=== PATIENT | female | born 1950 | race Caucasian/White ===

== ENCOUNTER 2022-08-29 14:38 | Emergency (ER) | payer MEDICARE, OTHER, SELFPAY | END 2022-08-29 15:36 | disposition left against medical advice (07) | PROVIDERS: PCP Family Medicine | DX: Z53.21 Procedure and treatment not carried out due to patient leaving prior to being seen by health care provider (principal) | CPT/HCPCS: 99281 ==

== ENCOUNTER 2022-12-19 07:58 | Inpatient (IN) | payer MEDICARE, OTHER, MEDICAID, SELFPAY ==
[2022-12-19] VITALS (49 sets, daily range): BP systolic 110–200; BP diastolic 61–105; PULSE 52–84; RESP 16–20; TEMP 36.6–37.3; O2SAT 90–95; BMI 24.7
--- NOTE | 2022-12-19 08:32 | ED.GENADULT ---
HPI - General Adult General Time Seen by Provider: 08:32 Date Seen: 12/19/22 Chief complaint: Dental/Oral/Mouth Injury/Pain Stated complaint: swollen right side of face Time Seen by Provider: 12/19/22 08:27 History of Present Illness HPI narrative: Dee Dee is a 72-year-old female past medical history includes smoking, hypertension, depression presents emergency department via private car with facial swelling patient states that on 12/03 she had teeth removed in anticipation of dentures being placed, she had the bottom once removed last September, a couple days later she sustain a fracture to the right cheek bone area after a fall, there was some swelling yesterday but progressively got worse today, she is scheduled to see her primary care provider at the [facility] today at 9:45 a.m.. Patient went to see ENT on 12/11, she was placed on antibiotics which is cefdinir with concerns with abscesses present, she was seen by Dr. Espinosa and yesterday and everything appeared to be well. She woke up this morning with significantly more pain and swelling to her right facial area, she has not any anticoagulation, she denies any fevers or chills, patient is able to open and close her mouth, area is tender, no erythema or warmth, denies any headache, neck pain, nausea vomiting. No other concerns at this time. Related Data Home Medications Medication Instructions Recorded Confirmed albuterol sulfate 90 mcg/actuation 2 puff inhalation Q4H PRN 08/30/22 12/19/22 aerosol inhaler atorvastatin 40 mg tablet 40 mg PO DAILY 08/30/22 12/19/22 diltiazem HCl 360 mg 360 mg PO DAILY 08/30/22 12/19/22 capsule,extended release 24 hr metoprolol succinate 50 mg 50 mg PO DAILY 08/30/22 12/19/22 tablet,extended release 24 hr nitroglycerin 0.4 mg sublingual 0.4 mg sublingual Q5M PRN 08/30/22 12/19/22 tablet sertraline 100 mg tablet 150 mg PO DAILY 08/30/22 12/19/22 tiotropium bromide 2.5 2 inh inhalation DAILY 08/30/22 12/19/22 mcg/actuation mist for inhalation (Spiriva Respimat) acetaminophen 325 mg tablet (Aphen) 650 mg PO QID PRN 12/19/22 12/19/22 cefdinir 300 mg capsule 300 mg PO BID 12/19/22 12/19/22 cholecalciferol (vitamin D3) 50 50 mcg PO DAILY 12/19/22 12/19/22 mcg (2,000 unit) capsule famotidine 20 mg tablet (Pepcid) 20 mg PO DAILY PRN 12/19/22 12/19/22 lisinopril 20 mg tablet 20 mg PO DAILY 12/19/22 12/19/22 Allergies Allergy/AdvReac Type Severity Reaction Status Date / Time codeine Allergy Mild Hives Verified 12/19/22 08:10 Iodinated Contrast Media Allergy Mild Fever Verified 12/19/22 10:25 Penicillins Allergy Mild Hives Verified 12/19/22 08:10 Review of Systems Status of ROS: Reports: 10 or more systems reviewed and unremarkable except as noted in History and below PFSH PFSH Medical History Adrenal adenoma Brain abscess Cholesteatoma COPD (chronic obstructive pulmonary disease) Depression Diverticulosis Gastroesophageal reflux History of paroxysmal supraventricular tachycardia Hyperlipidemia Hypertension Hypoxia Inguinal hernia Internal hemorrhoids Mastoiditis of right side Prolonged QT interval Smoking Surgical History (Updated 12/19/22 @ 15:54 by Sarabjit Macedo MD) History of appendectomy History of bilateral hip arthroplasty History of colonoscopy History of hysterectomy History of inguinal hernia repair History of right knee joint replacement History of right mastoidectomy History of tonsillectomy and adenoidectomy History of tubal ligation Status post craniotomy Family History (Updated 12/19/22 @ 15:55 by Sarabjit Macedo MD) Sister Breast cancer Pancreatic cancer Lung cancer Father Lung cancer Social History (Updated 12/19/22 @ 15:56 by Sarabjit Macedo MD) Narrative: She lives alone at the [facility]. Either her son Alvarez or daughter Cecily are healthcare power of safety and occupational health manager. Code status is full. She is a current smoker. She drinks alcohol 2 or 3 times per year. Smoking Status: Current every day smoker What tobacco products do you use: cigarettes Smoking packs per day: 0.5 Smoking cigarettes per day: 10.0 Do you use any of these nicotine containing products: None Second hand tobacco smoke exposure: Yes How often do you have a drink containing alcohol: never AUDIT-C Alcohol total score: 0 Non-prescribed substance use: denies use service: No Exam Narrative: Exam Narrative: General: No obvious distress sitting comfortably, nontoxic in appearance HEENT: Significant swelling, involving the lower inferior orbital area, and maxillary sinus area. tender to palpation, there is no induration but has fluctuance, no erythema or warmth. Patient can actively open and close her mouth. No trismus. No appreciable gum swelling. Neck: Supple full range of motion Heart: Normal sinus rhythm S1-S2 Abdomen: Soft nontender Neuro: Alert awake and oriented x3 Const: Vital Signs, click to edit/add: Vital Signs - 24 hr 12/19/22 11:09 12/19/22 11:09 12/19/22 11:11 Temperature 98.3 F Pulse Rate 55 L 57 L Pulse Rate [Pulse Oximeter] 55 L Pulse Rate [Right Radial] Respiratory Rate 18 Blood Pressure 143/74 H Blood Pressure [Ri ght Arm] Blood Pressure [Ri ght Upper Arm] 143/74 H Pulse Oximetry 93 93 94 Oxygen Delivery Me thod Room Air Oxygen Flow Rate 12/19/22 11:15 12/19/22 11:30 12/19/22 11:45 Temperature Pulse Rate 55 L 55 L 57 L Pulse Rate [Pulse Oximeter] Pulse Rate [Right Radial] Respiratory Rate Blood Pressure Blood Pressure [Ri ght Arm] Blood Pressure [Ri ght Upper Arm] Pulse Oximetry 92 94 92 Oxygen Delivery Me thod Oxygen Flow Rate 12/19/22 13:04 12/19/22 13:09 12/19/22 13:14 Temperature 99.2 F Pulse Rate 61 64 62 Pulse Rate [Pulse Oximeter] Pulse Rate [Right Radial] Respiratory Rate 16 16 16 Blood Pressure 198/104 H 200/105 H 179/88 H Blood Pressure [Ri ght Arm] Blood Pressure [Ri ght Upper Arm] Pulse Oximetry 91 93 93 Oxygen Delivery Me thod OxyMask Nasal Cannula Nasal Cannula Oxygen Flow Rate 10 4 4 12/19/22 13:19 12/19/22 13:24 12/19/22 13:29 Temperature Pulse Rate 60 62 63 Pulse Rate [Pulse Oximeter] Pulse Rate [Right Radial] Respiratory Rate 16 16 16 Blood Pressure 177/89 H 181/87 H 172/89 H Blood Pressure [Ri ght Arm] Blood Pressure [Ri ght Upper Arm] Pulse Oximetry 93 93 93 Oxygen Delivery Me thod Nasal Cannula Nasal Cannula Nasal Cannula Oxygen Flow Rate 4 4 4 12/19/22 13:45 12/19/22 13:50 12/19/22 13:35 Temperature Pulse Rate 62 62 63 Pulse Rate [Pulse Oximeter] Pulse Rate [Right Radial] Respiratory Rate 16 16 16 Blood Pressure 163/79 H 165/80 H 166/82 H Blood Pressure [Ri ght Arm] Blood Pressure [Ri ght Upper Arm] Pulse Oximetry 93 94 93 Oxygen Delivery Me thod Nasal Cannula Nasal Cannula Nasal Cannula Oxygen Flow Rate 2 2 4 12/19/22 13:40 12/19/22 13:55 12/19/22 14:00 Temperature Pulse Rate 61 60 60 Pulse Rate [Pulse Oximeter] Pulse Rate [Right Radial] Respiratory Rate 16 16 16 Blood Pressure 164/83 H 148/73 H 146/75 H Blood Pressure [Ri ght Arm] Blood Pressure [Ri ght Upper Arm] Pulse Oximetry 93 93 92 Oxygen Delivery Me thod Nasal Cannula Nasal Cannula Nasal Cannula Oxygen Flow Rate 4 2 2 12/19/22 14:05 12/19/22 14:10 12/19/22 14:15 Temperature Pulse Rate 60 61 62 Pulse Rate [Pulse Oximeter] Pulse Rate [Right Radial] Respiratory Rate 16 16 16 Blood Pressure 142/72 H 142/73 H 117/95 H Blood Pressure [Ri ght Arm] Blood Pressure [Ri ght Upper Arm] Pulse Oximetry 91 91 92 Oxygen Delivery Me thod Nasal Cannula Nasal Cannula Nasal Cannula Oxygen Flow Rate 2 2 2 12/19/22 14:28 12/19/22 14:45 12/19/22 15:00 Temperature Pulse Rate 65 Pulse Rate [Pulse Oximeter] Pulse Rate [Right Radial] 64 63 Respiratory Rate 20 20 18 Blood Pressure Blood Pressure [Ri ght Arm] 134/73 157/89 H 142/84 H Blood Pressure [Ri ght Upper Arm] Pulse Oximetry 90 91 Oxygen Delivery Me thod Nasal Cannula Nasal Cannula Nasal Cannula Oxygen Flow Rate 2 2 2 Course Course Hospital Course: 9:00 AM: AIDET peformed. Workup will include CBC, CRP, CMP, will obtain CT facial bones without contrast due to her allergies to contrast, patient does not want anything for pain at this time. Reevaluation(s) Reevaluation #1: Patient was updated on her CT facial bones without contrast results, extensive soft tissue swelling and inflammation involving the right cheek/pre maxillary/preseptal region. There associated suspected heterogeneous fluid, measuring 2.6 x 4.8 cm. Any this there is pre maxillary soft tissue thickening/fluid with dental periapical lucencies with suspected cortical disruption. Findings are concerning for right facial cellulitis with abscess and possible subperiosteal abscess which may be right maxillary odontogenic in origin. CBC shows mild leukocytosis with a left shift, CRP mildly elevated at 1.3, blood cultures were obtained, she will be given clindamycin 600 mg IV based on her penicillin allergy, did reach out to Dr. Marcelino ENT, he recommended to reach out to maxillofacial, currently at this time there are no beds at [facility], [facility], and [place]. Time: 10:59 Reevaluation #2: Spoke with Dr. Chari LANZA, his recommendation was to take patient to ambulatory surgery for incision and drainage, he will come to the emergency department to see the patient. Patient and family were updated. Time: 11:30 Reevaluation #3: Patient discharged to Ambulatory surgery, Dr. Macedo hospitalist on-call was updated on admission for observation, all questions answered. [facility] Vital Signs Vital signs: Initial Vital Signs Temperature 99.0 F 12/19/22 08:14 Temperature Source Temporal Artery Scan 12/19/22 08:14 Pulse Rate 58 L 12/19/22 08:14 Pulse Rhythm 12/19/22 08:14 Pulse Strength 3+ Normal 12/19/22 08:14 Respiratory Rate 16 12/19/22 08:14 Blood Pressure 143/84 H 12/19/22 08:14 Blood Pressure Mean 103 12/19/22 08:14 Blood Pressure Position Sitting 12/19/22 08:14 Pulse Oximetry 94 12/19/22 08:14 Oxygen Delivery Method 12/19/22 08:14 Vital Signs Temperature 99.0 F 12/19/22 08:14 Pulse Rate 58 L 12/19/22 08:14 Respiratory Rate 16 12/19/22 08:14 Blood Pressure 143/84 H 12/19/22 08:14 Pulse Oximetry 94 12/19/22 08:14 Oxygen Delivery Method 12/19/22 08:14 Temperature 97.8 F 12/20/22 09:00 Pulse Rate 74 12/20/22 09:00 Respiratory Rate 18 12/20/22 09:00 Blood Pressure 115/68 12/20/22 09:00 Pulse Oximetry 93 12/20/22 09:00 Oxygen Delivery Method 12/20/22 09:00 Oxygen Flow Rate 1 12/20/22 09:00 Medical Decision Making Lab Data Labs: Lab Results 12/19/22 12/19/22 12/19/22 Range/Units 09:20 09:20 11:40 WBC 11.39 H (4.50-11.00) K/uL RBC 5.07 (4.00-5.20) m/uL Hgb 14.6 (12.0-16.0) gm/dL Hct 44.1 (33.0-51.0) % MCV 87 (80-100) fL MCH 29 (26-34) pg MCHC 33 (32-36) gm/dL RDW Coeff of Luiz 14.0 (11.5-15.5) % Plt Count 304 (140-440) K/uL Neut % (Auto) 81.9 H (42.0-72.0) % Lymph % (Auto) 11.6 L (20-44) % [place] % (Auto) 5.1 (0.0-11.0) % Eos % (Auto) 0.5 (0.0-7.0) % Baso % (Auto) 0.4 (0.0-3.0) % Neut # (Auto) 9.30 H (1.7-7.0) K/uL Lymph # (Auto) 1.30 (0.90-2.90) K/uL [place] # (Auto) 0.60 (0.00-0.90) K/UL Eos # (Auto) 0.10 (0.00-0.50) K/uL Baso # (Auto) 0.00 (0.00-0.30) K/uL Sodium 136 (135-149) mmol/L Potassium 4.0 (3.6-5.1) mmol/L Chloride 105 (96-114) mmol/L Carbon Dioxide 27 (20-32) mmol/L BUN 13 (7-30) mg/dL Creatinine 0.6 (0.5-1.5) mg/dL Estimated Creat Clear 46.20 Estimated GFR 94 ml/min Glucose 97 (60-115) mg/dL Calcium 8.6 (8.4-10.6) mg/dL Total Bilirubin 0.6 (0.1-1.5) mg/dL AST 27 (12-35) U/L ALT 25 (4-35) U/L Alkaline Phosphatase 66 (40-150) U/L C-Reactive Protein 1.3 H (0.5-1.0) mg/dL Total Protein 6.4 (6.0-8.3) g/dL Albumin 3.8 (3.3-5.0) g/dL SARS-CoV-2 (PCR) Negative SARS-CoV-2 (Negative) Discharge Plan Discharge Clinical Impression: Cellulitis and abscess of face
--- NOTE | 2022-12-19 08:44 | CRLHL7_ITS ---
For Patients: As a result of the Century Cures Act, medical imaging exams and procedure reports are released immediately into your electronic medical record. You may view this report before your referring provider. If you have questions, please contact your health care provider. INDICATION: RIGHT FACIAL SWELLING, HX FRACTURE AND INFECTION, ABSCESS TECHNIQUE: CT maxillofacial without contrast. COMPARISON: None. FINDINGS: Soft tissues: Extensive soft tissue swelling and inflammation involving the right cheek/premaxillary/paraseptal region. There are associated suspected heterogenous fluid, measuring 2.6 x 4.8 cm. Beneath this there is pre maxillary soft tissue thickening/fluid with dental periapical lucencies with suspected cortical disruption on series 3, image 61). The patient appears edentulous with numerous periapical lucencies. Facial bones: There is no evidence of acute facial fracture. There is postoperative changes of the right temporal bone and mastoids. Soft tissue density extends into the residual mastoid cavity as well as the middle ear. The suboptimally characterized on the CT face. Orbits and globes: Unremarkable. Globes are intact. No sign of intraorbital hemorrhage or emphysema. Sinuses: No acute or significant findings. IMPRESSION: Extensive soft tissue swelling and inflammation involving the right cheek/premaxillary/preseptal region. There are associated suspected heterogenous fluid, measuring 2.6 x 4.8 cm. Beneath this there is pre maxillary soft tissue thickening/fluid with dental periapical lucencies with suspected cortical disruption on series 3, image 61). The patient appears edentulous with numerous periapical lucencies. Overall, findings are concerning for right facial cellulitis with abscess and possible subperiosteal abscess which may be right maxillary odontogenic in origin. However, this is incompletely suboptimally evaluated due to lack of IV contrast. Traumatic soft tissue contusion and hematoma could have a similar appearance although this is felt less likely. Recommend clinical correlation and consider repeat imaging with IV contrast if clinically indicated. Sequela of prior right temporal mastoid trauma and surgery is partially characterized. Please note that all CT scans at this facility use dose modulation, iterative reconstruction, and/or weight-based dosing when appropriate to reduce radiation dose to as low as reasonably achievable. Dictated by Russ Guallpa MD @ 12/19/2022 9:56:12 AM (Electronically Signed)
[2022-12-19 09:28] LABS: Basophils Percent Auto 0.4 % (0.0-3.0); Eosinophils Percent Auto 0.5 % (0.0-7.0); Hematocrit 44.1 % (33.0-51.0); Hemoglobin* 14.6 gm/dL (12.0-16.0); Immature Granulocytes Pct Auto 0.5 %; Lymphocytes Percent Auto 11.6 % (20-44); Mean Corpuscular HGB Conc 33 gm/dL (32-36); Mean Corpuscular Hemoglobin 29 pg (26-34); Mean Corpuscular Volume 87 fL (80-100); Monocytes Percent Auto 5.1 % (0.0-11.0); Neutrophils Percent Auto 81.9 % (42.0-72.0); Platelet Count* 304 K/uL (140-440); Red Blood Count 5.07 m/uL (4.00-5.20); White Blood Count* 11.39 K/uL (4.50-11.00)
[2022-12-19 09:40] LABS: Slide Review Reflex No
[2022-12-19 09:44] LABS: Chloride* 105 mmol/L (96-114)
[2022-12-19 09:45] LABS: Albumin* 3.8 g/dL (3.3-5.0); Sodium* 136 mmol/L (135-149)
[2022-12-19 09:47] LABS: Creatinine* 0.6 mg/dL (0.5-1.5); Estimated Glomerular Filt Rate 94 ml/min
[2022-12-19 09:48] LABS: Alanine Aminotransferase* 25 U/L (4-35); Alkaline Phosphatase* 66 U/L (40-150); Aspartate Amino Transferase* 27 U/L (12-35); Bilirubin Total* 0.6 mg/dL (0.1-1.5); Blood Urea Nitrogen* 13 mg/dL (7-30); Carbon Dioxide* 27 mmol/L (20-32); Glucose* 97 mg/dL (60-115); Total Protein* 6.4 g/dL (6.0-8.3)
[2022-12-19 09:49] LABS: Calcium* 8.6 mg/dL (8.4-10.6)
[2022-12-19 09:51] LABS: C Reactive Protein* 1.3 mg/dL (0.5-1.0)
[2022-12-19] MEDS: CLINDAMYCIN PHOSPHATE/D5W 600 MG/50 ML PIGGYBACK IVPB (11:01)
[2022-12-19] MEDS: fentaNYL 100 MCG/2 ML inj 12.5 MCG IVP (11:05)
[2022-12-19 12:23] LABS: SARS PCR* Negative SARS-CoV-2 (Negative)
--- NOTE | 2022-12-19 12:30 | ED.NURSE ---
Pt to OR.
[2022-12-19] MEDS: BUPIVACAINE 0.25 %/EPI 1:200K 30 ml INJECTION (12:55)
[2022-12-19] MEDS: fentaNYL 100 MCG/2 ML inj 50 MCG IVP ×2 (13:17→13:48)
--- NOTE | 2022-12-19 13:18 | W.ANESCHARGE ---
Anesthesia Charges Start Date/Time Anesthesia Start Date: 12/19/22 Anesthesia Start Time: 12:36 Stop Date/Time Anesthesia Stop Date: 12/19/22 Anesthesia Stop Time: 13:08 Summary Emergency: Yes Extremes of Age: Over 70-CPT 03544
--- NOTE | 2022-12-19 13:22 | W.ANESCHARGE ---
Anesthesia Charges Start Date/Time Anesthesia Start Date: 12/19/22 Anesthesia Start Time: 12:36 Stop Date/Time Anesthesia Stop Date: 12/19/22 Anesthesia Stop Time: 13:08 Summary Emergency: Yes Extremes of Age: Over 70-CPT 06340
[2022-12-19] MEDS: HYDROmorphone 0.5 mg/0.5 ml inj IVP (13:33)
--- NOTE | 2022-12-19 13:38 | W.PM.ENTCN ---
HPI- ENT Consult Date of Consult Date Seen: 11/21/22 Patient: Other Consult date: 12/19/22 Primary Care Provider: Gladis Espinosa MD Consult Narrative Reason for consult: Right buccal abscess following dental extraction Narrative: Nena Styles is a 72 year old female but dental extraction of several upper and 1 lower right teeth that were infected at the [facility] proximally 2 weeks ago. She was not treated with postoperative antibiotics. She has progressively developed right facial swelling and pain. CT scan was performed in the ED here the demonstrates a fluid collection in the right pre maxillary space and preseptal space with a 2.5 x 4.7 cm fluid collection. [facility] Social History Smoking Status: Current every day smoker What tobacco products do you use: cigarettes Smoking packs per day: 0.5 Smoking cigarettes per day: 10.0 Do you use any of these nicotine containing products: None Second hand tobacco smoke exposure: Yes How often do you have a drink containing alcohol: never AUDIT-C Alcohol total score: 0 Non-prescribed substance use: denies use service: No Meds Home Medications and Allergies Home Medications Medication Instructions Recorded Confirmed Type albuterol sulfate 90 mcg/actuation 1 puff inhalation 08/30/22 08/30/22 History aerosol inhaler atorvastatin 40 mg tablet 40 mg PO QDAY 08/30/22 12/19/22 History diltiazem HCl 360 mg 360 mg PO 08/30/22 08/30/22 History capsule,extended release 24 hr lisinopril 10 mg tablet 10 mg PO QDAY 08/30/22 12/19/22 History metoprolol succinate 50 mg 50 mg PO 08/30/22 08/30/22 History tablet,extended release 24 hr nitroglycerin 0.4 mg sublingual 0.4 mg sublingual Q5-15M 08/30/22 12/19/22 History tablet sertraline 100 mg tablet 100 mg PO QDAY 08/30/22 12/19/22 History tiotropium bromide 2.5 2 inh inhalation 08/30/22 08/30/22 History mcg/actuation mist for inhalation (Spiriva Respimat) cefdinir 300 mg capsule 300 mg PO Q12H 12/19/22 12/19/22 History Allergies Allergy/AdvReac Type Severity Reaction Status Date / Time codeine Allergy Mild Hives Verified 12/19/22 08:10 Iodinated Contrast Media Allergy Mild Fever Verified 12/19/22 10:25 Penicillins Allergy Mild Hives Verified 12/19/22 08:10 Exam Narrative: Exam Narrative: General skin neuro respiratory gait peripheral vascular vocal quality respiratory effort skin of head and neck negative ear external canal TM negative nose mucosa septum turbinates negative oral cavity oropharynx hypopharynx larynx neck parotid thyroid all negative with the exception of: Ears not examined, right facial swelling over the right cheek with hard induration and erythema. Facial nerve unable to ascertain mouth movement due to swelling. There is no apparent ocular involvement oral cavity oropharynx shows pus exuding from 1 of the upper extraction sites on the throat and hypopharynx and larynx all appear normal neck is normal Const: Vital Signs, click to edit/add: Vital Signs - 24 hr 12/19/22 08:14 12/19/22 09:21 12/19/22 11:09 Temperature 99.0 F 98.2 F 98.3 F Pulse Rate Pulse Rate [Pulse Oximeter] 58 L 55 L Respiratory Rate 16 18 18 Blood Pressure Blood Pressure [Ri ght Upper Arm] 143/84 H 146/77 H 143/74 H Pulse Oximetry 94 92 93 Oxygen Delivery Me thod Room Air Room Air Room Air Oxygen Flow Rate 12/19/22 08:19 12/19/22 08:21 12/19/22 08:30 Temperature Pulse Rate 84 58 L Pulse Rate [Pulse Oximeter] Respiratory Rate Blood Pressure 143/84 H Blood Pressure [Ri ght Upper Arm] Pulse Oximetry 92 95 Oxygen Delivery Me thod Oxygen Flow Rate 12/19/22 08:45 12/19/22 09:00 12/19/22 09:15 Temperature Pulse Rate 57 L 58 L 53 L Pulse Rate [Pulse Oximeter] Respiratory Rate Blood Pressure Blood Pressure [Ri ght Upper Arm] Pulse Oximetry 93 92 92 Oxygen Delivery Me thod Oxygen Flow Rate 12/19/22 09:23 12/19/22 11:09 12/19/22 11:11 Temperature Pulse Rate 54 L 55 L 57 L Pulse Rate [Pulse Oximeter] Respiratory Rate Blood Pressure 146/77 H 143/74 H Blood Pressure [Ri ght Upper Arm] Pulse Oximetry 92 93 94 Oxygen Delivery Me thod Oxygen Flow Rate 12/19/22 11:15 12/19/22 11:30 12/19/22 11:45 Temperature Pulse Rate 55 L 55 L 57 L Pulse Rate [Pulse Oximeter] Respiratory Rate Blood Pressure Blood Pressure [Ri t Upper Arm] Pulse Oximetry 92 94 92 Oxygen Delivery Me thod Oxygen Flow Rate 12/19/22 13:04 12/19/22 13:09 12/19/22 13:14 Temperature 99.2 F Pulse Rate 61 64 62 Pulse Rate [Pulse Oximeter] Respiratory Rate 16 16 16 Blood Pressure 198/104 H 200/105 H 179/88 H Blood Pressure [Ri ght Upper Arm] Pulse Oximetry 91 93 93 Oxygen Delivery Me thod OxyMask Nasal Cannula Nasal Cannula Oxygen Flow Rate 10 4 4 12/19/22 13:19 12/19/22 13:24 12/19/22 13:29 Temperature Pulse Rate 60 62 63 Pulse Rate [Pulse Oximeter] Respiratory Rate 16 16 16 Blood Pressure 177/89 H 181/87 H 172/89 H Blood Pressure [Ri ght Upper Arm] Pulse Oximetry 93 93 93 Oxygen Delivery Me thod Nasal Cannula Nasal Cannula Nasal Cannula Oxygen Flow Rate 4 4 4 12/19/22 13:35 12/19/22 13:37 Temperature Pulse Rate 63 Pulse Rate [Pulse Oximeter] Respiratory Rate 16 Blood Pressure 166/82 H Blood Pressure [Ri t Upper Arm] Pulse Oximetry 93 Oxygen Delivery Me thod Nasal Cannula Nasal Cannula Oxygen Flow Rate 4 4 ENT-CN: Result Labs Labs: Short CBC 12/19/22 Range/Units 09:20 WBC 11.39 H (4.50-11.00) K/uL Hgb 14.6 (12.0-16.0) gm/dL Hct 44.1 (33.0-51.0) % Plt Count 304 (140-440) K/uL BMP 12/19/22 09:20 Sodium 136 Potassium 4.0 Chloride 105 Carbon Dioxide 27 BUN 13 Creatinine 0.6 Glucose 97 Calcium 8.6 Liver Function 12/19/22 Range/Units 09:20 Total Bilirubin 0.6 (0.1-1.5) mg/dL AST 27 (12-35) U/L ALT 25 (4-35) U/L Alkaline Phosphatase 66 (40-150) U/L Albumin 3.8 (3.3-5.0) g/dL Assessment and Plan Assessment and plan (1) Cellulitis and abscess of face: Status: Acute Plan Right facial abscess following dental extraction Discussed options given the large fluid collection I would favor incision and drainage transoral. Risks including injury to a parotid duct facial nerve muscles etc. were all reviewed as well as failure to resolve abscess. Anesthesia risk was also reviewed. She understands and consents to procedure
[2022-12-19] MEDS: LACTATED RINGERS 1000 ML 1,000 ML 35 ML IV (13:40)
--- NOTE | 2022-12-19 13:41 | P.ENTPROC_ITS ---
Procedure Note Date of procedure: 12/19/22 Procedure: Preoperative diagnosis right buccal abscess postoperative diagnosis same Procedure is transoral incision and drainage right buccal abscess After informed consent was obtained and general endotracheal anesthesia induced the patient was prepped and draped in usual fashion. In area above the buccal gingival sulcus was identified and injected. The parotid duct orifice was identified and avoided. The injection was my usual solution. A needlepoint cautery is used to make a small incision in the buccal mucosa just above the gingival line. Dissection was then carried down to the bone and then more posteriorly. There are I encountered some serosanguineous fluid. More anteriorly in the buccal space there was a pus collection this was identified and drained. Blunt dissection was used to open the abscess cavity. The cavity was then cultured and irrigated. Two [place] drains were placed and sutured to the buccal mucosa. The patient tolerated procedure well was taken recovery in satisfactory condition blood loss during procedure less than 25 mL. End of dictation thank you Surgeon: Thanh Marcelino MD
--- NOTE | 2022-12-19 15:02 | PC.NURSE ---
End of Shift Note: Patient arrived to room 281 from PACU. Patient is alert and orientated. no complaints of pain. Did apply oxygen per nc as her O2 sats were 86% on room air. No complaint of nausea or vomiting noted. she does have a demetrius drain that was placed by Dr. Greene who would like it to stay in place. Dr. Macedo has also seen patient and states she can eat mechanical soft diet. Will be giving report to the next shift.
[2022-12-19] MEDS: cefTRIAXone 2 GM in 0.9 % SODIUM CHLORIDE Mini-bag 100 ML IVPB (15:36)
--- NOTE | 2022-12-19 15:44 | PM.IMHP1 ---
Hospitalist- H&P: HPI History of Present Illness Date Seen: 12/19/22 Chief complaint: swollen right side of face Narrative: Nena Styles is a 72 year old female admitted to the hospital with right facial abscess. Sixteen days ago patient underwent dental extraction at the [facility]. This is in anticipation of getting dentures. One of her teeth that was extracted was apparently infected at the time. Following those extractions she did well. She did not receive an antibiotic and she reported her face was painful but getting better day by day. She did have a fall a couple days after surgery and bumped her right cheek but that did not seem to make it any worse. She then saw an Ear Nose and Throat doctor, possibly about a week ago, who started her on cefdinir for an infection. She was doing fine for few days and then in the last day got acutely worse. She was seen at the dental clinic yesterday and at that time thought to be doing okay. Since then however the swelling and pain in her right cheek is gotten much worse. She is not aware of any fever. She has no trouble breathing. She has been eating a soft diet. She was taken to the operating room by Dr. Marcelino who drained what he believed was primarily oral/dental abscess through the mucosa of the mouth. She never had any lesions external to the mouth on her cheek. Review of Systems Narrative: She denies any other health concerns or medical problems in the last few weeks except as noted above. PFSH PFSH Medical History Adrenal adenoma Brain abscess Cholesteatoma COPD (chronic obstructive pulmonary disease) Depression Diverticulosis Gastroesophageal reflux History of paroxysmal supraventricular tachycardia Hyperlipidemia Hypertension Hypoxia Inguinal hernia Internal hemorrhoids Mastoiditis of right side Prolonged QT interval Smoking Surgical History (Updated 12/19/22 @ 15:54 by Sarabjit Macedo MD) History of appendectomy History of bilateral hip arthroplasty History of colonoscopy History of hysterectomy History of inguinal hernia repair History of right knee joint replacement History of right mastoidectomy History of tonsillectomy and adenoidectomy History of tubal ligation Status post craniotomy Family History (Updated 12/19/22 @ 15:55 by Sarabjit Macedo MD) Sister Breast cancer Pancreatic cancer Lung cancer Father Lung cancer Social History (Updated 12/19/22 @ 15:56 by Sarabjit Macedo MD) Narrative: She lives alone at the [facility]. Either her son Alvarez or daughter Cecily are healthcare power of transactional attorney. Code status is full. She is a current smoker. She drinks alcohol 2 or 3 times per year. Smoking Status: Current every day smoker What tobacco products do you use: cigarettes Smoking packs per day: 0.5 Smoking cigarettes per day: 10.0 Do you use any of these nicotine containing products: None Second hand tobacco smoke exposure: Yes How often do you have a drink containing alcohol: never AUDIT-C Alcohol total score: 0 Non-prescribed substance use: denies use service: No Meds Home Medications and Allergies Home Medications Medication Instructions Recorded Confirmed Type albuterol sulfate 90 mcg/actuation 2 puff inhalation Q4H PRN 08/30/22 12/19/22 History aerosol inhaler atorvastatin 40 mg tablet 40 mg PO DAILY 08/30/22 12/19/22 History diltiazem HCl 360 mg 360 mg PO DAILY 08/30/22 12/19/22 History capsule,extended release 24 hr metoprolol succinate 50 mg 50 mg PO DAILY 08/30/22 12/19/22 History tablet,extended release 24 hr nitroglycerin 0.4 mg sublingual 0.4 mg sublingual Q5M PRN 08/30/22 12/19/22 History tablet sertraline 100 mg tablet 150 mg PO DAILY 08/30/22 12/19/22 History tiotropium bromide 2.5 2 inh inhalation DAILY 08/30/22 12/19/22 History mcg/actuation mist for inhalation (Spiriva Respimat) acetaminophen 325 mg tablet (Aphen) 650 mg PO QID PRN 12/19/22 12/19/22 History cefdinir 300 mg capsule 300 mg PO BID 12/19/22 12/19/22 History cholecalciferol (vitamin D3) 50 50 mcg PO DAILY 12/19/22 12/19/22 History mcg (2,000 unit) capsule famotidine 20 mg tablet (Pepcid) 20 mg PO DAILY PRN 12/19/22 12/19/22 History lisinopril 20 mg tablet 20 mg PO DAILY 12/19/22 12/19/22 History Allergies Allergy/AdvReac Type Severity Reaction Status Date / Time codeine Allergy Mild Hives Verified 12/19/22 08:10 Iodinated Contrast Media Allergy Mild Fever Verified 12/19/22 10:25 Penicillins Allergy Mild Hives Verified 12/19/22 08:10 Exam Narrative: Exam Narrative: She is alert and appears in no distress. She gives her own history. Inspection of her head shows moderate swelling of the right cheek. This is relatively tense and also tender to palpation. There is no skin opening or lesion on the face. In the buccal mucosa between the mandibular teeth and the cheek is a drain coming out near the central incisors. Oropharynx is otherwise unremarkable. She does not have any trouble breathing or airway problems at this time. No stridor. Respirations are clear to auscultation. Cardiovascular: S1, S2, regular rate and rhythm. Abdomen: Bowel sounds active. Abdomen is soft without tenderness. Extremities without edema. Good peripheral pulses. She moves all 4 extremities well. No rash. Const: Vital Signs, click to edit/add: Vital Signs - 24 hr 12/19/22 08:14 12/19/22 09:21 12/19/22 11:09 Temperature 99.0 F 98.2 F 98.3 F Pulse Rate Pulse Rate [Pulse Oximeter] 58 L 55 L Pulse Rate [Right Radial] Respiratory Rate 16 18 18 Blood Pressure Blood Pressure [Ri ght Arm] Blood Pressure [Ri ght Upper Arm] 143/84 H 146/77 H 143/74 H Pulse Oximetry 94 92 93 Oxygen Delivery Me thod Room Air Room Air Room Air Oxygen Flow Rate 12/19/22 08:19 12/19/22 08:21 12/19/22 08:30 Temperature Pulse Rate 84 58 L Pulse Rate [Pulse Oximeter] Pulse Rate [Right Radial] Respiratory Rate Blood Pressure 143/84 H Blood Pressure [Ri ght Arm] Blood Pressure [Ri ght Upper Arm] Pulse Oximetry 92 95 Oxygen Delivery Me thod Oxygen Flow Rate 12/19/22 08:45 12/19/22 09:00 12/19/22 09:15 Temperature Pulse Rate 57 L 58 L 53 L Pulse Rate [Pulse Oximeter] Pulse Rate [Right Radial] Respiratory Rate Blood Pressure Blood Pressure [Ri ght Arm] Blood Pressure [Ri ght Upper Arm] Pulse Oximetry 93 92 92 Oxygen Delivery Me thod Oxygen Flow Rate 12/19/22 09:23 12/19/22 11:09 12/19/22 11:11 Temperature Pulse Rate 54 L 55 L 57 L Pulse Rate [Pulse Oximeter] Pulse Rate [Right Radial] Respiratory Rate Blood Pressure 146/77 H 143/74 H Blood Pressure [Ri ght Arm] Blood Pressure [Ri ght Upper Arm] Pulse Oximetry 92 93 94 Oxygen Delivery Me thod Oxygen Flow Rate 12/19/22 11:15 12/19/22 11:30 12/19/22 11:45 Temperature Pulse Rate 55 L 55 L 57 L Pulse Rate [Pulse Oximeter] Pulse Rate [Right Radial] Respiratory Rate Blood Pressure Blood Pressure [Ri ght Arm] Blood Pressure [Ri ght Upper Arm] Pulse Oximetry 92 94 92 Oxygen Delivery Me thod Oxygen Flow Rate 12/19/22 13:04 12/19/22 13:09 12/19/22 13:14 Temperature 99.2 F Pulse Rate 61 64 62 Pulse Rate [Pulse Oximeter] Pulse Rate [Right Radial] Respiratory Rate 16 16 16 Blood Pressure 198/104 H 200/105 H 179/88 H Blood Pressure [Ri ght Arm] Blood Pressure [Ri ght Upper Arm] Pulse Oximetry 91 93 93 Oxygen Delivery Me thod OxyMask Nasal Cannula Nasal Cannula Oxygen Flow Rate 10 4 4 12/19/22 13:19 12/19/22 13:24 12/19/22 13:29 Temperature Pulse Rate 60 62 63 Pulse Rate [Pulse Oximeter] Pulse Rate [Right Radial] Respiratory Rate 16 16 16 Blood Pressure 177/89 H 181/87 H 172/89 H Blood Pressure [Ri ght Arm] Blood Pressure [Ri ght Upper Arm] Pulse Oximetry 93 93 93 Oxygen Delivery Me thod Nasal Cannula Nasal Cannula Nasal Cannula Oxygen Flow Rate 4 4 4 12/19/22 13:45 12/19/22 13:50 12/19/22 13:35 Temperature Pulse Rate 62 62 63 Pulse Rate [Pulse Oximeter] Pulse Rate [Right Radial] Respiratory Rate 16 16 16 Blood Pressure 163/79 H 165/80 H 166/82 H Blood Pressure [Ri ght Arm] Blood Pressure [Ri ght Upper Arm] Pulse Oximetry 93 94 93 Oxygen Delivery Me thod Nasal Cannula Nasal Cannula Nasal Cannula Oxygen Flow Rate 2 2 4 12/19/22 13:40 12/19/22 13:55 12/19/22 14:00 Temperature Pulse Rate 61 60 60 Pulse Rate [Pulse Oximeter] Pulse Rate [Right Radial] Respiratory Rate 16 16 16 Blood Pressure 164/83 H 148/73 H 146/75 H Blood Pressure [Ri ght Arm] Blood Pressure [Ri ght Upper Arm] Pulse Oximetry 93 93 92 Oxygen Delivery Me thod Nasal Cannula Nasal Cannula Nasal Cannula Oxygen Flow Rate 4 2 2 12/19/22 14:05 12/19/22 14:10 12/19/22 14:15 Temperature Pulse Rate 60 61 62 Pulse Rate [Pulse Oximeter] Pulse Rate [Right Radial] Respiratory Rate 16 16 16 Blood Pressure 142/72 H 142/73 H 117/95 H Blood Pressure [Ri ght Arm] Blood Pressure [Ri ght Upper Arm] Pulse Oximetry 91 91 92 Oxygen Delivery Me thod Nasal Cannula Nasal Cannula Nasal Cannula Oxygen Flow Rate 2 2 2 12/19/22 14:28 12/19/22 14:45 Temperature Pulse Rate 65 Pulse Rate [Pulse Oximeter] Pulse Rate [Right Radial] 64 Respiratory Rate 20 20 Blood Pressure Blood Pressure [Ri ght Arm] 134/73 157/89 H Blood Pressure [Ri ght Upper Arm] Pulse Oximetry 90 Oxygen Delivery Me thod Nasal Cannula Nasal Cannula Oxygen Flow Rate 2 2 Documenting provider has reviewed patient's vital signs: yes Hospitalist - H&P: Result Labs Labs: Short CBC 12/19/22 Range/Units 09:20 WBC 11.39 H (4.50-11.00) K/uL Hgb 14.6 (12.0-16.0) gm/dL Hct 44.1 (33.0-51.0) % Plt Count 304 (140-440) K/uL BMP 12/19/22 09:20 Sodium 136 Potassium 4.0 Chloride 105 Carbon Dioxide 27 BUN 13 Creatinine 0.6 Glucose 97 Calcium 8.6 Liver Function 12/19/22 Range/Units 09:20 Total Bilirubin 0.6 (0.1-1.5) mg/dL AST 27 (12-35) U/L ALT 25 (4-35) U/L Alkaline Phosphatase 66 (40-150) U/L Albumin 3.8 (3.3-5.0) g/dL Imaging CT- Other: Radiologist's impression: Patient: Nena Styles MR#: [id number] : 1950 Acct:[id number] Loc: ED Service Date: 12/19/[address]: Ordering Physician: Hamzah Montano M.D. Date of Service: 12/19/22 Procedure(s): CT facial bones wo con Accession Number(s): [id number] cc: Hamzah Montano M.D.; Gladis Espinosa M.D.~ For Patients:? As a result of the Cures Act, medical imaging exams and procedure reports are released immediately into your electronic medical record.? You may view this report before your referring provider.? If you have questions, please contact your health care provider. INDICATION: RIGHT FACIAL SWELLING, HX FRACTURE AND INFECTION, ABSCESS TECHNIQUE: CT maxillofacial without contrast. COMPARISON: None. FINDINGS: Soft tissues: Extensive soft tissue swelling and inflammation involving the right cheek/premaxillary/paraseptal region. There are associated suspected heterogenous fluid, measuring 2.6 x 4.8 cm. Beneath this there is pre maxillary soft tissue thickening/fluid with dental periapical lucencies with suspected cortical disruption on series 3, image 61). The patient appears edentulous with numerous periapical lucencies. Facial bones: There is no evidence of acute facial fracture. There is postoperative changes of the right temporal bone and mastoids. Soft tissue density extends into the residual mastoid cavity as well as the middle ear. The suboptimally characterized on the CT face. Orbits and globes: Unremarkable. Globes are intact. No sign of intraorbital hemorrhage or emphysema. Sinuses: No acute or significant findings. IMPRESSION: Extensive soft tissue swelling and inflammation involving the right cheek/premaxillary/preseptal region. There are associated suspected heterogenous fluid, measuring 2.6 x 4.8 cm. Beneath this there is pre maxillary soft tissue thickening/fluid with dental periapical lucencies with suspected cortical disruption on series 3, image 61). The patient appears edentulous with numerous periapical lucencies. Overall, findings are concerning for right facial cellulitis with abscess and possible subperiosteal abscess which may be right maxillary odontogenic in origin. However, this is incompletely suboptimally evaluated due to lack of IV contrast. Traumatic soft tissue contusion and hematoma could have a similar appearance although this is felt less likely. Recommend clinical correlation and consider repeat imaging with IV contrast if clinically indicated. Sequela of prior right temporal mastoid trauma and surgery is partially characterized. Please note that all CT scans at this facility use dose modulation, iterative reconstruction, and/or weight-based dosing when appropriate to reduce radiation dose to as low as reasonably achievable. Dictated by Russ Guallpa MD @ 12/19/2022 9:56:12 AM (Electronically Signed) Assessment and Plan Assessment and plan (1) Cellulitis and abscess of face: Problem comment: Status post I&D. Drain in place. Due to penicillin allergy I will treat with ceftriaxone plus metronidazole Status: Acute (2) Smoking: Problem comment: Nicotine replacement Status: Acute (3) Hypoxia: Problem comment: Postoperative hypoxia. Needing oxygen to maintain O2 sat above 88%. Suspect due to sedation from surgery. Replace oxygen and monitor. Status: Acute Plan She is admitted the hospital. IV antibiotics as above. Ongoing coordination with ENT. Anticipate 2 or 3 days in a hospital with IV antibiotics and monitoring for need for repeat I&D Total time spent is 60 minutes, 40 minutes in coordination of care and discussing with patient and other providers management of facial abscess.
[2022-12-19] MEDS: metroNIDAZOLE 500 MG/100 ML PIGGYBACK IVPB ×2 (16:46→23:58)
[2022-12-19] MEDS: ACETAMINOPHEN 325 MG TABLET 650 MG PO (16:56)
--- NOTE | 2022-12-19 19:52 | PC.NURSE ---
demetrius drain in place. ice to right cheek. 2L nasal cannula for sat's in mid 90's. Pain 4/10, Tylenol with relief.
--- NOTE | 2022-12-19 19:52 | PC.NURSE ---
1/5 L nasal cannula entire day, sats hold 89-92%. Up with assist of 1, gait belt, and walker to BR. Saline locked. Ke[place] pulled. Continent of bowel and bladder. Able to feed self.
[2022-12-20] VITALS (10 sets, daily range): BP systolic 115–146; BP diastolic 66–79; PULSE 55–74; RESP 18; TEMP 36.4–37.2; O2SAT 89–93
--- NOTE | 2022-12-20 07:05 | PC.NURSE ---
23-07: pleasant and cooperative. Calls appropriately. Indep in room. No c/o pain. VSS. On 1 L O2 via NS, sats 90-92%. Encouraged deep breathing exercise.
[2022-12-20 08:03] LABS: Basophils Percent Auto 0.1 % (0.0-3.0); Eosinophils Percent Auto 0.2 % (0.0-7.0); Hematocrit 41.4 % (33.0-51.0); Hemoglobin* 13.8 gm/dL (12.0-16.0); Immature Granulocytes Pct Auto 0.5 %; Lymphocytes Percent Auto 6.2 % (20-44); Mean Corpuscular HGB Conc 33 gm/dL (32-36); Mean Corpuscular Hemoglobin 29 pg (26-34); Mean Corpuscular Volume 86 fL (80-100); Monocytes Percent Auto 4.2 % (0.0-11.0); Neutrophils Percent Auto 88.8 % (42.0-72.0); Platelet Count* 311 K/uL (140-440); RDW Coefficient of Variation % 14.1 % (11.5-15.5); White Blood Count* 12.92 K/uL (4.50-11.00)
[2022-12-20 08:05] LABS: Slide Review Reflex No
[2022-12-20 08:21] LABS: C Reactive Protein* 4.1 mg/dL (0.5-1.0)
[2022-12-20] MEDS: ATORVASTATIN CALCIUM 40 MG TABLET PO (08:55)
[2022-12-20] MEDS: SERTRALINE 100 MG TABLET 150 MG PO (08:55)
[2022-12-20] MEDS: lisinopriL 20 MG TABLET PO (08:56)
[2022-12-20] MEDS: dilTIAZem 180 MG CAP (CD) 360 MG PO (08:57)
[2022-12-20] MEDS: METOPROLOL SUCCINATE (XL) 50 MG TAB PO (08:57)
[2022-12-20] MEDS: metroNIDAZOLE 500 MG/100 ML PIGGYBACK IVPB ×2 (08:58→16:55)
[2022-12-20] MEDS: IPRATROPIUM 200 MCG/ML AMPUL.NEB 500 MCG NEB ×3 (08:58→19:42)
--- NOTE | 2022-12-20 14:26 | CRLHL7_ITS ---
For Patients: As a result of the Century Cures Act, medical imaging exams and procedure reports are released immediately into your electronic medical record. You may view this report before your referring provider. If you have questions, please contact your health care provider. INDICATION: Abscess follow-up TECHNIQUE: CT maxillofacial without contrast. COMPARISON: Maxillofacial CT 12/19/2022 FINDINGS: Soft tissues: There is prominent fat stranding in the pre maxillary and buccal region. Heterogeneous fluid is again demonstrated measuring 3.3 x 1.8 centimeters. There has been interval placement of a subcutaneous drain which is at the anterior aspect of this collection. Adjacent periapical abscesses are identified at the right maxilla. Facial bones: Bilateral temporomandibular joint osteoarthritis. Status post right mastoidectomy with right temporal craniotomy and mesh. Orbits and globes: Unremarkable. Globes are intact. No sign of intraorbital hemorrhage or emphysema. Sinuses: No acute or significant findings. IMPRESSION: Right facial cellulitis, presumed odontogenic, with pre maxillary abscess with interval placement of a subcutaneous drain at the anterior aspect of the abscess. Compared to the prior examination, size of the abscess and inflammation is mildly improved. Please note that all CT scans at this facility use dose modulation, iterative reconstruction, and/or weight-based dosing when appropriate to reduce radiation dose to as low as reasonably achievable. Dictated by Stephen Sow MD @ 12/20/2022 3:49:25 PM (Electronically Signed)
[2022-12-20] MEDS: LACTATED RINGERS 1000 ML 1,000 ML 35 ML IV (15:48)
[2022-12-20] MEDS: cefTRIAXone 2 GM in 0.9 % SODIUM CHLORIDE Mini-bag 100 ML IVPB (15:49)
[2022-12-20] MEDS: LACTATED RINGERS 1000 ML 1,000 ML 100 ML IV (16:30)
--- NOTE | 2022-12-20 18:32 | P.IMPN_ITS ---
Progress Note: A&P Assessment and plan (1) Cellulitis and abscess of face: Problem details: Status post I&D. Drain in place. Due to penicillin allergy I will treat with ceftriaxone plus metronidazole. Cultures pending. Patient is clearly not better. Repeat CT shows residual abscess with a drain anterior to it. Reviewed with Dr. Marcelino. He felt the patient will be best served by returning to her oral surgeon who provided the surgery in the 1st place. The surgeon at the [facility] is accepting the patient but the [facility] reports no beds available for transfer for at least a week. Dr. Marcelino plans to take her back to the OR to reposition the drain tomorrow. Continue other supportive cares. Status: Acute (2) Smoking: Problem details: Nicotine replacement Status: Acute (3) Hypoxia: Problem details: Postoperative hypoxia. Needing oxygen to maintain O2 sat above 88%. Suspect due to sedation from surgery. Replace oxygen and monitor. Status: Acute Plan Continue in hospital pending clinical improvement. Patient is in agreement with this plan Time Spent With Patient Total time spent: Total time spent today is 50 minutes, 35 minutes in coordination of care discussing with patient and other providers ongoing management of her abscess and coordinated possible transfer. Subjective Date Seen: 12/20/22 Interval history: 72-year-old female seen in followup of right face abscess and cellulitis. She is approximately 2 and half weeks status post dental extraction by oral surgery at the [facility]. One of the teeth was apparently infected at the time. She acutely got worse in the last day or 2 prior to hospital admission. She was taken to the OR by Dr. Marcelino yesterday for incision and drainage. She still has a drain in place but is not aware that is still draining purulent fluid. She is not aware of any fever. She reports the pain and swelling in her face seems about the same. Exam Narrative: Exam Narrative: She is alert and appears in no distress. Speech is normal. Is examined. The swelling is about the same as yesterday. The induration and fullness in that right cheek is about the same 2 I do not palpate fluctuance but more firm swelling. The tenderness is about the same. Minimal erythema is about the same. Neck is supple without mass or adenopathy. Oropharynx is without other abnormality. Drain is still in place. Respirations are clear to auscultation. Breathing is unlabored. Cardiovascular: S1, S2, relatively regular rhythm. Abdomen is soft without tenderness. Const: Vital Signs, click to edit/add: Vital Signs - 24 hr 12/19/22 19:51 12/19/22 23:00 12/19/22 23:00 Temperature Pulse Rate Pulse Rate [Pulse Oximeter] Pulse Rate [Right Radial] 60 55 L Respiratory Rate 18 18 18 Blood Pressure [Ri ght Arm] 110/61 Pulse Oximetry 93 90 Oxygen Delivery Me thod Nasal Cannula Room Air Oxygen Flow Rate 2 12/19/22 20:30 12/19/22 22:00 12/19/22 23:00 Temperature 98.9 F Pulse Rate 63 53 L Pulse Rate [Pulse Oximeter] Pulse Rate [Right Radial] 60 Respiratory Rate 18 Blood Pressure [Ri ght Arm] 115/64 Pulse Oximetry 93 Oxygen Delivery Me thod Room Air Oxygen Flow Rate 2 12/19/22 23:00 12/20/22 04:20 12/20/22 09:00 Temperature 97.8 F 97.5 F L Pulse Rate Pulse Rate [Pulse Oximeter] 60 Pulse Rate [Right Radial] 55 L Respiratory Rate 18 18 18 Blood Pressure [Ri ght Arm] 112/70 146/71 H Pulse Oximetry 90 93 93 Oxygen Delivery Me thod Nasal Cannula Room Air Room Air Oxygen Flow Rate 1 1 12/20/22 09:00 12/20/22 07:30 12/20/22 11:45 Temperature 97.8 F 98.1 F Pulse Rate 64 Pulse Rate [Pulse Oximeter] 74 67 Pulse Rate [Right Radial] Respiratory Rate 18 18 Blood Pressure [Ri ght Arm] 115/68 119/66 Pulse Oximetry 93 91 Oxygen Delivery Me thod Room Air Room Air Oxygen Flow Rate 1 12/20/22 15:11 12/20/22 15:40 Temperature 98.2 F Pulse Rate Pulse Rate [Pulse Oximeter] 60 Pulse Rate [Right Radial] Respiratory Rate 18 18 Blood Pressure [Ri ght Arm] 118/75 Pulse Oximetry 92 90 Oxygen Delivery Me thod Room Air Room Air Oxygen Flow Rate Documenting provider has reviewed patient's vital signs: yes Labs Labs: Laboratory Results - last 24 hr 12/20/22 12/20/22 07:54 07:54 WBC 12.92 H RBC 4.80 Hgb 13.8 Hct 41.4 MCV 86 MCH 29 MCHC 33 RDW Coeff of Luiz 14.1 Plt Count 311 Neut % (Auto) 88.8 H Lymph % (Auto) 6.2 L [place] % (Auto) 4.2 Eos % (Auto) 0.2 Baso % (Auto) 0.1 Neut # (Auto) 11.50 H Lymph # (Auto) 0.80 L [place] # (Auto) 0.50 Eos # (Auto) 0.00 Baso # (Auto) 0.00 C-Reactive Protein 4.1 H
--- NOTE | 2022-12-20 18:44 | PC.NURSE ---
Pt up independently. Denies pain, denies need for pain medication. Right cheek swollen, ice to cheek with relief. Pt will have oral surgery 0700 12/[address] Call, NPO @1422.
[2022-12-20] MEDS: ACETAMINOPHEN 325 MG TABLET 650 MG PO (19:42)
--- NOTE | 2022-12-20 22:48 | PC.NURSE ---
Status [id number] Alert and oriented. Pleasant and cooperative. PRN tylenol given for right cheek pain with relief noted. VSS on room air. Pt will be NPO overnight for surgery at 0700 on 12/21. LR at 100mL/hr. Up independently.
[2022-12-21] VITALS (32 sets, daily range): BP systolic 113–200; BP diastolic 67–153; PULSE 55–96; RESP 16–18; TEMP 35.5–37.1; O2SAT 88–95
[2022-12-21] MEDS: metroNIDAZOLE 500 MG/100 ML PIGGYBACK IVPB ×3 (00:47→20:07)
--- NOTE | 2022-12-21 06:41 | PC.NURSE ---
23-07: indep in room. Calls appropriately. No c/o of pain, ice to right cheek. VSS.
--- NOTE | 2022-12-21 07:52 | W.ANESCHARGE ---
Anesthesia Charges Start Date/Time Anesthesia Start Date: 12/21/22 Anesthesia Start Time: 07:18 Stop Date/Time Anesthesia Stop Date: 12/21/22 Anesthesia Stop Time: 07:51 Summary Emergency: Yes Extremes of Age: Over 68-CPT [id number]
--- NOTE | 2022-12-21 07:59 | W.PM.ENTPN ---
ENT-PN: Subj Subjective Date Seen: 12/21/22 Interval history: 72-year-old female seen in followup of right face abscess and cellulitis. She is approximately 2 and half weeks status post dental extraction by oral surgery at the [facility]. One of the teeth was apparently infected at the time. She acutely got worse in the last day or 2 prior to hospital admission. She was taken to the OR by Dr. Marcelino yesterday for incision and drainage. She still has a drain in place but is not aware that is still draining purulent fluid. She is not aware of any fever. She reports the pain and swelling in her face seems about the same. Progress Note: A&P Assessment and plan (1) Cellulitis and abscess of face: Problem details: Status post I&D. Drain in place. Due to penicillin allergy I will treat with ceftriaxone plus metronidazole. Cultures pending. Patient is clearly not better. Repeat CT shows residual abscess with a drain anterior to it. Reviewed with Dr. Marcelino. He felt the patient will be best served by returning to her oral surgeon who provided the surgery in the 1st place. The surgeon at the [facility] is accepting the patient but the [facility] reports no beds available for transfer for at least a week. Dr. Marcelino plans to take her back to the OR to reposition the drain tomorrow. Continue other supportive cares. Status: Acute Plan Drain is at anterior aspect of abscess. She is symptomatically improved with less swelling and Taylor and no erythema. However inflammatory markers were up yesterday. Discussed with her I would favor taken to the operating room and Re irrigating and packing the abscess cavity to ensure it does not reaccumulate as there was still evidence of abscess on CT. Risks were reviewed including anesthesia bleeding failure etc. I did discuss the case with her Oral surgery group the [facility]. They agreed to admit her but there are no hospital beds which is not helpful. Plan as above Time Spent With Patient Total time spent: 30 Exam Const: Vital Signs, click to edit/add: Vital Signs - 24 hr 12/20/22 09:00 12/20/22 09:00 12/20/22 11:45 Temperature 97.8 F 98.1 F Pulse Rate Pulse Rate [Pulse Oximeter] 74 67 Respiratory Rate 18 18 18 Blood Pressure Blood Pressure [Ri ght Arm] 115/68 119/66 Pulse Oximetry 93 93 91 Oxygen Delivery Me thod Room Air Room Air Room Air Oxygen Flow Rate 1 1 12/20/22 15:11 12/20/22 15:40 12/20/22 16:00 Temperature 98.2 F Pulse Rate 60 Pulse Rate [Pulse Oximeter] 60 Respiratory Rate 18 18 Blood Pressure Blood Pressure [Ri ght Arm] 118/75 Pulse Oximetry 92 90 Oxygen Delivery Me thod Room Air Room Air Oxygen Flow Rate 12/20/22 19:45 12/20/22 23:22 12/20/22 23:22 Temperature 98.3 F 98.9 F Pulse Rate Pulse Rate [Pulse Oximeter] 59 L 63 Respiratory Rate 18 18 18 Blood Pressure Blood Pressure [Ri ght Arm] 132/69 133/79 Pulse Oximetry 89 89 89 Oxygen Delivery Me thod Room Air Room Air Room Air Oxygen Flow Rate 12/20/22 23:00 12/20/22 23:00 12/21/22 03:00 Temperature 97.6 F Pulse Rate 55 L Pulse Rate [Pulse Oximeter] 63 57 L Respiratory Rate 18 18 Blood Pressure Blood Pressure [Ri ght Arm] 145/86 H Pulse Oximetry 89 Oxygen Delivery Me thod Room Air Oxygen Flow Rate 12/21/22 07:53 Temperature Pulse Rate 62 Pulse Rate [Pulse Oximeter] Respiratory Rate 16 Blood Pressure 117/95 H Blood Pressure [Ri ght Arm] Pulse Oximetry 92 Oxygen Delivery Me thod Oxygen Flow Rate ENT-PN: Obj Labs Labs: Laboratory Results - last 24 hr 12/20/22 12/20/22 07:54 07:54 WBC 12.92 H RBC 4.80 Hgb 13.8 Hct 41.4 MCV 86 MCH 29 MCHC 33 RDW Coeff of Luiz 14.1 Plt Count 311 Neut % (Auto) 88.8 H Lymph % (Auto) 6.2 L [place] % (Auto) 4.2 Eos % (Auto) 0.2 Baso % (Auto) 0.1 Neut # (Auto) 11.50 H Lymph # (Auto) 0.80 L [place] # (Auto) 0.50 Eos # (Auto) 0.00 Baso # (Auto) 0.00 C-Reactive Protein 4.1 H
--- NOTE | 2022-12-21 08:00 | W.PM.ENTPROC ---
Procedure Note Date of procedure: 12/21/22 Procedure: Right buccal abscess Postop diagnosis same Procedure read drainage of right buccal space abscess Under general trach anesthesia patient was prepped draped usual fashion. Utilizing CT scan for navigation I was able to re-enter the abscess cavity. There was no further purulence fluid just serosanguineous. This was aspirated and they have cavity was irrigated. 1 in iodoform gauze was then placed in the cavity and sutured to the buccal mucosa with a single 3-0 silk suture. Patient procedure well was taken to recovery in satisfactory condition blood loss less than 50 mL complications none Surgeon: Thanh Marcelino MD
[2022-12-21] MEDS: fentaNYL 100 MCG/2 ML inj 50 MCG IVP ×2 (08:09→08:20)
[2022-12-21] MEDS: LACTATED RINGERS 1000 ML 1,000 ML 100 ML IV (08:19)
[2022-12-21] MEDS: HYDROMORPHONE HCL 1 MG/ML CARTRIDGE IVP (08:44)
[2022-12-21] MEDS: lisinopriL 20 MG TABLET PO (12:03)
[2022-12-21] MEDS: ACETAMINOPHEN 325 MG TABLET 650 MG PO (12:03)
[2022-12-21] MEDS: dilTIAZem 180 MG CAP (CD) 360 MG PO (12:03)
[2022-12-21] MEDS: METOPROLOL SUCCINATE (XL) 50 MG TAB PO (12:04)
[2022-12-21] MEDS: OXYCODONE 5 MG TABLET PO (12:04)
[2022-12-21] MEDS: SERTRALINE 100 MG TABLET 150 MG PO (12:05)
[2022-12-21 12:07] LABS: Basophils Absolute Auto 0.01 K/uL (0.00-0.30); Basophils Percent Auto 0.1 % (0.0-3.0); Eosinophils Absolute Auto 0.01 K/uL (0.00-0.50); Eosinophils Percent Auto 0.1 % (0.0-7.0); Hematocrit 39.7 % (33.0-51.0); Immature Granulocytes Abs Auto 0.11 K/uL (0.00-0.30); Immature Granulocytes Pct Auto 1.1 %; Lymphocytes Percent Auto 5.9 % (20-44); Mean Corpuscular HGB Conc 33 gm/dL (32-36); Mean Corpuscular Hemoglobin 29 pg (26-34); Mean Corpuscular Volume 88 fL (80-100); Monocytes Percent Auto 1.8 % (0.0-11.0); Platelet Count* 272 K/uL (140-440); RDW Coefficient of Variation % 14.3 % (11.5-15.5); Red Blood Count 4.52 m/uL (4.00-5.20); White Blood Count* 10.37 K/uL (4.50-11.00)
[2022-12-21 12:12] LABS: Slide Review Reflex No
[2022-12-21] MEDS: IPRATROPIUM 200 MCG/ML AMPUL.NEB 500 MCG NEB ×3 (14:17→21:29)
--- NOTE | 2022-12-21 15:28 | PC.NURSE ---
End of shift. pt has been very pleasant. she went to surgery and came back. pain was 10/10. md was was called and 1 mg IV Dilaudid. VSS IV is patent. and later she was SL. po pain meds given. she is up ab debo. she is eating, drinking, and voiding. she has been on 1L nc.
[2022-12-21] MEDS: cefTRIAXone 2 GM in 0.9 % SODIUM CHLORIDE Mini-bag 100 ML IVPB (16:47)
--- NOTE | 2022-12-21 16:56 | P.IMPN_ITS ---
Progress Note: A&P Assessment and plan (1) Cellulitis and abscess of face: Problem details: Status post I&D. Drain in place. Due to penicillin allergy I will treat with ceftriaxone plus metronidazole. Cultures show oral vandana. MRSA screening is negative. Continue ceftriaxone and metronidazole. If clinically improved tomorrow possibly discharge for outpatient follow-up with oral surgery at the [place] on Saturday. Status: Acute Plan Continue another day of antibiotics, pain control. Possible discharge tomorrow if doing well. Time Spent With Patient Total time spent: Total time spent today is 40 minutes, 30 minutes in coordination of care and discussing with patient other providers ongoing evaluation management of facial abscess Subjective Date Seen: 12/21/22 Interval history: Patient seen in followup of right cheek facial abscess related to dental problems. She was taken back to the OR by Dr. Marcelino for a repeat attempt to wash out her abscess and pack her wound. He reported that this went well. She did have increased pain after the procedure. She has not had any fever. Postoperatively she has needle oxygen presumably due to pain medicine and sedation. Exam Narrative: Exam Narrative: She is alert and appears in no distress. Cheek appears about the same as yesterday. No marked erythema warmth or tenderness today. Amount of swelling is about the same. The wound is now packed but still feels relatively firm. Oropharynx is otherwise unremarkable other than the packing being present. Respirations are clear to auscultation. Cardiovascular: S1, S2, regular rate and rhythm. Const: Vital Signs, click to edit/add: Vital Signs - 24 hr 12/20/22 19:45 12/20/22 23:22 12/20/22 23:22 Temperature 98.3 F 98.9 F Pulse Rate Pulse Rate [Pulse Oximeter] 59 L 63 Pulse Rate [Right Radial] Respiratory Rate 18 18 18 Blood Pressure Blood Pressure [Ri ght Arm] 132/69 133/79 Pulse Oximetry 89 89 89 Oxygen Delivery Me thod Room Air Room Air Room Air Oxygen Flow Rate 12/20/22 23:00 12/20/22 23:00 12/21/22 03:00 Temperature 97.6 F Pulse Rate 55 L Pulse Rate [Pulse Oximeter] 63 57 L Pulse Rate [Right Radial] Respiratory Rate 18 18 Blood Pressure Blood Pressure [Ri ght Arm] 145/86 H Pulse Oximetry 89 Oxygen Delivery Me thod Room Air Oxygen Flow Rate 12/21/22 07:53 12/21/22 07:48 12/21/22 07:49 Temperature Pulse Rate 62 69 69 Pulse Rate [Pulse Oximeter] Pulse Rate [Right Radial] Respiratory Rate 16 Blood Pressure 117/95 H 198/107 H Blood Pressure [Ri ght Arm] Pulse Oximetry 92 92 94 Oxygen Delivery Me thod Oxygen Flow Rate 12/21/22 07:50 12/21/22 07:51 12/21/22 07:55 Temperature Pulse Rate 69 68 69 Pulse Rate [Pulse Oximeter] Pulse Rate [Right Radial] Respiratory Rate Blood Pressure 198/102 H Blood Pressure [Ri ght Arm] Pulse Oximetry 94 95 95 Oxygen Delivery Me thod Oxygen Flow Rate 12/21/22 07:56 12/21/22 07:57 12/21/22 08:00 Temperature Pulse Rate 68 71 70 Pulse Rate [Pulse Oximeter] Pulse Rate [Right Radial] Respiratory Rate Blood Pressure 180/153 H Blood Pressure [Ri ght Arm] Pulse Oximetry 94 94 93 Oxygen Delivery Me thod Oxygen Flow Rate 12/21/22 08:02 12/21/22 08:05 12/21/22 08:06 Temperature Pulse Rate 68 68 68 Pulse Rate [Pulse Oximeter] Pulse Rate [Right Radial] Respiratory Rate Blood Pressure 187/109 H 200/100 H Blood Pressure [Ri ght Arm] Pulse Oximetry 93 93 93 Oxygen Delivery Me thod Oxygen Flow Rate 12/21/22 08:10 12/21/22 08:12 12/21/22 08:15 Temperature Pulse Rate 65 66 64 Pulse Rate [Pulse Oximeter] Pulse Rate [Right Radial] Respiratory Rate Blood Pressure 194/98 H Blood Pressure [Ri ght Arm] Pulse Oximetry 93 93 90 Oxygen Delivery Me thod Oxygen Flow Rate 12/21/22 08:16 12/21/22 08:20 12/21/22 08:22 Temperature Pulse Rate 63 63 62 Pulse Rate [Pulse Oximeter] Pulse Rate [Right Radial] Respiratory Rate Blood Pressure 192/99 H 177/93 H Blood Pressure [Ri ght Arm] Pulse Oximetry 89 93 94 Oxygen Delivery Me thod Oxygen Flow Rate 12/21/22 08:30 12/21/22 08:30 12/21/22 09:04 Temperature 97.0 F L Pulse Rate Pulse Rate [Pulse Oximeter] Pulse Rate [Right Radial] 67 61 Respiratory Rate 16 16 16 Blood Pressure Blood Pressure [Ri ght Arm] 176/83 H 133/77 Pulse Oximetry 90 90 92 Oxygen Delivery Me thod Nasal Cannula Nasal Cannula Nasal Cannula Oxygen Flow Rate 4 4 4 12/21/22 08:30 12/21/22 08:50 12/21/22 08:50 Temperature 97.0 F L Pulse Rate 62 Pulse Rate [Pulse Oximeter] Pulse Rate [Right Radial] 63 63 Respiratory Rate 16 16 16 Blood Pressure Blood Pressure [Ri ght Arm] 176/83 H 138/75 Pulse Oximetry 91 Oxygen Delivery Me thod Nasal Cannula Nasal Cannula Oxygen Flow Rate 4 4 12/21/22 09:00 12/21/22 09:32 12/21/22 09:47 Temperature Pulse Rate Pulse Rate [Pulse Oximeter] Pulse Rate [Right Radial] 63 62 63 Respiratory Rate 16 16 16 Blood Pressure Blood Pressure [Ri ght Arm] 141/80 H 128/77 143/78 H Pulse Oximetry 89 88 90 Oxygen Delivery Me thod Nasal Cannula Nasal Cannula Nasal Cannula Oxygen Flow Rate 4 4 4 12/21/22 10:00 12/21/22 11:03 12/21/22 10:45 Temperature Pulse Rate Pulse Rate [Pulse Oximeter] Pulse Rate [Right Radial] 59 L 61 63 Respiratory Rate 16 16 16 Blood Pressure Blood Pressure [Ri ght Arm] 137/79 139/80 133/72 Pulse Oximetry 91 90 93 Oxygen Delivery Me thod Nasal Cannula Nasal Cannula Nasal Cannula Oxygen Flow Rate 4 2 4 12/21/22 12:07 Temperature Pulse Rate Pulse Rate [Pulse Oximeter] Pulse Rate [Right Radial] 60 Respiratory Rate 16 Blood Pressure Blood Pressure [Ri ght Arm] 144/95 H Pulse Oximetry 90 Oxygen Delivery Me thod Nasal Cannula Oxygen Flow Rate 2 Documenting provider has reviewed patient's vital signs: yes Labs Labs: Laboratory Results - last 24 hr 12/21/22 11:52 WBC 10.37 RBC 4.52 Hgb 13.0 Hct 39.7 MCV 88 MCH 29 MCHC 33 RDW Coeff of Luiz 14.3 Plt Count 272 Neut % (Auto) 91.0 H Lymph % (Auto) 5.9 L [place] % (Auto) 1.8 Eos % (Auto) 0.1 Baso % (Auto) 0.1 Neut # (Auto) 9.40 H Lymph # (Auto) 0.60 L [place] # (Auto) 0.20 Eos # (Auto) 0.01 Baso # (Auto) 0.01
--- NOTE | 2022-12-21 19:11 | PC.NURSE ---
Shift note: Pt continuous to difficulty chewing due to abscess in the mouth. Able to eat about 50% of dinner. Minimal pain of 3 was reported and was managed with icepack. Ambulated independently in the [address].
[2022-12-21] MEDS: SODIUM CHLORIDE 0.9 % (FLUSH) 10 ML SYRINGE 5 ML IVF (20:07)
[2022-12-22 03:00] VITALS: BP 137/77; PULSE 58; RESP 16; TEMP 35.9; O2SAT 91
[2022-12-22] MEDS: metroNIDAZOLE 500 MG/100 ML PIGGYBACK IVPB (03:45)
[2022-12-22] MEDS: SODIUM CHLORIDE 0.9 % (FLUSH) 10 ML SYRINGE IVF (03:45)
--- NOTE | 2022-12-22 06:24 | PC.NURSE ---
[id number] Pt slept well during night, swelling noted to R side of face/cheek area but pt denies pain and did not request any pain medications during night. independent in room, putting ice to R cheek. 1LPM O2 NC on during the night to maintain sats >88%. denies N/V, chest pain, sob or [place].
[2022-12-22 07:43] VITALS: BP 120/75; PULSE 52; RESP 18; TEMP 36.4; O2SAT 90
[2022-12-22 08:19] LABS: Basophils Percent Auto 0.3 % (0.0-3.0); Eosinophils Percent Auto 0.3 % (0.0-7.0); Hematocrit 39.6 % (33.0-51.0); Hemoglobin* 13.2 gm/dL (12.0-16.0); Immature Granulocytes Pct Auto 0.8 %; Lymphocytes Percent Auto 13.4 % (20-44); Mean Corpuscular HGB Conc 33 gm/dL (32-36); Mean Corpuscular Hemoglobin 28 pg (26-34); Mean Corpuscular Volume 85 fL (80-100); Monocytes Percent Auto 5.4 % (0.0-11.0); Neutrophils Percent Auto 79.8 % (42.0-72.0); Platelet Count* 285 K/uL (140-440); RDW Coefficient of Variation % 14.3 % (11.5-15.5); Red Blood Count 4.64 m/uL (4.00-5.20); White Blood Count* 11.18 K/uL (4.50-11.00)
[2022-12-22 08:28] LABS: Slide Review Reflex No
[2022-12-22] MEDS: IPRATROPIUM 200 MCG/ML AMPUL.NEB 500 MCG NEB (09:20)
[2022-12-22] MEDS: lisinopriL 20 MG TABLET PO (09:21)
[2022-12-22] MEDS: METOPROLOL SUCCINATE (XL) 50 MG TAB PO (09:21)
[2022-12-22] MEDS: SERTRALINE 100 MG TABLET 150 MG PO (09:21)
[2022-12-22] MEDS: ATORVASTATIN CALCIUM 40 MG TABLET PO (09:21)
--- NOTE | 2022-12-22 09:53 | PM.DS1 ---
DS: Providers Provider Date Seen: 12/22/22 Date of admission: 12/19/22 15:06 Primary care physician: Gladis Espinosa MD Admitting Clinician: Sarabjit Macedo MD Attending Physician on discharge: Thanh Marcelino MD Date of Discharge: 12/22/22 DS: Diagnosis Discharge Diagnosis (1) Cellulitis and abscess of face: Status: Acute Problem details: Abscess is adjacent to area of dental extraction from 2 and half weeks ago. Status post I&D x2 by Dr. Marcelino. Packing left in place. Due to penicillin allergy I will treat with clindamycin. Wound cultures show oral vandana. No MRSA. (2) Smoking: Status: Acute Problem details: Nicotine replacement (3) Hypoxia: Status: Acute Problem details: Postoperative hypoxia. Resolved now that she is off opioid pain medicines DS: Summary Hospital Course Hospital Course: 72-year-old female presented with swelling and pain in her right cheek. On December 03 she had dental extraction at the [facility] by oral surgery. A week prior to admission she was seen by ear nose and throat doctor to prescribe cefdinir. 1-2 days prior to admission she developed acute pain and swelling in her right cheek. The time of admission she was found to have an abscess in that area. She was taken to the operating room by Dr. Marcelino where she had I and D of the abscess and placement of a [place] drain. Over the next day and a half she did not have clinical improvement so she was taken back to the OR for repeat I&D and placement of packing in the abscess. Today she reports she is clinically much better and anxious to go home. She does have some postoperative hypoxia which was thought secondary to anesthesia and opioid pain medicines. That has resolved since she has been off opioid medicines for about a day. She is a smoker and was advised to quit. During her hospital stay she was treated with ceftriaxone and metronidazole. She has a penicillin allergy. On discharge she will be put on clindamycin 300 mg 3 times a day pending follow-up with oral surgery. She is cautioned about possible complications of diarrhea with clindamycin Status at Discharge Cognitive/behavioral status at discharge: At baseline Functional status at discharge: independent ambulation Overall status at discharge: patient is back to baseline Time Spent with Patient Time attestation: Total time spent providing and/or coordinating discharge services: Time spent: Greater than 30 minutes Exam Narrative: Exam Narrative: She is alert and appears in no distress. Swelling in her face persists but is improved and less tender. No redness. She is breathing comfortably on room air. Lungs are clear to auscultation with decreased breath sounds. Const: Vital Signs, click to edit/add: Vital Signs - 24 hr 12/21/22 10:00 12/21/22 11:03 12/21/22 10:45 Temperature Pulse Rate [Pulse Oximeter] Pulse Rate [Right Radial] 59 L 61 63 Respiratory Rate 16 16 16 Blood Pressure [Ri ght Arm] 137/79 139/80 133/72 Pulse Oximetry 91 90 93 Oxygen Delivery Me thod Nasal Cannula Nasal Cannula Nasal Cannula Oxygen Flow Rate 4 2 4 12/21/22 12:07 12/21/22 15:00 12/21/22 15:00 Temperature 96 F L Pulse Rate [Pulse Oximeter] 96 Pulse Rate [Right Radial] 60 60 Respiratory Rate 16 16 16 Blood Pressure [Ri ght Arm] 144/95 H 118/67 Pulse Oximetry 90 89 89 Oxygen Delivery Me thod Nasal Cannula Nasal Cannula Nasal Cannula Oxygen Flow Rate 2 2 2 12/21/22 20:11 12/21/22 23:00 12/21/22 23:00 Temperature 98.7 F 97.6 F Pulse Rate [Pulse Oximeter] 55 L 61 Pulse Rate [Right Radial] Respiratory Rate 18 18 18 Blood Pressure [Ri ght Arm] 113/84 128/78 Pulse Oximetry 90 92 92 Oxygen Delivery Me thod Nasal Cannula Nasal Cannula Nasal Cannula Oxygen Flow Rate 1 1 1 12/22/22 03:00 Temperature 96.7 F L Pulse Rate [Pulse Oximeter] 58 L Pulse Rate [Right Radial] Respiratory Rate 16 Blood Pressure [Ri ght Arm] 137/77 Pulse Oximetry 91 Oxygen Delivery Me thod Nasal Cannula Oxygen Flow Rate 2 Documenting provider has reviewed patient's vital signs: yes DS: Data Data Completed and Pending Labs on day of discharge: Labs from last 24 hours 12/22/22 12/22/22 12/21/22 08:11 07:22 11:52 WBC 11.18 H 10.37 RBC 4.64 4.52 Hgb 13.2 13.0 Hct 39.6 39.7 MCV 85 88 MCH 28 29 MCHC 33 33 RDW Coeff of Luiz 14.3 14.3 Plt Count 285 272 Neut % (Auto) 79.8 H 91.0 H Lymph % (Auto) 13.4 L 5.9 L [place] % (Auto) 5.4 1.8 Eos % (Auto) 0.3 0.1 Baso % (Auto) 0.3 0.1 Neut # (Auto) 8.90 H 9.40 H Lymph # (Auto) 1.50 0.60 L [place] # (Auto) 0.60 0.20 Eos # (Auto) 0.00 0.01 Baso # (Auto) 0.00 0.01 C-Reactive Protein 1.0 Preliminary micro results at discharge 12/19/22 10:50 Blood Culture - Preliminary Blood NO GROWTH AFTER 48 HOURS 12/19/22 10:30 Blood Culture - Preliminary Blood NO GROWTH AFTER 48 HOURS Discharge Plan Discharge Disposition: Home, Self-Care Date of Admission: 12/19/22 15:06 Attending Provider on Discharge: Sarabjit Macedo Primary Care Provider: Gladis Espinosa Condition: Improved Anticipated Discharge Date/Time: 12/22/22 11:00 Discharge Medications: New clindamycin HCl 300 mg capsule 300 mg PO Q8H Qty: 15 0RF Continued diltiazem HCl 360 mg capsule,extended release 24hr 360 mg PO DAILY metoprolol succinate 50 mg tablet extended release 24 hr 50 mg PO DAILY nitroglycerin 0.4 mg tablet, sublingual 0.4 mg sublingual Q5M PRN atorvastatin 40 mg tablet 40 mg PO DAILY Spiriva Respimat 2.5 mcg/actuation mist 2 inh inhalation DAILY sertraline 100 mg tablet 150 mg PO DAILY albuterol sulfate 90 mcg/actuation HFA aerosol inhaler 2 puff inhalation Q4H PRN lisinopril 20 mg tablet 20 mg PO DAILY acetaminophen [Aphen] 325 mg tablet 650 mg PO QID PRN cholecalciferol (vitamin D3) 50 mcg (2,000 unit) capsule 50 mcg PO DAILY famotidine [Pepcid] 20 mg tablet 20 mg PO DAILY PRN Discontinued cefdinir 300 mg capsule 300 mg PO BID Discharge Orders: Discharge Order (Routine); Ordered 12/22/22 Ordered By: Sarabjit Macedo Patient Education: Dental Abscess (GEN) Additional Instructions: See the oral surgeon at the [facility] in 2 or 3 days for removal of the packing in your wound. Antibiotics can cause diarrhea. If you get significant diarrhea see your doctor for further evaluation. Activity Level: No Restrictions Discharge Diet: Regular Follow Up Appointments: Gladis Espinosa MD [Primary Care Provider] - Forms: [employer] Info Instructions
[2022-12-22 10:05] VITALS: BP 177/93; PULSE 62; RESP 16; TEMP 35.9
[2022-12-22] MEDS: SODIUM CHLORIDE 0.9 % (FLUSH) 10 ML SYRINGE 5 ML IVF (10:29)
[2022-12-22] MEDS: cefTRIAXone 2 GM in 0.9 % SODIUM CHLORIDE Mini-bag 100 ML IVPB (10:30)
== END 2022-12-22 11:17 | disposition home or self-care (01) | DRG 137 ==
LOC: ED 12:19 → SS 12:26 → MEDSURG 13:16 → SS 15:59 → MEDSURG 15:59
PROVIDERS: Admitting Provider Family Medicine; Emergency Provider Student in an Organized Health Care Education/Training Program; PCP Family Medicine; Visit Provider Otolaryngology
PROC: 0C9PXZZ Drainage of Tonsils, External Approach (ICD-10-PCS; CPT 42700; principal; 2022-12-19 12:30)
DX: K12.2 Cellulitis and abscess of mouth (principal); L03.211 Cellulitis of face; T81.43XA Infection following a procedure, organ and space surgical site, initial encounter; R09.02 Hypoxemia; F17.210 Nicotine dependence, cigarettes, uncomplicated; J44.9 Chronic obstructive pulmonary disease, unspecified; I10 Essential (primary) hypertension; E78.5 Hyperlipidemia, unspecified; R94.31 Abnormal electrocardiogram [ECG] [EKG]; K21.9 Gastro-esophageal reflux disease without esophagitis; F32.A Depression, unspecified
CPT/HCPCS: 00170; 36415; 70486; 80053; 85025; 86140; 87040; 87070; 87075; 87081; 87205; 87635; 99100; 99140; 99283; A9270; J0330; J0696; J1100; J1170; J2250; J2405; J2704; J3010; J3490; J7120; J7644; S0030; S0077

== ENCOUNTER 2023-10-05 11:09 | Emergency (ER) | payer MEDICARE, OTHER, MEDICAID, SELFPAY ==
[2023-10-05 11:13] VITALS: BP 158/89; PULSE 73; RESP 18; TEMP 36.2; O2SAT 94; BMI 25.3
--- NOTE | 2023-10-05 11:26 | CRLHL7_ITS ---
For Patients: As a result of the Century Cures Act, medical imaging exams and procedure reports are released immediately into your electronic medical record. You may view this report before your referring provider. If you have questions, please contact your health care provider. INDICATION: Fall, blunt force trauma left side of the head. COMPARISON: 07/12/2020. TECHNIQUE: Noncontrast CT head. FINDINGS: Compared to the previous exam, interval postoperative changes of right pterional craniectomy and mesh cranioplasty. Right canal wall down mastoidectomy. The focal low attenuation change at the anterior inferior right temporal lobe likely secondary to postoperative changes. Moderate generalized volume loss. No acute intracranial hemorrhage, acute infarct, mass effect, or midline shift. No abnormal ventricular dilatation. No fractures of the calvarium. Visualized paranasal sinuses and left mastoid air cells are clear. Normal orbits bilaterally. IMPRESSION: 1. No acute intracranial abnormality 2. Interval postoperative changes of right pterional craniotomy and mesh cranioplasty. Right canal wall down mastoidectomy. Please note that all CT scans at this facility use dose modulation, iterative reconstruction, and/or weight-based dosing when appropriate to reduce radiation dose to as low as reasonably achievable. Dictated by Earl Espana MD @ 10/05/2023 12:00:35 PM (Electronically Signed)
--- NOTE | 2023-10-05 11:36 | ED_ITS ---
HPI - General Adult General Date Seen: 10/05/23 Chief complaint: Head Injury/Pain Stated complaint: Fall, hit head Time Seen by Provider: 10/05/23 11:25 History of Present Illness HPI narrative: This is a pleasant 73-year-old female with a past medical history notable for previous brain abscess with craniotomy last year, now recovered, also history of COPD, hypoxia, smoking. She is not anticoagulated. She presents to the ER this afternoon with her son. She was at a basketball game and [place] when she accidentally tripped on a curb and fell forward. She hit her left jainism against the ground. She broke the frame of her glasses and suffered a lacera tion to her skin of her left anterior jainism just lateral to the left eyebrow. There is roughly a 0.5 cm laceration there with dark red venous oozing. She also has a headache in that area. Normal vision. No diplopia. No exophthalmos or enophthalmos. No neck pain. No diffuse headache. She has a couple of scrapes on her fingers and her knees but is not concerned about those. She is unsure of her last tetanus shot. No diabetes or immunosuppression. Normal mental status. No nausea and vomiting. No numbness or tingling in her arms or legs. Related Data Home Medications Medication Instructions Recorded Confirmed albuterol sulfate 90 mcg/actuation 2 puff inhalation Q4H PRN 08/30/22 12/19/22 aerosol inhaler atorvastatin 40 mg tablet 40 mg PO DAILY 08/30/22 12/19/22 diltiazem HCl 360 mg 360 mg PO DAILY 08/30/22 12/19/22 capsule,extended release 24 hr metoprolol succinate 50 mg 50 mg PO DAILY 08/30/22 12/19/22 tablet,extended release 24 hr nitroglycerin 0.4 mg sublingual 0.4 mg sublingual Q5M PRN 08/30/22 12/19/22 tablet sertraline 100 mg tablet 150 mg PO DAILY 08/30/22 12/19/22 tiotropium bromide 2.5 2 inh inhalation DAILY 08/30/22 12/19/22 mcg/actuation mist for inhalation (Spiriva Respimat) acetaminophen 325 mg tablet (Aphen) 650 mg PO QID PRN 12/19/22 12/19/22 cholecalciferol (vitamin D3) 50 50 mcg PO DAILY 12/19/22 12/19/22 mcg (2,000 unit) capsule famotidine 20 mg tablet (Pepcid) 20 mg PO DAILY PRN 12/19/22 12/19/22 lisinopril 20 mg tablet 20 mg PO DAILY 12/19/22 12/19/22 Previous Rx's Medication Instructions Recorded clindamycin HCl 300 mg capsule 300 mg PO Q8H #15 caps 12/22/22 Allergies Allergy/AdvReac Type Severity Reaction Status Date / Time codeine Allergy Mild Hives Verified 12/19/22 08:10 Iodinated Contrast Media Allergy Mild Fever Verified 12/19/22 10:25 Penicillins Allergy Mild Hives Verified 12/19/22 08:10 [facility] Medical History (Updated 10/05/23 @ 12:39 by Hugo Rosa MD) Hypoxia ?R09.02 - Hypoxemia (ICD-10) Brain abscess ?G06.0 - Intracranial abscess and granuloma (ICD-10) Cholesteatoma ?H71.90 - Unspecified cholesteatoma, unspecified ear (ICD-10) Mastoiditis of right side ?H70.91 - Unspecified mastoiditis, right ear (ICD-10) Internal hemorrhoids ?K64.8 - Other hemorrhoids (ICD-10) Inguinal hernia ?K40.90 - Unilateral inguinal hernia, without obstruction or gangrene, not specified as recurrent (ICD-10) Adrenal adenoma ?D35.00 - Benign neoplasm of unspecified adrenal gland (ICD-10) Prolonged QT interval ?R94.31 - Abnormal electrocardiogram [ECG] [EKG] (ICD-10) Diverticulosis ?K57.90 - Diverticulosis of intestine, part unspecified, without perforation or abscess without bleeding (ICD-10) Smoking ?F17.200 - Nicotine dependence, unspecified, uncomplicated (ICD-10) COPD (chronic obstructive pulmonary disease) ?J44.9 - Chronic obstructive pulmonary disease, unspecified (ICD-10) History of paroxysmal supraventricular tachycardia ?Z86.79 - Personal history of other diseases of the circulatory system (ICD- 10) Gastroesophageal reflux ?K21.9 - Gastro-esophageal reflux disease without esophagitis (ICD-10) Depression ?F32.A - Depression, unspecified (ICD-10) Hypertension ?I10 - Essential (primary) hypertension (ICD-10) Hyperlipidemia ?E78.5 - Hyperlipidemia, unspecified (ICD-10) Surgical History (Updated 12/19/22 @ 15:54 by Sarabjit Macedo MD) History of inguinal hernia repair ?Z98.890 - Other specified postprocedural states (ICD-10) ?Z87.19 - Personal history of other diseases of the digestive system (ICD-10) History of tonsillectomy and adenoidectomy ?Z90.89 - Acquired absence of other organs (ICD-10) History of right knee joint replacement ?Z96.651 - Presence of right artificial knee joint (ICD-10) History of hysterectomy ?Z90.710 - Acquired absence of both cervix and uterus (ICD-10) History of colonoscopy ?Z98.890 - Other specified postprocedural states (ICD-10) History of bilateral hip arthroplasty ?Z96.643 - Presence of artificial hip joint, bilateral (ICD-10) History of right mastoidectomy ?Z90.89 - Acquired absence of other organs (ICD-10) History of appendectomy ?Z90.49 - Acquired absence of other specified parts of digestive tract (ICD- 10) History of tubal ligation ?Z98.51 - Tubal ligation status (ICD-10) Status post craniotomy ?Z98.890 - Other specified postprocedural states (ICD-10) Family History (Updated 12/19/22 @ 15:55 by Sarabjit Macedo MD) Sister Breast cancer Pancreatic cancer Lung cancer Father Lung cancer Social History (Updated 12/19/22 @ 15:56 by Sarabjit Macedo MD) Narrative: She lives alone at the [facility]. Either her son Alvarez or daughter Cecily are healthcare power of real estate attorney. Code status is full. She is a current smoker. She drinks alcohol 2 or 3 times per year. Smoking Status: Current every day smoker What tobacco products do you use: cigarettes Smoking packs per day: 0.5 Smoking cigarettes per day: 10.0 Do you use any of these nicotine containing products: None Second hand tobacco smoke exposure: Yes How often do you have a drink containing alcohol: never AUDIT-C Alcohol total score: 0 Non-prescribed substance use: denies use service: No Exam Narrative: Exam Narrative: Constitutional: Appears well-developed and well-nourished. Alert. Conversant. Non toxic. HENT: Head: There is a 5-6 mm laceration lateral to the left eyebrow, on the anterior left jainism. Slow dark red venous oozing. No pulsatile bleeding. No definite foreign body. No underlying skull fracture. No depressed skull fracture, Raccoon Eyes, Schaefer's sign, or hemotympanum. Face normal. Left TMs normal. Unable to see right TM. It looks like her ear canal on that side had been closed after her recent surgery. Nose: Nose normal. Mouth/Throat: Oral mucosa is clear and moist. no trismus. Pharynx normal. Tonsils symmetric. No tonsillar enlargement, erythema, or exudate. Eyes: Conjunctivae normal. EOM normal. Pupils equal, round, and reactive to light. No scleral icterus. Neck: Normal range of motion. Neck supple. No tracheal deviation present. Cardiovascular: Normal rate, regular rhythm. No gallop. No friction rub. No murmur heard. Symmetric radial artery pulses Pulmonary/Chest: Effort normal. No stridor. No respiratory distress. No wheezes. No rales. No rhonchi . No tenderness. Abdominal: Soft. Bowel sounds normal. No distension. No mass. No tenderness. No rebound. No guarding. Musculoskeletal: RUE: Normal range of motion. No tenderness. No deformity LUE: Normal range of motion. No tenderness. No deformity RLE: Normal range of motion. No edema. No tenderness. No deformity LLE: Normal range of motion. No edema. No tenderness. No deformity Lymph: No cervical adenopathy. Neurological: Alert and oriented to person, place, and time. Normal strength. CN II-VII intact. No sensory deficit. GCS eye subscore is 4. GCS verbal subscore is 5. GCS motor subscore is 6. Normal coordination Skin: Skin is warm and dry. No rash noted. No pallor. Normal capillary refill. Psychiatric: Normal mood. Normal affect. Const: Vital Signs, click to edit/add: Vital Signs - 24 hr 10/05/23 11:13 Temperature 97.2 F L Pulse Rate [Right Pulse Oximeter] 73 Respiratory Rate 18 Blood Pressure [Ri ght Upper Arm] 158/89 H Pulse Oximetry 94 Oxygen Delivery Me thod Room Air Course Vital Signs Vital signs: Initial Vital Signs Temperature 97.2 F L 10/05/23 11:13 Temperature Source Temporal Artery Scan 10/05/23 11:13 Pulse Rate 73 10/05/23 11:13 Respiratory Rate 18 10/05/23 11:13 Blood Pressure 158/89 H 10/05/23 11:13 Blood Pressure Mean 112 H 10/05/23 11:13 Blood Pressure Position Sitting 10/05/23 11:13 Pulse Oximetry 94 10/05/23 11:13 Oxygen Delivery Method Room Air 10/05/23 11:13 Vital Signs Temperature 97.2 F L 10/05/23 11:13 Pulse Rate 73 10/05/23 11:13 Respiratory Rate 18 10/05/23 11:13 Blood Pressure 158/89 H 10/05/23 11:13 Pulse Oximetry 94 10/05/23 11:13 Oxygen Delivery Method Room Air 10/05/23 11:13 Temperature 97.2 F L 10/05/23 11:13 Pulse Rate 73 10/05/23 11:13 Respiratory Rate 18 10/05/23 11:13 Blood Pressure 158/89 H 10/05/23 11:13 Pulse Oximetry 94 10/05/23 11:13 Oxygen Delivery Method Room Air 10/05/23 11:13 Medications Administered Medications: Discontinued Medications Generic Name Dose Route Start Last Admin Trade Name Freq PRN Reason Stop Dose Admin Diphtheria/Tetanus/Acell Pertussis 0.5 ml 10/05/23 11:38 10/05/23 12:00 Tetanus/Diphth/Pertussis 0.5 Ml Syringe IM 10/05/23 11:39 0.5 ml .ONCE ONE Administration Lidocaine/Epinephrine/Tetracaine 3 ml 10/05/23 11:36 10/05/23 11:45 Lidocaine/Epinep/Tetracaine 3 Ml Gel..Ml. TOPICAL 10/05/23 11:37 3 ml ONCE ONE Administration Medical Decision Making MDM Narrative Medical decision making narrative: This patient presents with blunt head trauma. Given history of previous brain surgery for brain abscess, age, location of the trauma, were concerned about intracranial injuries. Differential includes intracranial injuries (e.g. skull fracture, epidural hematoma, subdural hematoma, intracerebral hemorrhage, and traumatic subarachnoid hemorrhage), verses concussion or other traumatic brain injury. CT imaging was obtained and fortunately was normal. At this time it appears that the patient's symptoms are due to a concussion. She also has a left temporal laceration which was repaired as noted above. Overall the laceration is not super long, the Laceration does create a sq shaped defect that is somewhat stellate. Discussed options for wound repair including sutures would which give best cosmesis verses Dermabond which requires no needles and no follow-up visit for suture removal. Patient strongly prefers to go with Dermabond and Steri-Strips. She understands the implications for potential scar. There is no evidence at this time to suggest any associated f racture or foreign body. There is no evidence to suggest intracranial injury and patient is neurologically in tact. The patient is to follow up for suture removal as instructed in 5-7 days if they don't dissolve and fall out on their own. Indications to seek urgent reevaluation and signs of infection (including but not limited to increasing pain, redness, swelling, fevers, and drainage) were reviewed. Tetanus is updated today. This is a clean and noncontaminated wound in which prophylactic antibiotics are not indicated. An understanding of the discharge instructions and need for follow up were verbally confirmed. The patient/family understand that they must return if any red flags appear/develop in the coming hours/days, as this may represent an indication to perform a repeat CT scan or further evaluation. I have noted that red flags include: headaches that get worse, increased drowsiness, strange behavior, repetitive speech, seizures, repeated vomiting, growing confusion, increased irritability, slurred speech, weakness or numbness, and loss of responsiveness. This information will also be provided in writing at discharge. I have discussed the second impact syndrome, and the importance of not sustaining repeated concussion in the next 1-2 weeks. The patient's questions have been answered. They have a responsible adult to accompany them home. Imaging Data CT scan - head: Attestation: I have reviewed the pertinent imaging results. My impression: This patient presents with blunt head trauma. She has a left temporal/left lateral eyebrow laceration, likely caused by the frame of her eyeglasses. Based on the mechanism and location of her injury were concerned about intracranial injuries as well. Differential includes intracranial injuries (e.g. skull fracture, epidural hematoma, subdural hematoma, intracerebral hemorrhage, and traumatic subarachnoid hemorrhage), verses concussion or other traumatic brain injury. CT imaging was obtained and fortunately was normal. She has an uncomplicated laceration which was repaired as noted above. There is no evidence at this time to suggest any associated fracture or foreign body. There is no evidence to suggest intracranial injury on CT and patient is neurologically in tact. The patient is to follow up for suture removal as instructed in 5-7 days if they don't dissolve and fall out on their own. Indications to seek urgent reevaluation and signs of infection (including but not limited to increasing pain, redness, swelling, fevers, and drainage) were reviewed. Tetanus is up-to-date. This is a clean and noncontaminated wound in which prophylactic antibiotics are not indicated. An understanding of the discharge instructions and need for follow up were verbally confirmed. The patient/family understand that they must return if any red flags appear/develop in the coming hours/days, as this may represent an indication to perform a repeat CT scan or further evaluation. I have noted that red flags include: headaches that get worse, increased drowsiness, strange behavior, repetitive speech, seizures, repeated vomiting, growing confusion, increased irritability, slurred speech, weakness or numbness, and loss of responsiveness. This information will also be provided in writing at discharge. I have discussed the second impact syndrome, and the importance of not sustaining repeated concussion in the next 1-2 weeks. Post concussive syndrome is also discussed. The patient's questions have been answered. They have a responsible adult to accompany them home. Radiologist's impression: IMPRESSION: 1. No acute intracranial abnormality 2. Interval postoperative changes of right pterional craniotomy and mesh cranioplasty. Right canal wall down mastoidectomy. Discharge Plan Discharge Clinical Impression: Laceration of jainism, Head injury Patient Disposition: Home, Self-Care Condition: Stable Instructions: Laceration (DC), Head Injury (DC), Skin Adhesive Care (ED) Additional Instructions: Please return to the ER right away if you have any concerns especially redness, swelling, pus draining from the wound, worsening headache, confusion, blurry vision, repetitive vomiting, or if you are getting worse in any way. Prescriptions: No Action diltiazem HCl 360 mg capsule,extended release 24hr 360 mg PO DAILY metoprolol succinate 50 mg tablet extended release 24 hr 50 mg PO DAILY nitroglycerin 0.4 mg tablet, sublingual 0.4 mg sublingual Q5M PRN atorvastatin 40 mg tablet 40 mg PO DAILY Spiriva Respimat 2.5 mcg/actuation mist 2 inh inhalation DAILY sertraline 100 mg tablet 150 mg PO DAILY albuterol sulfate 90 mcg/actuation HFA aerosol inhaler 2 puff inhalation Q4H PRN lisinopril 20 mg tablet 20 mg PO DAILY acetaminophen [Aphen] 325 mg tablet 650 mg PO QID PRN cholecalciferol (vitamin D3) 50 mcg (2,000 unit) capsule 50 mcg PO DAILY famotidine [Pepcid] 20 mg tablet 20 mg PO DAILY PRN clindamycin HCl 300 mg capsule 300 mg PO Q8H Qty: 15 0RF Follow Up/Referrals: Gladis Espinosa MD [Primary Care Provider] - Stand Alone Forms: [facility] Info Instructions Procedures Laceration Left jainism/eyebrow: Pre procedure diagnosis: Left jainism laceration Verification/time out: correct patient and correct site Site: face (Left jainism) Side (If applicable): left Size (cm): 0.75 Description: stellate Depth: simple, single layer Local Anesthetic: other anesthetic (Topical, María T) Skin layer closed with: other (Dermabond and Steri-Strips)
[2023-10-05] MEDS: LIDOCAINE/EPINEP/TETRACAINE 3 ML GEL..ML. TOPICAL (11:45)
[2023-10-05] MEDS: TETANUS/DIPHTH/PERTUSSIS 0.5 ML SYRINGE IM (12:00)
== END 2023-10-05 12:47 | disposition home or self-care (01) ==
PROVIDERS: Emergency Provider Emergency Medicine; PCP Family Medicine
DX: S01.112A Laceration without foreign body of left eyelid and periocular area, initial encounter (principal); W01.10XA Fall on same level from slipping, tripping and stumbling with subsequent striking against unspecified object, initial encounter
CPT/HCPCS: 12011; 70450; 90471; 90715; 99283; 99284

== ENCOUNTER 2024-03-03 15:20 | Emergency (ER) | payer MEDICARE, SELFPAY ==
[2024-03-03 15:27] VITALS: BP 146/86; PULSE 71; RESP 18; TEMP 36.7; O2SAT 93; BMI 25.5
--- NOTE | 2024-03-03 16:37 | ED.GENADULT ---
HPI - General Adult General Date Seen: 03/03/24 Chief complaint: GI Bleed Stated complaint: Bleeding from rectum Time Seen by Provider: 03/03/24 16:16 Source: patient, RN notes reviewed and old records reviewed Mode of arrival: ambulatory Limitations: no limitations History of Present Illness HPI narrative: Patient is a 73-year-old woman, not anticoagulated, who notes bright red blood per rectum which he says has been going on ?for quite a while. It had been sporadic however and over the past few weeks she says it has been every day. She has bowel movements 2 or 3 times a day, she denies felicity diarrhea but stools are somewhat loose. She notes bright red blood when she wipes. She has not had melena, has not had significant blood mixed in with the stools. Has known external hemorrhoids. She denies rectal pain. Every once in a while she gets a little bit of left lower quadrant discomfort but does not have any right now. She has not had fevers, nausea or vomiting. She notes that she had a colonoscopy about a year ago which was normal. She has been feeling somewhat fatigued, she says that might just be because she is old. Related Data Home Medications Medication Instructions Recorded Confirmed albuterol sulfate 90 mcg/actuation 2 puff inhalation Q4H PRN 08/30/22 12/19/22 aerosol inhaler atorvastatin 40 mg tablet 40 mg PO DAILY 08/30/22 12/19/22 diltiazem HCl 360 mg 360 mg PO DAILY 08/30/22 12/19/22 capsule,extended release 24 hr metoprolol succinate 50 mg 50 mg PO DAILY 08/30/22 12/19/22 tablet,extended release 24 hr nitroglycerin 0.4 mg sublingual 0.4 mg sublingual Q5M PRN 08/30/22 12/19/22 tablet sertraline 100 mg tablet 150 mg PO DAILY 08/30/22 12/19/22 tiotropium bromide 2.5 2 inh inhalation DAILY 08/30/22 12/19/22 mcg/actuation mist for inhalation (Spiriva Respimat) acetaminophen 325 mg tablet (Aphen) 650 mg PO QID PRN 12/19/22 12/19/22 cholecalciferol (vitamin D3) 50 50 mcg PO DAILY 12/19/22 12/19/22 mcg (2,000 unit) capsule lisinopril 20 mg tablet 20 mg PO DAILY 12/19/22 12/19/22 Previous Rx's Medication Instructions Recorded clindamycin HCl 300 mg capsule 300 mg PO Q8H #15 caps 12/22/22 Allergies Allergy/AdvReac Type Severity Reaction Status Date / Time codeine Allergy Mild Hives Verified 12/19/22 08:10 Iodinated Contrast Media Allergy Mild Fever Verified 12/19/22 10:25 Penicillins Allergy Mild Hives Verified 12/19/22 08:10 Review of Systems Status of ROS: Reports: 10 or more systems reviewed and unremarkable except as noted in History and below [facility] Medical History Hypoxia ?R09.02 - Hypoxemia (ICD-10) Brain abscess ?G06.0 - Intracranial abscess and granuloma (ICD-10) Cholesteatoma ?H71.90 - Unspecified cholesteatoma, unspecified ear (ICD-10) Mastoiditis of right side ?H70.91 - Unspecified mastoiditis, right ear (ICD-10) Internal hemorrhoids ?K64.8 - Other hemorrhoids (ICD-10) Inguinal hernia ?K40.90 - Unilateral inguinal hernia, without obstruction or gangrene, not specified as recurrent (ICD-10) Adrenal adenoma ?D35.00 - Benign neoplasm of unspecified adrenal gland (ICD-10) Prolonged QT interval ?R94.31 - Abnormal electrocardiogram [ECG] [EKG] (ICD-10) Diverticulosis ?K57.90 - Diverticulosis of intestine, part unspecified, without perforation or abscess without bleeding (ICD-10) Smoking ?F17.200 - Nicotine dependence, unspecified, uncomplicated (ICD-10) COPD (chronic obstructive pulmonary disease) ?J44.9 - Chronic obstructive pulmonary disease, unspecified (ICD-10) History of paroxysmal supraventricular tachycardia ?Z86.79 - Personal history of other diseases of the circulatory system (ICD-10) Gastroesophageal reflux ?K21.9 - Gastro-esophageal reflux disease without esophagitis (ICD-10) Depression ?F32.A - Depression, unspecified (ICD-10) Hypertension ?I10 - Essential (primary) hypertension (ICD-10) Hyperlipidemia ?E78.5 - Hyperlipidemia, unspecified (ICD-10) Surgical History History of inguinal hernia repair ?Z98.890 - Other specified postprocedural states (ICD-10) ?Z87.19 - Personal history of other diseases of the digestive system (ICD-10) History of tonsillectomy and adenoidectomy ?Z90.89 - Acquired absence of other organs (ICD-10) History of right knee joint replacement ?Z96.651 - Presence of right artificial knee joint (ICD-10) History of hysterectomy ?Z90.710 - Acquired absence of both cervix and uterus (ICD-10) History of colonoscopy ?Z98.890 - Other specified postprocedural states (ICD-10) History of bilateral hip arthroplasty ?Z96.643 - Presence of artificial hip joint, bilateral (ICD-10) History of right mastoidectomy ?Z90.89 - Acquired absence of other organs (ICD-10) History of appendectomy ?Z90.49 - Acquired absence of other specified parts of digestive tract (ICD-10) History of tubal ligation ?Z98.51 - Tubal ligation status (ICD-10) Status post craniotomy ?Z98.890 - Other specified postprocedural states (ICD-10) Family History Sister Breast cancer Pancreatic cancer Lung cancer Father Lung cancer Social History Narrative: She lives alone at the [facility]. Either her son Alvarez or daughter Cecily are healthcare power of patent prosecution attorney. Code status is full. She is a current smoker. She drinks alcohol 2 or 3 times per year. Smoking Status: Current every day smoker What tobacco products do you use: cigarettes Smoking packs per day: 0.5 Smoking cigarettes per day: 10.0 Do you use any of these nicotine containing products: None Second hand tobacco smoke exposure: Yes How often do you have a drink containing alcohol: never AUDIT-C Alcohol total score: 0 Non-prescribed substance use: denies use service: No Exam Narrative: Exam Narrative: Vital signs as noted above. In general, an alert, well-appearing patient. Head: Normocephalic, atraumatic. Eyes: Pupils are equal reactive. Extraocular movements are full. Conjunctivae are normal. ENT: Mucous membranes are moist. Throat is normal. Neck: Supple without lymphadenopathy. Heart: Regular rate and rhythm. No murmur or rub. Lungs: Clear bilaterally. No increased work of breathing, crackles or wheezes. Abdomen: Soft and nontender. Specifically, no left lower quadrant tenderness at this time. Rectal: She has multiple external hemorrhoids and some prolapsed internal hemorrhoids with stigmata of recent bleeding. No active bleeding at this time. Stool is light brown. Extremities: Well perfused. No edema. No calf tenderness. Pulses intact. Neurologic: Patient is alert and oriented to person and place. Speech is fluent. Face is symmetric. Moves all extremities equally. Affect: Normal. Skin: Warm and dry. Well perfused. Const: Vital Signs, click to edit/add: Vital Signs - 24 hr 03/03/24 15:27 Temperature 98.0 F Pulse Rate [Right Pulse Oximeter] 71 Respiratory Rate 18 Blood Pressure [Ri ght Upper Arm] 146/86 H Pulse Oximetry 93 Oxygen Delivery Me thod Room Air Course Course ED Course: Patient reports bright red blood per rectum for a fairly lengthy period of time with worsening over the past few weeks. I do believe this is likely hemorrhoidal bleeding based on her history and exam. Will check blood counts, I do not think imaging is needed today if labs are reassuring. Abdominal exam is benign, and given duration of bleeding my suspicion for something like diverticular bleeding in lower. Labs are reassuring. Hemoglobin is 15, white blood cell count is 4.5. Metabolic panel is entirely normal, LFTs normal, CRP less than 0.5. Fecal occult blood is positive. Reviewed all this with her. I do think her bleeding is likely hemorrhoidal, she denies problems with constipation. Would like her to follow up with her primary doctor, if she has continued significant problems, referral to colorectal surgeon could be made. For significant increase in bleeding or abdominal pain, new symptoms such as fever vomiting etcetera, return to the ER at any time. Vital Signs Vital signs: Initial Vital Signs Temperature 98.0 F 03/03/24 15:27 Temperature Source Temporal Artery Scan 03/03/24 15:27 Pulse Rate 71 03/03/24 15:27 Pulse Rhythm Regular 03/03/24 15:27 Pulse Strength 3+ Normal 03/03/24 15:27 Respiratory Rate 18 03/03/24 15:27 Blood Pressure 146/86 H 03/03/24 15:27 Blood Pressure Mean 106 H 03/03/24 15:27 Blood Pressure Position Sitting 03/03/24 15:27 Pulse Oximetry 93 03/03/24 15:27 Oxygen Delivery Method Room Air 03/03/24 15:27 Vital Signs Temperature 98.0 F 03/03/24 15:27 Pulse Rate 71 03/03/24 15:27 Respiratory Rate 18 03/03/24 15:27 Blood Pressure 146/86 H 03/03/24 15:27 Pulse Oximetry 93 03/03/24 15:27 Oxygen Delivery Method Room Air 03/03/24 15:27 Temperature 98.0 F 03/03/24 15:27 Pulse Rate 71 03/03/24 15:27 Respiratory Rate 18 03/03/24 15:27 Blood Pressure 146/86 H 03/03/24 15:27 Pulse Oximetry 93 03/03/24 15:27 Oxygen Delivery Method Room Air 03/03/24 15:27 Medical Decision Making Lab Data Labs: Lab Results 03/03/24 03/03/24 03/03/24 Range/Units 16:05 16:05 16:05 WBC 5.45 (4.50-11.00) K/uL RBC 5.54 H (4.00-5.20) m/uL Hgb 15.4 (12.0-16.0) gm/dL Hct 47.1 (33.0-51.0) % MCV 85 (80-100) fL MCH 28 (26-34) pg MCHC 33 (32-36) gm/dL RDW Coeff of Luiz 13.9 (11.5-15.5) % Plt Count 211 (140-440) K/uL Neut % (Auto) 69.8 (42.0-72.0) % Lymph % (Auto) 22.4 (20-44) % Wilkin % (Auto) 4.8 (0.0-11.0) % Eos % (Auto) 2.2 (0.0-7.0) % Baso % (Auto) 0.6 (0.0-3.0) % Neut # (Auto) 3.81 (1.7-7.0) K/uL Lymph # (Auto) 1.22 (0.90-2.90) K/uL Wilkin # (Auto) 0.30 (0.00-0.90) K/UL Eos # (Auto) 0.12 (0.00-0.50) K/uL Baso # (Auto) 0.03 (0.00-0.30) K/uL Abs Immat Gran (auto) 0.01 (0.00-0.30) K/uL Imm/Tot Granulo (auto) 0.2 % Sodium 140 Cancelled (135-149) mmol/L Potassium 3.8 Cancelled (3.6-5.1) mmol/L Chloride 109 (96-114) mmol/L Carbon Dioxide (20-32) mmol/L Anion Gap (7-15) mEq/L BUN (7-30) mg/dL Creatinine (0.5-1.5) mg/dL Estimated Creat Clear Estimated GFR ml/min Glucose (60-115) mg/dL Calcium (8.4-10.6) mg/dL Total Bilirubin (0.1-1.5) mg/dL AST (12-35) U/L ALT (4-35) U/L Alkaline Phosphatase (40-150) U/L C-Reactive Protein (0.5-1.0) mg/dL Total Protein (6.0-8.3) g/dL Albumin (3.3-5.0) g/dL Stool Occult Blood (Negative) 03/03/24 03/03/24 03/03/24 Range/Units 16:05 16:05 16:05 WBC (4.50-11.00) K/uL RBC (4.00-5.20) m/uL Hgb (12.0-16.0) gm/dL Hct (33.0-51.0) % MCV (80-100) fL MCH (26-34) pg MCHC (32-36) gm/dL RDW Coeff of Luiz (11.5-15.5) % Plt Count (140-440) K/uL Neut % (Auto) (42.0-72.0) % Lymph % (Auto) (20-44) % Wilkin % (Auto) (0.0-11.0) % Eos % (Auto) (0.0-7.0) % Baso % (Auto) (0.0-3.0) % Neut # (Auto) (1.7-7.0) K/uL Lymph # (Auto) (0.90-2.90) K/uL Wilkin # (Auto) (0.00-0.90) K/UL Eos # (Auto) (0.00-0.50) K/uL Baso # (Auto) (0.00-0.30) K/uL Abs Immat Gran (auto) (0.00-0.30) K/uL Imm/Tot Granulo (auto) % Sodium (135-149) mmol/L Potassium (3.6-5.1) mmol/L Chloride Cancelled (96-114) mmol/L Carbon Dioxide 23 Cancelled (20-32) mmol/L Anion Gap 8 Cancelled (7-15) mEq/L BUN 11 (7-30) mg/dL Creatinine (0.5-1.5) mg/dL Estimated Creat Clear Estimated GFR ml/min Glucose (60-115) mg/dL Calcium (8.4-10.6) mg/dL Total Bilirubin (0.1-1.5) mg/dL AST (12-35) U/L ALT (4-35) U/L Alkaline Phosphatase (40-150) U/L C-Reactive Protein (0.5-1.0) mg/dL Total Protein (6.0-8.3) g/dL Albumin (3.3-5.0) g/dL Stool Occult Blood (Negative) 03/03/24 03/03/24 03/03/24 Range/Units 16:05 16:05 16:05 WBC (4.50-11.00) K/uL RBC (4.00-5.20) m/uL Hgb (12.0-16.0) gm/dL Hct (33.0-51.0) % MCV (80-100) fL MCH (26-34) pg MCHC (32-36) gm/dL RDW Coeff of Luiz (11.5-15.5) % Plt Count (140-440) K/uL Neut % (Auto) (42.0-72.0) % Lymph % (Auto) (20-44) % Wilkin % (Auto) (0.0-11.0) % Eos % (Auto) (0.0-7.0) % Baso % (Auto) (0.0-3.0) % Neut # (Auto) (1.7-7.0) K/uL Lymph # (Auto) (0.90-2.90) K/uL Wilkin # (Auto) (0.00-0.90) K/UL Eos # (Auto) (0.00-0.50) K/uL Baso # (Auto) (0.00-0.30) K/uL Abs Immat Gran (auto) (0.00-0.30) K/uL Imm/Tot Granulo (auto) % Sodium (135-149) mmol/L Potassium (3.6-5.1) mmol/L Chloride (96-114) mmol/L Carbon Dioxide (20-32) mmol/L Anion Gap (7-15) mEq/L BUN Cancelled (7-30) mg/dL Creatinine 0.7 Cancelled (0.5-1.5) mg/dL Estimated Creat Clear 45.50 Cancelled Estimated GFR 90 ml/min Glucose (60-115) mg/dL Calcium (8.4-10.6) mg/dL Total Bilirubin (0.1-1.5) mg/dL AST (12-35) U/L ALT (4-35) U/L Alkaline Phosphatase (40-150) U/L C-Reactive Protein (0.5-1.0) mg/dL Total Protein (6.0-8.3) g/dL Albumin (3.3-5.0) g/dL Stool Occult Blood (Negative) 03/03/24 03/03/24 03/03/24 Range/Units 16:05 16:05 16:05 WBC (4.50-11.00) K/uL RBC (4.00-5.20) m/uL Hgb (12.0-16.0) gm/dL Hct (33.0-51.0) % MCV (80-100) fL MCH (26-34) pg MCHC (32-36) gm/dL RDW Coeff of Luiz (11.5-15.5) % Plt Count (140-440) K/uL Neut % (Auto) (42.0-72.0) % Lymph % (Auto) (20-44) % Wilkin % (Auto) (0.0-11.0) % Eos % (Auto) (0.0-7.0) % Baso % (Auto) (0.0-3.0) % Neut # (Auto) (1.7-7.0) K/uL Lymph # (Auto) (0.90-2.90) K/uL Wilkin # (Auto) (0.00-0.90) K/UL Eos # (Auto) (0.00-0.50) K/uL Baso # (Auto) (0.00-0.30) K/uL Abs Immat Gran (auto) (0.00-0.30) K/uL Imm/Tot Granulo (auto) % Sodium (135-149) mmol/L Potassium (3.6-5.1) mmol/L Chloride (96-114) mmol/L Carbon Dioxide (20-32) mmol/L Anion Gap (7-15) mEq/L BUN (7-30) mg/dL Creatinine (0.5-1.5) mg/dL Estimated Creat Clear Estimated GFR Cancelled ml/min Glucose 91 Cancelled (60-115) mg/dL Calcium 9.2 Cancelled (8.4-10.6) mg/dL Total Bilirubin 0.4 (0.1-1.5) mg/dL AST 29 (12-35) U/L ALT 29 (4-35) U/L Alkaline Phosphatase 62 (40-150) U/L C-Reactive Protein < 0.5 L (0.5-1.0) mg/dL Total Protein 7.2 (6.0-8.3) g/dL Albumin 4.2 (3.3-5.0) g/dL Stool Occult Blood (Negative) 03/03/24 Range/Units 16:20 WBC (4.50-11.00) K/uL RBC (4.00-5.20) m/uL Hgb (12.0-16.0) gm/dL Hct (33.0-51.0) % MCV (80-100) fL MCH (26-34) pg MCHC (32-36) gm/dL RDW Coeff of Luiz (11.5-15.5) % Plt Count (140-440) K/uL Neut % (Auto) (42.0-72.0) % Lymph % (Auto) (20-44) % Wilkin % (Auto) (0.0-11.0) % Eos % (Auto) (0.0-7.0) % Baso % (Auto) (0.0-3.0) % Neut # (Auto) (1.7-7.0) K/uL Lymph # (Auto) (0.90-2.90) K/uL Wilkin # (Auto) (0.00-0.90) K/UL Eos # (Auto) (0.00-0.50) K/uL Baso # (Auto) (0.00-0.30) K/uL Abs Immat Gran (auto) (0.00-0.30) K/uL Imm/Tot Granulo (auto) % Sodium (135-149) mmol/L Potassium (3.6-5.1) mmol/L Chloride (96-114) mmol/L Carbon Dioxide (20-32) mmol/L Anion Gap (7-15) mEq/L BUN (7-30) mg/dL Creatinine (0.5-1.5) mg/dL Estimated Creat Clear Estimated GFR ml/min Glucose (60-115) mg/dL Calcium (8.4-10.6) mg/dL Total Bilirubin (0.1-1.5) mg/dL AST (12-35) U/L ALT (4-35) U/L Alkaline Phosphatase (40-150) U/L C-Reactive Protein (0.5-1.0) mg/dL Total Protein (6.0-8.3) g/dL Albumin (3.3-5.0) g/dL Stool Occult Blood Positive A (Negative) Discharge Plan Discharge Clinical Impression: Bright red blood per rectum, Hemorrhoids Patient Disposition: Home, Self-Care Condition: Stable Instructions: Rectal Bleeding (ED) Additional Instructions: Your hemoglobin today is 15, which is well within the normal range. I would recommend that you follow-up with primary care. I do suspect that the bleeding you are having is coming from your hemorrhoids, but if you have more significant bleeding, more significant abdominal pain, fevers, vomiting or other changes, return any time to the ER. Prescriptions: No Action diltiazem HCl 360 mg capsule,extended release 24hr 360 mg PO DAILY metoprolol succinate 50 mg tablet extended release 24 hr 50 mg PO DAILY nitroglycerin 0.4 mg tablet, sublingual 0.4 mg sublingual Q5M PRN atorvastatin 40 mg tablet 40 mg PO DAILY Spiriva Respimat 2.5 mcg/actuation mist 2 inh inhalation DAILY sertraline 100 mg tablet 150 mg PO DAILY albuterol sulfate 90 mcg/actuation HFA aerosol inhaler 2 puff inhalation Q4H PRN lisinopril 20 mg tablet 20 mg PO DAILY acetaminophen [Aphen] 325 mg tablet 650 mg PO QID PRN cholecalciferol (vitamin D3) 50 mcg (2,000 unit) capsule 50 mcg PO DAILY clindamycin HCl 300 mg capsule 300 mg PO Q8H Qty: 15 0RF Follow Up/Referrals: Gladis Espinosa MD [Primary Care Provider] - Stand Alone Forms: [facility] Info Instructions
[2024-03-03 16:39] LABS: Basophils Absolute Auto 0.03 K/uL (0.00-0.30); Basophils Percent Auto 0.6 % (0.0-3.0); Eosinophils Absolute Auto 0.12 K/uL (0.00-0.50); Eosinophils Percent Auto 2.2 % (0.0-7.0); Hematocrit 47.1 % (33.0-51.0); Hemoglobin* 15.4 gm/dL (12.0-16.0); Immature Granulocytes Abs Auto 0.01 K/uL (0.00-0.30); Immature Granulocytes Pct Auto 0.2 %; Lymphocytes Absolute Auto 1.22 K/uL (0.90-2.90); Lymphocytes Percent Auto 22.4 % (20-44); Mean Corpuscular HGB Conc 33 gm/dL (32-36); Mean Corpuscular Hemoglobin 28 pg (26-34); Mean Corpuscular Volume 85 fL (80-100); Monocytes Percent Auto 4.8 % (0.0-11.0); Neutrophils Absolute Auto 3.81 K/uL (1.7-7.0); Neutrophils Percent Auto 69.8 % (42.0-72.0); Platelet Count* 211 K/uL (140-440); RDW Coefficient of Variation % 13.9 % (11.5-15.5); Red Blood Count 5.54 m/uL (4.00-5.20); White Blood Count* 5.45 K/uL (4.50-11.00)
--- OUTSIDE RECORDS SUMMARY | 2024-03-03 16:43 | XMS_ITS | Referral Summary ---
Author Name Unknown Organization [place] Address [facility] [place] [address] Care Team Providers Care Open Shank Coverer Name Role Phone Jeffrey Lezama MD Unavailable Daisy Portillo Unavailable Liyah Judge MD Unavailable [facility] Unavailable Gladis Espinosa MD Primary Care Provider [phone] Allergies Active Allergy Reactions Criticality Noted Date Comments Codeine Other (See Comments) 12/13/2017 Chills Codeine Sulfate Other (See Comments) 08/20/2013 Body Tingling, cold sweats Contrast Dye Other (See Comments) 08/12/2014 Redness like sunburn on body, specific dye used was Isovue 370 Penicillins 08/20/2013 Cold sweats and bumps all over body Warfarin Rash Low 06/21/2014 Rash from [facility] - hosp 06/18/14 Medications Medication Sig Dispensed Refills Start Date End Date Status nitroglycerin (NITROSTAT) 0.[address] 0.4 mg under the tongue every 5 minutes as needed for chest pain 0 Active omeprazole (PRILOSEC) 40 MG capsuleIndications:GE RD (gastroesophageal reflux disease) TAKE 1 CAPSULE(40 MG) BY MOUTH DAILY 30 TO 60 MINUTES BEFORE A MEAL 90 capsule 2 09/25/2017 Active sertraline (ZOLOFT) 100 MG tabletIndications:Junior or depressive disorder, recurrent episode, moderate (H) TAKE 1 TABLET(100 MG) BY MOUTH DAILY 30 tablet 0 02/27/2018 Active flecainide (TAMBOCOR) 50 MG tabletIndications:Sup raventricular tachycardia (H24) Take 1 tablet (50 mg) by mouth every 12 hours 180 tablet 0 09/22/2018 Active atorvastatin (LIPITOR) 40 MG tablet Take 40 mg by mouth At Bedtime 0 Active tiotropium (SPIRIVA RESPIMAT) 2.5 MCG/ACT inhaler Inhale 2 puffs into the lungs daily 0 Active vitamin D3 (CHOLECALCIFEROL) 50 mcg (2000 units) tablet Take 1 tablet by mouth daily 0 Active Active Problems Problem Noted Date Diagnosed Date Anemia 02/18/2021 Ear drainage right 05/30/2017 Fatigue, unspecified type 05/30/2017 Supraventricular tachycardia (H24) 01/10/2017 Other infective acute otitis externa of left ear 01/03/2017 Dry mouth 01/03/2017 Essential hypertension with goal blood pressure less than 140/90 09/18/2016 Coronary artery disease, non-occlusive 6 Chest pain 06/19/2016 Need for hepatitis C screening test 04/12/2016 Major depressive disorder, recurrent episode, mo derate 04/12/2016 S/P total hip arthroplasty 03/14/2016 Internal hemorrhoid 01/03/2016 Overview: Noted colonoscopy 12/[address] 12/05/2015 Overview: Recommended follow up 05/2015 Diverticulosis of large intestine with hemorrhag e 11/01/2015 Diverticulitis of colon 11/01/2015 Coronary artery disease invo lving [place] coronary artery without angina pectoris 09/13/2015 Adrenal incidentaloma (H24) 08/29/2015 SVT (supraventricular tachycardia) (H24) 015 S/P prosthetic total arthroplasty of the hip 12/2014 Paroxysmal atrial fibrillation 07/26/2015 Thyroid nodule 07/15/2015 GERD (gastroesophageal reflux disease) 3 Hyperlipidemia LDL goal <100 08/20/2013 Resolved Problems Problem Noted Date Diagnosed Date Resolved Date HTN, goal below 140/90 01/10/201705/30 Essential hypertension with goal blood pressure less than 140/90 04/12/2016 04/12/2016 Hypertension goal BP (blood pressure) < 150/90 04/12/2016 12/06/2016 Advanced directives, counseling/discussion 11/30/2014 03/27/2021 Overview: Gave pt packet on 11/30/2014 Katelynn YVETTE Ochoa Rash 06/19/2014 04/12/2016 Atrial fibrillation 06/08/2014 07/07/20 15 Overview: Occurred during acute illness (CAP) approximately 05/2014 Elevated troponin 06/08/2014 07/07/2015 Overview: Without evidence of the acute coronary syndrome in 05/2014 Acute diastolic heart failure 06/08/2014 07/07/2015 Overview: Fluid resuscitated with over 10 liters during 05/2014 hospitalization, developed mild pulmonary edema requiring O2 oxymizer support; no previous history of heart failure. Echocardiogram with EF 60-65%. Syncope 06/06/2014 07/07/2015 Intermediate coronary syndrome 08/26/2013 06/08/2014 HTN, goal below 140/90 08/20/201304/12 Right leg pain 08/20/2013 06/08/2014 Sciatica neuralgia 08/20/2013 4 Immunizations Name Administration Dates Next Due Influenza (High Dose) 3 valent vaccine 5 Pneumo Conj 13-V (2010&after) 11/07/2015 Pneumococcal 23 valent 01/03/2017 TDAP Vaccine (Adacel) 11/17/2014 Social History Tobacco Use Types Packs/Day Years Used Date Smoking Tobacco: Former Cigarettes Q uit: 12/27/2016 Smokeless Tobacco: Former Tobacco Cessation:Counseling Given: No Alcohol Use Standard Drinks/Week Comments Yes 1 (1 standard drink = 0.6 oz pur e alcohol) 1 drink monthly if that PHQ-2 Answer Date Recorded PHQ-2 Score 0 12/03/2018 Adolescent Education Answer Date Record ed Getting School Help Needed Not on file 09/11 Sex and Gender Information Value Date Recorded Sex Assigned at Not on file Gender Identity Not on file Sexual Orientation Not on file Last Filed Vital Signs Vital Sign Reading Time Taken Comments Blood Pressure 122/74 02/22/2021 7:32 AM CDT Pulse 89 02/22/2021 7:47 AM CDT Temperature 36.7 ??C (98 ??F) 02/22/2021 7:32 AM CDT Respiratory Rate 20 02/22/2021 7:47 AM CDT Oxygen Saturation 96% 02/22/2021 7:47 AM CDT Inhaled Oxygen Concentration - - Weight 69.9 kg (154 lb) 02/18/2021 5:00 PM CDT Height 170.2 cm (5' 7) 02/18/2021 5:00 PM CDT Body Mass Index 24.12 02/18/2021 5:00 PM CDT Plan of Treatment Not on file Goals Goal Patient Goal Type Associated Problems Recent Progress Patient-Stated? Author Patient states that she would like to increase her physical activity to assist her with increasing her strength and healing. General Yes Nola Holland RN Note: As of today's date 09/07/2015 goal is met at 26 - 50%. Goal Status: Active Medical Devices Implanted Type Area Autocad Electrical Designer Device Identifier Shelf Expiration Date Model / Serial / Lot G7 Acetabular Shell, 3 Hole, Porous Plasma Cementless, 52mm, E Implanted:Qty: 1 on 07/27/2015 by Hamzah Woodall MD at [facility] Right: Hip BIOMET 05/24/2025 [id number] / / [id number] Acetabular Screw, 6.5mm, 25mm Implanted:Qty: 1 on 07/27/2015 by Hamzah Woodall MD at [facility] Right: Hip BIOMET 08/24/2024 [id number] / / [id number] Acetabular Screw, 6.5mm, 25mm Implanted:Qty: 1 on 07/27/2015 by Hamzah Woodall MD at [facility] Right: Hip BIOMET 01/22/2025 [id number] / / [id number] Acetabular Liner, Neutral, Arcomxl Highly Crosslinked Uhmwpe, 36mm, E Implanted:Qty: 1 on 07/27/2015 by Hamzah Woodall MD at [facility] Right: Hip 08/24/2019 [id number] / / [id number] Taperloc Complete Primary Femoral Porous Coated Stem Reduced Distal 11 X 142mm Standard Offset Type 1 Taper Implanted:Qty: 1 on 07/27/2015 by Hamzah Woodall MD at [facility] Right: Hip BIOMET 05/24/2025 [id number] / / [id number] Modular Head Component -3mm Neck Implanted:Qty: 1 on 07/27/2015 by Hamzah Woodall MD at [facility] Right: Hip BIOMET 06/10/2025 [id number] / / [id number] [id number] Acetabular Shell Implanted:Qty: 1 on 03/14/2016 by Hamzah Woodall MD at [facility] Left: Hip BIOMET [id number] / / [id number] Taperlock Complete Primary Femoral Porous Coated Stem Reduced Distal 11 X 142mm Standard Offset Ttype 1 Taper Ti-6ai-[id number] Implanted:Qty: 1 on 03/14/2016 by Hamzah Woodall MD at [facility] Left: Hip BIOMET 11/16/2025 [id number] / / [id number] Modular Head Component -3mm Neck Implanted:Qty: 1 on 03/14/2016 by Hamzah Woodall MD at [facility] Left: Hip BIOMET 01/04/2026 [id number] / / [id number] [id number] Acetabular Screw Implanted:Qty: 1 on 03/14/2016 by Hamzah Woodall MD at [facility] Left: Hip BIOMET 12/04/2025 [id number] / / [id number] [id number] Acetabular Screw Implanted:Qty: 1 on 03/14/2016 by Hamzah Woodall MD at [facility] Left: Hip BIOMET 05/14/2026 [id number] / / [id number] [id number] Acetabular Liner Neutral Arcomxl Highly Crosslinked Implanted:Qty: 1 on 03/14/2016 by Hamzah Woodall MD at [facility] Left: Hip BIOMET [id number] / / [id number] Advance Directives For more information, please contact: [phone] Documents on File Type Date Recorded Patient Complex Commercial Litigation Paralegal Expl anation Advance Directives and Living Will 03/27/2021 Health Care Directiv e 10/09/2019 Advance Directives and Living Will 03/27/2021 Validation of AD 10/09/2019 Latest Code Status on File Code Status Date Activated Date Inactivated Comments Full Code 02/18/2021 5:26 PM 02/22/2021 1:18 PM All b asic and advanced life-sustaining interventions are performed as appropriate Question Answer Comments Code status determined by: Discussion with patient/ legal decision maker Code Status History Code Status Date Activated Date Inactivated Comments Full Code 12/30/2016 9:07 AM 02/18/2021 4:51 PM Full Code 12/29/2016 6:48 PM 12/30/2016 9:07 AM Full Code 06/20/2016 8:44 AM 12/29/2016 6:48 PM Full Code 06/19/2016 3:07 PM 06/20/2016 8:44 AM Healthcare Agents on File Name Relationship Healthcare Agent [facility] p Communication Radha Pham Daughter Health Care Agent Logan Styles Son First Alternate Health Care Agent Care Teams Open Shank Coverer Relationship Specialty Start Date End Date Gladis Espinosa MD [facility] [address] [place] [address] PCP - General 02/22/21 Jeffrey Lezama MD [facility] [address] [place] [address] Otolaryngology 12/24/17 Daisy Portillo AuD [facility] [address] [place] [address] Maintenance Services Dispatcher Audiology 12/24/17 Liyah Judge MD [address] [place] [address] [address] [place] [address] Otolaryngology 12/24/17 [facility] [address] [place] [address] 02/21/21
--- OUTSIDE RECORDS SUMMARY | 2024-03-03 16:43 | XMS_ITS | Clinical Summary ---
Author Name Unknown Organization [place] Address [facility] [place] [address] Care Team Providers Care Casino Surveillance Officer Name Role Phone Jeffrey Lezama MD Unavailable Daisy Portillo Unavailable Liyah Judge MD Unavailable [phone] [facility] Unavailable [phone] Gladis Espinosa MD Primary Care Provider [phone] Allergies Active Allergy Reactions Criticality Noted Date [...] colon 11/01/2015 Coronary artery disease invo lving [place] coronary artery without angina pectoris 09/13/2015 Adrenal [...] 23 valent 01/03/2017 TDAP Vaccine (Adacel) 11/17/2014 Family History Medical History Relation Comments Alcohol/Drug Brother Alcohol/Drug Father alcoholism Depression Mother Hypertension Sister 1 Breast Cancer Sister 2 Depression Sister 3 Alcohol/Drug Son 1 Depression Son 2 Colon Cancer No family hx of Relation Status Comments Brother Father Mother Sister 1 Sister 2 Sister 3 Son 1 Son 2 Social History Tobacco Use Types Packs/Day Years [...] 02/18/2021 5:00 PM CDT Plan of Treatment Health Maintenance Due Date Last Done Comments ANNUAL REVIEW OF HM ORDERS 1948 CT COLONOGRAPHY 1948 DEXA 1950 FLEX SIG 1948 sDNA (Cologuard) 1948 ZOSTER IMMUNIZATION (1 of 2) 1998 RSV VACCINE ( & 60+) (1 - 1-dose 60+ series) 2008 LUNG CANCER SCREENING 06/06/2015 06/06/2014 MEDICARE ANNUAL WELLNESS VISIT 02/16/2016 02/15/2015, 05/17/2014 FIT 02/18/2016 02/17/2015 FALL RISK ASSESSMENT 11/02/2017 11/02/2016, 07/24/2016, 06/08/2016, Additional history exists CMP 05/30/2018 05/30/2017, 0 02/2017, 03/08/2016, Additional history exists LIPID 05/30/2018 05/30/2017, 03/25, 11/07/2015, Additional history exists MICROALBUMIN 05/30/2018 05/30/2017, 03/25, 02/15/2015, Additional history exists PHQ-9 08/23/2018 02/20/2018, 070 04/2017, 11/02/2016, Additional history exists COVID-19 Vaccine (2 - 2022- season) 2023 01/18/2021 INFLUENZA VACCINE (#1) 2023 8, 12/17/2017, 09/01/2015 GLUCOSE 02/22/2024 02/21/2021, 01/24, 02/19/2021, Additional history exists DTAP/TDAP/TD IMMUNIZATION (2 - Td or Tdap) 11/17/2024 11/17/2014 ADVANCE CARE PLANNING 03/27/2026 03/27/2021 , 03/27/2021, 11/30/2014 COLONOSCOPY 02/20/2031 02/20/2021, 01/24, 01/03/2016, Additional history exists COLORECTAL CANCER SCREENING 02/20/2031 HEPATITIS C SCREENING Completed 04/12/2016 MAMMO SCREENING Discontinued 06/08/2016 (Declined) Pneumococcal Vaccine: 65+ Years Completed 01/03/2017, 11/07/2015 DEPRESSION ACTION PLAN Completed 7, 05/30/2017, 05/03/2017, Additional history exists HPV IMMUNIZATION Aged Out No longer e ligible based on patient's age to complete this topic IPV IMMUNIZATION Aged Out No longer e ligible based on patient's age to complete this topic MENINGITIS IMMUNIZATION Aged Out No l onger eligible based on patient's age to complete this topic RSV MONOCLONAL ANTIBODY Aged Out No l onger eligible based on patient's age to complete this topic Goals Goal Patient Goal Type Associated Problems Recent Progress Patient-Stated? Author Patient states that she would like to increase her physical activity to assist her with increasing her strength and healing. General Yes Nola Holland, RN Note: As of today's date 09/07/2015 goal is met at 26 - 50%. Goal Status: Active Medical Devices Implanted Type Area Technical Sales Representative Device Identifier Shelf Expiration Date Model / Serial / Lot G7 Acetabular Shell, 3 Hole, Porous Plasma Cementless, 52mm, E Implanted:Qty: 1 on 07/27/2015 by Hamzah Woodall MD at [facility] Right: Hip BIOMET 05/24/2025 [id number] / / [id number] [id number] Acetabular Screw, 6.5mm, 25mm Implanted:Qty: 1 on 07/27/2015 by Hamzah Woodall MD at [facility] Right: Hip BIOMET 08/24/2024 [id number] / / [id number] G7 Acetabular Screw, 6.5mm, 25mm Implanted:Qty: 1 on 07/27/2015 by Hamzah Woodall MD at [facility] Right: Hip BIOMET 01/22/2025 [id number] / / [id number] [id number] Acetabular Liner, Neutral, Arcomxl Highly Crosslinked Uhmwpe, 36mm, E Implanted:Qty: 1 on 07/27/2015 by Hamzah Woodall MD at [facility] Right: Hip 08/24/2019 [id number] / / [id number] Taperloc Complete Primary Femoral Porous Coated Stem Reduced Distal 11 X 142mm Standard Offset Type 1 Taper Implanted:Qty: 1 on 07/27/2015 by Hamzah Woodall MD at [facility] Right: Hip BIOMET 05/24/2025 [id number] / / [id number] Modular Head Component -3mm Neck Implanted:Qty: 1 on 07/27/2015 by Hamzah Woodall MD at [facility] Right: Hip BIOMET 06/10/2025 [id number] / / [id number] Acetabular Shell Implanted:Qty: 1 on 03/14/2016 by Hamzah Woodall MD at [facility] Left: Hip BIOMET [id number] / / [id number] Taperlock Complete Primary Femoral Porous Coated Stem Reduced Distal 11 X 142mm Standard Offset Ttype 1 Taper Ti-6ai-[id number] Implanted:Qty: 1 on 03/14/2016 by Hamzah Woodall MD at [facility] Left: Hip BIOMET 11/16/2025 [id number] / / [id number] Modular Head Component -3mm Neck Implanted:Qty: 1 on 03/14/2016 by Hamzah Woodall MD at [facility] Left: Hip BIOMET 01/04/2026 [id number] / / [id number] [id number] Acetabular Screw Implanted:Qty: 1 on 03/14/2016 by Hamzah Woodall MD at [facility] Left: Hip BIOMET 12/04/2025 [id number] / / [id number] G7 Acetabular Screw Implanted:Qty: 1 on 03/14/2016 by Hamzah Woodall MD at [facility] Left: Hip BIOMET 05/14/2026 [id number] / / [id number] [id number] Acetabular Liner Neutral Arcomxl Highly Crosslinked Implanted:Qty: 1 on 03/14/2016 by Hamzah Woodall MD at [facility] Left: Hip BIOMET [id number] / / [id number] Advance Directives For more information, please contact: [phone] Documents on File Type Date Recorded Patient Transplant Surgeon Expl anation Advance Directives and Living Will [...] Agents on File Name Relationship Healthcare Agent Relationshi p Communication Radha Pham Daughter Health Care Agent Logan Styles Son First Alternate Health Care Agent Care Teams Casino Surveillance Officer Relationship Specialty Start Date End Date Gladis Espinosa MD [facility] [address] [place] [address] PCP - General 02/22/21 Jeffrey Lezama MD [facility] [address] [address] Otolaryngology 12/24/17 Daisy Portillo AuD [facility] [address] [facility] [address] [place] [address] Preschool Education Director Audiology 12/24/17 Liyah Judge MD [address] [place] [address] Otolaryngology 12/24/17 [facility] [address] [place] [address] 02/21/21
--- OUTSIDE RECORDS SUMMARY | 2024-03-03 16:43 | XMS_ITS | Encounter Summary ---
Author Name Unknown Organization [facility] Address [address] [place] [place] [address] [place] [address] Care Team Providers Care Equal Opportunity Representative Name Role Phone Unavailable Primary Care Provider Unavailabl e Reason for Visit * Reason Comments Office Visit: Converted Data Conversion Encounter Details Date Type Department Care Team (Late st Contact Info) Description 06/20/2021 Dental Interim Note [address] [id number] Default, [place] Social History Tobacco Use Types Packs/Day Years Used Date Smoking Tobacco: Never Assessed Sex and Gender Information Value Date Recorded Sex Assigned at Not on file Gender Identity Not on file Sexual Orientation Not on file documented as of this encounter Plan of Treatment Scheduled Orders Name Type Priority Associated Diagnoses Order Schedule 4 MOD RESIN-BASED COMPOSITE - 3 SURFACES, POSTERIOR Dental Procedures Routine 1 Occurren fransico starting 06/06/2021 18 DB RESIN-BASED COMPOSITE - 2 SURFACES, POSTERIOR Dental Procedures Routine 1 Occurren fransico starting 06/06/2021 20 MB RESIN-BASED COMPOSITE - 2 SURFACES, POSTERIOR Dental Procedures Routine 1 Occurren fransico starting 06/06/2021 24 MIDF RESIN-BASED COMPOSITE - 4 OR MORE SURFACES OR INVOLVING INCISAL ANGLE (ANTERIOR) Dental Procedures Routine 1 Occurrences starting 06/06/2021 28 B(V) RESIN-BASED COMPOSITE - 1 SURFACE, POSTERIOR Dental Procedures Routine 1 Occurrenc es starting 06/06/2021 documented as of this encounter Visit Diagnoses Not on filedocumented in this encounter
--- OUTSIDE RECORDS SUMMARY | 2024-03-03 16:43 | XMS_ITS | Clinical Summary ---
Author Name Unknown Organization [facility] Address [address] [place] [address] [place] [address] Care Team Providers Care Web Engineer Name Role Phone Unavailable Primary Care Provider Unavailabl e Source Comments PLEASE NOTE, if this patient is a minor, it may be UNLAWFUL to discuss sensitive information that is contained in these records (such as FAMILY PLANNING, MENTAL HEALTH or SUBSTANCE ABUSE) with the minor patient's parent or other person without the patient's specific authorization.[facility] Social History Tobacco Use Types Packs/Day Years Used Date Smoking Tobacco: Never Assessed Social Connections Answer Date Recorded Social Connections and Isolation 0 06/28/2021 Financial Resource Strain Answer Date R ecorded Financial Resource Strain 0 2020 Stress Answer Date Recorded Stress 0 06/28/2021 Physical Activity Answer Date Recorded Physical Activity 0 06/28/2021 Food Insecurity Answer Date Recorded Food 0 06/28/2021 Transportation Needs Answer Date Record ed Transportation 0 06/28/2021 Housing Stability Answer Date Recorded Housing 0 06/28/2021 Safety and Environment Answer Date Dieter rded Safety 0 06/28/2021 Utilities Answer Date Recorded Utilities 0 06/28/2021 Employment Answer Date Recorded Employment 0 06/28/2021 Sex and Gender Information Value Date Recorded Sex Assigned at Not on file Gender Identity Not on file Sexual Orientation Not on file Plan of Treatment Health Maintenance Due Date Last Done Comments Hepatitis C Screening 1950 Lipid Screening 1948 Tobacco Screening 1948 Hypertension Screening (#1) 1966 Imm-DTaP/Tdap/Td (1 - Tdap) 1967 CT Colonography 1993 Colonoscopy 1993 Colorectal Cancer Screening 1993 FIT/gFOBT 1993 Fecal DNA 1993 Flexible Sigmoidoscopy 1993 Imm-Zoster, Recombinant (1 of 2) 1998 Bone Density Screening 2013 Falls Prevention 2013 Imm-Pneumococcal 65+ (1 of 1 - PCV) 2013 Akd-[id number] (2022- season) 2023 Alcohol and Drug Screen 11/25/2023 Depression Annual Screen 11/25/2023 Imm-Influenza (Season Ended) 2024
--- OUTSIDE RECORDS SUMMARY | 2024-03-03 16:43 | XMS_ITS | Clinical Summary ---
Author Name Unknown Organization [employer] [facility] [employer] Address [place], [place] [address] Care Team Providers Care Pig Machine Supervisor Name Role Phone Gladis Espinosa MD Primary Care Provider Allergies Active Allergy Reactions Criticality Noted Date Comments Codeine Other - Describe In Comment Field 12/13/2017 Chills Diatrizoate Allergen Other - Describe In Comment Field 08/12/2014 Redness like sunburn on body, specific dye used was Isovue 370 Iodine And Iodide Containing Products Nausea Only Low 04/06/2019 Penicillins Hives 12/13/2017 Warfarin Rash 12/13/2017 Medications Medication Sig Dispensed Refills Start Date End Date Status cholecalciferol (VITAMIN D-3) 2,000 unit capsuleIndications :Vitamin D deficiency Take 1 capsule by mouth once daily. 90 capsule 3 8 Active nicotine (NICOTROL) 10 mg inhalerIndications :Encounter for smoking cessation counseling Inhale 10 mg by mouth every hour if needed for Nicotine Craving. 168 Each 2 0 Active acetaminophen (TYLENOL) 325 mg tabletIndications: Cholesteatoma of ear, right Take 1-2 tablets by mouth every 4 hours if needed (mild pain). Max acetaminophen dose: 4000mg in 24 hrs. 0 1 Active miscellaneous medical supply (Blood Pressure Cuff) miscIndications:HT N (hypertension) As directed. 1 Each 1 Active famotidine (PEPCID) 20 mg tablet Take 1 Tablet (20 mg) by mouth once daily if needed. 0 2 Active albuterol HFA (PRO-AIR; VENTOLIN; PROVENTIL) 90 mcg/actuation inhalerIndications :Pulmonary emphysema, unspecified emphysema type (HC) Inhale 2 Puffs by mouth every 4 hours if needed for Shortness Of Breath or Wheezing. 3 Each 3 3 Active lisinopriL (PRINIVIL; ZESTRIL) 30 mg tabletIndications: Hypertension Take 1 Tablet (30 mg) by mouth once daily. 90 Tablet 3 3 Active metoprolol succinate (Toprol XL) 25 mg Sustained-Release tabletIndications: SVT (supraventricular tachycardia) (HC) Take 1 Tablet (25 mg) by mouth once daily. May take additional tablet (25 mg) daily if needed for rapid heart rate. 180 Tablet 3 3 Active nitroglycerin (NITROSTAT) 0.4 mg sublingual tabletIndications: Hypertension, unspecified type Place 1 Tablet (0.4 mg) under the tongue every 5 minutes if needed for Chest Pain. Max of 3 doses. If chest pain persists, seek medical attention. 25 Tablet 1 3 Active nicotine (NICORETTE) 2 mg gumIndications:Enc ounter for smoking cessation counseling Chew 1 gum (2 mg) every hour while awake as needed for Nicotine Craving. 190 Each 8 4 Active atorvastatin (LIPITOR) 40 mg tabletIndications: Hyperlipidemia, unspecified hyperlipidemia type Take 1 Tablet (40 mg) by mouth once daily. 90 Tablet 3 4 Active sertraline (ZOLOFT) 100 mg tabletIndications: Major depression in remission (HC) Take 1.5 Tablets (150 mg) by mouth once daily. 135 Tablet 1 4 Active tiotropium-olodate roL (STIOLTO RESPIMAT) 2.5-2.5 mcg/actuation inhalerIndications :Pulmonary emphysema, unspecified emphysema type (HC) Inhale 2 Puffs by mouth once daily. 12 g 1 4 Active diltiazem CD (CARDIZEM CD) 360 mg extended release 24 hr capsuleIndications :Hypertension, unspecified type TAKE 1 CAPSULE(360 MG) BY MOUTH EVERY DAY 90 Capsule 2 4 Active diltiazem CD (CARDIZEM CD) 360 mg extended release 24 hr capsuleIndications :Hypertension, unspecified type Take 1 Capsule (360 mg) by mouth once daily. 90 Capsule 1 4 024 Discontinued Active Problems Patient Care Coordination No te Formatting of this note is d ifferent from the original. HF/Structural/Prevention Research Eligibility Review Date: 12/25/19 Upcoming Visit Location: [facility] Age: 69 y.o. Research Purpose Insurance Type: Private Medicare Equivalent Body mass index is 25.92 kg/m??. Social History Tobacco Use Smoking Status Current Every Day Smoker ? ? Packs/day: 0.50 ? ? Years: 54.00 ? ? Pack years: 27.00 ? ? Types: Cigarettes ? ? Start date: 11/25/1965 Smokeless Tobacco Never Used Tobacco Comment since age 14, patient has not smoked in 3 weeks (04/24/19) Social History Substance and Sexual Activity Alcohol Use Not Currently Comment: rare Comments: HF: DNQ Structural: DNQ Prevention: No DMII Vesalius: no inclusion 104 Problem Noted Date Diagnosed Date Trigger ring finger of left hand 11/29/2023 Atrial fibrillation, unspecified type 11/26/2023 Closed fracture of right side of maxilla, initia l encounter 11/26/2023 Prediabetes 04/23/2023 Pulmonary emphysema, unspecified emphysema type 03/29/2022 Major depressive disorder, recurrent episode, mo derate 03/29/2022 Dysthymia 09/21/2021 Adrenal incidentaloma 09/21/2021 Adrenal adenoma 01/27/2020 Inguinal hernia, left 01/27/2020 Internal hemorrhoid 01/27/2020 Diverticulosis 01/27/2020 Prolonged Q-T interval on ECG 04/01/2019 SVT (supraventricular tachycardia) 10/17/2018 Diverticulosis of large intestine without hemorr maverick 10/01/2018 Overview: Colonoscopy 09/2018 diverticulosis, repeat in 10 years Tobacco use disorder 12/17/2017 Hyperlipidemia HTN (hypertension) Depression Acid reflux S/P craniotomy Resolved Problems Problem Noted Date Diagnosed Date Resolved Date Cholesteatoma of ear, right 07/20/2020 06/26/2023 Mastoiditis of right side 07/13/2020 Brain abscess 07/13/2020 06/26/2023 Atrial fibrillation 10/17/20 18 E coli infection 06/26/2023 Encounters Date Type Department Care Team Description 03/03/2024 Nurse Triage [facility] [address] [place] [address] Gladis Espinosa MD Blood In Stool 02/26/2024 Refill [facility] [address] [place] [address] Gladis Espinosa MD Refill Request (Diltiazem Cd) 12/29/2023 Refill [facility] [address] [place] [address] Gladis Espinosa MD Refill Request (Sertraline) 12/04/2023 Refill [facility] [address] [place] [address] Gladis Espinosa MD Refill Request (Metoprolol Succinate, Lisinopril) from Last 3 Months Immunizations Name Administration Dates Next Due COVID-19 Vaccine Spikevax (M oderna 50mcg/0.5mL) 12YO+ 8728-2272 Formula PF 11/26/2023 COVID-19 vaccine (Moderna 10 0mcg/0.5mL) PF, MDV 02/15/2021,01/18/2021 COVID-19 vaccine (Pfizer-Bio NTech 30mcg/0.3mL) 12YO+ BIVALENT PF, MDV 09/03/2022 COVID-19 vaccine (Pfizer-Bio NTech 30mcg/0.3mL) 12YO+ SHANTI-SUCROSE PF, MDV 05/02/2022 Influenza, High-dose Inactivated 09/01/2015 Influenza, High-dose Quadriv alent Inactivated 09/17/2023,08/26/2022,09/18/2021 Influenza, IIV4 12/17/2017 Influenza, Inactivated AIIV4 (Age 65+ Years) Preserv Free 08/12/2020 Influenza, Inactivated IIV3 (Age 65+ Years) Preserv Free 08/29/2018 Pneumococcal Poly,23-Valent (Pneumovax) 01/03/20 17 Pneumococcal conj 13-Valent (Prevnar 13) 015,11/03/2015 Tdap 10/05/2023,11/17/2014,02/24/2010 Zoster (Shingrix-RZV, recombinant) 07/06/2023 Family History Medical History Relation Name Comments Lung cancer Father Genetic Other sister breast c ancer~sister htn~father lung ca~mother,2sisters hyst~son m.d Cancer-breast Sister Cancer-pancreatic Sister Lung cancer Sister Cancer-ovarian No Family History Relation Name Status Comments Father Other Sister Social History Tobacco Use Types Packs/Day Years Used Date Smoking Tobacco: Every Day Cigarettes 0.5 60.3 Started: 11/25/1963 Smokeless Tobacco: Never Tobacco Cessation:Ready to Q uit: No; Counseling Given: Yes Comments:since age 14 Alcohol Use Standard Drinks/Week Comments Yes 0 (1 standard drink = 0.6 oz pur e alcohol) rare PHQ-2 Answer Date Recorded PHQ-2 TOTAL SCORE 0 06/26/2023 Social Connections Answer Date Recorded Frequency of Communication with Friends and Fami ly 0 04/23/2023 Financial Resource Strain Answer Date R ecorded Difficulty of Paying Living Expenses 3 04/23/2023 Difficulty of Paying Living Expenses Not on file 04/23/2023 Food Insecurity Answer Date Recorded Worried About Running Out of Food in the Last Ye ar 1 04/23/2023 Transportation Needs Answer Date Record ed Lack of Transportation (Medical) 1 04/23/2023 Housing Stability Answer Date Recorded Unable to Pay for Housing in the Last Year 1 04/23/2023 Sex and Gender Information Value Date Recorded Sex Assigned at Female 03/23/2021 8:42 PM CDT Gender Identity Female 03/23/2021 8:41 PM CDT Sexual Orientation Not on file Obstetrics History Last Filed Vital Signs Vital Sign Reading Time Taken Comments Blood Pressure 136/82 11/26/2023 11:50 AM COMPOSITE BOND TECHNICIAN Pulse 65 11/26/2023 11:20 AM COMPOSITE BOND TECHNICIAN Temperature 36.6 ??C (97.8 ??F) 09/10/2023 3:24 PM CD T Respiratory Rate 18 04/13/2022 9:41 AM CDT Oxygen Saturation 93% 11/26/2023 11:20 AM COMPOSITE BOND TECHNICIAN Inhaled Oxygen Concentration - - Weight 72.1 kg (159 lb) 11/26/2023 11:20 AM COMPOSITE BOND TECHNICIAN Height 169.4 cm (5' 6.69) 06/26/2023 8:00 AM CD T Body Mass Index 25.13 06/26/2023 8:00 AM CDT Plan of Treatment Upcoming Encounters Date Type Department Care Team (Late st Contact Info) Description 03/18/2024 10:50 AM CDT Office Visit [facility] [address] [place] [address] Gladis Espinosa MD [address] [place] [address] Health Maintenance Due Date Last Done Comments Zoster (shingles) series for age 50+ (2 of 2) 08/31/2023 07/06/[address] (for lung CA) ag e 50-80 04/15/2024 04/15/2023, 04/13/2022, 12/14/2019 BMI (ht and wt on same day) for age 18+ 06/26/2024 06/26/2023, 12/11/2022, 05/02/2022, Additional history exists Depression screening for age 12+ 06/26/2024 06/26/2023, 04/24/2023, 04/23/2023, Additional history exists Medicare Wellness for age 65+ 06/26/2024, 05/02/2022, 03/21/2018 Influenza for age 65+ 07/26/2024 09/17/2023 , 08/26/2022, 09/18/2021, Additional history exists Lipids for age 45-75 07/16/2028 07/16/2023, 01/20/2021, 03/21/2018, Additional history exists Colonoscopy through age 75 02/20/203102/20, 10/01/2018, 10/01/2018, Additional history exists Tetanus booster 10/05/2033 10/05/2023, 10/26, 02/24/2010 Pneumococcal series for age 65+ Completed 01/03/2017, 11/07/2015, 11/03/2015 Hepatitis C screening for ag e 18-79 Completed 09/21/2021 DEXA/DXA scan for age 65+ Completed 04/24/2023 Tdap Completed 10/05/2023, 10/26, 02/24/2010 COVID-19 vaccine series Completed 11/26/19, 09/03/2022, 05/02/2022, Additional history exists Medical Devices Implanted Type Area Diesel Mechanic Helper Device Identifier Shelf Expiration Date Model / Serial / Lot Screw Neuro 4mm Matrixneuro Slf Drill Titnm - [id number] Implanted:Qty: 5 on 07/14/2020 by Nate Lozano MD at [facility] [employer] J [employer] J Dep[employer] CMF [id number] 4.01# / / Description:All screws remov ed Screw Neuro 4mm Matrixneuro Slf Drill Titnm - [id number] Implanted:Qty: 1 on 09/14/2020 by Nate Lozano MD at [facility] J And J Depuy CMF [id number] 4.01# / / Description:All screws remov ed [id number] 3mesh 3x7cm Alloderm Thick Human Implanted:Qty: 1 on 01/24/2021 by Nate Lozano MD at [facility] Explanted:at [facility] (Quantity not on file) Right: Cranium [employer] 09/24/2021 [id number] / [id number] / Dura Neuro 5ml Duraseal - [id number] Implanted:Qty: 1 on 01/24/2021 by Nate Lozano MD at [facility] Right: Cranium Xunlei Leti 01/22/2022 / / [id number] Description:See implant shee t Dura Neuro 2x2in Durepair Sut - [id number] Implanted:Qty: 1 on 01/24/2021 by Nate Lozano MD at [facility] Right: Cranium [employer] 05/24/2023 [id number] / / [id number] Screw Neuro 4mm Matrixneuro Slf Drill Titnm - [id number] Implanted:Qty: 8 on 01/24/2021 by Nate Lozano MD at [facility] [employer] J [employer] J [employer] CMF [id number] 4.01 / / Explanted Type Area Diesel Mechanic Helper Device Identifier Shelf Expiration Date Model / Serial / Lot Plate Neuro [id number] Geronimo López Titnm - [id number] Implanted:Qty: 1 on 07/14/2020 by Nate Lozano MD at [facility] Explanted:Qty: 1 on 01/24/2021 by Nate Lozano MD at [facility] [employer] CMF [id number] # / / Procedures Procedure Name Priority Date/Time Associated Diagnosis Comments LDL CHOLESTEROL,DIRECT Routine 07/16/2023 9:37 AM CDT Hyperlipidemia, unspecified hyperlipidemia type XR DXA BONE DENSITY 1 SITE AXIAL AND 1 SITE PERIPHERAL Routine 04/24/2023 10:[address] CHEST SCREENING LOW DOSE WO CONTRAST Routine 04/15/2023 9:05 AM CDT Encounter for screening for lung cancer Smoker Personal history of nicotine dependence ANTI HCV Routine 09/21/2021 1:18 PM CDT Need for hepatitis C screening test SCAN-COLONOSCOPY 02/20/2021 12:0 0 AM CDT from Last 3 Months or Most Recently Relevant to Health Maintenance Results * LDL CHOLESTEROL,DIRECT (07/16/2023 9:37 AM CDT) LDL CHOLESTEROL,DI RECT 88 mg/dL 07/16/2023 11:22 PM CDT [facility] PROVIDER ORDERED STATUS RANDOM 07/16/2023 11:22 PM CDT [facility] Blood BLOOD SPECIMEN / Unknown Venipuncture / Unknown 07/16/2023 9:37 AM CDT 07/16/2023 9:40 AM CDT Narrative [facility] - 07/16/2023 11:22 PM CDT Optimal ?<100 mg/dl Near Optimal ?100-129 mg/dl Borderline High ?? 130-159 mg/dl High ?160-189 mg/dl Very High ? >=190 mg/dl Gladis Espinosa MD CHEMISTRY [facility] [address] [place] [address], * (ABNORMAL) XR DXA BONE DENSITY 1 SITE AXIAL AND 1 SITE PERIPHERAL (04/24/2023 10:35 AM CDT) Anatomical Region Laterality Modality LUMBAR SPINE Other Impressions 04/26/2023 4:55 PM CDT Osteopenia. RECOMMENDATIONS: The National Osteoporosis Foundation recommends pharmacologic treatment for patients with T-scores of -2.5 or less, patients with prior history of fragility fractures, or patients with 10-year probability of greater than 3% at hips or greater than 20% of suffering major osteoporotic fractures. Recommend continued optimization of calcium and vitamin D intake through dietary means and/or supplementation and regular exercise. Repeat scan recommended in 3-5 years. Rosalina Sandhu PA-C [facility] 04/26/2023 Narrative 04/26/2023 4:55 PM CDT For Patients: Results are automatically released to your [facility] ([employer]) account once available, in compliance with federal regulations. This means that you may see your results before your provider has had a chance to review them. Please allow 2-3 business days for your provider to comment on the results. XR DXA Bone Mineral Density (BMD) EXAM LOCATION: [address] [address] PATIENT NAME: Nena Styles DATE OF : 1950 EXAM DATE: 04/24/2023 REQUESTING PROVIDER: Gladis Espinosa MD GENDER AT : female HEIGHT: 5' 7.91 (12/11/2022) WEIGHT: ??156 lb 12.8 oz (04/23/2023) MENOPAUSAL STATUS: Postmenopausal RACE/ETHNICITY: White RISK FACTORS: Alcohol > 3 drinks/day (prior), Smoking (current), Smoking (prior) and White Race CURRENT MEDICATION FOR BONE LOSS: NONE INDICATION: Menopause COMPARISON DATE(S): None DXA scans are compared to prior studies for a patient only when the two (or more) studies were performed on the same scanner. It is not possible to compare data generated on one scanner to data from another because there are not standards in DXA equipment. This applies even if the two scanners are made by the same shoe cleaner. PROCEDURE: Dual-energy x-ray absorptiometry performed with routine technique. Reporting is completed in the form of a T-score. The T-score represents the standard deviation from peak bone mass based on young healthy adult. A Z-score is used for diagnosis in premenopausal women, and for men under the age of 50. FINDINGS: RESULT LUMBAR SPINE L1 - L4 BMD: 1.367 g/cm2 T-Score: + 1.4 Z-Score: + 2.9 Change from prior: ??None RESULT FOREARM Left Forearm distal radius BMD: 0.752 g/cm2 T-Score: - 1.4 Z-Score: + 0.8 Change from prior: ??None WHO criteria: Normal: T-score at or above -1 SD Osteopenia: T-score between -1.1 and -2.4 SD Osteoporosis: T-score at or below -2.5 SD Gladis Espinosa MD DEXA * CT CHEST SCREENING LOW DOSE WO CONTRAST (04/15/2023 9:05 AM CDT) Anatomical Region Laterality Modality Computed Tomogra phy Impressions 04/15/2023 1:46 PM CDT 1. Severe pulmonary emphysema and chronic elevation left hemidiaphragm unchanged. No pulmonary nodules. 2. Hypodensities in the liver are unchanged. 3. Chronic atherosclerotic disease. Lung-RADS Category 1: Negative. No pulmonary nodules. Continue annual screening with LD CT in 12 months. Please note that all CT scans at this facility use dose modulation, iterative reconstruction and/or weight-based dosing when appropriate to reduce radiation dose to as low as reasonably achievable. ?? Dictated by: Gregor Vazquez MD @04/15/2023 9:36:35 AM / Priscila Narrative 04/15/2023 1:46 PM CDT For Patients: As a result of the Cures Act, medical imaging exams and procedure reports are released immediately into your electronic medical record. ??You may view this report before your referring provider. ?? If you have questions, please contact your health care provider. CT CHEST SCREENING LOW-DOSE WITHOUT CONTRAST, 04/15/2023 INDICATION: Lung cancer screening. TECHNIQUE: CT chest without contrast. COMPARISON: 04/13/2022. FINDINGS: Cardiovascular Structures: Heart size is normal. Thoracic aorta and main pulmonary artery are normal in caliber. Heavy atherosclerotic calcification of the thoracic aorta. Mediastinum and Terra: No sign of mass or adenopathy. Thyroid normal. Lungs: Severe emphysema. Elevation left hemidiaphragm with minimal compressive atelectasis. No pulmonary nodules, mass or consolidation. The airways are clear. Pleura and Pericardium: No effusions. Chest Wall and Axilla: No mass or adenopathy. Bones: Degenerative scoliosis. Upper Abdomen: Hypodensities in the liver are unchanged. Gladis Espinosa MD CT * ANTI HCV (09/21/2021 1:18 PM CDT) HEPATITIS C ANTIBODY Non-React juliet Non-React juliet 09/21/2021 6:13 PM CDT [facility] Comment:Antibodies to HCV no t detected; does not exclude the possibility of exposure to HCV. Blood BLOOD SPECIMEN / Unknown Venipuncture / Unknown 09/21/2021 1:18 PM CDT 09/21/2021 1:18 PM CDT Gladis Espinosa MD SEND OUTS [facility] [address] [place] [address], * SCAN-COLONOSCOPY (02/20/2021 12:00 AM CDT) Scanner OTHER from Last 3 Months or Most Recently Relevant to Health Maintenance Advance Directives Documents on File Type Date Recorded Patient Graphic Design Manager Expl anation Healthcare Directive 10/16/2019 12:00 AM 10/09/2019 * Full Code (Latest Code Status on File) Date Activated Date Inactivated Comments 01/24/2021 6:24 AM 01/29/2021 7:44 PM Question Answer Comments Code Status Discussion: Not Discussed * Full Code Date Activated Date Inactivated Comments 09/14/2020 12:13 PM 09/14/2020 5:58 PM Question Answer Comments Code Status Discussion: Not Discussed * Full Code Date Activated Date Inactivated Comments 07/12/2020 9:40 PM 07/16/2020 8:24 PM Question Answer Comments Code Status Discussion: Not Discussed Care Teams Pig Machine Supervisor Relationship Specialty Start Date End Date Gladis Espinosa MD [address] [place] [address] PCP - General Family Practice 08/27/18
--- OUTSIDE RECORDS SUMMARY | 2024-03-03 16:43 | XMS_ITS | Encounter Summary ---
Author Name Unknown Organization [place] Address [address] [place] [address] Care Team Providers Care Dumper Name Role Phone Jeffrey Lezama MD Unavailable Daisy Portillo Unavailable [phone] Liyah Judge MD Unavailable Jeanette Esparza MD Unavailable [phone] Jeanette Esparza MD Unavailable No Ref-Primary, Physician Primary Care Provider [facility] [place] Unavailable Gladis Espinosa MD Primary Care Provider [phone] Encounter Details Date Type Department Care Team (Late st Contact Info) Description 06/24/2018 MyC Medical Advice [facility] Th[facility] [address] [facility] [address] [place] [address] Liyah Judge MD [address] [facility] [address] [place] [address] Social History Tobacco Use Types Packs/Day Years Used Date Smoking Tobacco: Former Cigarettes Q uit: 12/27/2016 Smokeless Tobacco: Former Alcohol Use Standard Drinks/Week Comments Yes 1 (1 standard drink = 0.6 oz pur e alcohol) 1 drink monthly if that Sex and Gender Information Value Date Recorded Sex Assigned at Not on file Gender Identity Not on file Sexual Orientation Not on file documented as of this encounter Plan of Treatment Not on file documented as of this encounter Goals Goal Patient Goal Type Associated Problems Recent Progress Patient-Stated? Author Patient states that she would like to increase her physical activity to assist her with increasing her strength and healing. General Yes Nola Holland RN Note: As of today's date 09/07/2015 goal is met at 26 - 50%. Goal Status: Active documented as of this encounter Visit Diagnoses Not on filedocumented in this encounter Additional Health Concerns Assessment Noted Time PHQ-9 Depression Total Score: 3 02/29/20 18 7:39 AM CDT documented as of this encounter Care Teams Dumper Relationship Specialty Start Date End Date Jeanette Esparza MD [address] [facility] [address] [place] [address] PCP - Assigned PCP 11/06/15 01/27/19 No Ref-Primary, Physician PCP - General 02/18/21 02/21/21 Gladis Espinosa MD [address] [address] PCP - General 02/22/21 Jeffrey Lezama MD [facility] [address] [facility] [address] [place] [address] Otolaryngology 12/24/17 Daisy Portillo AuD [facility] [address] [facility] [address] [place] [address] Hand Violin Maker Audiology 12/24/17 Liyah Judge MD [address] [facility] [address] [place] [address] Otolaryngology 12/24/17 Jeanette Esparza MD [address] [address] Assigned PCP 11/06/15 06/04/20 Jerri Davison [address] [place] [address] 02/21/21 documented as of this encounter
--- OUTSIDE RECORDS SUMMARY | 2024-03-03 16:43 | XMS_ITS | Encounter Summary ---
Author Name Unknown Organization [place] Address [address] [place] [address] Care Team Providers Care System Architect Name Role Phone Jeffrey Lezama MD Unavailable Daisy Portillo Unavailable [phone] Liyah Judge MD Unavailable [phone] Jeanette Esparza MD Unavailable Jeanette Esparza MD Unavailable No Ref-Primary, Physician Primary Care Provider [facility] Unavailable Gladis Espinosa MD Primary Care Provider Encounter Details Date Type Department Care Team (Late st Contact Info) Description 07/15/[address] [facility] Ear Nose and Throat [address] [facility] [address] [place] [address] Liyah Judge MD [address] [facility] [address] [place] [address] Social History Tobacco Use Types [...] documented as of this encounter Care Teams System Architect Relationship Specialty Start Date End Date Jeanette Esparza MD [address] [facility] 200 [place] [address] PCP - Assigned PCP 11/06/15 01/27/19 No Ref-Primary, Physician PCP - General 02/18/21 02/21/21 Gladis Espinosa MD [address] [address] PCP - General 02/22/21 Jeffrey Lezama MD [facility] [address] [facility] [address] [place] [address] Otolaryngology 12/24/17 Daisy Portillo AuD [facility] [address] [facility] [address] [place] [address] Groundman Audiology 12/24/17 Liyah Judge MD [address] [facility] [address] [place] [address] Otolaryngology 12/24/17 Jeanette Esparza MD [address] [address] Assigned PCP 11/06/15 06/04/20 Jerri Davison [address] [place] [address] 02/21/21 documented as of this encounter
--- OUTSIDE RECORDS SUMMARY | 2024-03-03 16:44 | XMS_ITS | Encounter Summary ---
Author Name Unknown Organization [place] Address [facility] [place] [address] Care Team Providers Care Peer Specialist Name Role Phone Jeanette Esparza MD Primary Care Provider Nola Holland RN Unavailable Unavailable Jeffrey Lezama MD Unavailable Daisy Portillo Unavailable Marcy Judge RN Unavailable Unavailable Liyah Judge MD Unavailable [phone] System, Provider Not In Primary Care Provider Un available Jeanette Esparza MD Unavailable Jeanette Esparza MD Unavailable No Ref-Primary, Physician Primary Care Provider [facility] Unavailable Gladis Espinosa MD Primary Care Provider [phone] Encounter Details Date Type Department Care Team (Late st Contact Info) Description 02/23/2016 Orders Only [facility] Laboratory [address] [place] [address] Hamzah Woodall MD [facility] [address] [place] [address] Pre-operative laboratory examination (Primary Dx) Social History Tobacco Use Types Packs/Day Years Used Date Smoking Tobacco: Former Cigarettes Q uit: 02/22/2015 Smokeless Tobacco: Former Alcohol Use Standard Drinks/Week Comments Yes 1 (1 standard drink = 0.6 oz pur e alcohol) 1 drink monthly Sex and Gender Information Value Date Recorded [...] Status: Active documented as of this encounter Results * Methicillin Resistant Staph Aureus PCR (03/01/2016 12:10 PM CDT) Specimen Description [facility] Methicillin Resist/Sens S. aureus PCR Negative MRSA Negative: SA Negative ??MRSA and Staphylococcus aureus target DNA not detected, presumed negative for MRSA and SA colonization or the number of bacteria present may be below the limit of detection for the assay. FDA approved assay performed using [employer] GeneXpert(R) real-time PCR. NEG [facility] 03/01/2016 12:1 0 PM CDT 03/01/2016 2:02 PM CDT Hamzah Woodall MD LAB - MICRO G ENERAL ORDERABLES [facility] [address] [place] [address], [facility] [address] [place] [address], [facility] [phone] documented in this encounter Visit Diagnoses Diagnosis Pre-operative laboratory examination- Primary Pre-procedural laboratory examination documented in this encounter Care Teams Peer Specialist Relationship Specialty Start Date End Date Jeanette Esparza MD PCP - General Family Practice 08/20/13 06/04/18 System, Provider Not In PCP - General Clinic 06/05/18 06/05/18 Jeanette Esparza MD [address] [address] PCP - Assigned PCP 11/06/15 01/27/19 No Ref-Primary, Physician PCP - General 02/18/21 02/21/21 Gladis Espinosa MD [address] [address] PCP - General 02/22/21 Nola Holland RN Clinic Braker Passenger Train Nurse 09/07/1506/20 Jeffrey Lezama MD [facility] [address] [facility] [address] [place] [address] Otolaryngology 12/24/17 Daisy Portillo AuD [facility] 7300 [facility] [address] [place] [address] Disaster Recovery Analyst Audiology 12/24/17 Marcy Judge, RN Tech 12/24/17 12/24/17 Liyah Judge MD [address] [place] [address] 396 [place], [place] [address] Otolaryngology 12/24/17 Jeanette Esparza MD [address] [address] Assigned PCP 11/06/15 06/04/20 Clinic, Jerri Cardoza [address] [place] [address] 02/21/21 documented as of this encounter
--- OUTSIDE RECORDS SUMMARY | 2024-03-03 16:44 | XMS_ITS | Encounter Summary ---
Author Name Unknown Organization [place] Address [facility] [place] [address] Care Team Providers Care Quality Project Manager Name Role Phone Jeanette Esparza MD Primary Care Provider Nola Holland RN Unavailable Unavailable Jeffrey Lezama MD Unavailable Daisy Portillo Unavailable [phone] Marcy Judge RN Unavailable Unavailable Liyah Judge MD Unavailable [phone] System, Provider Not In Primary Care Provider Un available Jeanette Esparza MD Unavailable Jeanette Esparza MD Unavailable [phone] No Ref-Primary, Physician Primary Care Provider [facility] Unavailable Gladis Espinosa MD Primary Care Provider [phone] Encounter Details Date Type Department Care Team (Late st Contact Info) Description 07/06/2015 Orders Only [facility] [address] [place] [address] Hamzah Woodall MD [facility] [address] [place] [address] Preoperative examination, unspecified (Primary Dx) Social History Tobacco Use Types Packs/Day Years Used Date Smoking Tobacco: Former Cigarettes Smokeless Tobacco: Former Comments:e-cigarette Alcohol Use Standard Drinks/Week Comments Yes 0.8 (1 standard drink = 0.6 oz p ure alcohol) occ Sex and Gender Information Value Date Recorded Sex Assigned at Not on file Gender Identity Not on file Sexual Orientation Not on file documented as of this encounter Plan of Treatment Not on file documented as of this encounter Results * Methicillin Resistant Staph Aureus PCR (07/07/2015 12:01 PM CDT) Specimen Description [facility] Methicillin Resist/Sens S. aureus PCR Negative MRSA Negative: SA Positive MRSA target DNA not detected, presumed negative for MRSA colonization or the number of bacteria present may be below the limit of detection. Staphylococcus aureus target DNA detected, presumed positive for SA colonization. A positive test does not necessarily indicate the presence of viable organisms. It is, however, presumptive for the presence of SA. ??This result does not preclude MRSA nasal colonization. FDA approved assay performed using [employer] GeneXpert(R) real-time PCR. NEG [facility] 07/07/2015 12:0 1 PM CDT 07/07/2015 1:27 PM CDT Hamzah Woodall MD LAB - MICRO G ENERAL ORDERABLES [facility] 500 [place] [address], [facility] [address] [phone] documented in this encounter Visit Diagnoses Diagnosis Preoperative examination, unspecified- Primary documented in this encounter Care Teams Quality Project Manager Relationship Specialty Start Date End Date Jeanette Esparza MD PCP - General Family Practice 08/20/13 06/04/18 System, Provider Not In PCP - General Clinic 06/05/18 06/05/18 Jeanette Esparza MD [address] [address] PCP - Assigned PCP 11/06/15 01/27/19 No Ref-Primary, Physician PCP - General 02/18/21 02/21/21 Gladis Espinosa MD [facility] 1400 [place] [address] PCP - General 02/22/21 Nola Holland, RN Clinic Activity Aid Nurse 09/07/1506/20 Jeffrey Leazma MD [facility] 7[address] [facility] 410 [place] [address] Otolaryngology 12/24/17 Daisy Portillo AuD [facility] [address] [facility] [address] [place] [address] Web Page Designer Audiology 12/24/17 Marcy Judge, RN Tech 12/24/17 12/24/17 Liyah Judge MD [address] [place] [address] [address] [place] [address] Otolaryngology 12/24/17 Jeanette Esparza MD [address] [address] Assigned PCP 11/06/15 06/04/20 [facility] 1400 [place] [address] 02/21/21 documented as of this encounter
--- OUTSIDE RECORDS SUMMARY | 2024-03-03 16:44 | XMS_ITS | Encounter Summary ---
Author Name Unknown Organization [place] Address [address] [place] [address] Care Team Providers Care Acoustical Logging Engineer Name Role Phone Jeffrey Lezama MD Unavailable Daisy Portillo Unavailable [phone] Liyah Judge MD Unavailable Jeanette Esparza MD Unavailable Jeanette Esparza MD Unavailable No Ref-Primary, Physician Primary Care Provider [facility] [place] Unavailable Gladis Espinosa MD Primary Care Provider Encounter Details Date Type Department Care Team (Late st Contact Info) Description 06/18/2018 MyC Medical Advice [facility] Ear Nose and Throat [address] [facility] [address] 4th [place] [address] Liyah Judge MD [address] [facility] 396 [place] [address] Social History Tobacco Use Types [...] documented as of this encounter Care Teams Acoustical Logging Engineer Relationship Specialty Start Date End Date Jeanette Esparza MD 2270 [facility] 200 [place] [address] PCP - Assigned PCP 11/06/15 01/27/19 No Ref-Primary, Physician PCP - General 02/18/21 02/21/21 Gladis Espinosa MD [address] [address] PCP - General 02/22/21 Jeffrey Lezama MD [facility] 7[address] [facility] 410 [place] [address] Otolaryngology 12/24/17 Daisy Portillo AuD [facility] 7300 [facility] 410 [place] [address] Corporate Strategy Analyst Audiology 12/24/17 Liyah Judge MD 420 [facility] 396 [place] [address] Otolaryngology 12/24/17 Jeanette Esparza MD [address] [address] Assigned PCP 11/06/15 06/04/20 Jerri Davison [address] [place] [address] 02/21/21 documented as of this encounter
--- OUTSIDE RECORDS SUMMARY | 2024-03-03 16:44 | XMS_ITS | Encounter Summary ---
Author Name Unknown Organization [place] Address [facility] [place] [address] Care Team Providers Care Seasonal Sales Associate Name Role Phone Jeanette Esparza MD Primary Care Provider Nola Holland RN Unavailable Unavailable Jeffrey Lezama MD Unavailable Daisy Portillo Unavailable [phone] Marcy Judge RN Unavailable Unavailable Liyah Judge MD Unavailable [phone] System, Provider Not In Primary Care Provider Un available Jeanette Esparza MD Unavailable [phone] Jeanette Esparza MD Unavailable No Ref-Primary, Physician Primary Care Provider [facility] Unavailable Gladis Espinosa MD Primary Care Provider [phone] Encounter Details Date Type Department Care Team (Late st Contact Info) Description 11/29/2015 MyC Medical Advice [address] [address] Jeanette Esparza MD [address] [address] Social History Tobacco Use Types Packs/Day Years Used Date Smoking Tobacco: Former Cigarettes Smokeless Tobacco: Former Comments:e-cigarette Alcohol Use Standard Drinks/Week Comments Yes 1 (1 standard drink = 0.6 oz pur e alcohol) occ Sex and Gender Information Value [...] Diagnoses Not on filedocumented in this encounter Care Teams Seasonal Sales Associate Relationship Specialty Start Date End Date Jeanette Esparza MD PCP - General Family Practice 08/20/13 06/04/18 System, Provider Not In PCP - General Clinic 06/05/18 06/05/18 Jeanette Esparza MD 2270 [facility] 200 [place] [address] PCP - Assigned PCP 11/06/15 01/27/19 No Ref-Primary, Physician PCP - General 02/18/21 02/21/21 Gladis Espinosa MD [facility] 1400 [place] [address] PCP - General 02/22/21 Nola Holland, RN Clinic Sparker And Patcher Nurse 09/07/1506/20 Jeffrey Lezama MD [facility] 7300 [facility] 410 [place] [address] Otolaryngology 12/24/17 Daisy Portillo AuD [facility] 7300 [facility] 410 [place] [address] Button Cutter Audiology 12/24/17 Marcy Judge RN Tech 12/24/17 12/24/17 Liyah Judge MD [address] [place] [address] 396 [place] [address] Otolaryngology 12/24/17 Jeanette Esparza MD 2270 [facility] 200 [place], [place] [address] Assigned PCP 11/06/15 06/04/20 [facility] [address] 02/21/21 documented as of this encounter
--- OUTSIDE RECORDS SUMMARY | 2024-03-03 16:44 | XMS_ITS | Encounter Summary ---
Author Name Unknown Organization [place] Address [facility] [place] [address] Care Team Providers Care Lumber Handler Name Role Phone Jeanette Esparza MD Primary Care Provider Nola Holland RN Unavailable Unavailable Jeffrey Lezama MD Unavailable [phone] Daisy Portillo Unavailable [phone] Marcy Judge RN Unavailable Unavailable Liyah Judge MD Unavailable [phone] System, Provider Not In Primary Care Provider Un available Jeanette Esparza MD Unavailable [phone] Jeanette Esparza MD Unavailable [phone] No Ref-Primary, Physician Primary Care Provider [facility] Unavailable [phone] Gladis Espinosa MD Primary Care Provider [phone] Reason for Visit * Reason Onset Date Comments Refill Request 10/25/2014 isosorbide,lisin opril Encounter Details Date Type Department Care Team (Late st Contact Info) Description 10/25/2014 Refill [facility] [address] [place] [address] Jeanette Esparza MD [address] [address] Refill Request (isosorbide,lisinopril) Social History Tobacco Use Types Packs/Day Years Used Date Smoking Tobacco: Former Cigarettes Smokeless Tobacco: Former Alcohol Use Standard Drinks/Week Comments Yes 0.8 (1 standard drink = 0.6 oz p ure alcohol) occ Sex and Gender Information Value Date Recorded Sex Assigned at Not on file Gender Identity Not on file Sexual Orientation Not on file documented as of this encounter Miscellaneous Notes * Telephone Encounter - Sera Cuevas - 10/26/2014 12:57 PM CST --I am unable to authorize a refill on isosorbide (not ordered by /PA in over one year.) --I am not able to find a HTN plan in office visit notes during the last year, so I am unable to refill lisinopril. Last office visit : 10/04/14 [place]. Potassium Date Value Range Status 10/04/2014 3.9 3.4 - 5.3 mmol/L Final ] Creatinine Date Value Range Status 10/04/2014 0.92 0.52 - 1.04 mg/dL Final ] BP Readings from Last 3 Encounters: 10/04/14 120/70 08/17/14 146/80 08/14/14 108/70 ER RESOURCE SPECIALIST documented in this encounter Plan of Treatment Not on file documented as of this encounter Visit Diagnoses Diagnosis Anginal pain (H24) Other and unspecified angina pectoris HTN, goal below 140/90 Unspecified essential hypertension documented in this encounter Care Teams Lumber Handler Relationship Specialty Start Date End Date Jeanette Esparza MD PCP - General Family Practice 08/20/13 06/04/18 System, Provider Not In PCP - General Clinic 06/05/18 06/05/18 Jeanette Esparza MD 2[address] [facility] [address] [place] [address] PCP - Assigned PCP 11/06/15 01/27/19 No Ref-Primary, Physician PCP - General 02/18/21 02/21/21 Gladis Espinosa MD [address] [address] PCP - General 02/22/21 Nola Holland, RN Clinic Co Founder And Chairman Nurse 09/07/1506/20 Jeffrey Lezama MD [facility] 7300 [facility] 410 [place], [place] [address] Otolaryngology 12/24/17 Daisy Portillo AuD [facility] 7300 [facility] 410 [place] [address] Private Detective Audiology 12/24/17 Marcy Judge, RN Tech 12/24/17 12/24/17 Liyah Judge MD 420 [facility] 396 [place] [address] Otolaryngology 12/24/17 Jeanette Esparza MD 2270 [facility] 200 [place] [address] Assigned PCP 11/06/15 06/04/20 [facility] 1400 [place] [address] 02/21/21 documented as of this encounter
--- OUTSIDE RECORDS SUMMARY | 2024-03-03 16:44 | XMS_ITS | Encounter Summary ---
Author Name Unknown Organization [place] Address [facility] [place] [address] Care Team Providers Care Power Tool Repairer Name Role Phone Jeanette Esparza MD Primary Care Provider Nola Holland RN Unavailable Unavailable Jeffrey Lezama MD Unavailable [phone] Daisy Portillo Unavailable [phone] Marcy Judge RN Unavailable Unavailable Liyah Judge MD Unavailable [phone] System, Provider Not In Primary Care Provider Un available Jeanette Esparza MD Unavailable [phone] Jeanette Esparza MD Unavailable [phone] No Ref-Primary, Physician Primary Care Provider [facility] Unavailable [phone] Gladis Espinosa MD Primary Care Provider Reason for Visit * Reason Onset Date Comments Health Maintenance 11/30/2015 colonoscopy s cheduled ([facility] outreach) Encounter Details Date Type Department Care Team (Late st Contact Info) Description 11/30/2015 Telephone [place] [id number] [place] [phone] Jeanette Esparza MD [address] [address] Health Maintenance (colonoscopy scheduled ([facility] outreach)) Social History Tobacco Use Types Packs/Day Years [...] encounter Miscellaneous Notes * Telephone Encounter - Dianne Stanton - 11/30/2015 8:29 AM CST Patient is scheduled for a colonoscopy on 12/14/14 at 9:30am, arriving at 9:00am - with Dr. Ayers Pharmacy Name: [facility] Location: [place] Please contact patient to discuss prep and additional instructions. Best phone number to use: [phone] Best time to contact the patient: anytime Thank you. ITY BILL COLLECTOR documented in this encounter Plan of Treatment [...] on filedocumented in this encounter Care Teams Power Tool Repairer Relationship Specialty Start Date End Date Jeanette Esparza MD PCP - General Family Practice 08/20/13 06/04/18 System, Provider Not In PCP - General Clinic 06/05/18 06/05/18 Jeanette Esparza MD [address] [facility] 200 [place] [address] PCP - Assigned PCP 11/06/15 01/27/19 No Ref-Primary, Physician PCP - General 02/18/21 02/21/21 Gladis Espinosa MD [facility] 1400 [place] [address] PCP - General 02/22/21 Nola Holland, RN Clinic Solar Sales Advisor Nurse 09/07/1506/20 Jeffrey Lezama MD [facility] 7300 [facility] 410 [place], [place] [address] Otolaryngology 12/24/17 Daisy Portillo AuD [facility] 7300 [facility] 410 [place] [address] Emergency Specialist Audiology 12/24/17 Marcy Judge, RN Tech 12/24/17 12/24/17 Liyah Judge MD [address] [place] [address] 396 [place] [address] Otolaryngology 12/24/17 Jeanette Esparza MD [address] [facility] 200 [place] [address] Assigned PCP 11/06/15 06/04/20 [facility] 1400 [place] [address] 02/21/21 documented as of this encounter
--- OUTSIDE RECORDS SUMMARY | 2024-03-03 16:44 | XMS_ITS | Encounter Summary ---
Author Name Unknown Organization [place] Address [facility] [place] [address] Care Team Providers Care Film Cleaner Name Role Phone Jeanette Esparza MD Primary Care Provider Nola Holland RN Unavailable Unavailable Jeffrey Lezama MD Unavailable [phone] Daisy Portillo Unavailable [phone] Marcy Judge RN Unavailable Unavailable Liyah Judge MD Unavailable [phone] System, Provider Not In Primary Care Provider Un available Jeanette Esparza MD Unavailable [phone] Jeanette Esparza MD Unavailable [phone] No Ref-Primary, Physician Primary Care Provider [facility] Unavailable [phone] Gladis Espinosa MD Primary Care Provider [phone] Reason for Visit * Reason Onset Date Comments Abdominal Pain 01/09/2016 cramping and sta bbing pain after colonoscopy Encounter Details Date Type Department Care Team (Late st Contact Info) Description 01/09/2016 MyC Medical Advice [address] [address] Jeanette Esparza MD [address] [address] Abdominal Pain (cramping and stabbing pain... Social History Tobacco Use Types Packs/Day Years [...] encounter Miscellaneous Notes * Telephone Encounter - Alex Chang MD - 01/09/2016 12:32 PM CONDITIONER TENDER Could be cramping still from colonoscopy or early diverticulitis or gas. If no fevers, blood, not severe (doesn't sound like it) I agree with clinic or UC visit if needed. I would think that using miralax twice a day to help move gas through, re-set would be reasonable as well. Alex Chang MD ITIONER TENDER * Telephone Encounter - Hanna Ascencio RN - 01/09/2016 12:27 PM CST Patient is wondering if it might be diverticulitis. Would you recommend patient be seen in clinic for re-evaluation? UC this evening? Hanna Ascencio RN ITIONER TENDER * Telephone Encounter - Hanna Ascencio RN - 01/09/2016 11:55 AM CST I responded to patient as below. Hanna Ascencio RN ITIONER TENDER documented in this encounter Plan of Treatment [...] on filedocumented in this encounter Care Teams Film Cleaner Relationship Specialty Start Date End Date Jeanette Esparza MD PCP - General Family Practice 08/20/13 06/04/18 System, Provider Not In PCP - General Clinic 06/05/18 06/05/18 Jeanette Esparza MD 2270 [facility] 200 [place], [place] [address] PCP - Assigned PCP 11/06/15 01/27/19 No Ref-Primary, Physician PCP - General 02/18/21 02/21/21 Gladis Espinosa MD [address] [address] PCP - General 02/22/21 Nola Holland RN Clinic Director Of Employer Services Nurse 09/07/1506/20 Jeffrey Lezama MD [facility] [address] [place], [place] [address] Otolaryngology 12/24/17 Daisy Portillo AuD [facility] [address] [place], [place] [address] Wort Extractor Audiology 12/24/17 Marcy Judge RN Tech 12/24/17 12/24/17 Liyah Judge MD [address] [place] [address] 396 [place] [address] Otolaryngology 12/24/17 Jeanette Esparza MD [address] [address] Assigned PCP 11/06/15 06/04/[address] [facility] [address] [address] 02/21/21 documented as of this encounter
--- OUTSIDE RECORDS SUMMARY | 2024-03-03 16:44 | XMS_ITS | Encounter Summary ---
Author Name Unknown Organization [place] Address [address] [place] [address] Care Team Providers Care Educational Director Name Role Phone Jeanette Esparza MD Primary Care Provider Jeffrey Lezama MD Unavailable [phone] Daisy Portillo Unavailable [phone] Liyah Judge MD Unavailable [phone] System, Provider Not In Primary Care Provider Un available Jeanette Esparza MD Unavailable [phone] Jeanette Esparza MD Unavailable [phone] No Ref-Primary, Physician Primary Care Provider [facility] [place] Unavailable [phone] Gladis Espinosa MD Primary Care Provider [phone] Encounter Details Date Type Department Care Team (Late st Contact Info) Description 01/20/2018 [facility] [address] [address] Bryan Martinez Social History Tobacco Use Types Packs/Day Years [...] Noted Time PHQ-9 Depression Total Score: 3 05/31/20 17 7:30 AM CDT documented as of this encounter Care Teams Educational Director Relationship Specialty Start Date End Date Jeanette Esparza MD PCP - General Family Practice 08/20/13 06/04/18 System, Provider Not In PCP - General Clinic 06/05/18 06/05/18 Jeanette Esparza MD 2270 [facility] 200 [place] [address] PCP - Assigned PCP 11/06/15 01/27/19 No Ref-Primary, Physician PCP - General 02/18/21 02/21/21 Gladis Espinosa MD [facility] 1400 [place] [address] PCP - General 02/22/21 Jeffrey Lezama MD [facility] 7300 [facility] 410 [place] [address] Otolaryngology 12/24/17 Daisy Portillo, Amairani [facility] [address] [facility] 410 [place] [address] Technologist Infectious Disease Audiology 12/24/17 Liyah Judge MD 420 [facility] 396 [place] [address] Otolaryngology 12/24/17 Jeanette Esparza MD 2270 [facility] 200 [place], [place] [address] Assigned PCP 11/06/15 06/04/20 Jerri Davison [address] [place] [address] 02/21/21 documented as of this encounter
--- OUTSIDE RECORDS SUMMARY | 2024-03-03 16:44 | XMS_ITS | Encounter Summary ---
Author Name Unknown Organization [place] Address [facility] [place] [address] Care Team Providers Care Die Tester Name Role Phone Jeanette Esparza MD Primary Care Provider Jeffrey Lezama MD Unavailable Daisy Portillo Unavailable [phone] Marcy Judge RN Unavailable Unavailable Liyah Judge MD Unavailable System, Provider Not In Primary Care Provider Un available Jeanette Esparza MD Unavailable [phone] Jeanette Esparza MD Unavailable No Ref-Primary, Physician Primary Care Provider [facility] Unavailable [phone] Gladis Espinosa MD Primary Care Provider [phone] Reason for Visit * Reason Onset Date Comments Appointment 07/02/2016 Encounter Details Date Type Department Care Team (Late st Contact Info) Description 07/02/2016 MyC Medical Advice [facility] [address] [place] [phone] Jeanette Esparza MD [address] [address] Appointment Social History Tobacco Use Types Packs/Day Years [...] encounter Miscellaneous Notes * Telephone Encounter - Gabby Singh, RN - 07/02/2016 2:05 PM CDT Exerciser responded as per below. SHAWN Villarreal, RN documented in this encounter Plan of Treatment [...] Noted Time PHQ-9 Depression Total Score: 3 06/09/20 16 7:14 AM CDT documented as of this encounter Care Teams Die Tester Relationship Specialty Start Date End Date Jeanette Esparza MD PCP - General Family Practice 08/20/13 06/04/18 System, Provider Not In PCP - General Clinic 06/05/18 06/05/18 Jeanette Esparza MD [address] [address] PCP - Assigned PCP 11/06/15 01/27/19 No Ref-Primary, Physician PCP - General 02/18/21 02/21/21 Gladis Espinosa MD [address] [address] PCP - General 02/22/21 Jeffrey Lezama MD [facility] [address] [facility] [address] [place] [address] MD Otolaryngology 12/24/17 Daisy Portillo, Amairani [facility] [address] [place] [address] Pickers Material Handlers Audiology 12/24/17 Marcy Judge, RN Tech 12/24/17 12/24/17 Liyah Judge MD [address] [place] [address] [address] [place] [address] Otolaryngology 12/24/17 Jeanette Esparza MD 2270 [facility] 200 [place] [address] Assigned PCP 11/06/15 06/04/[address] [address] 02/21/21 documented as of this encounter
--- OUTSIDE RECORDS SUMMARY | 2024-03-03 16:44 | XMS_ITS | Encounter Summary ---
Author Name Unknown Organization [place] Address [facility] [place] [address] Care Team Providers Care Road Tester Name Role Phone Jeanette Esparza MD Primary Care Provider Nola Holland RN Unavailable Unavailable Jeffrey Lezama MD Unavailable [phone] Daisy Portillo Unavailable [phone] Marcy Judge RN Unavailable Unavailable Liyah Judge MD Unavailable [phone] System, Provider Not In Primary Care Provider Un available Jeanette Esparza MD Unavailable [phone] Jeanette Esparza MD Unavailable [phone] No Ref-Primary, Physician Primary Care Provider [facility] Unavailable [phone] Gladis Espinosa MD Primary Care Provider [phone] Reason for Visit * Reason Onset Date Comments Refill Request 08/04/2014 *Brianaiazem Encounter Details Date Type Department Care Team (Late st Contact Info) Description 08/04/2014 Refill [facility] [address] [place] [phone] Jeanette sEparza MD [address] [address] Refill Request (*Ditliazem) Social History Tobacco Use Types Packs/Day Years Used Date Smoking Tobacco: Former Cigarettes Smokeless Tobacco: Never Alcohol Use Standard Drinks/Week Comments Yes 0.8 (1 standard drink = 0.6 oz p ure alcohol) occ Sex and Gender Information Value Date Recorded Sex Assigned at Not on file Gender Identity Not on file Sexual Orientation Not on file documented as of this encounter Miscellaneous Notes * Telephone Encounter - Sera Cuevas - 08/04/2014 2:06 PM CDT I left a detailed message for Nena that this refill was already sent 07/20/14. * Telephone Encounter - Timi Romo - 08/04/2014 9:59 AM CDT Main reason for the call: Refill request on Ditliazem. (If Osheet) brief description and duration of symptoms na Have you offered an Evisit or Virtual visit if appropriate? na Ok for the call to wait for PCP? NO (be aware that if the patients PCP is out of clinic to be sure you are letting the patient know when they will be back in. Look not only at regularly scheduled dayoff but if they are on vacation or not.) May leave detailed message?: YES Consent on file to speak with caller? YES. If not, please obtain verbal consent from patient prior to sending the message. A RX may be necessary please provide name and location of the patients Preferred pharmacy: [facility] documented in this encounter Plan of Treatment Not on file documented as of this encounter Visit Diagnoses Diagnosis Anginal pain (H24) Other and unspecified angina pectoris documented in this encounter Care Teams Road Tester Relationship Specialty Start Date End Date Jeanette Esparza MD PCP - General Family Practice 08/20/13 06/04/18 System, Provider Not In PCP - General Clinic 06/05/18 06/05/18 Jeanette Esparza MD [address] [address] PCP - Assigned PCP 11/06/15 01/27/19 No Ref-Primary, Physician PCP - General 02/18/21 02/21/21 Gladis Espinosa MD [address] [address] PCP - General 02/22/21 Nola Holland, JERMAIN Clinic Requisition Approver Nurse 09/07/1506/20 Jeffrey Lezama MD [facility] 7300 [facility] S [facility] 410 [place], [place] [address] Otolaryngology 12/24/17 Daisy Portillo AuD [facility] [address] [facility] [address] [place] [address] Pharmacy Operations Manager Audiology 12/24/17 Marcy Judge, RN Tech 12/24/17 12/24/17 Liyah Judge MD [address] [place] [id number] Otolaryngology 12/24/17 Jeanette Esparza MD [address] [address] Assigned PCP 11/06/15 06/04/20 [facility] 1400 [place] [address] 02/21/21 documented as of this encounter
--- OUTSIDE RECORDS SUMMARY | 2024-03-03 16:44 | XMS_ITS | Encounter Summary ---
Author Name Unknown Organization [place] Address [address] [place] [address] Care Team Providers Care Aircraft Seat Upholsterer Name Role Phone Jeanette Esparza MD Primary Care Provider Jeffrey Lezama MD Unavailable [phone] Daisy Portillo Unavailable [phone] Liyah Judge MD Unavailable [phone] System, Provider Not In Primary Care Provider Un available Jeanette Esparza MD Unavailable [phone] Jeanette Esparza MD Unavailable [phone] No Ref-Primary, Physician Primary Care Provider Jerri Davisonfield Unavailable [phone] Gladis Espinosa MD Primary Care Provider [phone] Encounter Details Date Type Department Care Team (Late st Contact Info) Description 05/31/2018 MyC Medical Advice [place] Centralized Scheduling [address] [place] [address] Davida Amin Social History Tobacco Use Types Packs/Day Years [...] documented as of this encounter Care Teams Aircraft Seat Upholsterer Relationship Specialty Start Date End Date Jeanette Esparza MD PCP - General Family Practice 08/20/13 06/04/18 System, Provider Not In PCP - General Clinic 06/05/18 06/05/18 Jeanette Esparza MD 2270 [facility] 200 [place] [address] PCP - Assigned PCP 11/06/15 01/27/19 No Ref-Primary, Physician PCP - General 02/18/21 02/21/21 Gladis Espinosa MD [address] [address] PCP - General 02/22/21 Jeffrey Lezama MD [facility] 7300 [facility] 410 [place] [address] Otolaryngology 12/24/17 Daisy Portillo, Amairani [facility] [address] [facility] 410 [place] [address] Dance Hall Host/Hostess Audiology 12/24/17 Liyah Judge MD 420 [facility] 396 [place] [address] Otolaryngology 12/24/17 Jeanette Esparza MD 2270 [facility] 200 [place], [place] [address] Assigned PCP 11/06/15 06/04/20 Jerri Davison [address] [place] [address] 02/21/21 documented as of this encounter
--- OUTSIDE RECORDS SUMMARY | 2024-03-03 16:44 | XMS_ITS | Encounter Summary ---
Author Name Unknown Organization [place] Address [address] [place] [address] Care Team Providers Care Paper Stacker Name Role Phone Jeanette Esparza MD Primary Care Provider Jeffrey Lezama MD Unavailable [phone] Daisy Portillo Unavailable [phone] Liyah Judge MD Unavailable [phone] System, Provider Not In Primary Care Provider Un available Jeanette Esparza MD Unavailable [phone] Jeanette Esparza MD Unavailable [phone] No Ref-Primary, Physician Primary Care Provider [facility] Unavailable [phone] Gladis Espinosa MD Primary Care Provider [phone] Encounter Details Date Type Department Care Team (Late st Contact Info) Description 02/05/2018 MyC Medical Advice [facility] [address] [facility] [address] 4th [place] [address] Liyah Judge MD [address] [place] [address] 396 [place] [address] Social History Tobacco Use Types [...] documented as of this encounter Care Teams Paper Stacker Relationship Specialty Start Date End Date Jeanette Esparza MD PCP - General Family Practice 08/20/13 06/04/18 System, Provider Not In PCP - General Clinic 06/05/18 06/05/18 Jeanette Esparza MD 2270 [facility] 200 [place] [address] PCP - Assigned PCP 11/06/15 01/27/19 No Ref-Primary, Physician PCP - General 02/18/21 02/21/21 Gladis Espinosa MD [facility] 1400 [place] [address] PCP - General 02/22/21 Jeffrey Lezama MD [facility] 7300 [facility] 410 [place] [address] Otolaryngology 12/24/17 Daisy Portillo AuD [facility] 7300 [facility] 410 [place] [address] Store Team Member Audiology 12/24/17 Liyah Judge MD 420 [facility] 396 [place] [address] Otolaryngology 12/24/17 Jeanette Esparza MD 2270 [facility] 200 [place], [place] [address] Assigned PCP 11/06/15 06/04/[address] [address] 02/21/21 documented as of this encounter
--- OUTSIDE RECORDS SUMMARY | 2024-03-03 16:44 | XMS_ITS | Encounter Summary ---
Author Name Unknown Organization [place] Address [facility] [place] [address] Care Team Providers Care Tractor Trailer Driver Name Role Phone Jeanette Esparza MD Primary Care Provider Nola Holland RN Unavailable Unavailable Jeffrey Lezama MD Unavailable Daisy Portillo Unavailable [phone] Marcy Judge RN Unavailable Unavailable Liyah Judge MD Unavailable [phone] System, Provider Not In Primary Care Provider Un available Jeanette Esparza MD Unavailable Jeanette Esparza MD Unavailable No Ref-Primary, Physician Primary Care Provider [facility] Unavailable Gladis Espinosa MD Primary Care Provider Reason for Visit * Reason Onset Date Comments Outreach 06/07/2015 [facility] att 1 Encounter Details Date Type Department Care Team (Late st Contact Info) Description 06/07/2015 Telephone [facility] - CARE MANAGEMENT DEPT [address] [place] [address] Jeanette Esparza MD 2270 [facility] 200 [place] [address] Outreach ([facility] att 1) Social History Tobacco Use Types Packs/Day Years [...] encounter Miscellaneous Notes * Telephone Encounter - Dawn Oliva - 06/07/2015 12:08 PM CDT 06/07/15 Call Regarding Preventive Health Screening Mammogram Attempt 1 Message Comments: patient have hip surgery schedule in Jul, will call back to schedule mammo Outreach Cnc Grinder cnt documented in this encounter Plan of Treatment Not on file documented as of this encounter Visit Diagnoses Not on filedocumented in this encounter Care Teams Tractor Trailer Driver Relationship Specialty Start Date End Date Jeanette Esparza MD PCP - General Family Practice 08/20/13 06/04/18 System, Provider Not In PCP - General Clinic 06/05/18 06/05/18 Jeanette Esparza MD [address] [address] PCP - Assigned PCP 11/06/15 01/27/19 No Ref-Primary, Physician PCP - General 02/18/21 02/21/21 Gladis Espinosa MD [address] [address] PCP - General 02/22/21 Nola Holland, JERMAIN Clinic Track Dresser Nurse 09/07/1506/20 Jeffrey Lezama MD [facility] [address] [facility] [address] [place] [address] Otolaryngology 12/24/17 Daisy Portillo AuD [facility] [address] [facility] [address] [place] [address] Director Medicare Sales Audiology 12/24/17 Marcy Judge, RN Tech 12/24/17 12/24/17 Liyah Judge MD 420 [facility] 396 [place], [place] [address] Otolaryngology 12/24/17 Jeanette Esparza MD 2270 [facility] 200 [place], [place] [address] Assigned PCP 11/06/15 06/04/20 [facility] [address] [address] 02/21/21 documented as of this encounter
--- OUTSIDE RECORDS SUMMARY | 2024-03-03 16:44 | XMS_ITS | Encounter Summary ---
Author Name Unknown Organization [place] Address [facility] [place] [address] Care Team Providers Care Fourdrinier Operator Name Role Phone Jeanette Esparza MD Primary Care Provider Jeffrey Lezama MD Unavailable [phone] Daisy Portillo Unavailable [phone] Marcy Judge RN Unavailable Unavailable Liyah Judge MD Unavailable [phone] System, Provider Not In Primary Care Provider Un available Jeanette Esparza MD Unavailable [phone] Jeanette Esparza MD Unavailable [phone] No Ref-Primary, Physician Primary Care Provider [facility] Unavailable [phone] Gladis Espinosa MD Primary Care Provider Reason for Visit * Reason Onset Date Comments Refill Request 12/25/2016 sertraline (ZOLO FT) 100 MG tablet Encounter Details Date Type Department Care Team (Late st Contact Info) Description 12/25/2016 MyC Medical Advice [place] [id number] [place] [phone] Jeanette Esparza MD [address] [address] Refill Request (sertraline (ZOLOFT) 100 MG... Social History Tobacco Use Types Packs/Day Years [...] Miscellaneous Notes * Telephone Encounter - Gabby Singh RN - 12/26/2016 9:55 AM CST Routing refill request to provider for review/approval because: -PHQ-9 > [address] Esparza-Please sign if agree. Thank you! SHAWN Villarreal, RN sertraline (ZOLOFT) 100 MG tablet Last Written Prescription Date: 06/08/16 Last Fill Quantity: 90, # refills: 1 Last Office Visit with [facility] primary care provider: 11/09/[address] Esparza Last PHQ-9 score on record= PHQ-9 SCORE 11/08/2016 Total Score 8 ON GINNER HELPER documented in this encounter Plan of Treatment [...] as of this encounter Visit Diagnoses Diagnosis Major depressive disorder, recurrent episode, moderate (H)- Primary Major depressive disorder, recurrent episode, moderate documented in this encounter Additional Health Concerns Assessment Noted Time PHQ-9 Depression Total Score: 8 11/09/20 16 7:20 AM COTTON GINNER HELPER documented as of this encounter Care Teams Fourdrinier Operator Relationship Specialty Start Date End Date Jeanette Esparza MD PCP - General Family Practice 08/20/13 06/04/18 System, Provider Not In PCP - General Clinic 06/05/18 06/05/18 Jeanette Esparza MD [address] [address] PCP - Assigned PCP 11/06/15 01/27/19 No Ref-Primary, Physician PCP - General 02/18/21 02/21/21 Gladis Espinosa MD [address] [id number] PCP - General 02/22/21 Jeffrey Lezama MD [facility] [address] [facility] S [facility] 410 [place] [address] Otolaryngology 12/24/17 Daisy Portillo AuD [facility] [address] [facility] [address] [place] [address] Shrimp Boat Captain Audiology 12/24/17 Marcy Judge, RN Tech 12/24/17 12/24/17 Liyah Judge MD [address] [place] [address] 396 [place], [place] [address] Otolaryngology 12/24/17 Jeanette Esparza MD [address] [address] Assigned PCP 11/06/15 06/04/[address] [address] 02/21/21 documented as of this encounter
[2024-03-03 16:47] LABS: Slide Review Reflex No
[2024-03-03 16:53] LABS: Albumin* 4.2 g/dL (3.3-5.0)
[2024-03-03 16:53] LABS: Fecal Occult Blood* Positive (Negative)
[2024-03-03 16:54] LABS: Chloride* 109 mmol/L (96-114); Potassium* 3.8 mmol/L (3.6-5.1); Sodium* 140 mmol/L (135-149)
[2024-03-03 16:56] LABS: Anion Gap 8 mEq/L (7-15); Aspartate Amino Transferase* 29 U/L (12-35); Bilirubin Total* 0.4 mg/dL (0.1-1.5); Carbon Dioxide* 23 mmol/L (20-32); Creatinine* 0.7 mg/dL (0.5-1.5); Estimated Glomerular Filt Rate 90 ml/min; Total Protein* 7.2 g/dL (6.0-8.3)
[2024-03-03 16:57] LABS: Alanine Aminotransferase* 29 U/L (4-35); Alkaline Phosphatase* 62 U/L (40-150); Blood Urea Nitrogen* 11 mg/dL (7-30); Calcium* 9.2 mg/dL (8.4-10.6); Glucose* 91 mg/dL (60-115)
[2024-03-03 17:41] LABS: C Reactive Protein* < 0.5 mg/dL (0.5-1.0)
== END 2024-03-03 18:21 | disposition home or self-care (01) ==
PROVIDERS: Emergency Provider Emergency Medicine; PCP Family Medicine
DX: K62.5 Hemorrhage of anus and rectum (principal); K64.8 Other hemorrhoids
CPT/HCPCS: 36415; 80048; 80053; 82270; 85025; 86140; 99283; 99284

== ENCOUNTER 2024-07-14 16:00 | Emergency (ER) | payer MEDICARE, SELFPAY ==
[2024-07-14 16:09] VITALS: BP 160/94; PULSE 63; RESP 18; TEMP 36.6; O2SAT 93; BMI 25.8
--- NOTE | 2024-07-14 16:29 | ED_ITS ---
HPI - General Adult General Date Seen: 07/14/24 Chief complaint: Skin/Abscess/Foreign Body Stated complaint: insect bite Time Seen by Provider: 07/14/24 16:14 Source: patient, family, RN notes reviewed and old records reviewed Mode of arrival: ambulatory Limitations: no limitations History of Present Illness HPI narrative: Patient is a 74-year-old woman here with her son. She was at urgent care earlier today to have a bug bite evaluated. She says that she was bitten by something, she was not sure if it was a mosquito or a spider what it was but was bitten by something on her left calf a couple of months ago. She said it was red for a while and then it developed a little pustule and she squeezed a little pus out. It has been getting better since then although there is still a little reddish brown bump in the area. In the past couple of days she has noted a couple of small red splotches next to it. She went to urgent care and they told her it could be Lyme disease, she says they tried to draw blood to test her but they were unable to get blood, and then she was in a panic that it might be Lyme disease so she came to the ER. She does not have any other symptoms, she has not had any fevers, other rashes, joint aches, headaches, and does not believe this was a tick bite. Related Data Home Medications ?Medication ?Instructions ?Recorded ?Confirmed albuterol sulfate 90 mcg/actuation 2 puff inhalation Q4H PRN 08/30/22 07/14/24 aerosol inhaler atorvastatin 40 mg tablet 40 mg PO DAILY 08/30/22 07/14/24 diltiazem HCl 360 mg 360 mg PO DAILY 08/30/22 07/14/24 capsule,extended release 24 hr nitroglycerin 0.4 mg sublingual 0.4 mg sublingual Q5M PRN 08/30/22 07/14/24 tablet sertraline 100 mg tablet 150 mg PO DAILY 08/30/22 07/14/24 tiotropium bromide 2.5 2 inh inhalation DAILY 08/30/22 07/14/24 mcg/actuation mist for inhalation (Spiriva Respimat) acetaminophen 325 mg tablet (Aphen) 650 mg PO QID PRN 12/19/22 07/14/24 cholecalciferol (vitamin D3) 50 50 mcg PO DAILY 12/19/22 07/14/24 mcg (2,000 unit) capsule lisinopril 30 mg tablet 30 mg PO DAILY 07/14/24 07/14/24 metoprolol succinate 25 mg 25 mg PO BID 07/14/24 07/14/24 tablet,extended release 24 hr tiotropium 2.5 mcg-olodaterol 2.5 2 puff inhalation DAILY 07/14/24 07/14/24 mcg/actuation mist for inhalation (Stiolto Respimat) Previous Rx's ?Medication ?Instructions ?Recorded clindamycin HCl 300 mg capsule 300 mg PO Q8H #15 caps 12/22/22 Allergies Allergy/AdvReac Type Severity Reaction Status Date / Time codeine Allergy Mild Hives Verified 07/14/24 14:03 Iodinated Contrast Media Allergy Mild Fever Verified 07/14/24 14:03 Penicillins Allergy Mild Hives Verified 07/14/24 14:03 [facility] Medical History Hypoxia ?R09.02 - Hypoxemia (ICD-10) Brain abscess ?G06.0 - Intracranial abscess and granuloma (ICD-10) Cholesteatoma ?H71.90 - Unspecified cholesteatoma, unspecified ear (ICD-10) Mastoiditis of right side ?H70.91 - Unspecified mastoiditis, right ear (ICD-10) Internal hemorrhoids ?K64.8 - Other hemorrhoids (ICD-10) Inguinal hernia ?K40.90 - Unilateral inguinal hernia, without obstruction or gangrene, not specified as recurrent (ICD-10) Adrenal adenoma ?D35.00 - Benign neoplasm of unspecified adrenal gland (ICD-10) Prolonged QT interval ?R94.31 - Abnormal electrocardiogram [ECG] [EKG] (ICD-10) Diverticulosis ?K57.90 - Diverticulosis of intestine, part unspecified, without perforation or abscess without bleeding (ICD-10) Smoking ?F17.200 - Nicotine dependence, unspecified, uncomplicated (ICD-10) COPD (chronic obstructive pulmonary disease) ?J44.9 - Chronic obstructive pulmonary disease, unspecified (ICD-10) History of paroxysmal supraventricular tachycardia ?Z86.79 - Personal history of other diseases of the circulatory system (ICD- 10) Gastroesophageal reflux ?K21.9 - Gastro-esophageal reflux disease without esophagitis (ICD-10) Depression ?F32.A - Depression, unspecified (ICD-10) Hypertension ?I10 - Essential (primary) hypertension (ICD-10) Hyperlipidemia ?E78.5 - Hyperlipidemia, unspecified (ICD-10) Surgical History History of inguinal hernia repair ?Z98.890 - Other specified postprocedural states (ICD-10) ?Z87.19 - Personal history of other diseases of the digestive system (ICD-10) History of tonsillectomy and adenoidectomy ?Z90.89 - Acquired absence of other organs (ICD-10) History of right knee joint replacement ?Z96.651 - Presence of right artificial knee joint (ICD-10) History of hysterectomy ?Z90.710 - Acquired absence of both cervix and uterus (ICD-10) History of colonoscopy ?Z98.890 - Other specified postprocedural states (ICD-10) History of bilateral hip arthroplasty ?Z96.643 - Presence of artificial hip joint, bilateral (ICD-10) History of right mastoidectomy ?Z90.89 - Acquired absence of other organs (ICD-10) History of appendectomy ?Z90.49 - Acquired absence of other specified parts of digestive tract (ICD- 10) History of tubal ligation ?Z98.51 - Tubal ligation status (ICD-10) Status post craniotomy ?Z98.890 - Other specified postprocedural states (ICD-10) Family History Sister Breast cancer Pancreatic cancer Lung cancer Father Lung cancer Social History Narrative: She lives alone at the [facility]. Either her son Alvarez or daughter Cecily are healthcare power of craft center director. Code status is full. She is a current smoker. She drinks alcohol 2 or 3 times per year. Smoking Status: Current every day smoker What tobacco products do you use: cigarettes Smoking packs per day: 0.5 Smoking cigarettes per day: 10.0 Do you use any of these nicotine containing products: None Second hand tobacco smoke exposure: Yes How often do you have a drink containing alcohol: never AUDIT-C Alcohol total score: 0 Non-prescribed substance use: denies use service: No Exam Narrative: Exam Narrative: Vital signs reviewed In general, alert, well-appearing woman. Extremities: On her calf there is a small approximately 0.5 cm lesion which is reddish brown and slightly raised and firm, consistent with prior pustule and residual inflammation/scar. Adjacent to this are 2 0.5 cm areas of slight redness and scaliness to the skin of indeterminate etiology. There is no rash consistent with erythema migrans and no other acute rash. She has a couple of other hyperpigmented areas which she says were bug bites that have resolved more quickly than the bite of interest, but left behind residual pigmentation. Const: Vital Signs, click to edit/add: Vital Signs - 24 hr 07/14/24 16:09 Temperature 97.9 F Pulse Rate [Right Pulse Oximeter] 63 Respiratory Rate 18 Blood Pressure [Ri ght Upper Arm] 160/94 H Pulse Oximetry 93 Oxygen Delivery Me thod Room Air Documenting provider has reviewed patient's vital signs: yes Course Course ED Course: Based on her presentation I do not have any concerns about Lyme disease, cellulitis, dermatitis or other acute skin condition, and she feels certain that this is related to a bug bite versus a more chronic conditions such as a skin cancer. Advised that this should continue to improve albeit possibly slowly, and there may be residual hyperpigmentation or scarring there. Discussed with her she is noting significant changes to this area, reviewed the appearance of erythema migrans for example, that she should be seen again. She does have an appointment with her doctor on August 05, so this can be rechecked at that time. Vital Signs Vital signs: Initial Vital Signs Temperature 97.9 F 07/14/24 16:09 Temperature Source Temporal Artery Scan 07/14/24 16:09 Pulse Rate 63 07/14/24 16:09 Respiratory Rate 18 07/14/24 16:09 Blood Pressure 160/94 H 07/14/24 16:09 Blood Pressure Mean 116 H 07/14/24 16:09 Blood Pressure Position Sitting 07/14/24 16:09 Pulse Oximetry 93 07/14/24 16:09 Oxygen Delivery Method Room Air 07/14/24 16:09 Vital Signs Temperature 97.9 F 07/14/24 16:09 Pulse Rate 63 07/14/24 16:09 Respiratory Rate 18 07/14/24 16:09 Blood Pressure 160/94 H 07/14/24 16:09 Pulse Oximetry 93 07/14/24 16:09 Oxygen Delivery Method Room Air 07/14/24 16:09 Temperature 97.9 F 07/14/24 16:09 Pulse Rate 63 07/14/24 16:09 Respiratory Rate 18 07/14/24 16:09 Blood Pressure 160/94 H 07/14/24 16:09 Pulse Oximetry 93 07/14/24 16:09 Oxygen Delivery Method Room Air 07/14/24 16:09 Discharge Plan Discharge Clinical Impression: Insect bite Patient Disposition: Home, Self-Care Condition: Stable Instructions: Insect Bite or Sting (ED) Additional Instructions: For significant changes in the appearance of this area, surrounding redness, new symptoms such as fevers, significant pain, drainage or other rashes, return at any time. Otherwise, follow up with primary care as planned in July. Recheck at that time. Prescriptions: No Action diltiazem HCl 360 mg capsule,extended release 24hr 360 mg PO DAILY nitroglycerin 0.4 mg tablet, sublingual 0.4 mg sublingual Q5M PRN atorvastatin 40 mg tablet 40 mg PO DAILY Spiriva Respimat 2.5 mcg/actuation mist 2 inh inhalation DAILY sertraline 100 mg tablet 150 mg PO DAILY albuterol sulfate 90 mcg/actuation HFA aerosol inhaler 2 puff inhalation Q4H PRN Stiolto Respimat 2.5-2.5 mcg/actuation mist 2 puff inhalation DAILY metoprolol succinate 25 mg tablet extended release 24 hr 25 mg PO BID lisinopril 30 mg tablet 30 mg PO DAILY acetaminophen [Aphen] 325 mg tablet 650 mg PO QID PRN cholecalciferol (vitamin D3) 50 mcg (2,000 unit) capsule 50 mcg PO DAILY clindamycin HCl 300 mg capsule 300 mg PO Q8H Qty: 15 0RF Follow Up/Referrals: Gladis Espinosa MD [Primary Care Provider] - Stand Alone Forms: MyHealth Info Instructions
--- OUTSIDE RECORDS SUMMARY | 2024-07-14 16:35 | XMS_ITS | Referral Summary ---
Author Organization [facility] Address [address] [place] [address] Care Team Providers Care Lining Feller Name Role Phone Jeffrey Lezama MD Unavailable Daisy Portillo Unavailable [phone] Liyah Judge MD Unavailable [phone] [facility] Unavailable Gladis Espinosa MD Primary Care Provider [phone] Allergies Active Allergy Reactions Criticality Noted Date [...] 5 minutes as needed for chest pain Active omeprazole (PRILOSEC) 40 MG capsuleIndications:GE RD (gastroesophageal reflux disease) TAKE 1 CAPSULE(40 MG) BY MOUTH DAILY 30 TO 60 MINUTES BEFORE A MEAL 90 capsule 2 09/25/2017 Active sertraline (ZOLOFT) 100 MG tabletIndications:Junior or depressive disorder, recurrent episode, moderate (H) TAKE 1 TABLET(100 MG) BY MOUTH DAILY 30 tablet you 02/27/2018 Active flecainide (TAMBOCOR) 50 MG tabletIndications:Sup raventricular tachycardia (H24) Take 1 tablet (50 mg) by mouth every 12 hours 180 tablet 09/22/2018 Active atorvastatin (LIPITOR) 40 MG tablet Take 40 mg by mouth At Bedtime Active tiotropium (SPIRIVA RESPIMAT) 2.5 MCG/ACT inhaler Inhale 2 puffs into the lungs daily Active vitamin D3 (CHOLECALCIFEROL) 50 mcg (2000 units) tablet Take 1 tablet by mouth daily Active Active Problems Problem Noted Date Diagnosed [...] colon 11/01/2015 Coronary artery disease invo lving [place] coronary artery without angina pectoris 09/13/2015 Adrenal [...] Overview: Gave pt packet on 11/30/2014 Katelynn Ochoa, SLACKLINE OPERATOR Rash 06/19/2014 04/12/2016 Atrial fibrillation 06/08/2014 07/07/20 [...] Status: Active Medical Devices Implanted Type Area Home Care Nurse Device Identifier Shelf Expiration Date Model / Serial / Lot G7 Acetabular Shell, 3 Hole, Porous Plasma Cementless, 52mm, E Implanted:Qty: 1 on 07/27/2015 by Hamzah Woodall MD at [facility] Right: Hip BIOMET 05/24/2025 [id number] / / [id number] [id number] Acetabular Screw, 6.5mm, 25mm Implanted:Qty: 1 on 07/27/2015 by Hamzah Woodall MD at [facility] Right: Hip BIOMET 08/24/2024 [id number] / / [id number] [id number] Acetabular Screw, 6.5mm, 25mm Implanted:Qty: 1 on 07/27/2015 by Hamzah Woodall MD at [facility] Right: Hip BIOMET 01/22/2025 [id number] / / [id number] [id number] Acetabular Liner, Neutral, Arcomxl Highly Crosslinked Uhmwpe, 36mm, E Implanted:Qty: 1 on 07/27/2015 by Hamzah Woodall MD at [facility] Right: Hip 08/24/2019 [id number] / / [id number] Taperloc Complete Primary Femoral Porous Coated Stem Reduced Distal 11 X 142mm Standard Offset Type 1 Taper Implanted:Qty: 1 on 07/27/2015 by Hamzah Woodall MD at [facility] Right: Hip BIOMET 05/24/2025 [id number] / / [id number] Modular Head Component -3mm Neck Implanted:Qty: 1 on 07/27/2015 by Hamzah Woodall MD at [facility] Right: Hip BIOMET 06/10/2025 [id number] / / [id number] [id number] Acetabular Shell Implanted:Qty: 1 on 03/14/2016 by Hamzah Woodall MD at [facility] Left: Hip BIOMET [id number] / / [id number] [place] Complete Primary Femoral Porous Coated Stem Reduced Distal 11 X 142mm Standard Offset Ttype 1 Taper [id number] Implanted:Qty: 1 on 03/14/2016 by Hamzah Woodall MD at [facility] Left: Hip BIOMET 11/16/2025 [id number] / / [id number] Modular Head Component -3mm Neck Implanted:Qty: 1 on 03/14/2016 by Hamzah Woodall MD at [facility] Left: Hip BIOMET 01/04/[id number] / / [id number] G7 Acetabular Screw Implanted:Qty: 1 on 03/14/2016 by Hamzah Woodall MD at [facility] Left: Hip BIOMET 12/04/2025 [id number] / / [id number] G7 Acetabular Screw Implanted:Qty: 1 on 03/14/2016 by Hamzah Woodall MD at [facility] Left: Hip BIOMET 05/14/2026 [id number] / / [id number] [id number] Acetabular Liner Neutral Arcomxl Highly Crosslinked Implanted:Qty: 1 on 03/14/2016 by Hamzah Woodall MD at [facility] Left: Hip BIOMET [id number] / / [id number] Advance Directives For more information, please contact: [phone] Documents on File Type Date Recorded 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 Advance Directives and Living Will 03/27/2021 Health Care Directiv e 10/09/2019 Advance Directives and Living Will 03/27/2021 Validation of AD 10/09/2019 * Full Code (Latest Code Status on File) Date Activated Date Inactivated Comments 02/18/2021 5:26 PM 02/22/2021 1:18 PM All basic an d advanced life-sustaining interventions are performed as appropriate Question Answer Comments Code status determined by: Discussion with patie nt/ legal decision maker * Full Code Date Activated Date Inactivated Comments 12/30/2016 9:07 AM 02/18/2021 4:51 PM * Full Code Date Activated Date Inactivated Comments 12/29/2016 6:48 PM 12/30/2016 9:07 AM * Full Code Date Activated Date Inactivated Comments 06/20/2016 8:44 AM 12/29/2016 6:48 PM * Full Code Date Activated Date Inactivated Comments 06/19/2016 3:07 PM 06/20/2016 8:44 AM Healthcare Agents on File Name Relationship Healthcare Agent [facility] Communication Radha Pham Daughter Health Care Agent Logan Styles Son First Alternate Health Care Agent Care Teams Lining Feller Relationship Specialty Start Date End Date Gladis Espinosa MD [facility] [address] [place] [address] PCP - General 02/22/21 Jeffrey Lezama MD [facility] [address] [place], [place] [address] Otolaryngology 12/24/17 Daisy Portillo AuD [facility] [address] [place] [address] Formula Mixer Audiology 12/24/17 Liyah Judge MD [address] [facility] [address] [place], [place] [id number] Otolaryngology 12/24/17 [facility] [address] [place] [address] 02/21/21
--- OUTSIDE RECORDS SUMMARY | 2024-07-14 16:35 | XMS_ITS | Clinical Summary ---
Author Organization [facility] Address [place], [place] [address] Care Team Providers Care Asphalt Distributor Tender Name Role Phone Gladis Espinosa MD Primary [...] by mouth once daily. 90 capsule 3 08/29/20 18 Active nicotine (NICOTROL) 10 mg inhalerIndications :Encounter for smoking cessation counseling Inhale 10 mg by mouth every hour if needed for Nicotine Craving. 168 Each 2 08/12/20 20 Active acetaminophen (TYLENOL) 325 mg tabletIndications: Cholesteatoma of ear, right Take 1-2 tablets by mouth every 4 hours if needed (mild pain). Max acetaminophen dose: 4000mg in 24 hrs. 0 01/27/20 21 Active miscellaneous medical supply (Blood Pressure Cuff) miscIndications:HT N (hypertension) As directed. 1 Each 02/29/20 21 Active famotidine (PEPCID) 20 mg tablet Take 1 Tablet (20 mg) by mouth once daily if needed. 0 03/29/20 22 Active lisinopriL (PRINIVIL; ZESTRIL) 30 mg tabletIndications: Hypertension Take 1 Tablet (30 mg) by mouth once daily. 90 Tablet 3 07/16/20 23 Active nitroglycerin (NITROSTAT) 0.4 mg sublingual tabletIndications: Hypertension, unspecified type Place 1 Tablet (0.4 mg) under the tongue every 5 minutes if needed for Chest Pain. Max of 3 doses. If chest pain persists, seek medical attention. 25 Tablet 1 07/16/20 23 Active nicotine (NICORETTE) 2 mg gumIndications:Enc ounter for smoking cessation counseling Chew 1 gum (2 mg) every hour while awake as needed for Nicotine Craving. 190 Each 8 11/26/19 24 Active atorvastatin (LIPITOR) 40 mg tabletIndications: Hyperlipidemia, unspecified hyperlipidemia type Take 1 Tablet (40 mg) by mouth once daily. 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 135 Tablet 1 11/26/19 24 Active Lidocaine-Hydrocor tisone Sravan 3-0.5 % creaIndications:He morrhoids, external Apply externally to hemorrhoids twice daily as needed for itching/pain 21 g 03/18/20 24 Active albuterol HFA (PRO-AIR; VENTOLIN; PROVENTIL) 90 mcg/actuation inhalerIndications :Pulmonary emphysema, unspecified emphysema type (HC) Inhale 2 Puffs by mouth every 4 hours if needed for Shortness Of Breath or Wheezing. 3 Each 3 03/18/20 24 Active polyethylene glycoL (MIRALAX) 17 gram/scoop powderIndications: Hemorrhoids, external Mix 1 scoop (17 g) in liquid then take by mouth once daily. 510 g 3 03/18/20 24 Active metoprolol succinate (Toprol XL) 25 mg Sustained-Release tabletIndications: SVT (supraventricular tachycardia) (HC) Take 1 Tablet (25 mg) by mouth once daily. May take additional tablet (25 mg) daily if needed for rapid heart rate. 180 Tablet 3 03/27/20 24 Active tiotropium-olodate roL (Stiolto Respimat) 2.5-2.5 mcg/actuation inhalerIndications :Pulmonary emphysema, unspecified emphysema type (HC) INHALE 2 PUFFS BY MOUTH EVERY DAY 12 g 06/24/20 24 Active diltiazem CD (CARDIZEM CD) 360 mg extended release 24 hr capsuleIndications :Hypertension, unspecified type Take 1 Capsule (360 mg) by mouth once daily. 90 Capsule 1 07/09/20 24 Active tiotropium-olodate roL (STIOLTO RESPIMAT) 2.5-2.5 mcg/actuation inhalerIndications :Pulmonary emphysema, unspecified emphysema type (HC) Inhale 2 Puffs by mouth once daily. 12 g 1 11/26/19 24 024 Discontinued diltiazem CD (CARDIZEM CD) 360 mg extended release 24 hr capsuleIndications :Hypertension, unspecified type TAKE 1 CAPSULE(360 MG) BY MOUTH EVERY DAY 90 Capsule 2 02/27/20 24 024 Discontinued(*A vailability/For mulary change/Cost of medication) Active Problems Patient Care Coordination No te [...] hand 11/29/2023 Atrial fibrillation, unspecified type 11/26/2023 Prediabetes 04/23/2023 Pulmonary emphysema, unspecified emphysema [...] Problem Noted Date Diagnosed Date Resolved Date Closed fracture of right rahul e of maxilla, initial encounter 11/26/2023 03/18/2024 Cholesteatoma of ear, right 07/20/2020 06/26/2023 Mastoiditis of right side 07/13/2020 Brain abscess 07/13/2020 06/26/2023 Atrial fibrillation 10/17/20 18 E coli infection 06/26/2023 Encounters Date Type Department Care Team Description 07/14/2024 Nurse Triage [address] [address] Gladis Espinosa MD Derm Problem 07/06/[address] [address] Gladis Espinosa MD Refill Request (Diltiazem ER 360 mg) 07/02/[address] [address] Gladis Espinosa MD Refill Request (Stiolto Respimat) 06/29/[address] [address] Gladis Espinosa MD Refill Request (Stiolto Respimat) 06/22/[address] [address] Gladis Espinosa MD Refill Request (Stiolto Respimat) 06/17/2024 11:20 AM CDT Ancillary Procedure [address] [address] 06/16/2024 1:00 PM CDT Nurse/Clinic Staff Only [facility] [address] [place] [address] Blood Pressure (123/67) 06/16/2024 Travel 04/16/2024 10:30 AM CDT Ancillary Procedure [facility] [address] [place] [address] [address] 04/16/2024 Travel from Last 3 Months Immunizations Name Administration Dates Next Due COVID-19 Vaccine Spikevax (M oderna 50mcg/0.5mL) 12YO+ [id number] Formula PF 11/26/2023 COVID-19 vaccine (Moderna 10 0mcg/0.5mL) PF, MDV 02/15/2021,01/18/2021 COVID-19 vaccine (WeTag-Bio NTech 30mcg/0.3mL) 12YO+ BIVALENT PF, MDV 09/03/2022 COVID-19 vaccine (WeTag-Bio NTech 30mcg/0.3mL) 12YO+ SHANTI-SUCROSE PF, MDV 05/02/2022 [...] Date Smoking Tobacco: Every Day Cigarettes 0.5 60.6 Started: 11/25/1965 Smokeless Tobacco: Never Tobacco Cessation:Ready to Q uit: Not Asked; Counseling Given: Yes Comments:since age 14 Alcohol Use Standard Drinks/Week Comments Yes 0 (1 standard drink = 0.6 oz pur e alcohol) rare PHQ-2 Answer Date Recorded PHQ-2 TOTAL SCORE 0 06/26/2023 Social Connections Answer Date Recorded Frequency of Communication with Friends and Fami ly Not on file 04/25/2024 Financial Resource Strain Answer Date R ecorded [...] Sign Reading Time Taken Comments Blood Pressure 123/67 06/16/2024 1:08 PM CDT Pulse 66 06/16/2024 1:08 PM CDT Temperature 36.6 ??C (97.8 ??F) 09/10/2023 3:24 PM CD T Respiratory Rate 18 04/13/2022 9:41 AM CDT Oxygen Saturation 96% 04/02/2024 10:58 AM CDT Inhaled Oxygen Concentration - - Weight 72.3 kg (159 lb 6.4 oz) 04/02/2024 10:58 AM CDT Height 169.4 cm (5' 6.69) 06/26/2023 8:00 AM CD T Body Mass Index 25.2 06/26/2023 8:00 AM CDT Plan of Treatment Upcoming Encounters Date Type Department Care Team (Late st Contact Info) Description 07/23/2024 10:00 AM CDT Office Visit [facility] [address] [place] [address] VotelNate MD [address] [place] [address] 08/04/2024 2:30 PM CDT Office Visit [facility] [address] [place] [address] Sarabjit Lancaster MD [address] [place] [phone] 08/07/2024 7:55 AM CDT Office Visit [facility] [address] [place] [address] Gladis Espinosa MD [address] [place] [address] Health Maintenance Due Date Last Done Comments Zoster (shingles) series for age 50+ (2 of 2) 08/31/2023 07/06/2023 COVID-19 vaccine series (2022- season) 2024 11/26/2023, 09/03/2022, 05/02/2022, Additional history exists BMI (ht and wt on same day) for age 18+ 06/26/2024 06/26/2023, 12/11/2022, 05/02/2022, Additional history exists Depression screening for age 12+ 06/26/2024 06/26/2023, 04/24/2023, 04/23/2023, Additional history exists Medicare Wellness for age 65+ 06/26/2024, 05/02/2022, 03/21/2018 Influenza for age 65+ 07/26/2024 09/17/2023 , 08/26/2022, 09/18/2021, Additional history exists Low Dose CT (for lung CA) ag e 50-80 04/16/2025 04/16/2024, 04/15/2023, 04/13/2022, Additional history exists Tetanus booster 10/05/2033 10/05/2023, 10/26, 02/24/2010 Pneumococcal series for age 65+ Completed 01/03/2017, 11/07/2015, 11/03/2015 Hepatitis C screening for ag e 18-79 Completed 09/21/2021 DEXA/DXA scan for age 65+ Completed 04/24/2023 Tdap Completed 10/05/2023, 10/26, 02/24/2010 Medical Devices Implanted Type Area Tar Pot Man Device Identifier Shelf Expiration Date Model / Serial / Lot Screw Neuro 4mm Matrixneuro Slf Drill Titnm - [id number] Implanted:Qty: 5 on 07/14/2020 by Nate Lozano MD at [facility] Cranium J And J Depuy CMF [id number] 4.01# / / Description:All screws remov ed Screw Neuro 4mm Matrixneuro Slf Drill Titnm - [id number] Implanted:Qty: 1 on 09/14/2020 by Nate Lozano MD at [facility] J And J Depuy CMF [id number] 4.01# / / Description:All screws remov ed [id number] 3mesh 3x7cm Alloderm Thick Human Implanted:Qty: 1 on 01/24/2021 by Nate Lozano MD at [facility] Explanted:at [facility] (Quantity not on file) Right: Cranium [employer] Inc 09/24/2021 [id number] / [id number] / Dura Neuro 5ml Duraseal - [id number] Implanted:Qty: 1 on 01/24/2021 by Nate Lozano MD at [facility] Right: Cranium motionBEAT inc Leti 01/22/2022 / / [id number] Description:See implant shee t Dura Neuro 2x2in Durepair Sut - [id number] Implanted:Qty: 1 on 01/24/2021 by Nate Lozano MD at [facility] Right: Cranium [employer] 05/24/2023 [id number] / / [id number] Screw Neuro 4mm Matrixneuro Slf Drill Titnm - [id number] Implanted:Qty: 8 on 01/24/2021 by Nate Lozano MD at [facility] Cranium J And J Depuy CMF [id number] 4.01 / / Explanted Type Area Tar Pot Man Device Identifier Shelf Expiration Date Model / Serial / Lot Plate Neuro [id number] Geronimo López Titnm - [id number] Implanted:Qty: 1 on 07/14/2020 by Nate Lozano MD at [facility] Explanted:Qty: 1 on 01/24/2021 by Nate Lozano MD at [facility] Cranium Gregor Velasquez J Sebas CMF [id number] # / / Procedures Procedure Name Priority Date/Time Associated Diagnosis Comments XR MAMMO HEIDI BILAT SCREEN Routine 06/17/2024 11:36 AM CDT Visit for screening mammogram CT CHEST SCREENING LOW DOSE WO CONTRAST Routine 04/16/2024 10:31 AM CDT Encounter for screening for lung cancer Smoker XR DXA BONE DENSITY 1 SITE AXIAL AND 1 SITE PERIPHERAL Routine 04/24/2023 10:35 AM CDT Menopause ANTI HCV Routine 09/21/2021 1:18 PM CDT Need for hepatitis C screening test from Last 3 Months or Most Recently Relevant to Health Maintenance Results * XR MAMMO HEIDI BILAT SCREEN (06/17/2024 11:36 AM CDT) Anatomical Region Laterality Modality BREASTS, Breast Left, Breast Right Bilateral Mammography Impressions 06/17/2024 4:28 PM CDT ??There is no radiographic evidence for malignancy. ??Recommend annual mammograms. MAMMOGRAM ASSESSMENT: ??ACR 1 Negative PATIENTS: You will also receive a letter with your examination results in an easy to read format. ??If you have questions about your results, please contact your referring provider. Narrative 06/17/2024 4:28 PM CDT For Patients: As a result of the 21st Century Cures Act, medical imaging exams and procedure reports are released immediately into your electronic medical record. You may view this report before your referring provider. If you have questions, please contact your health care provider. XR MAMMO HEIDI BILAT SCREEN [[id number]] CLINICAL HISTORY: ??This is an asymptomatic 74 y.o. patient. INDICATION FOR EXAM: Mammogram Screening. TECHNIQUE: CC & MLO views were obtained. ??This study was evaluated with the assistance of Computer-Aided Detection. Breast Tomosynthesis was used in interpretation. COMPARISON FILM: Yes 05/30/22 [facility] 12/14/19 [facility] FINDINGS: ??There are scattered areas of fibroglandular density. There are no dominant masses, suspicious micro calcifications or areas of architectural distortion. Gladis Espinosa MD MAMMO * CT CHEST SCREENING LOW DOSE WO CONTRAST (04/16/2024 10:31 AM CDT) Anatomical Region Laterality Modality Computed Tomogra phy Impressions 04/17/2024 3:51 PM CDT Negative for lung cancer screening purposes. LUNG-RADS CATEGORY 1: Negative. RADIOLOGIST RECOMMENDATION: Continue annual screening with low-dose CT chest in 12 months. Please note that all CT scans at this facility use dose modulation, iterative reconstruction and/or weight-based dosing when appropriate to reduce radiation dose to as low as reasonably achievable. ?? Dictated by: Jose Luis Santos MD @04/16/2024 3:59:16 PM / MARCE:gregorj PATIENTS: You will also receive a letter with your examination results in an easy to read format. ??If you have questions about your results, please contact your referring provider. Narrative 04/17/2024 3:51 PM CDT For Patients: As a result of the Century Cures Act, medical imaging exams and procedure reports are released immediately into your electronic medical record. ??You may view this report before your referring provider. ?? If you have questions, please contact your health care provider. CT CHEST SCREENING LOW-DOSE WITHOUT CONTRAST, 04/16/2024 INDICATION: Lung cancer screening. History of smoking. TECHNIQUE: Low-dose lung cancer screening non-contrast CT chest. Dose reduction techniques were used. COMPARISON: 04/15/2023. FINDINGS: NODULES: None. LUNGS AND PLEURA: Emphysema. Mild bibasilar atelectasis. No pleural effusion. MEDIASTINUM: Atherosclerotic changes. No adenopathy. Elevation left hemidiaphragm unchanged. CORONARY ARTERY CALCIFICATION: Present. LIMITED UPPER ABDOMEN: Stable intrahepatic cysts. No adrenal nodule. Atherosclerotic changes. MUSCULOSKELETAL: Degenerative changes. No fracture. Gladis Espinosa MD CT * (ABNORMAL) XR DXA BONE DENSITY 1 [...] recommended in 3-5 years. Rosalina Sandhu PA-C [facility] 04/26/2023 Narrative 04/26/2023 4:55 PM CDT For Patients: Results are automatically released to your [facility] ([facility]) account once available, in compliance with federal regulations. This means that you may see your results before your provider has had a chance to review them. Please allow 2-3 business days for your provider to comment on the results. XR DXA Bone Mineral Density (BMD) EXAM LOCATION: [address] [address] PATIENT NAME: Nena Styles DATE OF : [...] two scanners are made by the same playground equipment erector. PROCEDURE: Dual-energy x-ray absorptiometry performed with routine [...] -2.5 SD Gladis Espinosa MD DEXA * ANTI HCV (09/21/2021 1:18 PM CDT) HEPATITIS C ANTIBODY Non-React juliet Non-React juliet 09/21/2021 6:13 PM CDT [facility] Comment:Antibodies to HCV no t detected; does not exclude the possibility of exposure to HCV. Blood BLOOD SPECIMEN / Unknown Venipuncture / Unknown 09/21/2021 1:18 PM CDT 09/21/2021 1:18 PM CDT Gladis Espinosa MD SEND OUTS [facility] 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
--- OUTSIDE RECORDS SUMMARY | 2024-07-14 16:35 | XMS_ITS | Encounter Summary ---
Author Organization [facility] Address [address] [place] [address]. [place] [address] Care Team Providers Care Sumac Tanner Name Role Phone Jeffrey Lezama MD Unavailable [phone] Daisy Portillo Unavailable [phone] Liyah Judge MD Unavailable Jeanette Esparza MD Unavailable [phone] Jeanette Esparza MD Unavailable No Ref-Primary, Physician Primary Care Provider Jerri Davisonfield Unavailable Gladis Espinosa MD Primary Care Provider [phone] Encounter Details Date Type Department Care Team (Late st Contact Info) Description 06/18/2018 MyC Medical Advice [facility] Ear Nose and Throat [address] [facility] [address] 4th [place] [address] Liyah Judge MD [address] [facility] [address] [place] [address] Social History Tobacco Use Types [...] documented as of this encounter Care Teams Sumac Tanner Relationship Specialty Start Date End Date Jeanette Esparza MD [address] [facility] [address] [place] [address] PCP - Assigned PCP 11/06/15 01/27/19 No Ref-Primary, Physician PCP - General 02/18/21 02/21/21 Gladis Espinosa MD [address] [address] PCP - General 02/22/21 Jeffrey Lezama MD [facility] [address] [facility] [address] [place] [address] Otolaryngology 12/24/17 Daisy Portillo AuD [facility] [address] [facility] [address] [place] [address] [facility] 12/24/17 Liyah Judge MD [address] [place] [address] [facility] [address] [place] [address] Otolaryngology 12/24/17 Jeanette Esparza MD [address] [address] Assigned PCP 11/06/15 06/04/20 Jerri Davison [address] [place] [address] 02/21/21 documented as of this encounter
--- OUTSIDE RECORDS SUMMARY | 2024-07-14 16:35 | XMS_ITS | Clinical Summary ---
Author Organization [facility] Address [address] [place] [address] Care Team Providers Care Civil Engineering Technician Name Role Phone Unavailable Primary Care Provider [...] Orientation Not on file Plan of Treatment Not on file
--- OUTSIDE RECORDS SUMMARY | 2024-07-14 16:35 | XMS_ITS | Encounter Summary ---
Author Organization [facility] Address [address] [place] [address] Care Team Providers Care Mangle Tender Cloth Name Role Phone Unavailable Primary Care Provider Unavailabl e Reason for Visit * Reason Comments Office Visit: Converted Data Conversion Encounter Details Date Type Department Care Team (Late st Contact Info) Description 06/20/2021 Dental Interim Note [address] [address] Default, [place] Social History Tobacco Use Types Packs/Day Years [...]
--- OUTSIDE RECORDS SUMMARY | 2024-07-14 16:35 | XMS_ITS | Clinical Summary ---
Author Organization [facility] Address [address] [place] [address] Care Team Providers Care Women'S Studies Professor Name Role Phone Jeffrey Lezama MD Unavailable Daisy Portillo Unavailable [phone] Liyah Judge MD Unavailable [phone] [facility] Unavailable Gladis Espinosa MD Primary Care Provider Allergies [...] colon 11/01/2015 Coronary artery disease invo lving eek coronary artery without angina pectoris 09/13/2015 Adrenal [...] Gave pt packet on 11/30/2014 Katelynn Ochoa, HAND TAPPER Rash 06/19/2014 04/12/2016 Atrial fibrillation 06/08/2014 07/07/20 [...] Status: Active Medical Devices Implanted Type Area Assistant Program Manager Device Identifier Shelf Expiration Date Model / Serial / Lot G7 Acetabular Shell, 3 Hole, Porous Plasma Cementless, 52mm, E Implanted:Qty: 1 on 07/27/2015 by Hamzah Woodall MD at [facility] Right: Hip BIOMET 05/24/2025 [id number] / / [id number] Acetabular Screw, 6.5mm, 25mm Implanted:Qty: 1 on 07/27/2015 by Hamzah Woodall MD at [facility] Right: Hip BIOMET 08/24/2024 [id number] / / [id number] G7 Acetabular Screw, 6.5mm, 25mm Implanted:Qty: 1 on 07/27/2015 by Hamzah Woodall MD at [facility] Right: Hip BIOMET 01/22/2025 [id number] / / [id number] G7 Acetabular Liner, Neutral, Arcomxl Highly Crosslinked Uhmwpe, 36mm, E Implanted:Qty: 1 on 07/27/2015 by Hamzah Woodall MD at [facility] Right: Hip 08/24/2019 [id number] / / [id number] Taperloc Complete Primary Femoral Porous Coated Stem Reduced Distal 11 X 142mm Standard Offset Type 1 Taper Implanted:Qty: 1 on 07/27/2015 by Hamzah Woodall MD at [facility] Right: Hip BIOMET 05/24/2025 [id number] / / [id number] Modular Head Component -3mm Neck Implanted:Qty: 1 on 07/27/2015 by Hamzah Woodall MD at [facility] Right: Hip BIOMET 06/10/2025 [id number] / / [id number] G7 Acetabular Shell Implanted:Qty: 1 on 03/14/2016 by Hamzah Woodall MD at [facility] Left: Hip BIOMET [id number] / / [id number] Taperlock Complete Primary Femoral Porous Coated Stem Reduced Distal 11 X 142mm Standard Offset Ttype 1 Taper [id number] Implanted:Qty: 1 on 03/14/2016 by Hamzah Woodall MD at [facility] Left: Hip BIOMET 11/16/2025 [id number] / / [id number] Modular Head Component -3mm Neck Implanted:Qty: 1 on 03/14/2016 by Hamzah Woodall MD at [facility] Left: Hip BIOMET 01/04/[id number] / / [id number] G7 Acetabular Screw Implanted:Qty: 1 on 03/14/2016 by Hamzah Woodall MD at [facility] Left: Hip BIOMET 12/04/2025 [id number] / / [id number] G7 Acetabular Screw Implanted:Qty: 1 on 03/14/2016 by Hamzah Woodall MD at [facility] Left: Hip BIOMET 05/14/2026 [id number] / / [id number] G7 Acetabular Liner Neutral Arcomxl Highly Crosslinked Implanted:Qty: 1 on 03/14/2016 by Hamzah Woodall MD at [facility] Left: Hip BIOMET [id number] / / [id number] Advance Directives For more information, please contact: [phone] Documents on File Type Date Recorded Patient Needle Loom Weaver Expl anation Advance Directives and Living Will 03/27/2021 Health Care Directiv e 10/09/2019 Advance Directives and Living Will 03/27/2021 Validation of AD 10/09/2019 * Full Code (Latest Code Status on File) Date Activated Date Inactivated Comments 02/18/2021 5:26 PM 02/22/2021 1:18 PM All basic an d advanced life-sustaining interventions are performed as appropriate Question Answer Comments Code status determined by: Discussion with tsering medeiros/ legal decision maker * Full Code Date [...] First Alternate Health Care Agent Care Teams Women'S Studies Professor Relationship Specialty Start Date End Date Gladis Espinosa MD [facility] [address] [place] [address] PCP - General 02/22/21 Jeffrey Lezama MD [facility] [address] [place], [place] [address] Otolaryngology 12/24/17 Daisy Portillo AuD [facility] [address] [place], [place] [address] Quality Assurance Manager Audiology 12/24/17 Liyah Judge MD [address] [place] [address] [address] [place], [place] [id number] Otolaryngology 12/24/17 [facility] [address] [place] [address] 02/21/21
--- OUTSIDE RECORDS SUMMARY | 2024-07-14 16:35 | XMS_ITS | Encounter Summary ---
Author Organization [place] Address [address] [place] [address]. [place] [address] Care Team Providers Care Ostomy Nurse Name Role Phone Jeffrey Lezama MD Unavailable [phone] Daisy Portillo Unavailable [phone] Liyah Judge MD Unavailable [phone] Jeanette Esparza MD Unavailable Jeanette Esparza MD Unavailable [phone] No Ref-Primary, Physician Primary Care Provider Jerri Davisonfield Unavailable Gladis Espinosa MD Primary Care Provider [phone] Encounter Details Date Type Department Care Team (Late st Contact Info) Description 06/24/2018 MyC Medical Advice [facility] Ear Nose and Throat [address] [facility] [address] 4th [place] [address] Liyah Judge MD [address] [facility] [address] [place] [address] Social History Tobacco Use Types [...] documented as of this encounter Care Teams Ostomy Nurse Relationship Specialty Start Date End Date Jeanette Esparza MD [address] [facility] [address] [place] [address] PCP - Assigned PCP 11/06/15 01/27/19 No Ref-Primary, Physician PCP - General 02/18/21 02/21/21 Gladis Espinosa MD [address] [address] PCP - General 02/22/21 Jeffrey Lezama MD [facility] [address] [facility] [address] [place] [address] Otolaryngology 12/24/17 Daisy Portillo AuD [facility] [address] [facility] [address] [place] [address] Meat Products Demonstrator Audiology 12/24/17 Liyah Judge MD [address] [place] [address] [facility] [address] [place] [address] Otolaryngology 12/24/17 Jeanette Esparza MD [address] [address] Assigned PCP 11/06/15 06/04/20 Jerri Davison [address] [place] [address] 02/21/21 documented as of this encounter
--- OUTSIDE RECORDS SUMMARY | 2024-07-14 16:35 | XMS_ITS | Encounter Summary ---
Author Organization [facility] Address [address] [place] [address] Care Team Providers Care Supervisor Heading Name Role Phone Jeanette Esparza MD Primary Care Provider Jeffrey Lezama MD Unavailable [phone] Daisy Portillo Unavailable [phone] Liyah Judge MD Unavailable [phone] System, Provider Not In Primary Care Provider Un available Jeanette Esparza MD Unavailable [phone] Jeanette Esparza MD Unavailable [phone] No Ref-Primary, Physician Primary Care Provider Jerri Davisonfield Unavailable [phone] Gladis Espinosa MD Primary Care Provider [phone] Encounter Details Date Type Department Care Team (Late st Contact Info) Description 05/31/2018 My[facility] Medical Advice [facility] Scheduling [address] [place] [address] Davida Amin Social History Tobacco [...] documented as of this encounter Care Teams Supervisor Heading Relationship Specialty Start Date End Date Jeanette Esparza MD PCP - General Family Practice 08/20/13 06/04/18 System, Provider Not In PCP - General Clinic 06/05/18 06/05/18 Jeanette Esparza MD 2270 [facility] 200 [place] [address] PCP - Assigned PCP 11/06/15 01/27/19 No Ref-Primary, Physician PCP - General 02/18/21 02/21/21 Gladis Espinosa MD [address] [address] PCP - General 02/22/21 Jeffrey Lezama MD [facility] [address] [facility] 410 [place] [address] Otolaryngology 12/24/17 Daisy Portillo AuD [facility] [address] [facility] [place] [address] Industrial Relations Director Audiology 12/24/17 Liyah Judge MD 420 [facility] 396 [place] [address] Otolaryngology 12/24/17 Jeanette Esparza MD 2270 [facility] 200 [place] [address] Assigned PCP 11/06/15 06/04/20 Jerri Davison [address] [place] [address] 02/21/21 documented as of this encounter
--- OUTSIDE RECORDS SUMMARY | 2024-07-14 16:35 | XMS_ITS | Encounter Summary ---
Author Organization [facility] Address [address] [place] [address]. [place] [address] Care Team Providers Care Sales Assistant Entertainment And Media Name Role Phone Jeffrey Lezama MD Unavailable Daisy Portillo Unavailable [phone] Liyah Judge MD Unavailable Jeanette Esparza MD Unavailable Jeanette Esparza MD Unavailable [phone] No Ref-Primary, Physician Primary Care Provider Jerri Davisonfield Unavailable [phone] Gladis Espinosa MD Primary Care Provider [phone] Encounter Details Date Type Department Care Team (Late st Contact Info) Description 07/15/2018 MyC Medical Advice [facility] Ear Nose and Throat 909 [facility] [address] 4th [place] [address] Liyah Judge MD [address] [place] [address] [facility] 396 [place] [address] Social History Tobacco Use Types [...] documented as of this encounter Care Teams Sales Assistant Entertainment And Media Relationship Specialty Start Date End Date Jeanette Esparza MD 2270 [facility] 200 [place] [address] PCP - Assigned PCP 11/06/15 01/27/19 No Ref-Primary, Physician PCP - General 02/18/21 02/21/21 Gladis Espinosa MD [address] [address] PCP - General 02/22/21 Jeffrey Lezama MD [facility] 7300 [facility] 410 [place] [address] Otolaryngology 12/24/17 Daisy Portillo AuD [facility] 7300 [facility] 410 [place] [address] Secretarial Stenographer Audiology 12/24/17 Liyah Judge MD [address] [place] [address] [facility] [address] [place] [address] Otolaryngology 12/24/17 Jeanette Esparza MD [address] [address] Assigned PCP 11/06/15 06/04/20 Jerri Davison [address] [place] [address] 02/21/21 documented as of this encounter
--- OUTSIDE RECORDS SUMMARY | 2024-07-14 16:36 | XMS_ITS | Encounter Summary ---
Author Organization [facility] Address [address] [place] [address] Care Team Providers Care Television Technician Name Role Phone Jeanette Esparza MD Primary Care Provider Nola Holland RN Unavailable Unavailable Jeffrey Lezama MD Unavailable [phone] Daisy Portillo Unavailable [phone] Marcy Judge RN Unavailable Unavailable Liyah Judge MD Unavailable [phone] System, Provider Not In Primary Care Provider Un available Jeanette Esparza MD Unavailable Jeanette Esparza MD Unavailable No Ref-Primary, Physician Primary Care Provider [facility] Unavailable [phone] Gladis Espinosa MD Primary Care Provider [phone] Reason for Visit * Reason Onset Date Comments Refill Request 10/25/2014 isosorbide,lisin opril Encounter Details Date Type Department Care Team (Late st Contact Info) Description 10/25/[address] [address] Jeanette Esparza MD [address] [address] Refill Request (isosorbide,lisinopril) Social History Tobacco Use [...] encounter Miscellaneous Notes * Telephone Encounter - Faith Sera - 10/26/2014 12:57 PM CST --I am [...] Encounters: 10/04/14 120/70 08/17/14 146/80 08/14/14 108/70 AINER FINISHER documented in this encounter Plan of Treatment Not on file documented as of this encounter Visit Diagnoses Diagnosis Anginal pain (H24) Other and unspecified angina pectoris HTN, goal below 140/90 Unspecified essential hypertension documented in this encounter Care Teams Television Technician Relationship Specialty Start Date End Date Jeanette Esparza MD PCP - General Family Practice 08/20/13 06/04/18 System, Provider Not In PCP - General Clinic 06/05/18 06/05/18 Jeanette Esparza MD [address] [facility] 200 [place] [address] PCP - Assigned PCP 11/06/15 01/27/19 No Ref-Primary, Physician PCP - General 02/18/21 02/21/21 Gladis Espinosa MD [address] [address] PCP - General 02/22/21 Nola Holland, RN Clinic Bed Machine Operator Nurse 09/07/1506/20 Jeffrey Lezama MD [facility] 7300 [facility] 410 [place] [address] Otolaryngology 12/24/17 Daisy Portillo AuD [facility] 7300 [facility] 410 [place] [address] Visualizer Audiology 12/24/17 Marcy Judge, RN Tech 12/24/17 12/24/17 Liyah Judge MD [address] [place] [address] 396 [place] [address] Otolaryngology 12/24/17 Jeanette Esparza MD [address] [address] Assigned PCP 11/06/15 06/04/20 [facility] 1400 [place] [address] 02/21/21 documented as of this encounter
--- OUTSIDE RECORDS SUMMARY | 2024-07-14 16:36 | XMS_ITS | Encounter Summary ---
Author Organization [facility] Address [address] [place] [address] Care Team Providers Care Scaffold Builder Name Role Phone Jeanette Esparza MD Primary Care Provider Nola Holland RN Unavailable Unavailable Jeffrey Lezama MD Unavailable Daisy Portillo Unavailable Marcy Judge RN Unavailable Unavailable Liyah Judge MD Unavailable System, Provider Not In Primary Care Provider Un available Jenaette Esparza MD Unavailable Jeanette Esparza MD Unavailable No Ref-Primary, Physician Primary Care Provider [facility] Unavailable [phone] Gladis Espinosa MD Primary Care Provider Encounter Details Date Type Department Care Team (Late st Contact Info) Description 11/29/2015 MyC Medical Advice [address] [address] Jeanette Esparza MD [address] [address] Social History Tobacco Use Types [...] her strength and healing. General Yes Nola oHlland, RN Note: As of today's date 09/07/2015 goal is met at 26 - 50%. Goal Status: Active documented as of this encounter Visit Diagnoses Not on filedocumented in this encounter Care Teams Scaffold Builder Relationship Specialty Start Date End Date Jeanette Esparza MD PCP - General Family Practice 08/20/13 06/04/18 System, Provider Not In PCP - General Clinic 06/05/18 06/05/18 Jeanette Esparza MD 2270 [facility] 200 [place] [address] PCP - Assigned PCP 11/06/15 01/27/19 No Ref-Primary, Physician PCP - General 02/18/21 02/21/21 Gladis Espinosa MD [facility] 1400 [place] [address] PCP - General 02/22/21 Nola Holland, RN Clinic Laborer Car Barn Nurse 09/07/1506/20 Jeffrey Lezama MD [facility] 7300 [facility] 410 [place] [address] Otolaryngology 12/24/17 Daisy Portillo AuD [facility] 7300 [facility] 410 [place] [address] Pre Wave Assembler Audiology 12/24/17 Marcy Judge RN Tech 12/24/17 12/24/17 Liyah Judge MD [address] [place] [address] 396 [place] [address] Otolaryngology 12/24/17 Jeanette Esparza MD 2270 [facility] 200 [place], [place] [address] Assigned PCP 11/06/15 06/04/20 Jerri Davison [address] [place] [address] 02/21/21 documented as of this encounter
--- OUTSIDE RECORDS SUMMARY | 2024-07-14 16:36 | XMS_ITS | Encounter Summary ---
Author Organization [facility] Address [address] [place] [address]. [place] [address] Care Team Providers Care Wire Stretcher Name Role Phone Jeanette Esparza MD Primary Care Provider Jeffrey Lezama MD Unavailable [phone] Daisy Portillo Unavailable [phone] Liyah Judge MD Unavailable [phone] System, Provider Not In Primary Care Provider Un available Jeanette Esparza MD Unavailable [phone] Jeanette Esparza MD Unavailable [phone] No Ref-Primary, Physician Primary Care Provider Jerri Davisonfield Unavailable [phone] Gladis Espinosa MD Primary Care Provider [phone] Encounter Details Date Type Department Care Team (Late st Contact Info) Description 01/20/2018 [facility] [address] [address] Bryan Martinez Social History Tobacco [...] documented as of this encounter Care Teams Wire Stretcher Relationship Specialty Start Date End Date Jeanette Esparza MD PCP - General Family Practice 08/20/13 06/04/18 System, Provider Not In PCP - General Clinic 06/05/18 06/05/18 Jeanette Esparza MD 2270 [facility] 200 [place] [address] PCP - Assigned PCP 11/06/15 01/27/19 No Ref-Primary, Physician PCP - General 02/18/21 02/21/21 Gladis Espinosa MD [address] [address] PCP - General 02/22/21 Jeffrey Lezama MD [facility] 7300 [facility] 410 [place] [address] Otolaryngology 12/24/17 Daisy Portillo, Amairani [facility] [address] [facility] 410 [place] [address] Employee Communications Intern Audiology 12/24/17 Liyah Judge MD 420 [facility] 396 [place] [address] Otolaryngology 12/24/17 Jeanette Esparza MD 2270 [facility] 200 [place], [place] [address] Assigned PCP 11/06/15 06/04/20 Jerri Davison [address] [place] [address] 02/21/21 documented as of this encounter
--- OUTSIDE RECORDS SUMMARY | 2024-07-14 16:36 | XMS_ITS | Encounter Summary ---
Author Organization [facility] Address [address] [place] [address] Care Team Providers Care Tea Blender Name Role Phone Jeanette Esparza MD Primary Care Provider Nola Holland RN Unavailable Unavailable Jeffrey Lezama MD Unavailable [phone] Daisy Portillo Unavailable [phone] Marcy Judge RN Unavailable Unavailable Liyah Judge MD Unavailable [phone] System, Provider Not In Primary Care Provider Un available Jeanette Esparza MD Unavailable Jeanette Esparza MD Unavailable No Ref-Primary, Physician Primary Care Provider [facility] Unavailable Gladis Espinosa MD Primary Care Provider [phone] Reason for Visit * Reason Onset Date Comments Outreach 06/07/2015 [facility] att 1 Encounter Details Date Type Department Care Team (Late st Contact Info) Description 06/07/2015 Telephone [facility] - CARE MANAGEMENT DEPT [address] [place] [address] Jeanette Esparza MD 2270 [facility] 200 [place] [address] Outreach ([facility] att 1) Social [...] will call back to schedule mammo Outreach Stock Worker And Deliverer cnt documented in this encounter Plan of Treatment Not on file documented as of this encounter Visit Diagnoses Not on filedocumented in this encounter Care Teams Tea Blender Relationship Specialty Start Date End Date Jeanette Esparza MD PCP - General Family Practice 08/20/13 06/04/18 System, Provider Not In PCP - General Clinic 06/05/18 06/05/18 Jeantete Esparza MD [address] [address] PCP - Assigned PCP 11/06/15 01/27/19 No Ref-Primary, Physician PCP - General 02/18/21 02/21/21 Gladis Espinosa MD [address] [address] PCP - General 02/22/21 Nola Holland RN Clinic Laundry Worker Nurse 09/07/1506/20 Jeffrey Lezama MD [facility] [address] [facility] 410 [place] [address] Otolaryngology 12/24/17 Daisy Portillo AuD [facility] [address] [facility] 410 [place] [address] Steelscope Operator Audiology 12/24/17 Marcy Judge, RN Tech 12/24/17 12/24/17 Liyah Judge MD 420 [facility] 396 [place], [place] [address] Otolaryngology 12/24/17 Jeanette Esparza MD 2270 [facility] 200 [place], [place] [address] Assigned PCP 11/06/15 06/04/20 [facility] 1400 [place] [address] 02/21/21 documented as of this encounter
--- OUTSIDE RECORDS SUMMARY | 2024-07-14 16:36 | XMS_ITS | Encounter Summary ---
Author Organization [facility] Address [address] [place] [address] Care Team Providers Care Frame Opener Name Role Phone Jeanette Esparza MD Primary Care Provider Nola Holland RN Unavailable Unavailable Jeffrey Lezama MD Unavailable Daisy Portillo Unavailable Marcy Judge RN Unavailable Unavailable Liyah Judge MD Unavailable [phone] System, Provider Not In Primary Care Provider Un available Jeanette Esparza MD Unavailable [phone] Jeanette Esparza MD Unavailable [phone] No Ref-Primary, Physician Primary Care Provider [facility] Unavailable Gladis Espinosa MD Primary Care Provider [phone] Encounter Details Date Type Department Care Team (Late st Contact Info) Description 02/23/2016 Orders Only [facility] [address] [place] [address] Hamzah Woodall MD [facility] [address] [place] [address] Pre-operative laboratory examination (Primary Dx) Social History [...] PCR (03/01/2016 12:10 PM CDT) Specimen Description [facility] Methicillin Resist/Sens S. aureus PCR Negative MRSA Negative: SA Negative ??MRSA and Staphylococcus aureus target DNA not detected, presumed negative for MRSA and SA colonization or the number of bacteria present may be below the limit of detection for the assay. FDA approved assay performed using [employer] GeneXpert(R) real-time PCR. NEG [facility] 03/01/2016 12:1 0 PM CDT 03/01/2016 2:02 PM CDT Hamzah Woodall MD LAB - MICRO G ENERAL ORDERABLES [facility] 500 [place] [address], [facility] [address] [phone] documented in this encounter Visit Diagnoses Diagnosis Pre-operative laboratory examination- Primary Pre-procedural laboratory examination documented in this encounter Care Teams Frame Opener Relationship Specialty Start Date End Date Jeanette Esparza MD PCP - General Family Practice 08/20/13 06/04/18 System, Provider Not In PCP - General Clinic 06/05/18 06/05/18 Jeanette Esparza MD [address] [address] PCP - Assigned PCP 11/06/15 01/27/19 No Ref-Primary, Physician PCP - General 02/18/21 02/21/21 Gladis Espinosa MD [address] [address] PCP - General 02/22/21 Nola Holland RN Clinic Sharepoint Consultant Nurse 09/07/1506/20 Jeffrey Lezama MD [facility] 7300 [facility] 410 [place] [address] Otolaryngology 12/24/17 Daisy Portillo AuD [facility] 7300 [facility] 410 [place] [address] Insecticide Mixer Audiology 12/24/17 Marcy Judge, RN Tech 12/24/17 12/24/17 Liyah Judge MD [address] [place] [address] 396 [place], [place] [address] Otolaryngology 12/24/17 Jeanette Esparza MD [address] [address] Assigned PCP 11/06/15 06/04/20 [facility], Jerri Cardoza [address] [place] [address] 02/21/21 documented as of this encounter
--- OUTSIDE RECORDS SUMMARY | 2024-07-14 16:36 | XMS_ITS | Encounter Summary ---
Author Organization [facility] Address [address] [place] [address]. [place] [address] Care Team Providers Care Drum Cleaner Name Role Phone Jeanette Esparza MD Primary Care Provider Jeffrey Lezama MD Unavailable [phone] Daisy Portillo Unavailable [phone] Liyah Judge MD Unavailable [phone] System, Provider Not In Primary Care Provider Un available Jeanette Esparza MD Unavailable [phone] Jeanette Esparza MD Unavailable No Ref-Primary, Physician Primary Care Provider [facility] [place] Unavailable [phone] Gladis Espinosa MD Primary Care Provider [phone] Encounter Details Date Type Department Care Team (Late st Contact Info) Description 02/05/2018 MyC Medical Advice [facility] Ear Nose and Throat 909 [facility] SE 4th [place] [address] Liyah Judge MD [address] [place] [address] 396 [place] [address] Social History Tobacco Use Types [...] documented as of this encounter Care Teams Drum Cleaner Relationship Specialty Start Date End Date Jeanette Esparza MD PCP - General Family Practice 08/20/13 06/04/18 System, Provider Not In PCP - General Clinic 06/05/18 06/05/18 Jeanette Esparza MD 2270 [facility] 200 [place] [address] PCP - Assigned PCP 11/06/15 01/27/19 No Ref-Primary, Physician PCP - General 02/18/21 02/21/21 Gladis Espinosa MD [facility] 1400 [place] [address] PCP - General 02/22/21 Jeffrey Lezama MD [facility] [address] [facility] 410 [place] [address] Otolaryngology 12/24/17 Daisy Portillo AuD [facility] [address] [facility] 410 [place] [address] Broker Audiology 12/24/17 Liyah Judge MD 420 [facility] 396 [place] [address] Otolaryngology 12/24/17 Jeanette Esparza MD 2270 [facility] 200 [place], [place] [address] Assigned PCP 11/06/15 06/04/20 [facility] [place] [address] 02/21/21 documented as of this encounter
--- OUTSIDE RECORDS SUMMARY | 2024-07-14 16:36 | XMS_ITS | Encounter Summary ---
Author Organization [facility] Address [address] [place] [address] Care Team Providers Care Dinkey Skinner Name Role Phone Jeanette Esparza MD Primary Care Provider Nola Holland RN Unavailable Unavailable Jeffrey Lezama MD Unavailable Daisy Portillo Unavailable Marcy Judge RN Unavailable Unavailable Liyah Judge MD Unavailable [phone] System, Provider Not In Primary Care Provider Un available Jeanette Esparza MD Unavailable Jeanette Esparza MD Unavailable No Ref-Primary, Physician Primary Care Provider [facility] Unavailable Gladis Espinosa MD Primary Care Provider [phone] Encounter Details Date Type Department Care Team (Late st Contact Info) Description 07/06/2015 Orders Only [facility] [address] [place] [address] Hamzah Woodall MD [facility] [address] [place] [address] Preoperative examination, unspecified (Primary Dx) Social History [...] (07/07/2015 12:01 PM CDT) Specimen Description [facility] Methicillin Resist/Sens S. aureus PCR Negative [...] nasal colonization. FDA approved assay performed using [employer] GeneXpert(R) real-time PCR. [facility] 07/07/2015 12:0 1 PM CDT 07/07/2015 1:27 PM CDT Hamzah Woodall MD LAB - MICRO G ENERAL ORDERABLES [facility] 500 [place] [address], [facility] [address] [phone] documented in this encounter Visit Diagnoses Diagnosis Preoperative examination, unspecified- Primary documented in this encounter Care Teams Dinkey Skinner Relationship Specialty Start Date End Date Jeanette Esparza MD PCP - General Family Practice 08/20/13 06/04/18 System, Provider Not In PCP - General Clinic 06/05/18 06/05/18 Jeanette Esparza MD [address] [address] PCP - Assigned PCP 11/06/15 01/27/19 No Ref-Primary, Physician PCP - General 02/18/21 02/21/21 Gladis Espinosa MD [facility] 1400 [place] [address] PCP - General 02/22/21 Nola Holland, RN Clinic Guard Captain Nurse 09/07/1506/20 Jeffrey Lezama MD [facility] 7300 [facility] 410 [place] [address] Otolaryngology 12/24/17 Daisy Portillo AuD [facility] 7[address] [facility] [address] 410 [place] [address] Real Estate Agent Audiology 12/24/17 Marcy Judge, RN Tech 12/24/17 12/24/17 Liyah Judge MD 420 [facility] 396 [place], [place] [address] Otolaryngology 12/24/17 Jeanette Esparza MD [address] [address] Assigned PCP 11/06/15 06/04/20 [facility] 1400 [place] [address] 02/21/21 documented as of this encounter
--- OUTSIDE RECORDS SUMMARY | 2024-07-14 16:36 | XMS_ITS | Encounter Summary ---
Author Organization [facility] Address [address] [place] [address] Care Team Providers Care Air Carrier Maintenance Inspector Name Role Phone Jeanette Esparza MD Primary Care Provider Nola Holland RN Unavailable Unavailable Jeffrey Lezama MD Unavailable [phone] Daisy Portillo Unavailable [phone] Marcy Judge RN Unavailable Unavailable Liyah Judge MD Unavailable [phone] System, Provider Not In Primary Care Provider Un available Jeanette Esparza MD Unavailable [phone] Jeanette Esparza MD Unavailable [phone] No Ref-Primary, Physician Primary Care Provider [facility] Unavailable [phone] Gladis Espinosa MD Primary Care Provider [phone] Reason for Visit * Reason Onset Date Comments Abdominal Pain 01/09/2016 cramping and sta bbing pain after colonoscopy Encounter Details Date Type Department Care Team (Late st Contact Info) Description 01/09/2016 MyC Medical Advice [address] [address] Jeanette Esparza MD [address] [address] Abdominal Pain (cramping and stabbing pain... Social [...] Alex Chang MD - 01/09/2016 12:32 PM TEACHER Could be cramping still from colonoscopy or early diverticulitis or gas. If no fevers, blood, not severe (doesn't sound like it) I agree with clinic or UC visit if needed. I would think that using miralax twice a day to help move gas through, re-set would be reasonable as well. Alex Chang MD HER * Telephone Encounter - Hanna Ascencio RN - 01/09/2016 12:27 PM CST Patient is wondering if it might be diverticulitis. Would you recommend patient be seen in clinic for re-evaluation? UC this evening? Hanna Ascencio RN HER * Telephone Encounter - Hanna Ascencio RN - 01/09/2016 11:55 AM CST I responded to patient as below. Hanna Ascencio RN HER documented in this encounter Plan of Treatment [...] on filedocumented in this encounter Care Teams Air Carrier Maintenance Inspector Relationship Specialty Start Date End Date Jeanette Esparza MD PCP - General Family Practice 08/20/13 06/04/18 System, Provider Not In PCP - General Clinic 06/05/18 06/05/18 Jeanette Esparza MD [address]270 [facility] 200 [place], [place] [id number] PCP - Assigned PCP 11/06/15 01/27/19 No Ref-Primary, Physician PCP - General 02/18/21 02/21/21 Gladis Espinosa MD [address] [address] PCP - General 02/22/21 Nola Holland RN Clinic Paste Up Artist Nurse 09/07/1506/20 Jeffrey Lezama MD [facility] [address] [facility] [address] [place], [place] [address] Otolaryngology 12/24/17 Daisy Portillo AuD [facility] [address] [place], [place] [address] Seo Strategist Audiology 12/24/17 Marcy Judge RN Tech 12/24/17 12/24/17 Liyah Judge MD [address] [place] [address] 396 [place], [place] [address] Otolaryngology 12/24/17 Jeanette Esparza MD [address] [address] Assigned PCP 11/06/15 06/04/20 [facility] [address] [address] 02/21/21 documented as of this encounter
--- OUTSIDE RECORDS SUMMARY | 2024-07-14 16:36 | XMS_ITS | Encounter Summary ---
Author Organization [place] Address [address] [place] [address] Care Team Providers Care Destination Specialist Name Role Phone Jeanette Esparza MD Primary Care Provider Jeffrey Lezama MD Unavailable [phone] Daisy Portillo Unavailable [phone] Marcy Judge RN Unavailable Unavailable Liyah Judge MD Unavailable System, Provider Not In Primary Care Provider Un available Jeanette Esparza MD Unavailable [phone] Jeanette Esparza MD Unavailable [phone] No Ref-Primary, Physician Primary Care Provider [facility] Unavailable [phone] Gladis Espinosa MD Primary Care Provider Reason for Visit * Reason Onset Date Comments Appointment 07/02/2016 Encounter Details Date Type Department Care Team (Late st Contact Info) Description 07/02/2016 MyC Medical Advice [place] [id number] [address] [place] [address] Jeanette Esparza MD [address] [address] Appointment Social History Tobacco Use [...] Telephone Encounter - Gabby Singh RN - 07/02/2016 2:05 PM CDT Statement Clerk responded as per below. SHAWN Villarreal, RN [...] documented as of this encounter Care Teams Destination Specialist Relationship Specialty Start Date End Date Jeanette Esparza MD PCP - General Family Practice 08/20/13 06/04/18 System, Provider Not In PCP - General Clinic 06/05/18 06/05/18 Jeanette Esparza MD [address] [address] PCP - Assigned PCP 11/06/15 01/27/19 No Ref-Primary, Physician PCP - General 02/18/21 02/21/21 Gladis Espinosa MD [facility] [address] [place] [address] PCP - General 02/22/21 Jeffrey Lezama MD [facility] [address] [facility] [address] [place], [place] [address] MD Otolaryngology 12/24/17 Daisy Portillo AuD [facility] [address] [place] [address] Oil Rig Driller Audiology 12/24/17 Marcy Judge, RN Tech 12/24/17 12/24/17 Liyah Judge MD [address] [facility] 396 [place] [address] Otolaryngology 12/24/17 Jeanette Esparza MD [address] [facility] 200 [place] [address] Assigned PCP 11/06/15 06/04/[address] [address] 02/21/21 documented as of this encounter
--- OUTSIDE RECORDS SUMMARY | 2024-07-14 16:36 | XMS_ITS | Encounter Summary ---
Author Organization [facility] Address [address] [place] [address] Care Team Providers Care Airdrop Systems Technician Name Role Phone Jeanette Esparza MD Primary Care Provider Jeffery Lezama MD Unavailable [phone] Daisy Portillo Unavailable [phone] Marcy Judge RN Unavailable Unavailable Liyah Judge MD Unavailable System, Provider Not In Primary Care Provider Un available Jeanette Esparza MD Unavailable [phone] Jeanette Esparza MD Unavailable [phone] No Ref-Primary, Physician Primary Care Provider [facility] Unavailable [phone] Gladis Espinosa MD Primary Care Provider Reason for Visit * Reason Onset Date Comments Refill Request 12/25/2016 sertraline (ZOLO FT) 100 MG tablet Encounter Details Date Type Department Care Team (Late st Contact Info) Description 12/25/2016 MyC Medical Advice [address] [address] Jeanette Esparza MD [address] [address] Refill Request (sertraline (ZOLOFT) 100 [...] # refills: 1 [place] [facility] [place]: 11/09/[address] Esparza Last PHQ-9 score on record= PHQ-9 SCORE 11/08/2016 Total Score 8 MAIL TECHNICIAN documented in this encounter Plan of Treatment [...] Total Score: 8 11/09/20 16 7:20 AM BULK MAIL TECHNICIAN documented as of this encounter Care Teams Airdrop Systems Technician Relationship Specialty Start Date End Date Jeanette Esparza MD PCP - General Family Practice 08/20/13 06/04/18 System, Provider Not In PCP - General Clinic 06/05/18 06/05/18 Jeanette Esparza MD [address] [address] PCP - Assigned PCP 11/06/15 01/27/19 No Ref-Primary, Physician PCP - General 02/18/21 02/21/21 Gladis Espinosa MD [address] [address] PCP - General 02/22/21 Jeffrey Lezama MD [facility] [address] [facility] 410 [place], [place] [address] Otolaryngology 12/24/17 Daisy Portillo AuD [facility] [address] [facility] 410 [place] [address] Rigger Helper Audiology 12/24/17 Marcy Judge, RN Tech 12/24/17 12/24/17 Liyah Judge MD [address] [place] [address] Otolaryngology 12/24/17 Jeanette Esparza MD [address] [address] Assigned PCP 11/06/15 06/04/20 [facility] 1400 [place] [address] 02/21/21 documented as of this encounter
--- OUTSIDE RECORDS SUMMARY | 2024-07-14 16:36 | XMS_ITS | Encounter Summary ---
Author Organization [facility] Address [address] [place] [address] Care Team Providers Care Career Guidance Technician Name Role Phone Jeanette Esparza MD Primary Care Provider Nola Holland RN Unavailable Unavailable Jeffrey Lezama MD Unavailable Daisy Portillo Unavailable [phone] Marcy Judge RN Unavailable Unavailable Liyah Judge MD Unavailable [phone] System, Provider Not In Primary Care Provider Un available Jeanette Esparza MD Unavailable Jeanette Esparza MD Unavailable [phone] No Ref-Primary, Physician Primary Care Provider [facility] Unavailable Gladis Espinosa MD Primary Care Provider [phone] Reason for Visit * Reason Onset Date Comments Health Maintenance 11/30/2015 colonoscopy s cheduled ([facility] outreach) Encounter Details Date Type Department Care Team (Late st Contact Info) Description 11/30/2015 Telephone [place] [id number] [place] [phone] Jeanette Esparza MD [address] [address] Health Maintenance (colonoscopy scheduled ([facility] outreach)) Social [...] 9:00am - with Dr. Ayers Pharmacy Name: [facility] Location: [place] Please contact patient to discuss prep and additional instructions. Best phone number to use: [phone] Best time to contact the patient: anytime Thank you. IFIED HYPERBARIC TECHNOLOGIST documented in this encounter Plan of Treatment [...] on filedocumented in this encounter Care Teams Career Guidance Technician Relationship Specialty Start Date End Date Jeanette Esparza MD PCP - General Family Practice 08/20/13 06/04/18 System, Provider Not In PCP - General Clinic 06/05/18 06/05/18 Jeanette Esparza MD [address] [address] PCP - Assigned PCP 11/06/15 01/27/19 No Ref-Primary, Physician PCP - General 02/18/21 02/21/21 Gladis Espinosa MD [facility] 1400 [place] [address] PCP - General 02/22/21 Nola Holland, RN Clinic Residential Program Coordinator Nurse 09/07/1506/20 Jeffrey Lezama MD [facility] [address] [facility] 410 [place] [address] Otolaryngology 12/24/17 Daisy Portillo AuD [facility] [address] [facility] 410 [place] [address] Position Classifier Audiology 12/24/17 Marcy Judge, RN Tech 12/24/17 12/24/17 Liyah Judge MD [address] [place] [address] 396 [place] [address] Otolaryngology 12/24/17 Jeanette Esparza MD [address] [facility] 200 [place] [address] Assigned PCP 11/06/15 06/04/20 [facility] 1400 [place] [address] 02/21/21 documented as of this encounter
--- OUTSIDE RECORDS SUMMARY | 2024-07-14 16:36 | XMS_ITS | Encounter Summary ---
Author Organization [place] Address [address] [place] [address] Care Team Providers Care Court Orderly Name Role Phone Jeanette Esparza MD Primary Care Provider Nola Holland RN Unavailable Unavailable Jeffrey Lezama MD Unavailable Daisy Portillo Unavailable [phone] Marcy Judge RN Unavailable Unavailable Liyah Judge MD Unavailable [phone] System, Provider Not In Primary Care Provider Un available Jeanette Esparza MD Unavailable [phone] Jeanette Esparza MD Unavailable [phone] No Ref-Primary, Physician Primary Care Provider [facility] Unavailable [phone] Gladis Espinosa MD Primary Care Provider [phone] Reason for Visit * Reason Onset Date Comments Refill Request 08/04/2014 *Thien Encounter Details Date Type Department Care Team (Late st Contact Info) Description 08/04/2014 Refill [facility] [address] [place] [phone] Jeanette Esparza MD [address] [address] Refill Request (*Ditliazem) Social History [...] location of the patients Preferred pharmacy: [facility] documented in this encounter Plan of Treatment Not on file documented as of this encounter Visit Diagnoses Diagnosis Anginal pain (H24) Other and unspecified angina pectoris documented in this encounter Care Teams Court Orderly Relationship Specialty Start Date End Date Jeanette Esparza MD PCP - General Family Practice 08/20/13 06/04/18 System, Provider Not In PCP - General Clinic 06/05/18 06/05/18 Jeanette Esparza MD [address] [address] PCP - Assigned PCP 11/06/15 01/27/19 No Ref-Primary, Physician PCP - General 02/18/21 02/21/21 Gladis Espinosa MD [address] [address] PCP - General 02/22/21 Nola Holland RN Clinic Sewer Pipe Layer Nurse 09/07/1506/20 Jeffrey Lezama MD [facility] [address] [address] Otolaryngology 12/24/17 Daisy Portillo AuD [facility] 7[address] [facility] 410 [place] [address] Go Cart Mechanic Audiology 12/24/17 Marcy Judge RN Tech 12/24/17 12/24/17 Liyah Judge MD [address] [place] [address] Otolaryngology 12/24/17 Jeanette Esparza MD [address] [address] Assigned PCP 11/06/15 06/04/20 [facility] 1400 [place] [address] 02/21/21 documented as of this encounter
== END 2024-07-14 16:40 | disposition home or self-care (01) ==
PROVIDERS: Emergency Provider Emergency Medicine; PCP Family Medicine
DX: S80.862A Insect bite (nonvenomous), left lower leg, initial encounter (principal)
CPT/HCPCS: 99282; 99283

== ENCOUNTER 2024-10-06 10:17 | Observation (INO) | payer MEDICARE, OTHER, SELFPAY ==
[2024-10-06] VITALS (50 sets, daily range): BP systolic 63–154; BP diastolic 49–89; PULSE 54–86; RESP 16–18; TEMP 35.9–36.9; O2SAT 90–96; BMI 25.8; BMI 24.1
--- NOTE | 2024-10-06 11:30 | ED.GENADULT ---
HPI - General Adult General Date Seen: 10/06/24 Chief complaint: GI Bleed Stated complaint: bleeding from rectum Time Seen by Provider: 10/06/24 11:29 History of Present Illness HPI narrative: 74 year old female presenting to the ER today for rectal bleeding. She has a past medical history of diverticulosis, mastoiditis, brain abscess, adrenal adenoma per, prolonged QT interval, tobacco use, COPD, PSVT, GERD, hypertension, hyperlipidemia. Previous abdominal surgeries include tubal ligation, inguinal hernia repair, appendectomy She has a history of apparently a serious GI bleed requiring transfusion of 7 units of packed red cells. She has a note from her doctor indicating that her hospitalization was in 2020. At that time her bleeding was suspected to be from diverticular cause. She did not have any intervention. The note from a doctor indicates that if she has recurrent GI bleedings, she should be transferred to a facility like [facility] that has colorectal surgery and IR so that we have options for potential embolization and/or colectomy if she has recurrent heavy bleeding.. Most recent ER visit here in [place] for rectal bleeding was in February 2024. At that visit she was hemodynamically stable. Hemoglobin was 15. Internal hernia was suspected and patient was recommended for outpatient follow-up. She does not recall the last time she had any bloody stool per rectum. She has been feeling normal lately. Maybe some lower abdominal cramps for the past week or 2 but nothing very severe nothing that would make her come to the doctor. Bowel movements have been normal. She passed a small brown stool this morning. Shortly after that she began to feel significant urgency to defecate and had run to the toilet. She passed dark red liquid he blood into the toilet bowl. She does not know how much blood for sure, but thinks it was a fair amount. More than a few tsp. she felt better after that. No dizziness or lightheadedness. No abdominal pain. She went to her daughter's house and then she had another episode where she had significant cramping and urgency to defecate. She ran to the toilet and was nearly incontinent because the urge. She passed a fairly large amount of dark red blood mixed with clots. Again she does not know how much but a fair amount, similar to when she was hospitalized 3 years ago. She is not anticoagulated. No history of liver disease or coagulopathy. She is not having any lightheadedness. No dizziness. No chest pain. No abdominal pain. No fever. No other unusual bruising or bleeding. Related Data Home Medications ?Medication ?Instructions ?Recorded ?Confirmed albuterol sulfate 90 mcg/actuation 2 puff inhalation Q4H PRN 08/30/22 10/06/24 aerosol inhaler diltiazem HCl 360 mg 360 mg PO DAILY 08/30/22 10/06/24 capsule,extended release 24 hr nitroglycerin 0.4 mg sublingual 0.4 mg sublingual Q5M PRN 08/30/22 10/06/24 tablet sertraline 100 mg tablet 150 mg PO DAILY 08/30/22 10/06/24 cholecalciferol (vitamin D3) 50 50 mcg PO DAILY 12/19/22 10/06/24 mcg (2,000 unit) capsule lisinopril 30 mg tablet 30 mg PO DAILY 07/14/24 10/06/24 metoprolol succinate 25 mg 25 mg PO DAILY 07/14/24 10/06/24 tablet,extended release 24 hr tiotropium 2.5 mcg-olodaterol 2.5 2 puff inhalation DAILY 07/14/24 10/06/24 mcg/actuation mist for inhalation (Stiolto Respimat) atorvastatin 80 mg tablet 80 mg PO HS 10/06/24 10/06/24 Allergies Allergy/AdvReac Type Severity Reaction Status Date / Time codeine Allergy Mild Hives Verified 10/06/24 10:31 Iodinated Contrast Media Allergy Mild Fever Verified 10/06/24 10:31 Penicillins Allergy Mild Hives Verified 10/06/24 10:31 [facility] Medical History (Updated 10/06/24 @ 20:46 by Sarabjit Macedo MD) Diverticular hemorrhage ?K57.31 - Diverticulosis of large intestine without perforation or abscess with bleeding (ICD-10) Hypoxia ?R09.02 - Hypoxemia (ICD-10) Brain abscess ?G06.0 - Intracranial abscess and granuloma (ICD-10) Cholesteatoma ?H71.90 - Unspecified cholesteatoma, unspecified ear (ICD-10) Mastoiditis of right side ?H70.91 - Unspecified mastoiditis, right ear (ICD-10) Internal hemorrhoids ?K64.8 - Other hemorrhoids (ICD-10) Inguinal hernia ?K40.90 - Unilateral inguinal hernia, without obstruction or gangrene, not specified as recurrent (ICD-10) Adrenal adenoma ?D35.00 - Benign neoplasm of unspecified adrenal gland (ICD-10) Prolonged QT interval ?R94.31 - Abnormal electrocardiogram [ECG] [EKG] (ICD-10) Diverticulosis ?K57.90 - Diverticulosis of intestine, part unspecified, without perforation or abscess without bleeding (ICD-10) Smoking ?F17.200 - Nicotine dependence, unspecified, uncomplicated (ICD-10) COPD (chronic obstructive pulmonary disease) ?J44.9 - Chronic obstructive pulmonary disease, unspecified (ICD-10) History of paroxysmal supraventricular tachycardia ?Z86.79 - Personal history of other diseases of the circulatory system (ICD-10) Gastroesophageal reflux ?K21.9 - Gastro-esophageal reflux disease without esophagitis (ICD-10) Depression ?F32.A - Depression, unspecified (ICD-10) Hypertension ?I10 - Essential (primary) hypertension (ICD-10) Hyperlipidemia ?E78.5 - Hyperlipidemia, unspecified (ICD-10) Surgical History History of inguinal hernia repair ?Z98.890 - Other specified postprocedural states (ICD-10) ?Z87.19 - Personal history of other diseases of the digestive system (ICD-10) History of tonsillectomy and adenoidectomy ?Z90.89 - Acquired absence of other organs (ICD-10) History of right knee joint replacement ?Z96.651 - Presence of right artificial knee joint (ICD-10) History of hysterectomy ?Z90.710 - Acquired absence of both cervix and uterus (ICD-10) History of colonoscopy ?Z98.890 - Other specified postprocedural states (ICD-10) History of bilateral hip arthroplasty ?Z96.643 - Presence of artificial hip joint, bilateral (ICD-10) History of right mastoidectomy ?Z90.89 - Acquired absence of other organs (ICD-10) History of appendectomy ?Z90.49 - Acquired absence of other specified parts of digestive tract (ICD-10) History of tubal ligation ?Z98.51 - Tubal ligation status (ICD-10) Status post craniotomy ?Z98.890 - Other specified postprocedural states (ICD-10) Family History Sister Breast cancer Pancreatic cancer Lung cancer Father Lung cancer Social History (Updated 10/06/24 @ 20:42 by Sarabjit Macedo MD) Narrative: She lives alone at the [facility]. She does egg needs her daughter Radha healthcare power of corporate associate attorney. Code status is full for witnessed arrest. She is a current smoker. She drinks alcohol 2 or 3 times per year. What is your current living situation?: I presently have a place to live Problems where you live: no known problems Problems where you live details: NONE In the past 12 months, utilities in danger of being shut off: no In the past 12 mos, have been you worried that your food would run out before you had money to buy more?: never true In the past 12 mos, the food you bought just didn't last and you didn't have money to buy more?: never true Highest level of school completed/degree received: Bachelor's degree Smoking Status: Current every day smoker What tobacco products do you use: cigarettes Smoking packs per day: 0.5 Smoking cigarettes per day: 10.0 Years smoked: 60 Smoking pack-years: 30.00 Do you use any of these nicotine containing products: None Second hand tobacco smoke exposure: Yes How often do you have a drink containing alcohol: monthly or less Alcohol type: wine How many standard drinks containing alcohol do you have on a typical day: 1 or 2 How often do you have six or more drinks on one occasion: Never AUDIT-C Alcohol total score: 1 Non-prescribed substance use: denies use Caffeine: Yes How often does anyone, including family, friends and others, physically hurt you: never How often does anyone, including family, friends and others, insult or talk down to you: never How often does anyone, including family, friends and others, threaten you with harm: never How often does anyone, including family, friends and others, scream or curse at you: never service: No Exam Narrative: Exam Narrative: Constitutional: Appears well-developed and well-nourished. Alert. Conversant. Non toxic. HENT: Head: Atraumatic. Nose: Nose normal. Mouth/Throat: Oral mucosa is clear and moist. no trismus. Pharynx normal. Eyes: Conjunctivae normal. EOM normal. Pupils equal, round, and reactive to light. No scleral icterus. Neck: Normal range of motion. Neck supple. No tracheal deviation present. Cardiovascular: Normal rate, regular rhythm. No gallop. No friction rub. No murmur heard. Symmetric radial artery pulses Pulmonary/Chest: Effort normal. No stridor. No respiratory distress. No wheezes. No rales. No rhonchi . No tenderness. Abdominal: Soft. Bowel sounds very active. No distension. No mass. No tenderness. No rebound. No guarding. Rectal: Performed with female oil extractor. Normal gluteal cleft. Small amount of red blood around the rectal opening but no active bleeding. She does have several external hemorrhoids but none of them look thrombosed, and there is no signs of any active bleeding or clots on the hemorrhoids to indicate that they are the source. No fissures. Internal rectal exam not performed. Musculoskeletal: RUE: Normal range of motion. No tenderness. No deformity LUE: Normal range of motion. No tenderness. No deformity RLE: Normal range of motion. No edema. No tenderness. No deformity LLE: Normal range of motion. No edema. No tenderness. No deformity Neurological: Alert and oriented to person, place, and time. Normal strength. CN II-VII intact. No sensory deficit. GCS eye subscore is 4. GCS verbal subscore is 5. GCS motor subscore is 6. Normal coordination Skin: Skin is warm and dry. No rash noted. No pallor. Normal capillary refill. Psychiatric: Normal mood. Normal affect. Const: Vital Signs, click to edit/add: Vital Signs - 24 hr 10/06/24 10:29 10/06/24 10:30 10/06/24 10:32 Temperature 98.4 F Pulse Rate 86 78 Pulse Rate [Pulse Oximeter] 75 Respiratory Rate 16 Blood Pressure 154/87 H Blood Pressure [Ri ght Upper Arm] 154/87 H Pulse Oximetry 95 94 94 Oxygen Delivery Me thod Room Air 10/06/24 10:32 10/06/24 10:33 10/06/24 10:45 Temperature Pulse Rate 78 76 78 Pulse Rate [Pulse Oximeter] Respiratory Rate Blood Pressure 121/85 Blood Pressure [Ri ght Upper Arm] Pulse Oximetry 95 96 93 Oxygen Delivery Me thod 10/06/24 10:46 10/06/24 11:00 10/06/24 11:01 Temperature Pulse Rate 76 71 73 Pulse Rate [Pulse Oximeter] Respiratory Rate Blood Pressure 125/82 109/75 Blood Pressure [Ri ght Upper Arm] Pulse Oximetry 94 92 90 Oxygen Delivery Me thod 10/06/24 11:02 10/06/24 11:15 10/06/24 11:17 Temperature Pulse Rate 71 65 67 Pulse Rate [Pulse Oximeter] Respiratory Rate 17 Blood Pressure 108/76 Blood Pressure [Ri ght Upper Arm] Pulse Oximetry 91 90 Oxygen Delivery Me thod Room Air 10/06/24 11:30 10/06/24 11:32 10/06/24 11:45 Temperature Pulse Rate 64 64 65 Pulse Rate [Pulse Oximeter] Respiratory Rate Blood Pressure 91/66 Blood Pressure [Ri ght Upper Arm] Pulse Oximetry 91 91 91 Oxygen Delivery Me thod 10/06/24 11:47 10/06/24 11:47 10/06/24 12:00 Temperature Pulse Rate 68 68 63 Pulse Rate [Pulse Oximeter] Respiratory Rate Blood Pressure 126/69 126/69 Blood Pressure [Ri ght Upper Arm] Pulse Oximetry 92 92 92 Oxygen Delivery Me thod 10/06/24 12:02 10/06/24 12:15 10/06/24 12:17 Temperature Pulse Rate 65 61 61 Pulse Rate [Pulse Oximeter] Respiratory Rate Blood Pressure 101/89 116/70 Blood Pressure [Ri ght Upper Arm] Pulse Oximetry 92 91 92 Oxygen Delivery Me thod 10/06/24 12:30 10/06/24 12:45 10/06/24 12:47 Temperature Pulse Rate 68 59 L 61 Pulse Rate [Pulse Oximeter] Respiratory Rate Blood Pressure 121/84 Blood Pressure [Ri ght Upper Arm] Pulse Oximetry 93 92 93 Oxygen Delivery Me thod 10/06/24 13:00 10/06/24 13:01 10/06/24 13:01 Temperature Pulse Rate 64 63 63 Pulse Rate [Pulse Oximeter] Respiratory Rate Blood Pressure 133/77 133/77 Blood Pressure [Ri ght Upper Arm] Pulse Oximetry 92 92 92 Oxygen Delivery Me thod 10/06/24 13:21 10/06/24 13:30 10/06/24 13:32 Temperature Pulse Rate 63 59 L 59 L Pulse Rate [Pulse Oximeter] Respiratory Rate Blood Pressure 115/66 Blood Pressure [Ri ght Upper Arm] Pulse Oximetry 91 93 93 Oxygen Delivery Me thod 10/06/24 13:33 10/06/24 13:45 10/06/24 13:46 Temperature Pulse Rate 60 56 L 56 L Pulse Rate [Pulse Oximeter] Respiratory Rate Blood Pressure 113/69 Blood Pressure [Ri ght Upper Arm] Pulse Oximetry 93 92 91 Oxygen Delivery Me thod 10/06/24 14:00 10/06/24 14:01 10/06/24 14:15 Temperature Pulse Rate 58 L 57 L 54 L Pulse Rate [Pulse Oximeter] Respiratory Rate Blood Pressure 119/72 Blood Pressure [Ri ght Upper Arm] Pulse Oximetry 91 92 92 Oxygen Delivery Me thod 10/06/24 14:17 10/06/24 14:32 10/06/24 14:32 Temperature Pulse Rate 56 L Pulse Rate [Pulse Oximeter] Respiratory Rate Blood Pressure 126/76 115/80 115/80 Blood Pressure [Ri ght Upper Arm] Pulse Oximetry 93 Oxygen Delivery Me thod 10/06/24 14:38 10/06/24 14:45 10/06/24 14:47 Temperature Pulse Rate 65 58 L 60 Pulse Rate [Pulse Oximeter] Respiratory Rate Blood Pressure 90/75 Blood Pressure [Ri ght Upper Arm] Pulse Oximetry 93 93 92 Oxygen Delivery Me thod 10/06/24 15:00 10/06/24 15:01 10/06/24 15:15 Temperature Pulse Rate 59 L 59 L 63 Pulse Rate [Pulse Oximeter] Respiratory Rate 16 Blood Pressure 107/79 Blood Pressure [Ri ght Upper Arm] Pulse Oximetry 93 93 93 Oxygen Delivery Me thod 10/06/24 15:17 10/06/24 15:30 10/06/24 15:31 Temperature Pulse Rate 63 63 64 Pulse Rate [Pulse Oximeter] Respiratory Rate Blood Pressure 103/76 95/73 Blood Pressure [Ri ght Upper Arm] Pulse Oximetry 93 93 93 Oxygen Delivery Me thod 10/06/24 15:45 10/06/24 15:46 Temperature Pulse Rate 61 61 Pulse Rate [Pulse Oximeter] Respiratory Rate Blood Pressure 100/69 Blood Pressure [Ri ght Upper Arm] Pulse Oximetry 92 93 Oxygen Delivery Me thod Course Course ED Course: Recheck-had another small volume dark red liquid he bloody stool. Reevaluation(s) Reevaluation #1: Recheck-had another bloody stool. There is also urine in her commode so difficult to gauge volume. Remains hemodynamically stable. Vital Signs Vital signs: Initial Vital Signs Pulse Rate 86 10/06/24 10:29 Pulse Oximetry 95 10/06/24 10:29 Vital Signs Pulse Rate 86 10/06/24 10:29 Pulse Oximetry 95 10/06/24 10:29 Temperature 96.7 F L 10/06/24 19:35 Pulse Rate 64 10/06/24 19:35 Respiratory Rate 18 10/06/24 19:35 Blood Pressure 96/54 L 10/06/24 19:35 Pulse Oximetry 93 10/06/24 19:35 Oxygen Delivery Method Room Air 10/06/24 19:35 Medications Administered Medications: Generic Name Dose Route Start Last Admin Trade Name Freq PRN Reason Stop Dose Admin Atorvastatin Calcium 80 mg 10/06/24 21:00 10/06/24 21:01 Atorvastatin Calcium 40 Mg Tablet PO 80 mg HS MALLY Administration Sodium Chloride 1,000 mls @ 75 mls/hr 10/06/24 20:06 10/06/24 21:03 0.9 % Sodium Chloride 1000 Ml IV 75 mls/hr .[id number] MALLY Administration Sodium Chloride 5 ml 10/06/24 21:00 10/06/24 21:03 Sodium Chloride 0.9 % (Flush) 10 Ml Syringe IVF 5 ml BID MALLY Administration Discontinued Medications Generic Name Dose Route Start Last Admin Trade Name Freq PRN Reason Stop Dose Admin Diphenhydramine HCl 50 mg 10/06/24 12:10 10/06/24 12:16 Diphenhydramine 50 Mg/Ml Inj IVP 10/06/24 12:11 50 mg ONCE ONE Administration Hydrocortisone Sodium Succinate 100 mg 10/06/24 12:10 10/06/24 12:17 Hydrocortisone Sod Succinate 50 Mg/Ml Inj IVP 10/06/24 12:11 100 mg ONCE ONE Administration Medical Decision Making MDM Narrative Medical decision making narrative: Pleasant 74-year-old female with a history of significant lower GI bleeding 3 years ago (thought to be diverticular in origin) that required transfusion of 7 units packed red cells but did not require any operative intervention or IR intervention. She is not anticoagulated. She presents to the ER today with 2 episodes of dark red blood per rectum. The 2nd episode also included some mixed in clots. I do not see an external source for bleeding on my exam such as a bleeding hemorrhoid or fissure. Concern here is for recurrent lower GI bleeding. Presumably, likely diverticular again. She is not having any abdominal pain or recent melena to suggest an upper GI bleed. She is not anticoagulated She is hemodynamically stable. While in the ER she did develop some abdominal cramping. Repeat CBC after 4 hours of observation did drop from 14.5 down to 13, still normal but down by 1 g. She remains hemodynamically Laboratory workup and GI bleeds protocol CT are obtained, showing no acute active bleeding and no definitive cause for the bleeding. Discussed with surgery, Dr. Reyes. We discussed the this point she has a lower GI bleed and has a history of presumed diverticular bleeding. Although she stable with normal hemoglobin I do think with 4 episodes of bloody stool she requires hospitalization for observation and hemoglobin monitoring. At this point it is reasonable to admit her here at [place] rather than transfer to [place] since there is no clear sign that she is going to require IR or other intervention. Discussed with the patient. She is agreeable to be admitted but does not want transfer to [place]. Discussed with hospitalist, Dr. Macedo. He agrees to accept for admission stable. Lab Data Labs: Lab Results 10/06/24 10/06/24 10/06/24 Range/Units 10:40 12:23 14:52 WBC 7.15 8.31 (4.50-11.00) K/uL RBC 5.14 4.63 (4.00-5.20) m/uL Hgb 14.5 13.0 (12.0-16.0) gm/dL Hct 44.6 40.2 (33.0-51.0) % MCV 87 87 (80-100) fL MCH 28 28 (26-34) pg MCHC 33 32 (32-36) gm/dL RDW Coeff of Luiz 14.1 13.9 (11.5-15.5) % Plt Count 242 230 (140-440) K/uL Neut % (Auto) 75.1 H 88.8 H (42.0-72.0) % Lymph % (Auto) 19.2 L 8.4 L (20-44) % [place] % (Auto) 2.9 1.7 (0.0-11.0) % Eos % (Auto) 1.7 0.4 (0.0-7.0) % Baso % (Auto) 1.0 0.7 (0.0-3.0) % Neut # (Auto) 5.40 7.40 H (1.7-7.0) K/uL Lymph # (Auto) 1.40 0.70 L (0.90-2.90) K/uL [place] # (Auto) 0.20 0.10 (0.00-0.90) K/UL Eos # (Auto) 0.12 0.03 (0.00-0.50) K/uL Baso # (Auto) 0.07 0.06 (0.00-0.30) K/uL Abs Immat Gran (auto) 0.01 0.00 (0.00-0.30) K/uL Imm/Tot Granulo (auto) 0.1 0.0 % INR 1.01 (0.91-1.10) Sodium 131 L (135-149) mmol/L Potassium 3.7 (3.6-5.1) mmol/L Chloride 105 (96-114) mmol/L Carbon Dioxide 20 (20-32) mmol/L Anion Gap 6 L (7-15) mEq/L BUN 9 (7-30) mg/dL Creatinine 0.7 (0.5-1.5) mg/dL Estimated Creat Clear 44.80 Estimated GFR 90 ml/min Glucose 134 H (60-115) mg/dL Lactate 0.9 (0.5-1.9) mmol/L Calcium 8.9 (8.4-10.6) mg/dL Blood Type A Positive Antibody Screen NEGATIVE Imaging Data CT scan - abdomen: Attestation: I have reviewed the pertinent imaging results. Radiologist's impression: IMPRESSION: 1. Colonic diverticulosis without evidence of acute diverticulitis. 2. No abnormality to suggest site of active gastrointestinal bleeding. ECG Data Attestation: I personally reviewed and interpreted this ECG as follows: Interpretation: Normal sinus rhythm Rate: 67 MO: 158 QRS axis: Normal axis ST segment/T wave: No pathologic ST segment elevation or depression. Nonspecific T-wave flattening throughout QTc: 475 Discharge Plan Discharge Patient Disposition: Admitted As Observation
--- NOTE | 2024-10-06 11:51 | CRLHL7_ITS ---
For Patients: As a result of the Century Cures Act, medical imaging exams and procedure reports are released immediately into your electronic medical record. You may view this report before your referring provider. If you have questions, please contact your health care provider. INDICATION: Rectal bleeding. TECHNIQUE: CT abdomen and pelvis acquired without and with 95 cc of Isovue 370 IV contrast per GI bleed protocol, to include arterial and venous phase imaging. Sagittal, coronal and maximum intensity projection reformatted images submitted for review. COMPARISON: CT abdomen and pelvis 02/16/2021. FINDINGS: Lower chest: Emphysema at the visualized lung bases. No pleural or pericardial effusions. Coronary artery calcifications. Liver: Stable cysts. Spleen: Unremarkable. Pancreas: Unremarkable. Gallbladder and bile ducts: No calcified stones or biliary ductal dilatation. Kidneys: Unremarkable. Adrenal glands: Unremarkable. GI tract: Streak artifact from indwelling bilateral hip arthroplasties degrades evaluation of GI tract in the pelvis. Extensive distal colonic diverticulosis without evidence of acute diverticulitis. No bowel obstruction. Normal appendix. No focal inflammatory change elsewhere in the GI tract. No focal abnormality in the GI tract to suggest site of active GI bleeding. No free air or free fluid. Lymph nodes: No pathologic lymphadenopathy. Vascular structures: Atherosclerotic disease. Ectasia of the infrarenal abdominal aorta measures 2.8 cm. The celiac, superior mesenteric and inferior mesenteric arteries as imaged are patent. Pelvic Organs: Unremarkable as imaged but degraded by streak artifact from indwelling hip arthroplasties. Bones: No acute or suspicious osseous abnormality. Degenerative changes of the spine. IMPRESSION: 1. Colonic diverticulosis without evidence of acute diverticulitis. 2. No abnormality to suggest site of active gastrointestinal bleeding. Dictated by Cecilio Arce MD @ 10/06/2024 1:57:14 PM Please note that all CT scans at this facility use dose modulation, iterative reconstruction, and/or weight-based dosing when appropriate to reduce radiation dose to as low as reasonably achievable. Dictated by: Cecilio Arce MD @ 10/06/2024 13:57:37 (Electronically Signed)
--- OUTSIDE RECORDS SUMMARY | 2024-10-06 12:04 | XMS_ITS | Clinical Summary ---
Author Organization [employer] [facility] Address [place], [place] [address] Care Team Providers Care Physical Damage Appraiser Name Role Phone Gladis Espinosa MD Primary [...] Date Status cholecalciferol (VITAMIN D-3) 2,000 unit capsuleIndications:V itamin D deficiency Take 1 capsule by mouth once daily. 90 capsule 3 08/29/2018 Active nicotine (NICOTROL) 10 mg inhalerIndications:E ncounter for smoking cessation counseling Inhale 10 mg by mouth every hour if needed for Nicotine Craving. 168 Each 2 08/12/2020 Active acetaminophen (TYLENOL) 325 mg tabletIndications:Ch olesteatoma of ear, right Take 1-2 tablets by mouth every 4 hours if needed (mild pain). Max acetaminophen dose: 4000mg in 24 hrs. 0 01/26/2021 Active miscellaneous medical supply (Blood Pressure Cuff) miscIndications:HTN (hypertension) As directed. 1 Each 02/28/2021 Active famotidine (PEPCID) 20 mg tablet Take 1 Tablet (20 mg) by mouth once daily if needed. 0 03/29/2022 Active Lidocaine-Hydrocorti sone Sravan 3-0.5 % creaIndications:Hemo rrhoids, external Apply externally to hemorrhoids twice daily as needed for itching/pain 21 g 03/18/2024 Active polyethylene glycoL (MIRALAX) 17 gram/scoop powderIndications:He morrhoids, external Mix 1 scoop (17 g) in liquid then take by mouth once daily. 510 g 3 03/18/2024 Active diltiazem CD (CARDIZEM CD) 360 mg extended release 24 hr capsuleIndications:H ypertension, unspecified type Take 1 Capsule (360 mg) by mouth once daily. 90 Capsule 3 08/07/2024 Active lisinopriL (PRINIVIL; ZESTRIL) 30 mg tabletIndications:Hy pertension Take 1 Tablet (30 mg) by mouth once daily. 90 Tablet 3 08/07/2024 Active metoprolol succinate (Toprol XL) 25 mg Sustained-Release tabletIndications:SV T (supraventricular tachycardia) (HC) Take 1 Tablet (25 mg) by mouth once daily. May take additional tablet (25 mg) daily if needed for rapid heart rate. 180 Tablet 3 08/07/2024 Active sertraline (ZOLOFT) 100 mg tabletIndications:Yolanda castano depression in remission (HC) Take 1.5 Tablets (150 mg) by mouth once daily. 135 Tablet 1 08/07/2024 Active tiotropium-olodatero L (Stiolto Respimat) 2.5-2.5 mcg/actuation inhalerIndications:P ulmonary emphysema, unspecified emphysema type (HC) Inhale 2 Puffs by mouth once daily. 12 g 3 08/07/2024 Active albuterol HFA (PRO-AIR; VENTOLIN; PROVENTIL) 90 mcg/actuation inhalerIndications:P ulmonary emphysema, unspecified emphysema type (HC) Inhale 2 Puffs by mouth every 4 hours if needed for Shortness Of Breath or Wheezing. 3 Each 3 08/07/2024 Active nitroglycerin (NITROSTAT) 0.4 mg sublingual tabletIndications:Hy pertension, unspecified type Place 1 Tablet (0.4 mg) under the tongue every 5 minutes if needed for Chest Pain. Max of 3 doses. If chest pain persists, seek medical attention. 25 Tablet 1 08/07/2024 Active atorvastatin (LIPITOR) 80 mg tabletIndications:Hy perlipidemia, unspecified hyperlipidemia type Take 1 Tablet (80 mg) by mouth once daily. 90 Tablet 1 08/10/2024 Active Active Problems Patient Care Coordination No te [...] inclusion 104 Problem Noted Date Diagnosed Date Major depression in remission 08/07/2024 Trigger ring finger of left hand 11/29/2023 Prediabetes 04/23/2023 Pulmonary emphysema, unspecified emphysema type 03/29/2022 Dysthymia 09/21/2021 Adrenal incidentaloma 09/21/2021 Overview (08/07/2024): Stable from [id number], presumed benign Adrenal adenoma 01/27/2020 Inguinal hernia, left 01/27/2020 Internal hemorrhoid 01/27/2020 Diverticulosis 01/27/2020 Prolonged Q-T interval on ECG 04/01/2019 SVT (supraventricular tachycardia) 10/17/2018 Diverticulosis of large intestine without hemorr maverick 10/01/2018 Overview (10/01/2018): Colonoscopy 09/2018 diverticulosis, repeat in 10 years Tobacco use disorder 12/17/2017 Hyperlipidemia HTN (hypertension) Acid reflux S/P craniotomy Resolved Problems Problem Noted Date Diagnosed Date Resolved Date Closed fracture of right rahul e of maxilla, initial encounter 11/26/2023 03/18/2024 Major depressive disorder, r ecurrent episode, moderate 03/29/2022 08/07/2024 Cholesteatoma of ear, right 07/20/2020 06/26/2023 Mastoiditis of right side 07/13/2020 Brain abscess 07/13/2020 06/26/2023 Atrial fibrillation 10/17/20 E coli infection 06/26/2023 Encounters Date Type Department Care Team Description 10/06/2024 Refill [facility] [address] [place] [address] Gladis Espinosa MD Refill Request (Nitroglycerin 0.4mg sub tab 25s) 08/10/[address] [address] Gladis Espinosa MD Results 08/07/2024 7:55 AM CDT Office Visit [facility] [address] [place] [address] Gladis Espinosa MD Medicare ANNUAL (subsequent) Visit (74 year old) 08/07/2024 Travel 08/04/2024 2:30 PM CDT Office Visit [facility] [address] [place] [address] Sarabjit Lancaster MD Follow Up (Tachycardia ) 08/04/2024 Travel 07/28/[address] [facility] [place] [address] [facility] [address] [place] [address] Sarabjit Lancaster MD Refill Request (lisinopril) 07/25/2024 Refill [facility] [address] [place] [address] Gladis Espinosa MD Refill Request (Atorvastatin, Sertraline) 07/14/2024 Nurse Triage [facility] [address] [place] [address] Gladis Espinosa MD Derm Problem 07/06/2024 Refill [facility] [address] [place] [address] Gladis Espinosa MD Refill Request (Diltiazem ER 360 mg) from Last 3 Months Immunizations Name Administration Dates Next Due COVID-19 VACCINE SPIKEVAX (M ODERNA 50MCG/0.5ML) 12YO+ PFS 11/26/2023 COVID-19 vaccine (Moderna 10 0mcg/0.5mL) PF, [...] Date Smoking Tobacco: Every Day Cigarettes 0.5 60.9 Started: 11/25/1965 Smokeless Tobacco: Never Tobacco Cessation:Ready to Q uit: Not Asked; Counseling Given: Yes Comments:since age 14 Alcohol Use Standard Drinks/Week Comments Yes 0 (1 standard drink = 0.6 oz pur e alcohol) rare PHQ-2 Answer Date Recorded PHQ-2 TOTAL SCORE 0 08/07/2024 Social Connections Answer Date Recorded Do you often feel lonely or isolated from those around you? 0 08/07/2024 Financial Resource Strain Answer Date R ecorded Difficulty of Paying Living Expenses 3 08/07/2024 Difficulty of Paying Living Expenses Not on file 08/07/2024 Food Insecurity Answer Date Recorded Do you worry your food will run out before you are able to buy more? 1 08/07/2024 Transportation Needs Answer Date Record ed Does lack of transportation keep you from medica l appointments? 1 08/07/2024 Does lack of transportation keep you from work, meetings or getting things that you need? 1 08/07/2024 Housing Stability Answer Date Recorded What is your housing situation today? 1 08/07/2024 Sex and Gender Information Value Date Recorded Sex Assigned at Female 03/23/2021 8:42 PM CDT Gender Identity Female 03/23/2021 8:41 PM CDT Sexual Orientation Not on file Obstetrics History Last Filed Vital Signs Vital Sign Reading Time Taken Comments Blood Pressure 130/84 08/07/2024 8:10 AM CDT Pulse 68 08/07/2024 8:10 AM CDT Temperature 36.6 ??C (97.8 ??F) 09/10/2023 3:24 PM CD T Respiratory Rate 18 04/13/2022 9:41 AM CDT Oxygen Saturation 96% 08/07/2024 8:10 AM CDT Inhaled Oxygen Concentration - - Weight 71.8 kg (158 lb 3.2 oz) 08/07/2024 8:10 A M CDT Height 167.6 cm (5' 6) 08/07/2024 8:10 AM CDT Body Mass Index 25.53 08/07/2024 8:10 AM CDT Plan of Treatment Health Maintenance Due Date Last Done Comments RSV vaccine for adults or (1 - 1-dose 75+ series) 2023 Zoster (shingles) series for age 50+ (2 of 2) 08/31/2023 07/06/2023 COVID-19 vaccine series ( season) 2024 11/26/2023, 09/03/2022, 05/02/2022, Additional history exists Influenza for age 65+ 07/26/2024 09/17/2023 , 08/26/2022, 09/18/2021, Additional history exists Low Dose CT (for lung CA) ag e 50-80 04/16/2025 04/16/2024, 04/15/2023, 04/13/2022, Additional history exists BMI (ht and wt on same day) for age 18+ 08/07/2025 08/07/2024, 06/26/2023, 12/11/2022, Additional history exists Medicare Wellness for age 65+ 08/08/2025, 06/26/2023, 05/02/2022, Additional history exists Depression screening for age 12+ 08/10/2025 08/10/2024, 08/07/2024, 06/26/2023, Additional history exists Tetanus booster 10/05/2033 10/05/2023, 10/26, 02/24/2010 Pneumococcal series for age 65+ Completed 01/03/2017, 11/07/2015, 11/03/2015 Hepatitis C screening for ag e 18-79 Completed 09/21/2021 DEXA/DXA scan for age 65+ Completed 04/24/2023 Tdap Completed 10/05/2023, 10/26, 02/24/2010 Medical Devices Implanted Type Area Rubber Cutting Machine Tender Device Identifier Shelf Expiration Date Model / Serial / Lot Screw Neuro 4mm Matrixneuro Slf Drill Titme - [id number] Implanted:Qty: 5 on 07/14/2020 by Nate Lozano MD at [facility] [employer]ium J And J Depuy CMF [id number] 4.01# / / Description:All screws remov ed Screw Neuro 4mm Matrixneuro Slf Drill Titnm - [id number] Implanted:Qty: 1 on 09/14/2020 by Nate Lozano MD at [facility] J And J Depuy CMF [id number] 4.01# / / Description:All screws remov ed [id number] 3mesh 3x7cm Alloderm Thick Human Implanted:Qty: 1 on 01/24/2021 by Nate Lozano MD at [facility] Explanted:at [facility] (Quantity not on file) Right: Cranium [employer] 09/24/2021 [id number] / [id number] / Dura Neuro 5ml Duraseal - [id number] Implanted:Qty: 1 on 01/24/2021 by Nate Lozano MD at [facility] Right: Cranium [employer] 01/22/2022-2049 / / [id number] Description:See implant angeline marshall Dura Neuro 2x2in Durepair Sut - [id number] Implanted:Qty: 1 on 01/24/2021 by Nate Lozano MD at [facility] Right: Cranium [employer] 05/24/2023 [id number] / / [id number] Screw Neuro 4mm Matrixneuro Slf Drill Titnm - [id number] Implanted:Qty: 8 on 01/24/2021 by Nate Loznao MD at [facility] Cranium J And Gregor Rolonuy CMF [id number] 4.01 / / Explanted Type Area Rubber Cutting Machine Tender Device Identifier Shelf Expiration Date Model / Serial / Lot Plate Neuro [id number] Synthes Malleable Titnm - [id number] Implanted:Qty: 1 on 07/14/2020 by Nate Lozano MD at [facility] Explanted:Qty: 1 on 01/24/2021 by Nate Lozano MD at [facility] [employer] J [employer] J Depuy CMF [id number] # / / Procedures Procedure Name Priority Date/Time Associated Diagnosis Comments HEMOGLOBIN A1C Routine 08/07/2024 8:57 AM CDT Prediabetes BASIC METABOLIC PANEL Routine 08/07/2024 8:57 AM CDT Hypertension LIPID PANEL W REFLEX MEASURED LDL Routine 08/07/2024 8:57 AM CDT Hyperlipidemia, unspecified hyperlipidemia type CT CHEST SCREENING LOW DOSE WO CONTRAST Routine 04/16/2024 10:31 AM CDT Encounter for screening for lung cancer Smoker XR DXA BONE DENSITY 1 SITE AXIAL AND 1 SITE PERIPHERAL Routine 04/24/2023 10:35 AM CDT Menopause ANTI HCV Routine 09/21/2021 1:18 PM CDT Need for hepatitis C screening test from Last 3 Months or Most Recently Relevant to Health Maintenance Results * HEMOGLOBIN A1C SCREENING (08/07/2024 8:57 AM CDT) Pathologist [facility] HEMOGLOBIN A1C SCREENING 5.6 <=6.4 % 08/07/2024 5:10 PM CDT [facility] Blood BLOOD SPECIMEN / Unknown Venipuncture / Unknown 08/07/2024 8:57 AM CDT 08/07/2024 8:57 AM CDT Narrative [facility] - 08/07/2024 5:10 PM CDT ? (<5.7%) ?Normal ? (5.7% to 6.4%) ? Indicates prediabetes ? (>=6.5%) ? Confirms diabetes Falsely low levels may be seen with: Recent Transfusion, Recent Significant Blood Loss, Hemolytic Diseases, or Falsely elevated levels may be seen with: Untreated Anemias, Splenectomy Gladis Espinosa MD CHEMISTRY [facility] [address] [place] [address], * (ABNORMAL) LIPID PANEL W REFLEX MEASURED LDL (08/07/2024 8:57 AM CDT) [facility] CHOLESTEROL,TOTAL 217(H) 100 - 199 mg/dL 08/07/2024 6:39 PM CDT [facility] Comment: Cholesterol, Total Reference Ranges Desirable <200 mg/dL Borderline 200-239 mg/dL High >=240 mg/dL TRIGLYCERIDES 138 <150 mg/dL 08/07/2024 6:39 PM CDT [facility] HDL CHOLESTEROL 57 >40 mg/dL 6:39 PM CDT [facility] NON-HDL CHOLESTEROL 160(H) <145 mg/dl 08/07/2024 6:39 PM CDT [facility] CHOL/HDL RATIO 3.81 <4.50 08/07/2024 6:39 PM CDT [facility] LDL CHOLESTEROL 132(H) <=130 mg/dL 08/07/2024 6:39 PM CDT [facility] VLDL CHOLESTEROL 28 <=30 mg/dL 08/07/2024 6:39 PM CDT [facility] PROVIDER ORDERED STATUS RANDOM 08/07/2024 6:39 PM T [facility] Blood BLOOD SPECIMEN / Unknown Venipuncture / Unknown 08/07/2024 8:57 AM CDT 08/07/2024 8:57 AM CDT Gladis Espinosa MD CHEMISTRY [facility] [address] [place] [address], * (ABNORMAL) BASIC METABOLIC PANEL (08/07/2024 8:57 AM CDT) SODIUM 140 136 - 145 mmol/L 08/07/2024 6:39 PM CDT [facility] POTASSIUM 4.6 3.5 - 5.1 mmol/L 08/07/2024 6:39 PM CDT [facility] CHLORIDE 106 98 - 107 mmol/L 08/07/2024 6:39 PM CDT [facility] CO2,TOTAL 25 22 - 29 mmol/L 08/07/2024 6:39 PM T [facility] ANION GAP 9 5 - 18 08/07/2024 6:39 PM CDT [facility] GLUCOSE 89 70 - 99 mg/dL 08/07/2024 6:39 PM CDT [facility] CALCIUM 9.2 8.8 - 10.2 mg/dL 08/07/2024 6:39 PM CDT [facility] BUN 9 8 - 23 mg/dL 08/07/2024 6:39 PM T [facility] CREATININE 0.85 0.50 - 0.90 mg/dL 08/07/2024 6:39 PM CDT [facility] BUN/CREAT RATIO 11 10 - 20 4 6:39 PM CDT [facility] eGFR 71(L) >90 mL/min/1.7 3m2 08/07/2024 6:39 PM CDT [facility] Comment:As of 2022, eG FR is calculated by the CKD-EPI creatinine equation without race adjustment. ??eGFR can be influenced by muscle mass, exercise, and diet. ??The reported eGFR is an estimation only and is only applicable if the renal function is stable. Blood BLOOD SPECIMEN / Unknown Venipuncture / Unknown 08/07/2024 8:57 AM CDT 08/07/2024 8:57 AM CDT Gladis Espinosa MD CHEMISTRY [facility] [address] [place] [address], * CT CHEST SCREENING LOW DOSE WO [...] Luis Santos MD @04/16/2024 3:59:16 PM / CRL:jj PATIENTS: You will also receive a letter [...] recommended in 3-5 years. Rosalina Sandhu PA-C [facility] 04/26/2023 Narrative 04/26/2023 4:55 PM CDT For Patients: Results are automatically released to your [facility] ([facility]) account once available, in compliance with federal regulations. This means that you may see your results before your provider has had a chance to review them. Please allow 2-3 business days for your provider to comment on the results. XR DXA Bone Mineral Density (BMD) EXAM LOCATION: [address] [address] PATIENT NAME: Nena Styles DATE OF : [...] two scanners are made by the same lifts and cranes inspector. PROCEDURE: Dual-energy x-ray absorptiometry performed with routine [...] juliet Non-React juliet 09/21/2021 6:13 PM CDT [facility] Comment:Antibodies to HCV no t detected; does not exclude the possibility of exposure to HCV. Blood BLOOD SPECIMEN / Unknown Venipuncture / Unknown 09/21/2021 1:18 PM CDT 09/21/2021 1:18 PM CDT Gladis Espinosa MD [facility] [address] [place] [address], from Last 3 Months or Most Recently Relevant to Health Maintenance Advance Directives Documents on File Type Date Recorded Patient Camera Person Expl anation Healthcare Directive 10/16/2019 12:00 AM [...] Code Status Discussion: Not Discussed Care Teams Physical Damage Appraiser Relationship Specialty Start Date End Date Gladis Espinosa MD [address] [place] [address] PCP - General Family Practice 08/27/18
--- OUTSIDE RECORDS SUMMARY | 2024-10-06 12:04 | XMS_ITS | Clinical Summary ---
Author Organization [facility] Address [address] [place] [address] Care Team Providers Care Basketballs And Footballs Reverser Name Role Phone Unavailable Primary Care Provider [...]
--- OUTSIDE RECORDS SUMMARY | 2024-10-06 12:04 | XMS_ITS | Referral Summary ---
Author Organization [facility] Address [address] [place] [address] Care Team Providers Care Oceanographer Geological Name Role Phone Jeffrey Lezama MD Unavailable Daisy Portillo Unavailable [phone] Liyah Judge MD Unavailable [phone] [facility] Unavailable Gladis Espinosa MD Primary Care [...] from [facility] hosp 06/18/14 Medications nitroglycerin (NITROSTAT) 0.[address] 0.4 mg under the tongue every 5 minutes as needed for chest pain Active omeprazole (PRILOSEC) 40 MG capsuleIndicatio ns:GERD (gastroesophagea l reflux disease) TAKE 1 CAPSULE(40 MG) BY MOUTH DAILY 30 TO 60 MINUTES BEFORE A MEAL 90 capsule 2 09/25/2017 Active sertraline (ZOLOFT) 100 MG tabletIndication s:Major depressive disorder, recurrent episode, moderate (H) TAKE 1 TABLET(100 MG) BY MOUTH DAILY 30 tablet you 02/27/2018 Active flecainide (TAMBOCOR) 50 MG tabletIndication s:Supraventricul ar tachycardia (H) Take 1 tablet (50 mg) by mouth every 12 hours 180 tablet 09/22/2018 Active atorvastatin (LIPITOR) 40 MG tablet Take 40 mg by mouth At Bedtime Active tiotropium (SPIRIVA RESPIMAT) 2.5 MCG/ACT inhaler Inhale 2 puffs into the lungs daily Active vitamin D3 (CHOLECALCIFEROL ) 50 mcg (2000 units) tablet Take 1 tablet by mouth daily Active Active Problems Problem Noted Date Diagnosed Date Anemia 02/18/2021 Ear drainage right 05/30/2017 Fatigue, unspecified type 05/30/2017 Supraventricular tachycardia 01/10/2017 Other infective acute otitis externa of left ear 01/03/2017 Dry mouth 01/03/2017 Essential hypertension with goal blood pressure less than 140/90 09/18/2016 Coronary artery disease, non-occlusive 6 Chest pain 06/19/2016 Need for hepatitis C screening test 04/12/2016 Major depressive disorder, recurrent episode, mo derate 04/12/2016 S/P total hip arthroplasty 03/14/2016 Internal hemorrhoid 01/03/2016 Overview (01/03/2016): Noted colonoscopy 12/[address] 12/05/2015 Overview (12/05/2015): Recommended follow up 05/2015 Diverticulosis of large intestine with hemorrhag e 11/01/2015 Diverticulitis of colon 11/01/2015 Coronary artery disease invo lving modoc coronary artery without angina pectoris 09/13/2015 Adrenal incidentaloma 08/29/2015 SVT (supraventricular tachycardia) 08/22/2015 S/P prosthetic total arthroplasty of the hip [...] 04/12/2016 12/06/2016 Advanced directives, counseling/discussion 11/30/2014 03/27/2021 Overview (11/30/2014): Gave pt packet on 11/30/2014 Katelynn Ochoa CMA Rash 06/19/2014 04/12/2016 Atrial fibrillation 06/08/2014 07/07/20 Overview (06/08/2014): Occurred during acute illness (CAP) approximately 05/2014 Elevated troponin 06/08/2014 07/07/2015 Overview (06/08/2014): Without evidence of the acute coronary syndrome in 05/2014 Acute diastolic heart failure 06/08/2014 07/07/2015 Overview (06/08/2014): Fluid resuscitated with over 10 liters during 05/2014 hospitalization, developed mild pulmonary edema requiring O2 oxymizer support; no previous history of heart failure. Echocardiogram with EF 60-65%. Syncope 06/06/2014 07/07/2015 Intermediate coronary syndrome 08/26/2013 06/08/2014 HTN, goal below 140/90 08/20/201304/12 Right leg pain 08/20/2013 06/08/2014 Sciatica neuralgia 08/20/2013 4 Immunizations Name Administration Dates Next Due Influenza (High Dose) Trivalent,PF (Fluzone) 06/2015 Pneumo Conj 13-V (2010&after) 11/07/2015 Pneumococcal 23 [...] School Help Needed Not on file 09/11 Comments No Sex and Gender Information Value Date Recorded Sex Assigned at Not on file Legal Sex Female 4:57 AM CENTER REP Gender Identity Not on file Sexual Orientation [...] Status: Active Medical Devices Implanted Type Area Scrapper Device Identifier Shelf Expiration Date Model / Serial / Lot G7 Acetabular Shell, 3 Hole, Porous Plasma Cementless, 52mm, E Implanted:Qty: 1 on 07/27/2015 by Hamzah Woodall MD at [facility] Right: Hip BIOMET 05/24/2025 [id number] / / [id number] [id number] Acetabular Screw, 6.5mm, 25mm Implanted:Qty: 1 on 07/27/2015 by Hamzah Woodall MD at [facility] Right: Hip BIOMET 08/24/2024 [id number] / / [id number] G7 Acetabular Screw, 6.5mm, 25mm Implanted:Qty: 1 on 07/27/2015 by Hamzah Woodall MD at [facility] Right: Hip BIOMET 01/22/2025 [id number] / / [id number] G7 Acetabular Liner, Neutral, Arcomxl Highly Crosslinked Uhmwpe, 36mm, E Implanted:Qty: 1 on 07/27/2015 by Hamzah Woodall MD at [facility] Right: Hip 08/24/2019 [id number] / / [id number] Taperloc Complete Primary Femoral Porous Coated Stem Reduced Distal 11 X 142mm Standard Offset Type 1 Taper Implanted:Qty: 1 on 07/27/2015 by Hamzah Woodall MD at [facility] Right: Hip BIOMET 05/24/2025 [id number] / / [id number] Modular Head Component -3mm Neck Implanted:Qty: 1 on 07/27/2015 by Hamzah Woodall MD at [facility] Right: Hip BIOMET 06/10/2025 [id number] / / [id number] G7 Acetabular Shell Implanted:Qty: 1 on 03/14/2016 by Hamzah Woodall MD at [facility] Left: Hip BIOMET [id number] / / [id number] Taperlock Complete Primary Femoral Porous Coated Stem Reduced Distal 11 X 142mm Standard Offset Ttype 1 Taper [id number] Implanted:Qty: 1 on 03/14/2016 by Hamzah Woodall MD at [facility] Left: Hip BIOMET 11/16/2025 [id number] / / [id number] Modular Head Component -3mm Neck Implanted:Qty: 1 on 03/14/2016 by Hamzah Woodall MD at [facility] Left: Hip BIOMET 01/04/[id number] / / [id number] G7 Acetabular Screw Implanted:Qty: 1 on 03/14/2016 by Hamzah Woodall MD at [facility] Left: Hip BIOMET 12/04/2025 [id number] / / [id number] G7 Acetabular Screw Implanted:Qty: 1 on 03/14/2016 by Hamzah Woodall MD at [facility] Left: Hip BIOMET 05/14/2026 [id number] / / [id number] G7 Acetabular Liner Neutral Arcomxl Highly Crosslinked Implanted:Qty: 1 on 03/14/2016 by Hamzah Woodall MD at [facility] Left: Hip BIOMET [id number] / / [id number] Insurance MEDICARE [employer] MEDICARE [employer] Advance Directives For more information, please contact: [phone] Documents on File Type Date Recorded Patient Switchboard Operator Helper Expl anation Advance Directives and Living Will 03/27/2021 Health Care Directiv e 10/09/2019 Advance Directives and Living Will 03/27/2021 Validation of AD 10/09/2019 * Full Code (Latest Code Status on File) Date Activated Date Inactivated Comments 02/18/2021 5:26 PM 02/22/2021 1:18 PM All basic an d advanced life-sustaining interventions are performed as appropriate Question Answer Comments Code status determined by: Discussion with tsering nt/ legal decision maker * Full Code [...] First Alternate Health Care Agent Care Teams Oceanographer Geological Relationship Specialty Start Date End Date Gladis Espinosa MD [facility] [address] [place], [place] [id number] PCP - General 02/22/21 Jeffrey Lezama MD [facility] [address] [address] Otolaryngology 12/24/17 Daisy Portillo AuD [facility] [address] [address] Radio Communications Superintendent Audiology 12/24/17 Liyah Judge MD [address] [place] [address] [address] [place], [place] [address] Otolaryngology 12/24/[address] [id number] 02/21/21
--- OUTSIDE RECORDS SUMMARY | 2024-10-06 12:04 | XMS_ITS | Encounter Summary ---
Author Organization [place] Address [address] [place] [address]. [place] [address] Care Team Providers Care Layboy Tender Name Role Phone Jeffrey Lezama MD Unavailable [phone] Daisy Portillo Unavailable [phone] Liyah Judge MD Unavailable [phone] Jeanette Esparza MD Unavailable Jeanette Esparza MD Unavailable No Ref-Primary, Physician Primary Care Provider Jerri Davisonfield Unavailable Gladis Espinosa MD Primary Care Provider [phone] Encounter Details Date Type Department Care Team (Late st Contact Info) Description 06/24/2018 MyC Medical Advice [facility] Ear Nose and Throat [address] [facility] [address] 4th [place] [address] Liyah Judge MD [address] [facility] 396 [place] [address] Social History Tobacco Use Types Packs/Day Years Used Date Smoking Tobacco: Former Cigarettes Q uit: 12/27/2016 Smokeless Tobacco: Former Alcohol Use Standard Drinks/Week Comments Yes 1 (1 standard drink = 0.6 oz pur e alcohol) 1 drink monthly if that Comments No Sex and Gender Information Value Date Recorded Sex Assigned at Not on file Legal Sex Female 4:57 AM CARBON DIOXIDE OPERATOR Gender Identity Not on file Sexual Orientation [...] documented as of this encounter Care Teams Layboy Tender Relationship Specialty Start Date End Date Jeanette Esparza MD 2270 [facility] 200 [place] [address] PCP - Assigned PCP 11/06/15 01/27/19 No Ref-Primary, Physician PCP - General 02/18/21 02/21/21 Gladis Espinosa MD [facility] 1400 [place] [address] PCP - General 02/22/21 Jeffrey Lezama MD [facility] [address] [place] [address] Otolaryngology 12/24/17 Daisy Portillo AuD [facility] [address] [place] [address] Superintendent Gas Distribution Audiology 12/24/17 Liyah Judge MD 420 [facility] 396 [place] [address] Otolaryngology 12/24/17 Jeanette Esparza MD [address] [id number] Assigned PCP 11/06/15 06/04/[address] [address] 02/21/21 documented as of this encounter
--- OUTSIDE RECORDS SUMMARY | 2024-10-06 12:04 | XMS_ITS | Encounter Summary ---
Author Organization [place] Address [address] [place] [address]. [place] [address] Care Team Providers Care Corporate Travel Agent Name Role Phone Jeanette Esparza MD Primary Care Provider Jeffrey Lezama MD Unavailable [phone] Daisy Portillo Unavailable [phone] Liyah Judge MD Unavailable [phone] System, Provider Not In Primary Care Provider Un available Jeanette Esparza MD Unavailable [phone] Jeanette Esparza MD Unavailable [phone] No Ref-Primary, Physician Primary Care Provider Jerri Davisonfield Unavailable [phone] Gladis Espinosa MD Primary Care Provider [phone] Encounter Details Date Type Department Care Team (Late st Contact Info) Description 01/20/2018 [facility] [address] [address] Bryan Martinez Social History Tobacco [...] on file 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 Gender Identity Not on file Sexual Orientation [...] documented as of this encounter Care Teams Corporate Travel Agent Relationship Specialty Start Date End Date Jeanette Esparza MD PCP - General Family Practice 08/20/13 06/04/18 System, Provider Not In PCP - General Clinic 06/05/18 06/05/18 Jeanette Esparza MD 2270 [facility] 200 [place] [address] PCP - Assigned PCP 11/06/15 01/27/19 No Ref-Primary, Physician PCP - General 02/18/21 02/21/21 Gladis Espinosa MD [facility] 1400 [place] [address] PCP - General 02/22/21 Jeffrey Lezama MD [facility] 7300 [facility] 410 [place] [address] Otolaryngology 12/24/17 Daisy Portillo AuD [facility] 7[address] [facility] 410 [place] [address] Flatbed Stitcher Audiology 12/24/17 Liyah Judge MD 420 [facility] 396 [place], [place] [address] Otolaryngology 12/24/17 Jeanette Esparza MD 2270 [facility] 200 [place], [place] [id number] Assigned PCP 11/06/15 06/04/[address] [address] 02/21/21 documented as of this encounter
--- OUTSIDE RECORDS SUMMARY | 2024-10-06 12:04 | XMS_ITS | Encounter Summary ---
Author Organization [place] Address [address] [place] [address]. [place] [address] Care Team Providers Care Senior Coldfusion Developer Name Role Phone Jeffrey Lezama MD Unavailable Daisy Portillo Unavailable [phone] Liyah Judge MD Unavailable [phone] Jeanette Esparza MD Unavailable Jeanette Esparza MD Unavailable No Ref-Primary, Physician Primary Care Provider Jerri Davisonfield Unavailable [phone] Gladis Espinosa MD Primary Care Provider Encounter Details Date Type Department Care Team (Late st Contact Info) Description 06/18/2018 MyC Medical Advice [facility] Ear Nose and Throat [address] [facility] [address] 4th [place] [address] Liyah Judge MD [address] [place] [address] [facility] 396 [place] [address] Social History Tobacco Use Types Packs/Day Years Used Date Smoking Tobacco: Former Cigarettes Q uit: 12/27/2016 Smokeless Tobacco: Former Alcohol Use Standard Drinks/Week Comments Yes 1 (1 standard drink = 0.6 oz pur e alcohol) 1 drink monthly if that Comments No Sex and Gender Information Value Date Recorded Sex Assigned at Not on file 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 Gender Identity Not on file Sexual Orientation [...] documented as of this encounter Care Teams Senior Coldfusion Developer Relationship Specialty Start Date End Date Jeanette Esparza MD 2270 [facility] 200 [place] [address] PCP - Assigned PCP 11/06/15 01/27/19 No Ref-Primary, Physician PCP - General 02/18/21 02/21/21 Gladis Espinosa MD [facility] 1400 [place] [address] PCP - General 02/22/21 Jeffrey Lezama MD [facility] [address] [place] [address] Otolaryngology 12/24/17 Daisy Portillo AuD [facility] [address] [place] [address] Manufacturing Engineer Chief Audiology 12/24/17 Liyah Judge MD 420 [facility] 396 [place] [address] Otolaryngology 12/24/17 Jeanette Esparza MD [address] [id number] Assigned PCP 11/06/15 06/04/[address] [address] 02/21/21 documented as of this encounter
--- OUTSIDE RECORDS SUMMARY | 2024-10-06 12:04 | XMS_ITS | Encounter Summary ---
Author Organization [place] Address [address] [place] [address] Care Team Providers Care Catalytic Converter Operator Name Role Phone Jeanette Esparza MD Primary Care Provider Nola Holland RN Unavailable Unavailable Jeffrey Lezama MD Unavailable [phone] Daisy Portillo Unavailable [phone] Marcy Judge RN Unavailable Unavailable Liyah Judge MD Unavailable [phone] System, Provider Not In Primary Care Provider Un available Jeanette Esparza MD Unavailable [phone] Jeanette Esparza MD Unavailable [phone] No Ref-Primary, Physician Primary Care Provider [facility] Unavailable [phone] Gladis Espinosa MD Primary Care Provider Reason for Visit * Reason Onset Date Comments Abdominal Pain 01/09/2016 cramping and sta bbing pain after colonoscopy Encounter Details Date Type Department Care Team (Late st Contact Info) Description 01/09/2016 MyC Medical Advice [address] [address] Jeanette Esparza MD [address] [address] Abdominal Pain (cramping and stabbing pain... 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 If no fevers, blood, not severe (doesn't sound like it) I agree with clinic or UC visit if needed. I would think that using miralax twice a day to help move gas through, re-set would be reasonable as well. Alex Chang MD R ASSEMBLY SUPERVISOR * Telephone Encounter - Hanna Ascencio RN - 01/09/2016 12:27 PM CST Patient is wondering if it might be diverticulitis. Would you recommend patient be seen in clinic for re-evaluation? UC this evening? Hanna Ascencio RN R ASSEMBLY SUPERVISOR * Telephone Encounter - Hanna Ascencio RN - 01/09/2016 11:55 AM CST I responded to patient as below. Hanna Ascencio RN R ASSEMBLY SUPERVISOR documented in this encounter Plan of Treatment Not on file documented as of this encounter Goals Goal Patient Goal Type Associated Problems Recent Progress Patient-Stated? Author Patient states that she would like to increase her physical activity to assist her with increasing her strength and healing. General Yes Frazin, Nola A, RN Note: As of today's date 09/07/2015 goal is met at 26 - 50%. Goal Status: Active documented as of this encounter Visit Diagnoses Not on filedocumented in this encounter Care Teams Catalytic Converter Operator Relationship Specialty Start Date End Date Jeanette Esparza MD PCP - General Family Practice 08/20/13 06/04/18 System, Provider Not In PCP - General Clinic 06/05/18 06/05/18 Jeanette Esparza MD 2270 [facility] 200 [place], [place] [id number] PCP - Assigned PCP 11/06/15 01/27/19 No Ref-Primary, Physician PCP - General 02/18/21 02/21/21 Gladis Espinosa MD [facility] 1400 [place] [address] PCP - General 02/22/21 Nola Holland RN Clinic Telecommunications Administrator Nurse 09/07/1506/20 Jeffrey Lezama MD [facility] [address] [facility] 410 [place] [address] Otolaryngology 12/24/17 Daisy Portillo AuD [facility] [address] [place] [address] Software Licensing Specialist Audiology 12/24/17 Marcy Judge RN Tech 12/24/17 12/24/17 Liyah Judge MD 420 [facility] 396 [place] [address] Otolaryngology 12/24/17 Jeanette Esparza MD [address] [address] Assigned PCP 11/06/15 06/04/20 [facility] [address] [address] 02/21/21 documented as of this encounter
--- OUTSIDE RECORDS SUMMARY | 2024-10-06 12:04 | XMS_ITS | Encounter Summary ---
Author Organization [facility] Address [address] [place] [address] Care Team Providers Care Public Health Service Officer Name Role Phone Jeanette Esparza MD Primary Care Provider Jeffrey Lezama MD Unavailable [phone] Daisy Portillo Unavailable [phone] Liyah Judge MD Unavailable [phone] System, Provider Not In Primary Care Provider Un available Jeanette Esparza MD Unavailable [phone] Jeanette Esparza MD Unavailable [phone] No Ref-Primary, Physician Primary Care Provider Jerri Davisonfield Unavailable [phone] Glaids Espinosa MD Primary Care Provider [phone] Encounter Details Date Type Department Care Team (Late st Contact Info) Description 05/31/2018 MyC Medical Advice [facility] [address] [place] [address] Davida Amni Social History Tobacco Use Types Packs/Day Years Used Date Smoking Tobacco: Former Cigarettes Q uit: 12/27/2016 Smokeless Tobacco: Former Alcohol Use Standard Drinks/Week Comments Yes 1 (1 standard drink = 0.6 oz pur e alcohol) 1 drink monthly if that Comments No Sex and Gender Information Value Date Recorded Sex Assigned at Not on file 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 1400 [place] [address] PCP - General 02/22/21 Jeffrey Lezama MD [facility] 7300 [facility] 410 [place] [address] Otolaryngology 12/24/17 Daisy Portillo AuD [facility] 7300 [facility] 410 [place] [address] Welding Teacher Audiology 12/24/17 Liyah Judge MD 420 [facility] 396 [place], [place] [address] Otolaryngology 12/24/17 Jeanette Esparza MD 2270 [facility] 200 [place], [place] [address] Assigned PCP 11/06/15 06/04/20 [facility] [address] [address] 02/21/21 documented as of this encounter
--- OUTSIDE RECORDS SUMMARY | 2024-10-06 12:04 | XMS_ITS | Encounter Summary ---
Author Organization [place] Address [address] [place] [address] Care Team Providers Care Clerical Proofreader Name Role Phone Jeanette Esparza MD Primary Care Provider Nola Holland RN Unavailable Unavailable Jeffrey Lezama MD Unavailable Daisy Portillo Unavailable [phone] Marcy Judge RN Unavailable Unavailable Liyah Judge MD Unavailable [phone] System, Provider Not In Primary Care Provider Un available Jeanette Esparza MD Unavailable Jeanette Esparza MD Unavailable No Ref-Primary, Physician Primary Care Provider [facility] Unavailable Gladis Espinosa MD Primary Care Provider [phone] Reason for Visit * Reason Onset Date Comments Health Maintenance 11/30/2015 colonoscopy s cheduled ([facility] outreach) Encounter Details Date Type Department Care Team (Late st Contact Info) Description 11/30/2015 Telephone [place] [id number] [place] [address] Jeanette Esparza MD [address] [address] Health Maintenance (colonoscopy scheduled ([facility] outreach)) Social History Tobacco Use Types Packs/Day Years Used Date Smoking Tobacco: Former Cigarettes Smokeless Tobacco: Former Comments:e-cigarette Alcohol Use Standard Drinks/Week Comments Yes 1 (1 standard drink = 0.6 oz pur e alcohol) occ Comments No Sex and Gender Information Value Date Recorded Sex Assigned at Not on file 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 Ayers Pharmacy Name: [facility] Location: [place] Please contact patient to discuss prep and additional instructions. Best phone number to use: [phone] Best time to contact the patient: anytime Thank you. CIATE FACULTY documented in this encounter Plan of Treatment [...] on filedocumented in this encounter Care Teams Clerical Proofreader Relationship Specialty Start Date End Date Jeanette Esparza MD PCP - General Family Practice 08/20/13 06/04/18 System, Provider Not In PCP - General Clinic 06/05/18 06/05/18 Jeanette Esparza MD [address] [address] PCP - Assigned PCP 11/06/15 01/27/19 No Ref-Primary, Physician PCP - General 02/18/21 02/21/21 Gladis Espinosa MD [facility] 1400 [place] [address] PCP - General 02/22/21 Nola Holland, RN Clinic Gymnastics Coach Or Instructor Nurse 09/07/1506/20 Jeffrey Lezama MD [facility] 7300 [facility] 410 [place] [address] Otolaryngology 12/24/17 Daisy Portillo AuD [facility] [address] [address] Yam Curer Audiology 12/24/17 Marcy Judge, RN Tech 12/24/17 12/24/17 Liyah Judge MD [address] [place] [address] 396 [place] [address] Otolaryngology 12/24/17 [place] [address] [place] [address] Assigned PCP 11/06/15 06/04/20 [facility] 1400 [place] [address] 02/21/21 documented as of this encounter
--- OUTSIDE RECORDS SUMMARY | 2024-10-06 12:04 | XMS_ITS | Encounter Summary ---
Author Organization [place] Address [address] [place] [address]. [place] [address] Care Team Providers Care Photo Checker And Assembler Name Role Phone Jeanette Esparza MD Primary Care Provider Jeffrey Lezama MD Unavailable [phone] Daisy Portillo Unavailable [phone] Liyah Judge MD Unavailable [phone] System, Provider Not In Primary Care Provider Un available Jeanette Esparza MD Unavailable [phone] Jeanette Esparza MD Unavailable [phone] No Ref-Primary, Physician Primary Care Provider [facility] [place] Unavailable [phone] Gladis Espinosa MD Primary Care Provider [phone] Encounter Details Date Type Department Care Team (Late st Contact Info) Description 02/05/2018 MyC Medical Advice [facility] Ear Nose and Throat [address] [facility] [address] 4th [place] [address] Liyah Judge MD [address] [place] [address] 396 [place] [address] Social History Tobacco Use Types Packs/Day Years Used Date Smoking Tobacco: Former Cigarettes Q uit: 12/27/2016 Smokeless Tobacco: Former Alcohol Use Standard Drinks/Week Comments Yes 1 (1 standard drink = 0.6 oz pur e alcohol) 1 drink monthly if that Comments No Sex and Gender Information Value Date Recorded Sex Assigned at Not on file 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 Gender Identity Not on file Sexual [...] documented as of this encounter Care Teams Photo Checker And Assembler Relationship Specialty Start Date End Date Jeanette Esparza MD PCP - General Family Practice 08/20/13 06/04/18 System, Provider Not In PCP - General Clinic 06/05/18 06/05/18 Jeanette Esparza MD 2270 [facility] 200 [place] [address] PCP - Assigned PCP 11/06/15 01/27/19 No Ref-Primary, Physician PCP - General 02/18/21 02/21/21 Gladis Espinosa MD [facility] 1400 [place] [address] PCP - General 02/22/21 Jeffrey Lezama MD [facility] 7300 [facility] 410 [place] [address] Otolaryngology 12/24/17 Daisy Portillo AuD [facility] 7300 [facility] 410 [place] [address] Shuttle Buggy Operator Audiology 12/24/17 Liyah Judge MD 420 [facility] 396 [place] [address] Otolaryngology 12/24/17 Jeanette Esparza MD 2270 [facility] 200 [place] [address] Assigned PCP 11/06/15 06/04/20 [facility] [address] [address] 02/21/21 documented as of this encounter
--- OUTSIDE RECORDS SUMMARY | 2024-10-06 12:04 | XMS_ITS | Encounter Summary ---
Author Organization [facility] Address [address] [place] [address] Care Team Providers Care Pc Analyst Name Role Phone Unavailable Primary Care Provider Unavailabl e Reason for Visit * Reason Comments Office Visit: Converted Data Conversion Encounter Details Date Type Department Care Team (Late st Contact Info) Description 06/20/2021 Dental Interim Note [address] [address] Default, [place] Social History Tobacco Use Types Packs/Day Years [...]
--- OUTSIDE RECORDS SUMMARY | 2024-10-06 12:04 | XMS_ITS | Encounter Summary ---
Author Organization [facility] Address [address] [place] [address]. [place] [address] Care Team Providers Care Food Management Aide Name Role Phone Jeffrey Lezama MD Unavailable Daisy Portillo Unavailable [phone] Liyah Judge MD Unavailable Jeanette Esparza MD Unavailable [phone] Jeanette Esparza MD Unavailable [phone] No Ref-Primary, Physician Primary Care Provider Jerri Davisonfield Unavailable Gladis Espinosa MD Primary Care Provider [phone] Encounter Details Date Type Department Care Team (Late st Contact Info) Description 07/15/2018 MyC Medical Advice [facility] Ear Nose and Throat 909 [facility] [address] 4th [place] [address] Liyah Judge MD [address] [place] [address] 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 Gender Identity Not on file Sexual [...] documented as of this encounter Care Teams Food Management Aide Relationship Specialty Start Date End Date Jeanette Esparza MD 2270 [facility] 200 [place] [address] PCP - Assigned PCP 11/06/15 01/27/19 No Ref-Primary, Physician PCP - General 02/18/21 02/21/21 Gladis Espinosa MD [facility] 1400 [place] [address] PCP - General 02/22/21 Jeffrey Lezama MD [facility] [address] [place] [address] Otolaryngology 12/24/17 Daisy Portillo AuD [facility] [address] [place] [address] Steam Locomotive Firer/Fireman Audiology 12/24/17 Liyah Judge MD 420 [facility] 396 [place] [address] Otolaryngology 12/24/17 Jeanette Esparza MD [address] [id number] Assigned PCP 11/06/15 06/04/[address] [address] 02/21/21 documented as of this encounter
--- OUTSIDE RECORDS SUMMARY | 2024-10-06 12:04 | XMS_ITS | Encounter Summary ---
Author Organization [place] Address [address] [place] [address] Care Team Providers Care Director Housekeeping Name Role Phone Jeanette Esparza MD Primary Care Provider Nola Holland RN Unavailable Unavailable Jeffrey Lezama MD Unavailable Daisy Portillo Unavailable [phone] Marcy Judge RN Unavailable Unavailable Liyah Judge MD Unavailable [phone] System, Provider Not In Primary Care Provider Un available Jeanette Esparza MD Unavailable Jeanette Esparza MD Unavailable No Ref-Primary, Physician Primary Care Provider [facility] Unavailable [phone] Gladis Espinosa MD Primary Care Provider [phone] Encounter Details Date Type Department Care Team (Late st Contact Info) Description 02/23/2016 Orders Only [facility] [address] [place] [address] Hamzah Woodall MD [facility] [address] [place] [address] Pre-operative laboratory examination (Primary Dx) Social History Tobacco Use Types Packs/Day Years Used Date Smoking Tobacco: Former Cigarettes Q uit: 02/22/2015 Smokeless Tobacco: Former Alcohol Use Standard Drinks/Week Comments Yes 1 (1 standard drink = 0.6 oz pur e alcohol) 1 drink monthly Comments No Sex and Gender Information Value Date Recorded Sex Assigned at Not on file 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 Methicillin Resist/Sens S. aureus PCR Negative MRSA Negative: SA Negative ??MRSA and Staphylococcus aureus target DNA not detected, presumed negative for MRSA and SA colonization or the number of bacteria present may be below the limit of detection for the assay. FDA approved assay performed using VR1 GeneXpert(R) real-time PCR. [facility] 03/01/2016 12:1 0 PM CDT 03/01/2016 2:02 PM CDT us Hamzah Woodall MD LAB - MICRO GENERAL O RDERABLES Final Result [facility] [address] [place] [address], [facility] [address] [place], [place] [address] [phone] documented in this encounter Visit Diagnoses Diagnosis Pre-operative laboratory examination- Primary Pre-procedural laboratory examination documented in this encounter Care Teams Director Housekeeping Relationship Specialty Start Date End Date Jeanette Esparza MD PCP - General Family Practice 08/20/13 06/04/18 System, Provider Not In PCP - General Clinic 06/05/18 06/05/18 Jeanette Esparza MD [address] [address] PCP - Assigned PCP 11/06/15 01/27/19 No Ref-Primary, Physician PCP - General 02/18/21 02/21/21 Gladis Espinosa MD [address] [address] PCP - General 02/22/21 Nola Holland RN Clinic Rn Intake Nurse 09/07/1506/20 Jeffrey Lezama MD [facility] 7300 [facility] 410 [place], [place] [address] Otolaryngology 12/24/17 Daisy Portillo AuD [facility] 7300 [facility] 410 [place], [place] [address] Glass Maker Audiology 12/24/17 Marcy Judge, RN Tech 12/24/17 12/24/17 Liyah Judge MD [address] [place] [address] 396 [place], [place] [address] Otolaryngology 12/24/17 Jeanette Esparza MD 2270 [facility] 200 [place] [address] Assigned PCP 11/06/15 06/04/20 [facility], [address] [address] 02/21/21 documented as of this encounter
--- OUTSIDE RECORDS SUMMARY | 2024-10-06 12:04 | XMS_ITS | Clinical Summary ---
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 Right: Hip BIOMET 05/24/2025 [id number] / / [id number] [id number] Acetabular Screw, 6.5mm, 25mm Implanted:Qty: 1 on 07/27/2015 by Hamzah Woodall MD at [facility] Right: Hip BIOMET 08/24/2024 [id number] / / [id number] [id number] Acetabular Screw, 6.5mm, 25mm Implanted:Qty: 1 on 07/27/2015 by Hamzah Woodall MD at [facility] Right: Hip BIOMET 01/22/2025 [id number] / / [id number] [id number] Acetabular Liner, Neutral, Arcomxl Highly Crosslinked Uhmwpe, 36mm, E Implanted:Qty: 1 on 07/27/2015 by Hamzah Woodall MD at [facility] Right: Hip 08/24/2019 [id number] / / [id number] Taperloc Complete Primary Femoral Porous Coated Stem Reduced Distal 11 X 142mm Standard Offset Type 1 Taper Implanted:Qty: 1 on 07/27/2015 by Hamzah Woodall MD at [facility] Right: Hip BIOMET 05/24/2025 [id number] / / [id number] Modular Head Component -3mm Neck Implanted:Qty: 1 on 07/27/2015 by Hamzah Woodall MD at [facility] Right: Hip BIOMET 06/10/2025 [id number] / / [id number] [id number] Acetabular Shell Implanted:Qty: 1 on 03/14/2016 by Hamzah Woodall MD at [facility] Left: Hip BIOMET [id number] / / [id number] Taperlock Complete Primary Femoral Porous Coated Stem Reduced Distal 11 X 142mm Standard Offset Ttype 1 Taper Ti-6ai-4v Implanted:Qty: 1 on 03/14/2016 by Hamzah Woodall MD at [facility] Left: Hip BIOMET 11/16/2025 [id number] / / [id number] Modular Head Component -3mm Neck Implanted:Qty: 1 on 03/14/2016 by Hamzah Woodall MD at [facility] Left: Hip BIOMET 01/04/2026 [id number] / / [id number] Acetabular Screw Implanted:Qty: 1 on 03/14/2016 by Hamzah Woodall MD at [facility] Left: Hip BIOMET 12/04/2025 [id number] / / [id number] [id number] Acetabular Screw Implanted:Qty: 1 on 03/14/2016 by Hamzah Woodall MD at [facility] Left: Hip BIOMET 05/14/2026 [id number] / / [id number] [id number] Acetabular Liner Neutral Arcomxl Highly Crosslinked Implanted:Qty: 1 on 03/14/2016 by Hamzah Woodall MD at [facility] Left: Hip BIOMET [id number] / / [id number] Insurance MEDICARE [employer] MEDICARE [employer] PRIME SOLUTION Advance Directives For more information, please contact: [phone] Documents on File Type Date Recorded Patient Amalgamator Expl anation Advance Directives and Living Will [...] Agents on File Name Relationship [facility] Radha Pham Daughter Health Care Agent Logan Styles Son First Alternate Health Care Agent Care Teams Drill Punch Operator Relationship Specialty Start Date End Date Gladis Espinosa MD [address] [address] PCP - General 02/22/21 Jeffrey Lezama MD [facility] 7300 [facility] 410 [place] [address] Otolaryngology 12/24/17 Daisy Portillo AuD [facility] [address] [address] Ladle Liner Audiology 12/24/17 Liyah Judge MD [address] [place] [address] 396 [place] [address] Otolaryngology 12/24/[address] [address] 02/21/21
--- OUTSIDE RECORDS SUMMARY | 2024-10-06 12:04 | XMS_ITS | Encounter Summary ---
Author Organization [place] Address [address] [place] [address] Care Team Providers Care General Office Clerk Name Role Phone Jeanette Esparza MD Primary Care Provider Jeffrey Lezama MD Unavailable [phone] Daisy Portillo Unavailable [phone] Marcy Judge RN Unavailable Unavailable Liyah Judge MD Unavailable [phone] System, Provider Not In Primary Care Provider Un available Jeanette Esparza MD Unavailable [phone] Jeanette Esparza MD Unavailable [phone] No Ref-Primary, Physician Primary Care Provider [facility] Unavailable [phone] Gladis Espinosa MD Primary Care Provider Reason for Visit * Reason Onset Date Comments Refill Request 12/25/2016 sertraline (ZOLO FT) 100 MG tablet Encounter Details Date Type Department Care Team (Late st Contact Info) Description 12/25/2016 MyC Medical Advice [address] [address] Jeanette Esparza MD [address] [address] Refill Request (sertraline (ZOLOFT) 100 [...] on file 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 Esparza Last PHQ-9 score on record= PHQ-9 SCORE 11/08/2016 Total Score 8 ITY HELICOPTER REPAIRER documented in this encounter Plan of Treatment [...] Total Score: 8 11/09/20 16 7:20 AM UTILITY HELICOPTER REPAIRER documented as of this encounter Care Teams General Office Clerk Relationship Specialty Start Date End Date Jeanette Esparza MD PCP - General Family Practice 08/20/13 06/04/18 System, Provider Not In PCP - General Clinic 06/05/18 06/05/18 Jeanette Esparza MD 2270 [facility] 200 [place] [address] PCP - Assigned PCP 11/06/15 01/27/19 No Ref-Primary, Physician PCP - General 02/18/21 02/21/21 Gladis Espinosa MD [address] [address] PCP - General 02/22/21 Jeffrey Lezama MD [facility] 7300 [facility] 410 [place] [address] Otolaryngology 12/24/17 Daisy Portillo AuD [facility] 7300 [facility] 410 [place] [address] Distillery Miller Audiology 12/24/17 Marcy Judge, RN Tech 12/24/17 12/24/17 Liyah Judge MD [address] [place] [address] 396 [place], [place] [address] Otolaryngology 12/24/17 Jeanette Esparza MD 2270 [facility] 200 [place] [address] Assigned PCP 11/06/15 06/04/20 [facility] [place] [address] 02/21/21 documented as of this encounter
--- OUTSIDE RECORDS SUMMARY | 2024-10-06 12:04 | XMS_ITS | Encounter Summary ---
Author Organization [place] Address [address] [place] [address] Care Team Providers Care Palliative Care Specialist Name Role Phone Jeanette Esparza MD Primary Care Provider Jeffrey Lezama MD Unavailable [phone] Daisy Portillo Unavailable [phone] Marcy Judge RN Unavailable Unavailable Liyah Judge MD Unavailable System, Provider Not In Primary Care Provider Un available Jeanette Esparza MD Unavailable [phone] Jeanette Esparza MD Unavailable [phone] No Ref-Primary, Physician Primary Care Provider [facility] Unavailable [phone] Gladis Espinosa MD Primary Care Provider Reason for Visit * Reason Onset Date Comments Appointment 07/02/2016 Encounter Details Date Type Department Care Team (Late st Contact Info) Description 07/02/2016 MyC Medical Advice [place] [id number] [place] [address] Jeanette Esparza MD [address] [address] Appointment Social History Tobacco Use Types Packs/Day Years Used Date Smoking Tobacco: Former Cigarettes Q uit: 02/22/2015 Smokeless Tobacco: Former Alcohol Use Standard Drinks/Week Comments Yes 1 (1 standard drink = 0.6 oz pur e alcohol) 1 drink monthly Comments No Sex and Gender Information Value Date Recorded Sex Assigned at Not on file 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 SHAWN Villarreal, RN [...] documented as of this encounter Care Teams Palliative Care Specialist Relationship Specialty Start Date End Date Jeanette Esparza MD PCP - General Family Practice 08/20/13 06/04/18 System, Provider Not In PCP - General Clinic 06/05/18 06/05/18 Jeanette Esparza MD [address] [address] PCP - Assigned PCP 11/06/15 01/27/19 No Ref-Primary, Physician PCP - General 02/18/21 02/21/21 Gladis Espinosa MD [address] [address] PCP - General 02/22/21 Jeffrey Lezama MD [facility] 7300 [facility] 410 [place] [address] Otolaryngology 12/24/17 Daisy Portillo AuD [facility] [address] [facility] 410 [place] [address] Instrumentation Technologist Audiology 12/24/17 Marcy Judge, RN Tech 12/24/17 12/24/17 Liyah Judge MD 420 [facility] 396 [place] [address] Otolaryngology 12/24/17 Jeanette Esparza MD 2270 [facility] 200 [place] [address] Assigned PCP 11/06/15 06/04/[address] [address] 02/21/21 documented as of this encounter
[2024-10-06 12:05] LABS: Basophils Absolute Auto 0.07 K/uL (0.00-0.30); Eosinophils Absolute Auto 0.12 K/uL (0.00-0.50); Eosinophils Percent Auto 1.7 % (0.0-7.0); Hematocrit 44.6 % (33.0-51.0); Hemoglobin* 14.5 gm/dL (12.0-16.0); Immature Granulocytes Abs Auto 0.01 K/uL (0.00-0.30); Immature Granulocytes Pct Auto 0.1 %; Lymphocytes Percent Auto 19.2 % (20-44); Mean Corpuscular HGB Conc 33 gm/dL (32-36); Mean Corpuscular Hemoglobin 28 pg (26-34); Mean Corpuscular Volume 87 fL (80-100); Monocytes Percent Auto 2.9 % (0.0-11.0); Neutrophils Percent Auto 75.1 % (42.0-72.0); Platelet Count* 242 K/uL (140-440); RDW Coefficient of Variation % 14.1 % (11.5-15.5); Red Blood Count 5.14 m/uL (4.00-5.20); White Blood Count* 7.15 K/uL (4.50-11.00)
--- OUTSIDE RECORDS SUMMARY | 2024-10-06 12:05 | XMS_ITS | Encounter Summary ---
Author Organization [place] Address [address] [place] [address] Care Team Providers Care Electrical Prospecting Observer Name Role Phone Jeanette Esparza MD Primary Care Provider Nola Holland RN Unavailable Unavailable Jeffrey Lezama MD Unavailable Daisy Portillo Unavailable [phone] Marcy Judge RN Unavailable Unavailable Liyah Judge MD Unavailable [phone] System, Provider Not In Primary Care Provider Un available Jeanette Esparza MD Unavailable [phone] Jeanette Esparza MD Unavailable [phone] No Ref-Primary, Physician Primary Care Provider [facility] Unavailable [phone] Gladis Espinosa MD Primary Care Provider [phone] Reason for Visit * Reason Onset Date Comments Refill Request 08/04/2014 *Thien Encounter Details Date Type Department Care Team (Late st Contact Info) Description 08/04/2014 Refill [facility] [address] [place] [address] Jeanette Esparza MD [address] [address] Refill Request (*Ditliazem) Social History Tobacco Use Types Packs/Day Years Used Date Smoking Tobacco: Former Cigarettes Smokeless Tobacco: Never Alcohol Use Standard Drinks/Week Comments Yes 0.8 (1 standard drink = 0.6 oz p ure alcohol) occ Comments No Sex and Gender Information Value Date Recorded Sex Assigned at Not on file 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 Gender Identity Not on file Sexual Orientation [...] location of the patients Preferred pharmacy: [facility] documented in this encounter Plan of Treatment Not on file documented as of this encounter Visit Diagnoses Diagnosis Anginal pain (H) Other and unspecified angina pectoris documented in this encounter Care Teams Electrical Prospecting Observer Relationship Specialty Start Date End Date Jeanette Esparza MD PCP - General Family Practice 08/20/13 06/04/18 System, Provider Not In PCP - General Clinic 06/05/18 06/05/18 Jeanette Esparza MD [address] [address] PCP - Assigned PCP 11/06/15 01/27/19 No Ref-Primary, Physician PCP - General 02/18/21 02/21/21 Gladis Espinosa MD [facility] [address] [place] [address] PCP - General 02/22/21 Nola Holland RN Clinic Drug Department Worker Nurse 09/07/1506/20 Jeffrey Lezama MD [facility] 7300 [facility] [address] [place] [address] Otolaryngology 12/24/17 Daisy Portillo AuD [facility] 7300 [facility] [address] [place] [address] Art Professor Audiology 12/24/17 Marcy Judge, RN Tech 12/24/17 12/24/17 Liyah Judge MD [address] [place] [address] 396 [place], [place] [address] Otolaryngology 12/24/17 Jeanette Esparza MD [address] [address] Assigned PCP 11/06/15 06/04/20 [facility] [address] [place] [address] 02/21/21 documented as of this encounter
--- OUTSIDE RECORDS SUMMARY | 2024-10-06 12:05 | XMS_ITS | Encounter Summary ---
Author Organization [place] Address [address] [place] [address] Care Team Providers Care Wood Treating Inspector Name Role Phone Jeanette Esparza MD Primary Care Provider Nola Holland RN Unavailable Unavailable Jeffrey Lezama MD Unavailable Daisy Portillo Unavailable [phone] Marcy Judge RN Unavailable Unavailable Liyah Judge MD Unavailable System, Provider Not In Primary Care Provider Un available Jeanette Esparza MD Unavailable Jeanette Esparza MD Unavailable [phone] No Ref-Primary, Physician Primary Care Provider [facility] Unavailable [phone] Gladis Espinosa MD Primary Care Provider [phone] Reason for Visit * Reason Onset Date Comments Outreach 06/07/2015 [facility] att 1 Encounter Details Date Type Department Care Team (Late st Contact Info) Description 06/07/2015 Telephone [facility] - CARE MANAGEMENT DEPT [address] [place] [address] Jeanette Esparza MD 2270 [facility] 200 [place] [address] Outreach ([facility] att 1) Social History Tobacco Use Types Packs/Day Years Used Date Smoking Tobacco: Former Cigarettes Smokeless Tobacco: Former Alcohol Use Standard Drinks/Week Comments Yes 0.8 (1 standard drink = 0.6 oz p ure alcohol) occ Comments No Sex and Gender Information Value Date Recorded Sex Assigned at Not on file 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 Gender Identity Not on file Sexual Orientation Not on file documented as of this encounter Miscellaneous Notes * Telephone Encounter - Dawn Oliva - 06/07/2015 12:08 PM CDT 06/07/15 Call Regarding Preventive Health Screening Mammogram Attempt 1 Message Comments: patient have hip surgery schedule in Jul, will call back to schedule mammo Outreach Anesthesiology Crna cnt documented in this encounter Plan of Treatment Not on file documented as of this encounter Visit Diagnoses Not on filedocumented in this encounter Care Teams Wood Treating Inspector Relationship Specialty Start Date End Date Jeanette Esparza MD PCP - General Family Practice 08/20/13 06/04/18 System, Provider Not In PCP - General Clinic 06/05/18 06/05/18 Jeanette Esparza MD [address] [address] PCP - Assigned PCP 11/06/15 01/27/19 No Ref-Primary, Physician PCP - General 02/18/21 02/21/21 Gladis Espinosa MD [address] [address] PCP - General 02/22/21 Nola Holland RN Clinic Tire Beader Maker Nurse 09/07/1506/20 Jeffrey Lezama MD [facility] 7300 [facility] 410 [place] [address] Otolaryngology 12/24/17 Daisy Portillo AuD [facility] 7300 [facility] 410 [place] [address] Medical Assisting Instructor Audiology 12/24/17 Marcy Judge, RN Tech 12/24/17 12/24/17 Liyah Judge MD 420 [facility] 396 [place] [address] Otolaryngology 12/24/17 Jeanette Esparza MD 2270 [facility] 200 [place] [address] Assigned PCP 11/06/15 06/04/20 [facility] [place] [id number] 02/21/21 documented as of this encounter
--- OUTSIDE RECORDS SUMMARY | 2024-10-06 12:05 | XMS_ITS | Encounter Summary ---
Author Organization [place] Address [address] [place] [address] Care Team Providers Care Funeral Home Assistant Name Role Phone Jeanette Esparza MD Primary Care Provider Nola Holland RN Unavailable Unavailable Jeffrey Lezama MD Unavailable Daisy Portillo Unavailable [phone] Marcy Judge RN Unavailable Unavailable Liyah Judge MD Unavailable System, Provider Not In Primary Care Provider Un available Jeanette Esparza MD Unavailable Jeanette Esparza MD Unavailable [phone] No Ref-Primary, Physician Primary Care Provider [facility] Unavailable Gladis Espinosa MD Primary Care Provider Encounter Details Date Type Department Care Team (Late st Contact Info) Description 07/06/2015 Orders Only [facility] [address] [place] [address] Hamzah Woodall MD [facility] [address] [place] [address] Preoperative examination, unspecified (Primary Dx) Social History Tobacco Use Types Packs/Day Years Used Date Smoking Tobacco: Former Cigarettes Smokeless Tobacco: Former Comments:e-cigarette Alcohol Use Standard Drinks/Week Comments Yes 0.8 (1 standard drink = 0.6 oz p ure alcohol) occ Comments No Sex and Gender Information Value Date Recorded Sex Assigned at Not on file 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 aureus PCR Negative MRSA [...] nasal colonization. FDA approved assay performed using [employer] GeneXpert(R) real-time PCR. NEG [facility] 07/07/2015 12:0 1 PM CDT 07/07/2015 1:27 PM CDT Hamzah Woodall MD LAB - MICRO GENERAL O RDERABLES Final Result Performing Organization Address City/State/[facility] Co de Phone Number [facility] [address] [place] [address], [facility] [address] [place], [place] [address] [place] [address] documented in this encounter Visit Diagnoses Diagnosis Preoperative examination, unspecified- Primary documented in this encounter Care Teams Funeral Home Assistant Relationship Specialty Start Date End Date Jeanette Esparza MD PCP - General Family Practice 08/20/13 06/04/18 System, Provider Not In PCP - General Clinic 06/05/18 06/05/18 Jeanette Esparza MD [address] [address] PCP - Assigned PCP 11/06/15 01/27/19 No Ref-Primary, Physician PCP - General 02/18/21 02/21/21 Gladis Espinosa MD [address] [address] PCP - General 02/22/21 Nola Holland, JER[place] Clinic Security Intern Nurse 09/07/1506/20 Jeffrey Lezama MD [facility] 7300 [facility] 410 [place] [address] Otolaryngology 12/24/17 Daisy Portillo AuD [facility] [address] [place] [address] Fire Technology Instructor Audiology 12/24/17 Marcy Judge RN Tech 12/24/17 12/24/17 Liyah Judge MD [address] [place] [address] Otolaryngology 12/24/17 Jeanette Esparza MD [address] [address] Assigned PCP 11/06/15 06/04/20 [facility] [address] [place] [address] 02/21/21 documented as of this encounter
--- OUTSIDE RECORDS SUMMARY | 2024-10-06 12:05 | XMS_ITS | Encounter Summary ---
Author Organization [place] Address [address] [place] [address] Care Team Providers Care Consumer Insights Specialist Name Role Phone Jeanette Esparza MD Primary Care Provider Nola Holland RN Unavailable Unavailable Jeffrey Lezama MD Unavailable Daisy Portillo Unavailable [phone] Marcy Judge RN Unavailable Unavailable Liyah Judge MD Unavailable [phone] System, Provider Not In Primary Care Provider Un available Jeanette Esparza MD Unavailable Jeanette Esparza MD Unavailable No Ref-Primary, Physician Primary Care Provider [facility] Unavailable [phone] Gladis Espinosa MD Primary Care Provider [phone] Reason for Visit * Reason Onset Date Comments Refill Request 10/25/2014 isosorbide,lisin opril Encounter Details Date Type Department Care Team (Late st Contact Info) Description 10/25/[address] [address] Jeanette Esparza MD [address] [address] Refill Request (isosorbide,lisinopril) Social History Tobacco Use Types Packs/Day Years Used Date Smoking Tobacco: Former Cigarettes Smokeless Tobacco: Former Alcohol Use Standard Drinks/Week Comments Yes 0.8 (1 standard drink = 0.6 oz p ure alcohol) occ Comments No Sex and Gender Information Value Date Recorded Sex Assigned at Not on file 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[employer] Gender Identity Not on file Sexual Orientation Not on file documented as of this encounter Miscellaneous Notes * Telephone Encounter - Sera Cuevas - 10/26/2014 12:57 PM CST --I am unable to authorize a refill on isosorbide (not ordered by MD/PA in over one year.) --I am not [...] Encounters: 10/04/14 120/70 08/17/14 146/80 08/14/14 108/70 [employer] documented in this encounter Plan of Treatment Not on file documented as of this encounter Visit Diagnoses Diagnosis Anginal pain (H) Other and unspecified angina pectoris HTN, goal below 140/90 Unspecified essential hypertension documented in this encounter Care Teams Consumer Insights Specialist Relationship Specialty Start Date End Date Jeanette Esparza MD PCP - General Family Practice 08/20/13 06/04/18 System, Provider Not In PCP - General Clinic 06/05/18 06/05/18 Jeanette Esparza MD [address] [place] [address] PCP - Assigned PCP 11/06/15 01/27/19 No Ref-Primary, Physician PCP - General 02/18/21 02/21/21 Gladis Espinosa MD [facility] [address] [place] [address] PCP - General 02/22/21 Nola Holland, [facility] Clinic Pattern Marking Supervisor Nurse 09/07/1506/20 Jeffrey Lezama MD [facility] [address] [facility] [address] [place] [address] Otolaryngology 12/24/17 Daisy Portillo AuD [facility] [address] [facility] [address] [place] [address] Mink Farmer Audiology 12/24/17 Marcy Judge, RN Tech 12/24/17 12/24/17 Liyah Judge MD [address] [facility] [address] [place], [place] [id number] Otolaryngology 12/24/17 Jeanette Esparza MD 2270 [facility] [address] [place] [address] Assigned PCP 11/06/15 06/04/20 [facility] [address] [place] [address] 02/21/21 documented as of this encounter
--- OUTSIDE RECORDS SUMMARY | 2024-10-06 12:05 | XMS_ITS | Encounter Summary ---
Author Organization [place] Address [address] [place] [address] Care Team Providers Care Affiliate Marketing Specialist Name Role Phone Jeanette Esparza MD Primary Care Provider Nola Holland RN Unavailable Unavailable Jeffrey Lezama MD Unavailable Daisy Portillo Unavailable [phone] Marcy Judge RN Unavailable Unavailable Liyah Judge MD Unavailable System, Provider Not In Primary Care Provider Un available Jeanette Esparza MD Unavailable Jeanette Esparza MD Unavailable [phone] No Ref-Primary, Physician Primary Care Provider [facility] Unavailable Gladis Espinosa MD Primary Care Provider Encounter Details Date Type Department Care Team (Late st Contact Info) Description 11/29/2015 [facility] Medical Advice [address] [address] Jeanette Esparza MD [address] [address] Social History Tobacco Use Types Packs/Day Years Used Date Smoking Tobacco: Former Cigarettes Smokeless Tobacco: Former Comments:e-cigarette Alcohol Use Standard Drinks/Week Comments Yes 1 (1 standard drink = 0.6 oz pur e alcohol) occ Comments No Sex and Gender Information Value Date Recorded Sex Assigned at Not on file 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 Gender Identity Not on file Sexual Orientation [...] on filedocumented in this encounter Care Teams Affiliate Marketing Specialist Relationship Specialty Start Date End Date Jeanette Esparza MD PCP - General Family Practice 08/20/13 06/04/18 System, Provider Not In PCP - General Clinic 06/05/18 06/05/18 Jeanette Esparza MD [address] [facility] [address] [place] [address] PCP - Assigned PCP 11/06/15 01/27/19 No Ref-Primary, Physician PCP - General 02/18/21 02/21/21 Gladis Espinosa MD [facility] [address] [place] [address] PCP - General 02/22/21 Nola Holland, RN Clinic Trash Collector Supervisor Nurse 09/07/1506/20 Jeffrey Lezama MD [facility] 7300 [facility] [address] [place] [address] Otolaryngology 12/24/17 Daisy Portillo AuD [facility] [address] [facility] [address] [place] [address] Ceramic Painter Audiology 12/24/17 Marcy Judge RN Tech 12/24/17 12/24/17 Liyah Judge MD 420 [facility] 396 [place], [place] [address] Otolaryngology 12/24/17 Jeanette Esparza MD [address] [facility] [address] [place], [place] [id number] Assigned PCP 11/06/15 06/04/20 [facility] [address] [address] 02/21/21 documented as of this encounter
[2024-10-06] MEDS: diphenhydrAMINE 50 MG/ML inj IVP (12:16)
[2024-10-06] MEDS: HYDROCORTISONE SOD SUCCINATE 50 MG/ML inj 100 MG IVP (12:17)
[2024-10-06 12:26] LABS: Slide Review Reflex No
[2024-10-06 12:27] LABS: Chloride* 105 mmol/L (96-114); Potassium* 3.7 mmol/L (3.6-5.1); Sodium* 131 mmol/L (135-149)
[2024-10-06 12:28] LABS: INR 1.01 (0.91-1.10); Prothrombin Time 13.9 Seconds
[2024-10-06 12:30] LABS: Anion Gap 6 mEq/L (7-15); Blood Urea Nitrogen* 9 mg/dL (7-30); Calcium* 8.9 mg/dL (8.4-10.6); Carbon Dioxide* 20 mmol/L (20-32); Creatinine* 0.7 mg/dL (0.5-1.5); Estimated Glomerular Filt Rate 90 ml/min; Glucose* 134 mg/dL (60-115)
[2024-10-06 12:33] LABS: Lactate* 0.9 mmol/L (0.5-1.9)
[2024-10-06 15:17] LABS: Basophils Absolute Auto 0.06 K/uL (0.00-0.30); Basophils Percent Auto 0.7 % (0.0-3.0); Eosinophils Absolute Auto 0.03 K/uL (0.00-0.50); Eosinophils Percent Auto 0.4 % (0.0-7.0); Hematocrit 40.2 % (33.0-51.0); Lymphocytes Percent Auto 8.4 % (20-44); Mean Corpuscular HGB Conc 32 gm/dL (32-36); Mean Corpuscular Hemoglobin 28 pg (26-34); Mean Corpuscular Volume 87 fL (80-100); Monocytes Percent Auto 1.7 % (0.0-11.0); Neutrophils Percent Auto 88.8 % (42.0-72.0); Platelet Count* 230 K/uL (140-440); RDW Coefficient of Variation % 13.9 % (11.5-15.5); Red Blood Count 4.63 m/uL (4.00-5.20); White Blood Count* 8.31 K/uL (4.50-11.00)
[2024-10-06 15:23] LABS: Slide Review Reflex No
--- NOTE | 2024-10-06 18:53 | PC.NURSE ---
End of shift: [id number] Pt AxOx4, calm, and cooperative. Pt denies pain/nausea/CP/SOB. Pt having frequent bloody stools. Pt indep in room. Pt continent of the bladder/bowels. Bowel sounds active. LSCTA. Pt tolerating clear liquid diet well. Pt stated dizziness during Orthostatic BPs during sitting to standing with a systolic drop from 90s systolically to 60s systolically. Pt appears resting with call light in reach.
[2024-10-06 19:56] LABS: Basophils Absolute Auto 0.04 K/uL (0.00-0.30); Basophils Percent Auto 0.4 % (0.0-3.0); Hematocrit 35.5 % (33.0-51.0); Hemoglobin* 11.5 gm/dL (12.0-16.0); Immature Granulocytes Abs Auto 0.02 K/uL (0.00-0.30); Immature Granulocytes Pct Auto 0.2 %; Lymphocytes Percent Auto 5.6 % (20-44); Mean Corpuscular HGB Conc 32 gm/dL (32-36); Mean Corpuscular Hemoglobin 28 pg (26-34); Mean Corpuscular Volume 87 fL (80-100); Monocytes Percent Auto 3.7 % (0.0-11.0); Neutrophils Percent Auto 90.1 % (42.0-72.0); Platelet Count* 208 K/uL (140-440); Red Blood Count 4.06 m/uL (4.00-5.20); White Blood Count* 10.17 K/uL (4.50-11.00)
[2024-10-06 20:04] LABS: Slide Review Reflex No
--- NOTE | 2024-10-06 20:34 | PM.IMHP1 ---
Hospitalist- H&P: HPI History of Present Illness Date Seen: 10/06/24 Chief complaint: bleeding from rectum Narrative: Nena Styles is a 74 year old female admitted to the hospital with onset of rectal bleeding today. She had previous history of rectal bleeding in 2020. Required 7 units of packed red cell transfusion. Site of bleeding was never definitely confirmed but suspected to be diverticular. She subsequently has had colonoscopy and CT scanning showing severe diverticular disease. She reports that she occasionally has bright red blood per rectum at home. If it is a minimal amount she does not worry about it and does not seek medical attention. She thinks this could happen about once a month. Today she had onset of red blood per rectum starting this morning. She initially had a formed brown stool followed by rectal urgency and a lot of dark red liquid stool. Because of that she came to the hospital. She has subsequently had recurrent episodes of bleeding at home and in the hospital. She reports feeling a little lightheaded and a little bit of abdominal cramping but otherwise feels fine. No fever. She is not on antiplatelet or anticoagulation medications. No coagulopathy or liver disease. Review of Systems Narrative: Review of systems other marked bowl except as noted above. [facility] Medical History (Updated 10/06/24 @ 20:46 by Sarabjit Macedo MD) Diverticular hemorrhage ?K57.31 - Diverticulosis of large intestine without perforation or abscess with bleeding (ICD-10) Hypoxia ?R09.02 - Hypoxemia (ICD-10) Brain abscess ?G06.0 - Intracranial abscess and granuloma (ICD-10) Cholesteatoma ?H71.90 - Unspecified cholesteatoma, unspecified ear (ICD-10) Mastoiditis of right side ?H70.91 - Unspecified mastoiditis, right ear (ICD-10) Internal hemorrhoids ?K64.8 - Other hemorrhoids (ICD-10) Inguinal hernia ?K40.90 - Unilateral inguinal hernia, without obstruction or gangrene, not specified as recurrent (ICD-10) Adrenal adenoma ?D35.00 - Benign neoplasm of unspecified adrenal gland (ICD-10) Prolonged QT interval ?R94.31 - Abnormal electrocardiogram [ECG] [EKG] (ICD-10) Diverticulosis ?K57.90 - Diverticulosis of intestine, part unspecified, without perforation or abscess without bleeding (ICD-10) Smoking ?F17.200 - Nicotine dependence, unspecified, uncomplicated (ICD-10) COPD (chronic obstructive pulmonary disease) ?J44.9 - Chronic obstructive pulmonary disease, unspecified (ICD-10) History of paroxysmal supraventricular tachycardia ?Z86.79 - Personal history of other diseases of the circulatory system (ICD-10) Gastroesophageal reflux ?K21.9 - Gastro-esophageal reflux disease without esophagitis (ICD-10) Depression ?F32.A - Depression, unspecified (ICD-10) Hypertension ?I10 - Essential (primary) hypertension (ICD-10) Hyperlipidemia ?E78.5 - Hyperlipidemia, unspecified (ICD-10) Surgical History History of inguinal hernia repair ?Z98.890 - Other specified postprocedural states (ICD-10) ?Z87.19 - Personal history of other diseases of the digestive system (ICD-10) History of tonsillectomy and adenoidectomy ?Z90.89 - Acquired absence of other organs (ICD-10) History of right knee joint replacement ?Z96.651 - Presence of right artificial knee joint (ICD-10) History of hysterectomy ?Z90.710 - Acquired absence of both cervix and uterus (ICD-10) History of colonoscopy ?Z98.890 - Other specified postprocedural states (ICD-10) History of bilateral hip arthroplasty ?Z96.643 - Presence of artificial hip joint, bilateral (ICD-10) History of right mastoidectomy ?Z90.89 - Acquired absence of other organs (ICD-10) History of appendectomy ?Z90.49 - Acquired absence of other specified parts of digestive tract (ICD-10) History of tubal ligation ?Z98.51 - Tubal ligation status (ICD-10) Status post craniotomy ?Z98.890 - Other specified postprocedural states (ICD-10) Family History Sister Breast cancer Pancreatic cancer Lung cancer Father Lung cancer Social History (Updated 10/06/24 @ 20:42 by Sarabjit Macedo MD) Narrative: She lives alone at the [facility]. She does egg needs her daughter Radha antoine power of director of research. Code status is full for witnessed arrest. She is a current smoker. She drinks alcohol 2 or 3 times per year. What is your current living situation?: I presently have a place to live Problems where you live: no known problems Problems where you live details: NONE In the past 12 months, utilities in danger of being shut off: no In the past 12 mos, have been you worried that your food would run out before you had money to buy more?: never true In the past 12 mos, the food you bought just didn't last and you didn't have money to buy more?: never true Highest level of school completed/degree received: Bachelor's degree Smoking Status: Current every day smoker What tobacco products do you use: cigarettes Smoking packs per day: 0.5 Smoking cigarettes per day: 10.0 Years smoked: 60 Smoking pack-years: 30.00 Do you use any of these nicotine containing products: None Second hand tobacco smoke exposure: Yes How often do you have a drink containing alcohol: monthly or less Alcohol type: wine How many standard drinks containing alcohol do you have on a typical day: 1 or 2 How often do you have six or more drinks on one occasion: Never AUDIT-C Alcohol total score: 1 Non-prescribed substance use: denies use Caffeine: Yes How often does anyone, including family, friends and others, physically hurt you: never How often does anyone, including family, friends and others, insult or talk down to you: never How often does anyone, including family, friends and others, threaten you with harm: never How often does anyone, including family, friends and others, scream or curse at you: never service: No Meds Home Medications and Allergies Home Medications ?Medication ?Instructions ?Recorded ?Confirmed ?Type albuterol sulfate 90 mcg/actuation 2 puff inhalation Q4H PRN 08/30/22 10/06/24 History aerosol inhaler diltiazem HCl 360 mg 360 mg PO DAILY 08/30/22 10/06/24 History capsule,extended release 24 hr nitroglycerin 0.4 mg sublingual 0.4 mg sublingual Q5M PRN 08/30/22 10/06/24 History tablet sertraline 100 mg tablet 150 mg PO DAILY 08/30/22 10/06/24 History cholecalciferol (vitamin D3) 50 50 mcg PO DAILY 12/19/22 10/06/24 History mcg (2,000 unit) capsule lisinopril 30 mg tablet 30 mg PO DAILY 07/14/24 10/06/24 History metoprolol succinate 25 mg 25 mg PO DAILY 07/14/24 10/06/24 History tablet,extended release 24 hr tiotropium 2.5 mcg-olodaterol 2.5 2 puff inhalation DAILY 07/14/24 10/06/24 History mcg/actuation mist for inhalation (Stiolto Respimat) atorvastatin 80 mg tablet 80 mg PO HS 10/06/24 10/06/24 History Allergies Allergy/AdvReac Type Severity Reaction Status Date / Time codeine Allergy Mild Hives Verified 10/06/24 10:31 Iodinated Contrast Media Allergy Mild Fever Verified 10/06/24 10:31 Penicillins Allergy Mild Hives Verified 10/06/24 10:31 Exam Narrative: Exam Narrative: She is alert and appears in no distress. She gives her own history. Oropharynx is normal. Neck is supple without mass or adenopathy. Respirations are clear to auscultation. Cardiovascular: S1, S2, regular rate and rhythm. Abdomen is soft without tenderness or mass. Extremities without edema. Intact peripheral pulses. Const: Vital Signs, click to edit/add: Vital Signs - 24 hr 10/06/24 10:29 10/06/24 10:30 10/06/24 10:32 Temperature 98.4 F Pulse Rate 86 78 Pulse Rate [Pulse Oximeter] 75 Pulse Rate [orthos tatic lying Pulse Oximeter] Pulse Rate [orthos tatic sitting Puls e Oximeter] Pulse Rate [orthos tatic standing Pul se Oximeter] Respiratory Rate 16 Blood Pressure 154/87 H Blood Pressure [Ri ght Arm] Blood Pressure [Ri ght Upper Arm] 154/87 H Blood Pressure [or thostatic lying Ri ght Arm] Blood Pressure [or thostatic sitting Right Arm] Blood Pressure [or thostatic standing Right Arm] Pulse Oximetry 95 94 94 Oxygen Delivery Me thod Room Air 10/06/24 10:32 10/06/24 10:33 10/06/24 10:45 Temperature Pulse Rate 78 76 78 Pulse Rate [Pulse Oximeter] Pulse Rate [orthos tatic lying Pulse Oximeter] Pulse Rate [orthos tatic sitting Puls e Oximeter] Pulse Rate [orthos tatic standing Pul se Oximeter] Respiratory Rate Blood Pressure 121/85 Blood Pressure [Ri ght Arm] Blood Pressure [Ri ght Upper Arm] Blood Pressure [or thostatic lying Ri ght Arm] Blood Pressure [or thostatic sitting Right Arm] Blood Pressure [or thostatic standing Right Arm] Pulse Oximetry 95 96 93 Oxygen Delivery Me thod 10/06/24 10:46 10/06/24 11:00 10/06/24 11:01 Temperature Pulse Rate 76 71 73 Pulse Rate [Pulse Oximeter] Pulse Rate [orthos tatic lying Pulse Oximeter] Pulse Rate [orthos tatic sitting Puls e Oximeter] Pulse Rate [orthos tatic standing Pul se Oximeter] Respiratory Rate Blood Pressure 125/82 109/75 Blood Pressure [Ri ght Arm] Blood Pressure [Ri ght Upper Arm] Blood Pressure [or thostatic lying Ri ght Arm] Blood Pressure [or thostatic sitting Right Arm] Blood Pressure [or thostatic standing Right Arm] Pulse Oximetry 94 92 90 Oxygen Delivery Me thod 10/06/24 11:02 10/06/24 11:15 10/06/24 11:17 Temperature Pulse Rate 71 65 67 Pulse Rate [Pulse Oximeter] Pulse Rate [orthos tatic lying Pulse Oximeter] Pulse Rate [orthos tatic sitting Puls e Oximeter] Pulse Rate [orthos tatic standing Pul se Oximeter] Respiratory Rate 17 Blood Pressure 108/76 Blood Pressure [Ri ght Arm] Blood Pressure [Ri ght Upper Arm] Blood Pressure [or thostatic lying Ri ght Arm] Blood Pressure [or thostatic sitting Right Arm] Blood Pressure [or thostatic standing Right Arm] Pulse Oximetry 91 90 Oxygen Delivery Me thod Room Air 10/06/24 11:30 10/06/24 11:32 10/06/24 11:45 Temperature Pulse Rate 64 64 65 Pulse Rate [Pulse Oximeter] Pulse Rate [orthos tatic lying Pulse Oximeter] Pulse Rate [orthos tatic sitting Puls e Oximeter] Pulse Rate [orthos tatic standing Pul se Oximeter] Respiratory Rate Blood Pressure 91/66 Blood Pressure [Ri ght Arm] Blood Pressure [Ri ght Upper Arm] Blood Pressure [or thostatic lying Ri ght Arm] Blood Pressure [or thostatic sitting Right Arm] Blood Pressure [or thostatic standing Right Arm] Pulse Oximetry 91 91 91 Oxygen Delivery Me thod 10/06/24 11:47 10/06/24 11:47 10/06/24 12:00 Temperature Pulse Rate 68 68 63 Pulse Rate [Pulse Oximeter] Pulse Rate [orthos tatic lying Pulse Oximeter] Pulse Rate [orthos tatic sitting Puls e Oximeter] Pulse Rate [orthos tatic standing Pul se Oximeter] Respiratory Rate Blood Pressure 126/69 126/69 Blood Pressure [Ri ght Arm] Blood Pressure [Ri ght Upper Arm] Blood Pressure [or thostatic lying Ri ght Arm] Blood Pressure [or thostatic sitting Right Arm] Blood Pressure [or thostatic standing Right Arm] Pulse Oximetry 92 92 92 Oxygen Delivery Me thod 10/06/24 12:02 10/06/24 12:15 10/06/24 12:17 Temperature Pulse Rate 65 61 61 Pulse Rate [Pulse Oximeter] Pulse Rate [orthos tatic lying Pulse Oximeter] Pulse Rate [orthos tatic sitting Puls e Oximeter] Pulse Rate [orthos tatic standing Pul se Oximeter] Respiratory Rate Blood Pressure 101/89 116/70 Blood Pressure [Ri ght Arm] Blood Pressure [Ri ght Upper Arm] Blood Pressure [or thostatic lying Ri ght Arm] Blood Pressure [or thostatic sitting Right Arm] Blood Pressure [or thostatic standing Right Arm] Pulse Oximetry 92 91 92 Oxygen Delivery Me thod 10/06/24 12:30 10/06/24 12:45 10/06/24 12:47 Temperature Pulse Rate 68 59 L 61 Pulse Rate [Pulse Oximeter] Pulse Rate [orthos tatic lying Pulse Oximeter] Pulse Rate [orthos tatic sitting Puls e Oximeter] Pulse Rate [orthos tatic standing Pul se Oximeter] Respiratory Rate Blood Pressure 121/84 Blood Pressure [Ri ght Arm] Blood Pressure [Ri ght Upper Arm] Blood Pressure [or thostatic lying Ri ght Arm] Blood Pressure [or thostatic sitting Right Arm] Blood Pressure [or thostatic standing Right Arm] Pulse Oximetry 93 92 93 Oxygen Delivery Me thod 10/06/24 13:00 10/06/24 13:01 10/06/24 13:01 Temperature Pulse Rate 64 63 63 Pulse Rate [Pulse Oximeter] Pulse Rate [orthos tatic lying Pulse Oximeter] Pulse Rate [orthos tatic sitting Puls e Oximeter] Pulse Rate [orthos tatic standing Pul se Oximeter] Respiratory Rate Blood Pressure 133/77 133/77 Blood Pressure [Ri ght Arm] Blood Pressure [Ri ght Upper Arm] Blood Pressure [or thostatic lying Ri ght Arm] Blood Pressure [or thostatic sitting Right Arm] Blood Pressure [or thostatic standing Right Arm] Pulse Oximetry 92 92 92 Oxygen Delivery Me thod 10/06/24 13:21 10/06/24 13:30 10/06/24 13:32 Temperature Pulse Rate 63 59 L 59 L Pulse Rate [Pulse Oximeter] Pulse Rate [orthos tatic lying Pulse Oximeter] Pulse Rate [orthos tatic sitting Puls e Oximeter] Pulse Rate [orthos tatic standing Pul se Oximeter] Respiratory Rate Blood Pressure 115/66 Blood Pressure [Ri ght Arm] Blood Pressure [Ri ght Upper Arm] Blood Pressure [or thostatic lying Ri ght Arm] Blood Pressure [or thostatic sitting Right Arm] Blood Pressure [or thostatic standing Right Arm] Pulse Oximetry 91 93 93 Oxygen Delivery Me thod 10/06/24 13:33 10/06/24 13:45 10/06/24 13:46 Temperature Pulse Rate 60 56 L 56 L Pulse Rate [Pulse Oximeter] Pulse Rate [orthos tatic lying Pulse Oximeter] Pulse Rate [orthos tatic sitting Puls e Oximeter] Pulse Rate [orthos tatic standing Pul se Oximeter] Respiratory Rate Blood Pressure 113/69 Blood Pressure [Ri ght Arm] Blood Pressure [Ri ght Upper Arm] Blood Pressure [or thostatic lying Ri ght Arm] Blood Pressure [or thostatic sitting Right Arm] Blood Pressure [or thostatic standing Right Arm] Pulse Oximetry 93 92 91 Oxygen Delivery Me thod 10/06/24 14:00 10/06/24 14:01 10/06/24 14:15 Temperature Pulse Rate 58 L 57 L 54 L Pulse Rate [Pulse Oximeter] Pulse Rate [orthos tatic lying Pulse Oximeter] Pulse Rate [orthos tatic sitting Puls e Oximeter] Pulse Rate [orthos tatic standing Pul se Oximeter] Respiratory Rate Blood Pressure 119/72 Blood Pressure [Ri ght Arm] Blood Pressure [Ri ght Upper Arm] Blood Pressure [or thostatic lying Ri ght Arm] Blood Pressure [or thostatic sitting Right Arm] Blood Pressure [or thostatic standing Right Arm] Pulse Oximetry 91 92 92 Oxygen Delivery Me thod 10/06/24 14:17 10/06/24 14:32 10/06/24 14:32 Temperature Pulse Rate 56 L Pulse Rate [Pulse Oximeter] Pulse Rate [orthos tatic lying Pulse Oximeter] Pulse Rate [orthos tatic sitting Puls e Oximeter] Pulse Rate [orthos tatic standing Pul se Oximeter] Respiratory Rate Blood Pressure 126/76 115/80 115/80 Blood Pressure [Ri ght Arm] Blood Pressure [Ri ght Upper Arm] Blood Pressure [or thostatic lying Ri ght Arm] Blood Pressure [or thostatic sitting Right Arm] Blood Pressure [or thostatic standing Right Arm] Pulse Oximetry 93 Oxygen Delivery Me thod 10/06/24 14:38 10/06/24 14:45 10/06/24 14:47 Temperature Pulse Rate 65 58 L 60 Pulse Rate [Pulse Oximeter] Pulse Rate [orthos tatic lying Pulse Oximeter] Pulse Rate [orthos tatic sitting Puls e Oximeter] Pulse Rate [orthos tatic standing Pul se Oximeter] Respiratory Rate Blood Pressure 90/75 Blood Pressure [Ri ght Arm] Blood Pressure [Ri ght Upper Arm] Blood Pressure [or thostatic lying Ri ght Arm] Blood Pressure [or thostatic sitting Right Arm] Blood Pressure [or thostatic standing Right Arm] Pulse Oximetry 93 93 92 Oxygen Delivery Me thod 10/06/24 15:00 10/06/24 15:01 10/06/24 15:15 Temperature Pulse Rate 59 L 59 L 63 Pulse Rate [Pulse Oximeter] Pulse Rate [orthos tatic lying Pulse Oximeter] Pulse Rate [orthos tatic sitting Puls e Oximeter] Pulse Rate [orthos tatic standing Pul se Oximeter] Respiratory Rate 16 Blood Pressure 107/79 Blood Pressure [Ri ght Arm] Blood Pressure [Ri ght Upper Arm] Blood Pressure [or thostatic lying Ri ght Arm] Blood Pressure [or thostatic sitting Right Arm] Blood Pressure [or thostatic standing Right Arm] Pulse Oximetry 93 93 93 Oxygen Delivery Me thod 10/06/24 15:17 10/06/24 15:30 10/06/24 15:31 Temperature Pulse Rate 63 63 64 Pulse Rate [Pulse Oximeter] Pulse Rate [orthos tatic lying Pulse Oximeter] Pulse Rate [orthos tatic sitting Puls e Oximeter] Pulse Rate [orthos tatic standing Pul se Oximeter] Respiratory Rate Blood Pressure 103/76 95/73 Blood Pressure [Ri ght Arm] Blood Pressure [Ri ght Upper Arm] Blood Pressure [or thostatic lying Ri ght Arm] Blood Pressure [or thostatic sitting Right Arm] Blood Pressure [or thostatic standing Right Arm] Pulse Oximetry 93 93 93 Oxygen Delivery Me thod 10/06/24 15:45 10/06/24 15:46 10/06/24 16:30 Temperature 97.3 F L Pulse Rate 61 61 Pulse Rate [Pulse Oximeter] 68 Pulse Rate [orthos tatic lying Pulse Oximeter] Pulse Rate [orthos tatic sitting Puls e Oximeter] Pulse Rate [orthos tatic standing Pul se Oximeter] Respiratory Rate 18 Blood Pressure 100/69 Blood Pressure [Ri ght Arm] 103/68 Blood Pressure [Ri ght Upper Arm] Blood Pressure [or thostatic lying Ri ght Arm] Blood Pressure [or thostatic sitting Right Arm] Blood Pressure [or thostatic standing Right Arm] Pulse Oximetry 92 93 96 Oxygen Delivery Me thod Room Air 10/06/24 16:30 10/06/24 16:38 10/06/24 19:35 Temperature 96.7 F L Pulse Rate Pulse Rate [Pulse Oximeter] 64 Pulse Rate [orthos tatic lying Pulse Oximeter] 67 Pulse Rate [orthos tatic sitting Puls e Oximeter] 75 Pulse Rate [orthos tatic standing Pul se Oximeter] 75 Respiratory Rate 18 Blood Pressure Blood Pressure [Ri ght Arm] 96/54 L Blood Pressure [Ri ght Upper Arm] Blood Pressure [or thostatic lying Ri ght Arm] 94/62 Blood Pressure [or thostatic sitting Right Arm] 92/63 Blood Pressure [or thostatic standing Right Arm] 63/49 L Pulse Oximetry 93 Oxygen Delivery Me thod Room Air Room Air Documenting provider has reviewed patient's vital signs: yes Hospitalist - H&P: Result Labs Labs: Short CBC 10/06/24 10/06/24 10/06/24 Range/Units 10:40 14:52 19:52 WBC 7.15 8.31 10.17 (4.50-11.00) K/uL Hgb 14.5 13.0 11.5 L (12.0-16.0) gm/dL Hct 44.6 40.2 35.5 (33.0-51.0) % Plt Count 242 230 208 (140-440) K/uL [facility] 10/06/24 10:40 Sodium 131 L Potassium 3.7 Chloride 105 Carbon Dioxide 20 BUN 9 Creatinine 0.7 Glucose 134 H Calcium 8.[address] scan - abdomen: Radiologist's impression: INDICATION: Rectal bleeding. TECHNIQUE: CT abdomen and pelvis acquired without and with 95 cc of Isovue 370 IV contrast per GI bleed protocol, to include arterial and venous phase imaging. Sagittal, coronal and maximum intensity projection reformatted images submitted for review. COMPARISON: CT abdomen and pelvis 02/16/2021. FINDINGS: Lower chest: Emphysema at the visualized lung bases. No pleural or pericardial effusions. Coronary artery calcifications. Liver: Stable cysts. Spleen: Unremarkable. Pancreas: Unremarkable. Gallbladder and bile ducts: No calcified stones or biliary ductal dilatation. Kidneys: Unremarkable. Adrenal glands: Unremarkable. GI tract: Streak artifact from indwelling bilateral hip arthroplasties degrades evaluation of GI tract in the pelvis. Extensive distal colonic diverticulosis without evidence of acute diverticulitis. No bowel obstruction. Normal appendix. No focal inflammatory change elsewhere in the GI tract. No focal abnormality in the GI tract to suggest site of active GI bleeding. No free air or free fluid. Lymph nodes: No pathologic lymphadenopathy. Vascular structures: Atherosclerotic disease. Ectasia of the infrarenal abdominal aorta measures 2.8 cm. The celiac, superior mesenteric and inferior mesenteric arteries as imaged are patent. Pelvic Organs: Unremarkable as imaged but degraded by streak artifact from indwelling hip arthroplasties. Bones: No acute or suspicious osseous abnormality. Degenerative changes of the spine. IMPRESSION: 1. Colonic diverticulosis without evidence of acute diverticulitis. 2. No abnormality to suggest site of active gastrointestinal bleeding. Assessment and Plan Assessment and plan (1) Diverticular hemorrhage: Problem comment: Recurrent episodes of rectal bleeding with CT abdomen and colonoscopy only showing severe diverticulosis. Monitor for cardiovascular instability, bleeding and anemia. Transfuse as needed. Transfer for intervention if unstable or ongoing bleeding Status: Acute (2) Hypertension: Problem comment: Due to low blood pressures will hold diltiazem and lisinopril for now. Continue metoprolol 25. Status: Acute Plan Admit to the hospital for monitoring of bleeding and cardiovascular instability. Total Time Spent Total Time Spent: Total time spent today is 75 minutes in review of records, coordination of care and discussing with patient and other providers ongoing management of bleeding.
[2024-10-06] MEDS: ATORVASTATIN CALCIUM 40 MG TABLET 80 MG PO (21:01)
[2024-10-06] MEDS: 0.9 % SODIUM CHLORIDE 1000 ml 1,000 ML 75 ML IV (21:03)
[2024-10-06] MEDS: SODIUM CHLORIDE 0.9 % (FLUSH) 10 ML SYRINGE 5 ML IVF (21:03)
[2024-10-06 23:36] LABS: Hemoglobin* 11.2 gm/dL (12.0-16.0)
[2024-10-07 02:30] VITALS: BP 95/57; PULSE 62; RESP 18; TEMP 36.3; O2SAT 91
--- NOTE | 2024-10-07 05:22 | PC.NURSE ---
Shift note: Pt had 2 bloody BM, one at 1900 and second at 2200 and has been running soft with the Bp. MD notified and ordered N/S 1000mls to be infused at 75ml/hr. Pt confirmed that the amount of the 2 BM are smaller compared to the previous ones. The bloody stools are too thick to be measured. Another bloody BM at 0130 which appeared smaller than the first 2 BM. Pt had no BM for the rest of the night. Pt endorses mild dizziness when standing. No pain complaint made by pt. Pt is independent in room.
[2024-10-07 06:51] LABS: Basophils Absolute Auto 0.03 K/uL (0.00-0.30); Basophils Percent Auto 0.3 % (0.0-3.0); Eosinophils Absolute Auto 0.13 K/uL (0.00-0.50); Eosinophils Percent Auto 1.3 % (0.0-7.0); Hemoglobin* 10.5 gm/dL (12.0-16.0); Immature Granulocytes Abs Auto 0.03 K/uL (0.00-0.30); Immature Granulocytes Pct Auto 0.3 %; Lymphocytes Percent Auto 2.9 % (20-44); Mean Corpuscular HGB Conc 33 gm/dL (32-36); Mean Corpuscular Hemoglobin 29 pg (26-34); Mean Corpuscular Volume 87 fL (80-100); Monocytes Percent Auto 3.1 % (0.0-11.0); Neutrophils Percent Auto 92.1 % (42.0-72.0); Platelet Count* 172 K/uL (140-440); RDW Coefficient of Variation % 14.2 % (11.5-15.5); Red Blood Count 3.66 m/uL (4.00-5.20); White Blood Count* 10.26 K/uL (4.50-11.00)
[2024-10-07 06:57] LABS: Slide Review Reflex No
[2024-10-07 07:08] LABS: Chloride* 109 mmol/L (96-114); Potassium* 3.8 mmol/L (3.6-5.1); Sodium* 134 mmol/L (135-149)
[2024-10-07 07:10] LABS: Creatinine* 0.6 mg/dL (0.5-1.5); Estimated Glomerular Filt Rate 93 ml/min
[2024-10-07 07:11] LABS: Anion Gap 2 mEq/L (7-15); Blood Urea Nitrogen* 14 mg/dL (7-30); Carbon Dioxide* 23 mmol/L (20-32); Glucose* 116 mg/dL (60-115)
[2024-10-07 07:12] LABS: Calcium* 8.3 mg/dL (8.4-10.6)
[2024-10-07 07:32] VITALS: BP 109/60; BP 95/54; BP 95/64; PULSE 68; PULSE 73; PULSE 84
[2024-10-07 08:09] VITALS: RESP 18; O2SAT 91
--- NOTE | 2024-10-07 08:11 | RESP.RT ---
Patient up in bed, alert, orientated, good clear voice, on room air, SaO2 91%. BBS with very fine crackles noted at juan, fair air movement, slightly diminished bases over the upper lobes. Patient has fair dry clear cough, able to clear secretions when present. States occasionally coughs up something. Uses Spiriva, and Albuterol at home, patient given an extension with explanation of use, understands. Patient current smoker, about 1/2 pack per day, patient not really interested in quitting at present time.
[2024-10-07 08:19] VITALS: BP 95/64; PULSE 68; RESP 16; TEMP 36.5; O2SAT 91
[2024-10-07] MEDS: SERTRALINE 100 MG TABLET 150 MG PO (08:37)
--- NOTE | 2024-10-07 09:35 | P.DS_ITS ---
Transfer Discharge Sum: Prov Provider Time Seen by Provider: 08:04 Date Seen: 10/07/24 Date of admission: 10/06/24 16:13 Primary care physician: Gladis Espinosa MD Attending physician on discharge: Jody Ferrera Anticipated date of transfer: 10/07/24 Receiving physician/facility: Papito Johnson DS: Diagnosis Discharge Diagnosis (1) Diverticular hemorrhage: Status: Acute Problem details: - Recurrent episodes of rectal bleeding with CTA abdomen and colonoscopy only showing severe diverticulosis - Hgb trending down - Ongoing frankly bloody stools q2-3 hours - I spoke with Eric who noted we may be able to do urgent EGD today, but colonoscopy not available today and transfer is therefore recommended for ongoing bleeding - Dr. Cobos, hospitalist at [facility], accepted this patient in transfer. There may be an eight hour bed delay. She recommended ongoing q6h Hgb check and agreed with transfusion for Hgb < 12. (2) Hypertension: Status: Acute Problem details: Due to low blood pressures, continue to hold diltiazem and lisinopril, also hold metoprolol (3) Orthostatic hypotension: Status: Acute Problem details: - Better today after hydration (4) Acute blood loss anemia: Status: Acute Problem details: - secondary to acute GI bleeding, Hgb 14.5 on presentation yesterday, trended downward: 14.5->13->11.5->11.2->(this morning) 10.5 Transfer Discharge Sum: Med Medications Active and Home Medications: Home Medications albuterol sulfate 90 mcg/actuation aerosol inhaler 2 puff inhalation Q4H PRN 08/30/22 [History Confirmed 10/06/24] diltiazem HCl 360 mg capsule,extended release 24 hr 360 mg PO DAILY 08/30/22 [History Confirmed 10/06/24] nitroglycerin 0.4 mg sublingual tablet 0.4 mg sublingual Q5M PRN 08/30/22 [History Confirmed 10/06/24] sertraline 100 mg tablet 150 mg PO DAILY 08/30/22 [History Confirmed 10/06/24] cholecalciferol (vitamin D3) 50 mcg (2,000 unit) capsule 50 mcg PO DAILY 12/19/22 [History Confirmed 10/06/24] lisinopril 30 mg tablet 30 mg PO DAILY 07/14/24 [History Confirmed 10/06/24] metoprolol succinate 25 mg tablet,extended release 24 hr 25 mg PO DAILY 07/14/24 [History Confirmed 10/06/24] tiotropium 2.5 mcg-olodaterol 2.5 mcg/actuation mist for inhalation (Stiolto Respimat) 2 puff inhalation DAILY 07/14/24 [History Confirmed 10/06/24] atorvastatin 80 mg tablet 80 mg PO HS 10/06/24 [History Confirmed 10/06/24] Active Medications Acetaminophen (Acetaminophen 325 Mg Tablet) 650 mg PO Q4H PRN Albuterol (Albuterol Inhaler) 2 puff IH Q4H PRN Atorvastatin Calcium (Atorvastatin Calcium 40 Mg Tablet) 80 mg PO HS [facility] Last Admin: 10/06/24 21:01 Dose: 80 mg Sodium Chloride (0.9 % Sodium Chloride 1000 Ml) 1,000 mls @ 75 mls/hr IV .[id number] [facility] Last Admin: 10/06/24 21:03 Dose: 75 mls/hr Melatonin (Melatonin 3 Mg Tablet) 3 mg PO HS PRN Metoprolol Succinate (Metoprolol Succinate (Xl) 25 Mg Tab) 25 mg PO DAILY [facility] Last Admin: 10/07/24 08:57 Dose: Not Given Tiotropium- Olodaterol [Stiolto Respimat] 2.5-2.5 Mcg 2 puff IH DAILY [facility] Last Admin: 10/07/24 08:57 Dose: Not Given Ondansetron HCl (Ondansetron 2 Mg/Ml Inj) 4 mg IVP Q4H PRN PRN Reason: Nausea Sertraline HCl (Sertraline 100 Mg Tablet) 150 mg PO DAILY [facility] Last Admin: 10/07/24 08:37 Dose: 150 mg Sodium Chloride (Sodium Chloride 0.9 % (Flush) 10 Ml Syringe) 5 ml IVF BID [facility] Last Admin: 10/06/24 21:03 Dose: 5 ml Vitamin D (Cholecalciferol (Vitamin D3) 25 Mcg Tablet (1000 Unit)) 50 mcg PO DAILY [facility] Last Admin: 10/07/24 08:38 Dose: 50 mcg Transfer Discharge Sum: Hosp Hospital Course Hospital course: Per H&P: Nena Styles is a 74 year old female admitted to the hospital with onset of rectal bleeding today. She had previous history of rectal bleeding in 2020. Required 7 units of packed red cell transfusion. Site of bleeding was never definitely confirmed but suspected to be diverticular. She subsequently has had colonoscopy and CT scanning showing severe diverticular disease. She reports that she occasionally has bright red blood per rectum at home. If it is a minimal amount she does not worry about it and does not seek medical attention. She thinks this could happen about once a month. Today she had onset of red blood per rectum starting this morning. She initially had a formed brown stool followed by rectal urgency and a lot of dark red liquid stool. Because of that she came to the hospital. She has subsequently had recurrent episodes of bleeding at home and in the hospital. She reports feeling a little lightheaded and a little bit of abdominal cramping but otherwise feels fine. No fever. She is not on antiplatelet or anticoagulation medications. No coagulopathy or liver disease. Nena continued to have frequent frankly bloody stools overnight. Orthostatic hypotension improved and patient was independently ambulating in the room. Despite holding antihypertensives, BPs remained low normal, notably MAPs are wnl. I spoke with Eric who noted we may be able to do urgent EGD today, but colonoscopy not available today and transfer is therefore recommended for ongoing bleeding. Patient agreeable to transfer. Dr. Cobos, hospitalist at [facility], accepted this patient in transfer. There may be an eight hour bed delay. She recommended ongoing q6h Hgb check and agreed with transfusion for Hgb < 12. Time Spent with Patient Time attestation: Total time spent providing and/or coordinating transfer services: 35 minutes due to discussion with patient, discussion over phone with Dr. Reyes, phone discussion with [facility] for transfer. Exam Narrative: Exam Narrative: General: No acute distress. Awake, alert, oriented x3. No pallor. No jaundice. Oropharynx: Clear. Mucous membranes moist. Cardiovascular: Regular rate and rhythm. No murmurs, gallops, or rubs. Respiratory: Clear to auscultation bilaterally. No wheezes or crackles. Abdomen: Bowel sounds present. Soft, nondistended, nontender. Extremities: No pedal edema. Const: Vital Signs, click to edit/add: Vital Signs - 24 hr 10/06/24 10:29 10/06/24 10:30 10/06/24 10:32 Temperature 98.4 F Pulse Rate 86 78 Pulse Rate [Pulse Oximeter] 75 Pulse Rate [orthos tatic lying Pulse Oximeter] Pulse Rate [orthos tatic sitting Puls e Oximeter] Pulse Rate [orthos tatic standing Pul se Oximeter] Respiratory Rate 16 Blood Pressure 154/87 H Blood Pressure [Ri ght Arm] Blood Pressure [Ri ght Upper Arm] 154/87 H Blood Pressure [or thostatic lying Ri ght Arm] Blood Pressure [or thostatic sitting Right Arm] Blood Pressure [or thostatic standing Right Arm] Pulse Oximetry 95 94 94 Oxygen Delivery Me thod Room Air 10/06/24 10:32 10/06/24 10:33 10/06/24 10:45 Temperature Pulse Rate 78 76 78 Pulse Rate [Pulse Oximeter] Pulse Rate [orthos tatic lying Pulse Oximeter] Pulse Rate [orthos tatic sitting Puls e Oximeter] Pulse Rate [orthos tatic standing Pul se Oximeter] Respiratory Rate Blood Pressure 121/85 Blood Pressure [Ri ght Arm] Blood Pressure [Ri ght Upper Arm] Blood Pressure [or thostatic lying Ri ght Arm] Blood Pressure [or thostatic sitting Right Arm] Blood Pressure [or thostatic standing Right Arm] Pulse Oximetry 95 96 93 Oxygen Delivery Me thod 10/06/24 10:46 10/06/24 11:00 10/06/24 11:01 Temperature Pulse Rate 76 71 73 Pulse Rate [Pulse Oximeter] Pulse Rate [orthos tatic lying Pulse Oximeter] Pulse Rate [orthos tatic sitting Puls e Oximeter] Pulse Rate [orthos tatic standing Pul se Oximeter] Respiratory Rate Blood Pressure 125/82 109/75 Blood Pressure [Ri ght Arm] Blood Pressure [Ri ght Upper Arm] Blood Pressure [or thostatic lying Ri ght Arm] Blood Pressure [or thostatic sitting Right Arm] Blood Pressure [or thostatic standing Right Arm] Pulse Oximetry 94 92 90 Oxygen Delivery Me thod 10/06/24 11:02 10/06/24 11:15 10/06/24 11:17 Temperature Pulse Rate 71 65 67 Pulse Rate [Pulse Oximeter] Pulse Rate [orthos tatic lying Pulse Oximeter] Pulse Rate [orthos tatic sitting Puls e Oximeter] Pulse Rate [orthos tatic standing Pul se Oximeter] Respiratory Rate 17 Blood Pressure 108/76 Blood Pressure [Ri ght Arm] Blood Pressure [Ri ght Upper Arm] Blood Pressure [or thostatic lying Ri ght Arm] Blood Pressure [or thostatic sitting Right Arm] Blood Pressure [or thostatic standing Right Arm] Pulse Oximetry 91 90 Oxygen Delivery Me thod Room Air 10/06/24 11:30 10/06/24 11:32 10/06/24 11:45 Temperature Pulse Rate 64 64 65 Pulse Rate [Pulse Oximeter] Pulse Rate [orthos tatic lying Pulse Oximeter] Pulse Rate [orthos tatic sitting Puls e Oximeter] Pulse Rate [orthos tatic standing Pul se Oximeter] Respiratory Rate Blood Pressure 91/66 Blood Pressure [Ri ght Arm] Blood Pressure [Ri ght Upper Arm] Blood Pressure [or thostatic lying Ri ght Arm] Blood Pressure [or thostatic sitting Right Arm] Blood Pressure [or thostatic standing Right Arm] Pulse Oximetry 91 91 91 Oxygen Delivery Me thod 10/06/24 11:47 10/06/24 11:47 10/06/24 12:00 Temperature Pulse Rate 68 68 63 Pulse Rate [Pulse Oximeter] Pulse Rate [orthos tatic lying Pulse Oximeter] Pulse Rate [orthos tatic sitting Puls e Oximeter] Pulse Rate [orthos tatic standing Pul se Oximeter] Respiratory Rate Blood Pressure 126/69 126/69 Blood Pressure [Ri ght Arm] Blood Pressure [Ri ght Upper Arm] Blood Pressure [or thostatic lying Ri ght Arm] Blood Pressure [or thostatic sitting Right Arm] Blood Pressure [or thostatic standing Right Arm] Pulse Oximetry 92 92 92 Oxygen Delivery Me thod 10/06/24 12:02 10/06/24 12:15 10/06/24 12:17 Temperature Pulse Rate 65 61 61 Pulse Rate [Pulse Oximeter] Pulse Rate [orthos tatic lying Pulse Oximeter] Pulse Rate [orthos tatic sitting Puls e Oximeter] Pulse Rate [orthos tatic standing Pul se Oximeter] Respiratory Rate Blood Pressure 101/89 116/70 Blood Pressure [Ri ght Arm] Blood Pressure [Ri ght Upper Arm] Blood Pressure [or thostatic lying Ri ght Arm] Blood Pressure [or thostatic sitting Right Arm] Blood Pressure [or thostatic standing Right Arm] Pulse Oximetry 92 91 92 Oxygen Delivery Me thod 10/06/24 12:30 10/06/24 12:45 10/06/24 12:47 Temperature Pulse Rate 68 59 L 61 Pulse Rate [Pulse Oximeter] Pulse Rate [orthos tatic lying Pulse Oximeter] Pulse Rate [orthos tatic sitting Puls e Oximeter] Pulse Rate [orthos tatic standing Pul se Oximeter] Respiratory Rate Blood Pressure 121/84 Blood Pressure [Ri ght Arm] Blood Pressure [Ri ght Upper Arm] Blood Pressure [or thostatic lying Ri ght Arm] Blood Pressure [or thostatic sitting Right Arm] Blood Pressure [or thostatic standing Right Arm] Pulse Oximetry 93 92 93 Oxygen Delivery Me thod 10/06/24 13:00 10/06/24 13:01 10/06/24 13:01 Temperature Pulse Rate 64 63 63 Pulse Rate [Pulse Oximeter] Pulse Rate [orthos tatic lying Pulse Oximeter] Pulse Rate [orthos tatic sitting Puls e Oximeter] Pulse Rate [orthos tatic standing Pul se Oximeter] Respiratory Rate Blood Pressure 133/77 133/77 Blood Pressure [Ri ght Arm] Blood Pressure [Ri ght Upper Arm] Blood Pressure [or thostatic lying Ri ght Arm] Blood Pressure [or thostatic sitting Right Arm] Blood Pressure [or thostatic standing Right Arm] Pulse Oximetry 92 92 92 Oxygen Delivery Me thod 10/06/24 13:21 10/06/24 13:30 10/06/24 13:32 Temperature Pulse Rate 63 59 L 59 L Pulse Rate [Pulse Oximeter] Pulse Rate [orthos tatic lying Pulse Oximeter] Pulse Rate [orthos tatic sitting Puls e Oximeter] Pulse Rate [orthos tatic standing Pul se Oximeter] Respiratory Rate Blood Pressure 115/66 Blood Pressure [Ri ght Arm] Blood Pressure [Ri ght Upper Arm] Blood Pressure [or thostatic lying Ri ght Arm] Blood Pressure [or thostatic sitting Right Arm] Blood Pressure [or thostatic standing Right Arm] Pulse Oximetry 91 93 93 Oxygen Delivery Me thod 10/06/24 13:33 10/06/24 13:45 10/06/24 13:46 Temperature Pulse Rate 60 56 L 56 L Pulse Rate [Pulse Oximeter] Pulse Rate [orthos tatic lying Pulse Oximeter] Pulse Rate [orthos tatic sitting Puls e Oximeter] Pulse Rate [orthos tatic standing Pul se Oximeter] Respiratory Rate Blood Pressure 113/69 Blood Pressure [Ri ght Arm] Blood Pressure [Ri ght Upper Arm] Blood Pressure [or thostatic lying Ri ght Arm] Blood Pressure [or thostatic sitting Right Arm] Blood Pressure [or thostatic standing Right Arm] Pulse Oximetry 93 92 91 Oxygen Delivery Me thod 10/06/24 14:00 10/06/24 14:01 10/06/24 14:15 Temperature Pulse Rate 58 L 57 L 54 L Pulse Rate [Pulse Oximeter] Pulse Rate [orthos tatic lying Pulse Oximeter] Pulse Rate [orthos tatic sitting Puls e Oximeter] Pulse Rate [orthos tatic standing Pul se Oximeter] Respiratory Rate Blood Pressure 119/72 Blood Pressure [Ri ght Arm] Blood Pressure [Ri ght Upper Arm] Blood Pressure [or thostatic lying Ri ght Arm] Blood Pressure [or thostatic sitting Right Arm] Blood Pressure [or thostatic standing Right Arm] Pulse Oximetry 91 92 92 Oxygen Delivery Me thod 10/06/24 14:17 10/06/24 14:32 10/06/24 14:32 Temperature Pulse Rate 56 L Pulse Rate [Pulse Oximeter] Pulse Rate [orthos tatic lying Pulse Oximeter] Pulse Rate [orthos tatic sitting Puls e Oximeter] Pulse Rate [orthos tatic standing Pul se Oximeter] Respiratory Rate Blood Pressure 126/76 115/80 115/80 Blood Pressure [Ri ght Arm] Blood Pressure [Ri ght Upper Arm] Blood Pressure [or thostatic lying Ri ght Arm] Blood Pressure [or thostatic sitting Right Arm] Blood Pressure [or thostatic standing Right Arm] Pulse Oximetry 93 Oxygen Delivery Me thod 10/06/24 14:38 10/06/24 14:45 10/06/24 14:47 Temperature Pulse Rate 65 58 L 60 Pulse Rate [Pulse Oximeter] Pulse Rate [orthos tatic lying Pulse Oximeter] Pulse Rate [orthos tatic sitting Puls e Oximeter] Pulse Rate [orthos tatic standing Pul se Oximeter] Respiratory Rate Blood Pressure 90/75 Blood Pressure [Ri ght Arm] Blood Pressure [Ri ght Upper Arm] Blood Pressure [or thostatic lying Ri ght Arm] Blood Pressure [or thostatic sitting Right Arm] Blood Pressure [or thostatic standing Right Arm] Pulse Oximetry 93 93 92 Oxygen Delivery Me thod 10/06/24 15:00 10/06/24 15:01 10/06/24 15:15 Temperature Pulse Rate 59 L 59 L 63 Pulse Rate [Pulse Oximeter] Pulse Rate [orthos tatic lying Pulse Oximeter] Pulse Rate [orthos tatic sitting Puls e Oximeter] Pulse Rate [orthos tatic standing Pul se Oximeter] Respiratory Rate 16 Blood Pressure 107/79 Blood Pressure [Ri ght Arm] Blood Pressure [Ri ght Upper Arm] Blood Pressure [or thostatic lying Ri ght Arm] Blood Pressure [or thostatic sitting Right Arm] Blood Pressure [or thostatic standing Right Arm] Pulse Oximetry 93 93 93 Oxygen Delivery Me thod 10/06/24 15:17 10/06/24 15:30 10/06/24 15:31 Temperature Pulse Rate 63 63 64 Pulse Rate [Pulse Oximeter] Pulse Rate [orthos tatic lying Pulse Oximeter] Pulse Rate [orthos tatic sitting Puls e Oximeter] Pulse Rate [orthos tatic standing Pul se Oximeter] Respiratory Rate Blood Pressure 103/76 95/73 Blood Pressure [Ri ght Arm] Blood Pressure [Ri ght Upper Arm] Blood Pressure [or thostatic lying Ri ght Arm] Blood Pressure [or thostatic sitting Right Arm] Blood Pressure [or thostatic standing Right Arm] Pulse Oximetry 93 93 93 Oxygen Delivery Me thod 10/06/24 15:45 10/06/24 15:46 10/06/24 16:30 Temperature 97.3 F L Pulse Rate 61 61 Pulse Rate [Pulse Oximeter] 68 Pulse Rate [orthos tatic lying Pulse Oximeter] Pulse Rate [orthos tatic sitting Puls e Oximeter] Pulse Rate [orthos tatic standing Pul se Oximeter] Respiratory Rate 18 Blood Pressure 100/69 Blood Pressure [Ri ght Arm] 103/68 Blood Pressure [Ri ght Upper Arm] Blood Pressure [or thostatic lying Ri ght Arm] Blood Pressure [or thostatic sitting Right Arm] Blood Pressure [or thostatic standing Right Arm] Pulse Oximetry 92 93 96 Oxygen Delivery Me thod Room Air 10/06/24 16:30 10/06/24 16:38 10/06/24 19:35 Temperature 96.7 F L Pulse Rate Pulse Rate [Pulse Oximeter] 64 Pulse Rate [orthos tatic lying Pulse Oximeter] 67 Pulse Rate [orthos tatic sitting Puls e Oximeter] 75 Pulse Rate [orthos tatic standing Pul se Oximeter] 75 Respiratory Rate 18 Blood Pressure Blood Pressure [Ri ght Arm] 96/54 L Blood Pressure [Ri ght Upper Arm] Blood Pressure [or thostatic lying Ri ght Arm] 94/62 Blood Pressure [or thostatic sitting Right Arm] 92/63 Blood Pressure [or thostatic standing Right Arm] 63/49 L Pulse Oximetry 93 Oxygen Delivery Me thod Room Air Room Air 10/06/24 22:18 10/06/24 22:18 10/07/24 02:30 Temperature 97.3 F L 97.3 F L Pulse Rate Pulse Rate [Pulse Oximeter] 64 65 62 Pulse Rate [orthos tatic lying Pulse Oximeter] Pulse Rate [orthos tatic sitting Puls e Oximeter] Pulse Rate [orthos tatic standing Pul se Oximeter] Respiratory Rate 18 18 18 Blood Pressure Blood Pressure [Ri ght Arm] 95/64 95/57 L Blood Pressure [Ri ght Upper Arm] Blood Pressure [or thostatic lying Ri ght Arm] Blood Pressure [or thostatic sitting Right Arm] Blood Pressure [or thostatic standing Right Arm] Pulse Oximetry 90 91 Oxygen Delivery Me thod Room Air Room Air 10/07/24 07:32 10/07/24 08:09 10/07/24 08:19 Temperature 97.7 F Pulse Rate Pulse Rate [Pulse Oximeter] 68 Pulse Rate [orthos tatic lying Pulse Oximeter] 68 Pulse Rate [orthos tatic sitting Puls e Oximeter] 73 Pulse Rate [orthos tatic standing Pul se Oximeter] 84 Respiratory Rate 18 16 Blood Pressure Blood Pressure [Ri ght Arm] 95/64 Blood Pressure [Ri ght Upper Arm] Blood Pressure [or thostatic lying Ri ght Arm] 95/64 Blood Pressure [or thostatic sitting Right Arm] 95/54 L Blood Pressure [or thostatic standing Right Arm] 109/60 Pulse Oximetry 91 91 Oxygen Delivery Me thod Room Air Room Air Transfer Discharge Sum: Data Data Completed and Pending Completed studies during hospitalization: 10/06/2024 11:12 a.m. EKG: Normal sinus rhythm, 67 beats per minute. Normal EKG. Ordering Physician: Hugo Rosa M.D. Date of Service: 10/06/24 Procedure(s): CT angio abd pel GI Bleed Accession Number(s): [id number] cc: Hugo Rosa M.D.; Gladis Espinosa M.D.~ For Patients: As a result of the 21st Century Cures Act, medical imaging exams and procedure reports are released immediately into your electronic medical record. You may view this report before your referring provider. If you have questions, please contact your health care provider. INDICATION: Rectal bleeding. TECHNIQUE: CT abdomen and pelvis acquired without and with 95 cc of Isovue 370 IV contrast per GI bleed protocol, to include arterial and venous phase imaging. Sagittal, coronal and maximum intensity projection reformatted images submitted for review. COMPARISON: CT abdomen and pelvis 02/16/2021. FINDINGS: Lower chest: Emphysema at the visualized lung bases. No pleural or pericardial effusions. Coronary artery calcifications. Liver: Stable cysts. Spleen: Unremarkable. Pancreas: Unremarkable. Gallbladder and bile ducts: No calcified stones or biliary ductal dilatation. Kidneys: Unremarkable. Adrenal glands: Unremarkable. GI tract: Streak artifact from indwelling bilateral hip arthroplasties degrades evaluation of GI tract in the pelvis. Extensive distal colonic diverticulosis without evidence of acute diverticulitis. No bowel obstruction. Normal appendix. No focal inflammatory change elsewhere in the GI tract. No focal abnormality in the GI tract to suggest site of active GI bleeding. No free air or free fluid. Lymph nodes: No pathologic lymphadenopathy. Vascular structures: Atherosclerotic disease. Ectasia of the infrarenal abdominal aorta measures 2.8 cm. The celiac, superior mesenteric and inferior mesenteric arteries as imaged are patent. Pelvic Organs: Unremarkable as imaged but degraded by streak artifact from indwelling hip arthroplasties. Bones: No acute or suspicious osseous abnormality. Degenerative changes of the spine. IMPRESSION: 1. Colonic diverticulosis without evidence of acute diverticulitis. 2. No abnormality to suggest site of active gastrointestinal bleeding. Dictated by Cecilio Arce MD @ 10/06/2024 1:57:14 PM Please note that all CT scans at this facility use dose modulation, iterative reconstruction, and/or weight-based dosing when appropriate to reduce radiation dose to as low as reasonably achievable. Dictated by: Cecilio Arce MD @ 10/06/2024 13:57:37 (Electronically Signed) Discharge Plan Discharge Disposition: [facility] Discharge Location: [facility] Date of Admission: 10/06/24 16:13 Attending Provider on Discharge: Jody Ferrera Primary Care Provider: Gladis Espinosa Discharge Orders: Transfer of Care to Other Hospital (ORDER); Ordered 10/07/24 Ordered By: Jody Ferrera Oxygen: No Urinary Catheter: No Drips/Lines: NS @ 75 mL/hr Services not available here: GI
[2024-10-07] MEDS: SODIUM CHLORIDE 0.9 % (FLUSH) 10 ML SYRINGE 5 ML IVF (09:46)
[2024-10-07] MEDS: 0.9 % SODIUM CHLORIDE 1000 ml 1,000 ML 75 ML IV (09:46)
--- NOTE | 2024-10-07 11:24 | PC.NURSE ---
Shift Summary: Patient pleasant and cooperative. Up independently in room. Vitals stable, BP low however patient asymptomatic. x2 bloody BM. Nurse to nurse given to JERMAIN Burgess at [facility]. EMS here @ 1113 to transfer.
== END 2024-10-07 11:13 | disposition short-term general hospital (02) ==
LOC: ED 12:09 → MEDSURG 16:13
PROVIDERS: Family Medicine; Admitting Provider Family Medicine; Emergency Provider Emergency Medicine; PCP Family Medicine; Visit Provider Family Medicine
DX: K57.31 Diverticulosis of large intestine without perforation or abscess with bleeding (principal); D62 Acute posthemorrhagic anemia; I95.1 Orthostatic hypotension; I10 Essential (primary) hypertension
CPT/HCPCS: 36415; 74174; 74177; 80048; 83605; 85018; 85025; 85610; 86850; 86900; 86901; 93005; 96361; 96374; 96375; 99284; 99285; A9270; G0378; J1200; J1720; J7030; Q9967

== ENCOUNTER 2024-10-07 11:10 | Outpatient (CLI) | payer MEDICARE, OTHER, SELFPAY ==
--- OUTSIDE RECORDS SUMMARY | 2024-10-10 20:34 | XMS_ITS | Clinical Summary ---
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
--- OUTSIDE RECORDS SUMMARY | 2024-10-10 20:34 | XMS_ITS | Encounter Summary ---
Author Organization [facility] Address [address] [place] [address] Care Team Providers Care Senior Contracts Manager Name Role Phone Unavailable Primary Care Provider Unavailabl e Reason for Visit * Reason Comments Office Visit: Converted Data Conversion Encounter Details Date Type Department Care Team (Late st Contact Info) Description 06/20/2021 Dental Interim Note [address] [id number] Default, [place] Social History Tobacco Use Types Packs/Day Years [...]
--- OUTSIDE RECORDS SUMMARY | 2024-10-10 20:35 | XMS_ITS | Encounter Summary ---
Author Organization [place] Address [address] [place] [address] Care Team Providers Care Non Destructive Evaluation Technician Name Role Phone Jeanette Esparza MD Primary Care Provider Nola Holland RN Unavailable Unavailable Jeffrey Lezama MD Unavailable [phone] Daisy Portillo Unavailable [phone] Marcy Judge RN Unavailable Unavailable Liyah Judge MD Unavailable [phone] System, Provider Not In Primary Care Provider Un available Jeanette Esparza MD Unavailable Jeanette Esparza MD Unavailable No Ref-Primary, Physician Primary Care Provider [facility] Unavailable [phone] Gladis Espinosa MD Primary Care Provider [phone] Reason for Visit * Reason Onset Date Comments Health Maintenance 11/30/2015 colonoscopy s cheduled ([facility] outreach) Encounter Details Date Type Department Care Team (Late st Contact Info) Description 11/30/2015 Telephone [place] [id number] [place] [address] Jeanette Esparza MD [address] [address] Health Maintenance (colonoscopy scheduled ([facility] outreach)) Social History Tobacco Use Types Packs/Day Years Used Date Smoking Tobacco: Former Cigarettes Smokeless Tobacco: Former Comments:e-cigarette Alcohol Use Standard Drinks/Week Comments Yes 1 (1 standard drink = 0.6 oz pur e alcohol) occ Comments No Sex and Gender Information Value Date Recorded Sex Assigned at Not on file Legal Sex Female 4:57 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 Ayers [facility] Location: [place] Please contact patient to discuss prep and additional instructions. Best phone number to use: [phone] Best time to contact the patient: anytime Thank you. NT COORDINATOR documented in this encounter Plan of Treatment [...] on filedocumented in this encounter Care Teams Non Destructive Evaluation Technician Relationship Specialty Start Date End Date Jeanette Esparza MD PCP - General Family Practice 08/20/13 06/04/18 System, Provider Not In PCP - General Clinic 06/05/18 06/05/18 Jeanette Esparza MD [address] [address] PCP - Assigned PCP 11/06/15 01/27/19 No Ref-Primary, Physician PCP - General 02/18/21 02/21/21 Gladis Espinosa MD [facility] 1400 [place] [address] PCP - General 02/22/21 Nola Holland, RN Clinic Car Body Mechanic Nurse 09/07/1506/20 Jeffrey Lezama MD [facility] 7300 [facility] 410 [place] [address] Otolaryngology 12/24/17 Daisy Portillo AuD [facility] [address] [address] Support Team Assoc Audiology 12/24/17 Marcy Judge, RN Tech 12/24/17 12/24/17 Liyah Judge MD [address] [place] [address] 396 [place] [address] Otolaryngology 12/24/17 [place] [address] [place] [address] Assigned PCP 11/06/15 06/04/20 [facility] 1400 [place] [address] 02/21/21 documented as of this encounter
--- OUTSIDE RECORDS SUMMARY | 2024-10-10 20:35 | XMS_ITS | Encounter Summary ---
Author Organization [place] Address [address] [place] [address]. [place] [address] Care Team Providers Care Sheet Sewer Name Role Phone Jeffrey Lezama MD Unavailable [phone] Daisy Portillo Unavailable [phone] Liyah Judge MD Unavailable Jeanette Esparza MD Unavailable Jeanette Esparza MD Unavailable No Ref-Primary, Physician Primary Care Provider Jerri Davisonfield Unavailable Gladis Espinosa MD Primary Care Provider [phone] Encounter Details Date Type Department Care Team (Late st Contact Info) Description 07/15/2018 MyC Medical Advice [facility] Nose and Throat 909 [facility] SE 4th [place] [address] Liyah Judge MD [address] [facility] 396 [place] [address] Social History Tobacco Use Types Packs/Day Years Used Date Smoking Tobacco: Former Cigarettes Q uit: 12/27/2016 Smokeless Tobacco: Former Alcohol Use Standard Drinks/Week Comments Yes 1 (1 standard drink = 0.6 oz pur e alcohol) 1 drink monthly if that Comments No Sex and Gender Information Value Date Recorded Sex Assigned at Not on file 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 Gender Identity Not on file Sexual [...] documented as of this encounter Care Teams Sheet Sewer Relationship Specialty Start Date End Date Jeanette Esparza MD 2270 [facility] 200 [place] [address] PCP - Assigned PCP 11/06/15 01/27/19 No Ref-Primary, Physician PCP - General 02/18/21 02/21/21 Gladis Espinosa MD [facility] 1400 [place] [address] PCP - General 02/22/21 Jeffrey Lezama MD [facility] [address] [place] [address] Otolaryngology 12/24/17 Daisy Portillo AuD [facility] [address] [place] [place] [address] Plant Maintenance Worker Audiology 12/24/17 Liyah Judge MD 420 [facility] 396 [place] [address] Otolaryngology 12/24/17 Jeanette Esparza MD [address] [id number] Assigned PCP 11/06/15 06/04/[address] [address] 02/21/21 documented as of this encounter
--- OUTSIDE RECORDS SUMMARY | 2024-10-10 20:35 | XMS_ITS | Encounter Summary ---
Author Organization [place] Address [address] [place] [address]. [place] [address] Care Team Providers Care Pin Drafter Name Role Phone Jeffrey Lezama MD Unavailable Daisy Portillo Unavailable [phone] Liyah Judge MD Unavailable [phone] Jeanette Esparza MD Unavailable Jeanette Esparza MD Unavailable No Ref-Primary, Physician Primary Care Provider Jerri Davisonfield Unavailable Gladis Espinosa MD Primary Care Provider Encounter Details Date Type Department Care Team (Late st Contact Info) Description 06/18/2018 MyC Medical Advice [facility] Nose and Th[facility]at 909 [facility] [address] 4th [place] [address] Liyah Judge MD [address] [facility] [address] [place] [address] Social History Tobacco Use Types Packs/Day Years Used Date Smoking Tobacco: Former Cigarettes Q uit: 12/27/2016 Smokeless Tobacco: Former Alcohol Use Standard Drinks/Week Comments Yes 1 (1 standard drink = 0.6 oz pur e alcohol) 1 drink monthly if that Comments No Sex and Gender Information Value Date Recorded Sex Assigned at Not on file 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 Gender Identity Not on file Sexual Orientation [...] documented as of this encounter Care Teams Pin Drafter Relationship Specialty Start Date End Date Jeanette Esparza MD 2270 [facility] 200 [place] [address] PCP - Assigned PCP 11/06/15 01/27/19 No Ref-Primary, Physician PCP - General 02/18/21 02/21/21 Gladis Espinosa MD [facility] 1400 [place] [address] PCP - General 02/22/21 Jeffrey Lezama MD [facility] [address] [place] [address] Otolaryngology 12/24/17 Daisy Portillo AuD [facility] [address] [place] [place] [address] Housing Inspector Audiology 12/24/17 Liyah Judge MD 420 [facility] 396 [place] [address] Otolaryngology 12/24/17 Jeanette Esparza MD [address] [id number] Assigned PCP 11/06/15 06/04/[address] [address] 02/21/21 documented as of this encounter
--- OUTSIDE RECORDS SUMMARY | 2024-10-10 20:35 | XMS_ITS | Encounter Summary ---
Author Organization [place] Address [address] [place] [address] Care Team Providers Care Cell Plasterer Name Role Phone Jeanette Esparza MD Primary Care Provider Nola Holland RN Unavailable Unavailable Jeffrey Lezama MD Unavailable [phone] Daisy Portillo Unavailable Marcy Judge RN Unavailable Unavailable Liyah Judge MD Unavailable [phone] System, Provider Not In Primary Care Provider Un available Jeanette Esparza MD Unavailable [phone] Jeanette Esparza MD Unavailable No Ref-Primary, Physician Primary Care Provider [facility] Unavailable Gladis Espinosa MD Primary Care Provider [phone] Encounter Details Date Type Department Care Team (Late st Contact Info) Description 07/06/[address] [facility] [address] [place] [address] Hamzah Woodall MD [facility] [address] [place] [address] [place] [address] Preoperative examination, unspecified (Primary Dx) Social History Tobacco Use Types Packs/Day Years Used Date Smoking Tobacco: Former Cigarettes Smokeless Tobacco: Former Comments:e-cigarette Alcohol Use Standard Drinks/Week Comments Yes 0.8 (1 standard drink = 0.6 oz p ure alcohol) occ Comments No Sex and Gender Information Value Date Recorded Sex Assigned at Not on file Legal Sex Female 4:57 AM NEGATIVE DEVELOPER Gender Identity Not on file Sexual Orientation Not on file documented as of this encounter Plan of Treatment Not on file documented as of this encounter Results * Methicillin Resistant Staph Aureus PCR (07/07/2015 12:01 PM CDT) Specimen Description [facility]ares [facility] Methicillin Resist/Sens S. aureus PCR [...] nasal colonization. FDA approved assay performed using Rule. GeneXpert(R) real-time PCR. NEG [facility] 07/07/2015 12:0 1 PM CDT 07/07/2015 1:27 PM CDT Hamzah Woodall MD LAB - MICRO GENERAL O RDERABLES Final Result Performing Organization Address City/State/[facility] Co de Phone Number [facility] 500 [place] [address], [facility] [address] [place], [place] [address] [place] [address] documented in this encounter Visit Diagnoses Diagnosis Preoperative examination, unspecified- Primary documented in this encounter Care Teams Cell Plasterer Relationship Specialty Start Date End Date Jeanette Esparza MD PCP - General Family Practice 08/20/13 06/04/18 System, Provider Not In PCP - General Clinic 06/05/18 06/05/18 Jeanette Esparza MD [address] [address] PCP - Assigned PCP 11/06/15 01/27/19 No Ref-Primary, Physician PCP - General 02/18/21 02/21/21 Gladis Espinosa MD [address] [address] PCP - General 02/22/21 Nola Holland, [facility] Clinic Sample Case Porter Nurse 09/07/1506/20 Jeffrey Lezama MD [facility] [address] [facility] 410 [place] [address] Otolaryngology 12/24/17 Daisy Portillo AuD [facility] [address] [place] [address] [place] [address] Precision Layout Worker Audiology 12/24/17 Marcy Judge RN Tech 12/24/17 12/24/17 Liyah Judge MD [address] [place] [address] Otolaryngology 12/24/17 Jeanette Esparza MD [address] [address] Assigned PCP 11/06/15 06/04/20 [facility] 1400 [place] [address] 02/21/21 documented as of this encounter
--- OUTSIDE RECORDS SUMMARY | 2024-10-10 20:35 | XMS_ITS | Encounter Summary ---
Author Organization [facility] Address [address] [place] [address]. [place] [address] Care Team Providers Care Sheather Name Role Phone Jeanette Esparza MD Primary Care Provider Jeffrey Lezama MD Unavailable [phone] Daisy Portillo Unavailable [phone] Liyah Judge MD Unavailable [phone] System, Provider Not In Primary Care Provider Un available Jeanette Esparza MD Unavailable [phone] Jeanette Esparza MD Unavailable [phone] No Ref-Primary, Physician Primary Care Provider [facility] Un[facility] [phone] Gladis Espinosa MD Primary Care Provider [phone] Encounter Details Date Type Department Care Team (Late st Contact Info) Description 02/05/2018 MyC Medical Advice [facility] Ear Nose and Throat 909 [facility] [address] 4th [place] [address] Liyah Judge MD [address] [place] [address] 396 [place] [address] Social History Tobacco Use Types Packs/Day Years Used Date Smoking Tobacco: Former Cigarettes Q uit: 12/27/2016 Smokeless Tobacco: Former Alcohol Use Standard Drinks/Week Comments Yes 1 (1 standard drink = 0.6 oz pur e alcohol) 1 drink monthly if that Comments No Sex and Gender Information Value Date Recorded Sex Assigned at Not on file 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 Sex Female 4:57 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 Gender Identity Not on file Sexual Orientation [...] documented as of this encounter Care Teams Sheather Relationship Specialty Start Date End Date Jeanette Esparza MD PCP - General Family Practice 08/20/13 06/04/18 System, Provider Not In PCP - General Clinic 06/05/18 06/05/18 Jeanette Esparza MD 2270 [facility] 200 [place] [address] PCP - Assigned PCP 11/06/15 01/27/19 No Ref-Primary, Physician PCP - General 02/18/21 02/21/21 Gladis Espinosa MD [facility] 1400 [place] [address] PCP - General 02/22/21 Jeffrey Lezama MD [facility] 7300 [facility] 410 [place] [address] Otolaryngology 12/24/17 Daisy Portillo AuD [facility] [address] [facility] 410 [place] [address] Outreach And Education Social Worker Audiology 12/24/17 Liyah Judge MD 420 [facility] 396 [place] [address] Otolaryngology 12/24/17 Jeanette Esparza MD 2270 [facility] 200 [place] [address] Assigned PCP 11/06/15 06/04/20 [facility] [address] [address] 02/21/21 documented as of this encounter
--- OUTSIDE RECORDS SUMMARY | 2024-10-10 20:35 | XMS_ITS | Encounter Summary ---
Author Organization [place] Address [address] [place] [address]. [place] [address] Care Team Providers Care Validation Architect Name Role Phone Jeffrey Lezama MD Unavailable Daisy Portillo Unavailable [phone] Liyah Judge MD Unavailable Jeanette Esparza MD Unavailable [phone] Jeanette Esparza MD Unavailable No Ref-Primary, Physician Primary Care Provider Jerri Davisonfield Unavailable Gladis Espinosa MD Primary Care Provider [phone] Encounter Details Date Type Department Care Team (Late st Contact Info) Description 06/24/2018 MyC Medical Advice [facility] Ear Nose and Throat 909 [facility] [address] 4th [place] [address] Liyah Judge MD [address] [facility] 396 [place] [address] Social History Tobacco Use Types Packs/Day Years Used Date Smoking Tobacco: Former Cigarettes Q uit: 12/27/2016 Smokeless Tobacco: Former Alcohol Use Standard Drinks/Week Comments Yes 1 (1 standard drink = 0.6 oz pur e alcohol) 1 drink monthly if that Comments No Sex and Gender Information Value Date Recorded Sex Assigned at Not on file 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 Gender Identity Not on file Sexual Orientation [...] documented as of this encounter Care Teams Validation Architect Relationship Specialty Start Date End Date Jeanette Esparza MD 2270 [facility] 200 [place] [address] PCP - Assigned PCP 11/06/15 01/27/19 No Ref-Primary, Physician PCP - General 02/18/21 02/21/21 Gladis Espinosa MD [facility] 1400 [place] [address] PCP - General 02/22/21 Jeffrey Lezama MD [facility] [address] [place] [address] [place] [address] Otolaryngology 12/24/17 Daisy Portillo AuD [facility] [address] [place] [address] [place] [address] Assembly And Packing Supervisor Audiology 12/24/17 Liyah Judge MD 420 [facility] 396 [place] [address] Otolaryngology 12/24/17 Jeanette Esparza MD [address] [id number] Assigned PCP 11/06/15 06/04/[address] [address] 02/21/21 documented as of this encounter
--- OUTSIDE RECORDS SUMMARY | 2024-10-10 20:35 | XMS_ITS | Encounter Summary ---
Author Organization [place] Address [address] [place] [address] Care Team Providers Care Electric Mule Operator Name Role Phone Jeanette Esparza MD Primary Care Provider Jeffrey Lezama MD Unavailable [phone] Daisy Portillo Unavailable [phone] Liyah Judge MD Unavailable [phone] System, Provider Not In Primary Care Provider Un available Jeanette Esparza MD Unavailable [phone] Jeanette Esparza MD Unavailable [phone] No Ref-Primary, Physician Primary Care Provider Jerri Davisonfield Unavailable [phone] Gladis Espinosa MD Primary Care Provider [phone] Encounter Details Date Type Department Care Team (Late st Contact Info) Description 05/31/2018 MyC Medical Advice [facility] [address] [place] [address] Davida Amin Social History Tobacco [...] on file 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 Gender Identity Not on file Sexual Orientation [...] documented as of this encounter Care Teams Electric Mule Operator Relationship Specialty Start Date End Date Jeanette Esparza MD PCP - General Family Practice 08/20/13 06/04/18 System, Provider Not In PCP - General Clinic 06/05/18 06/05/18 Jeanette Esparza MD 2270 [facility] 200 [place] [address] PCP - Assigned PCP 11/06/15 01/27/19 No Ref-Primary, Physician PCP - General 02/18/21 02/21/21 Gladis Espinosa MD [facility] 1400 [place] [address] PCP - General 02/22/21 Jeffrey Lezama MD [facility] 7300 [facility] 410 [place] [address] Otolaryngology 12/24/17 Daisy Portillo AuD [facility] 7300 [facility] 410 [place] [address] Carpenter Inspector Audiology 12/24/17 Liyah Judge MD 420 [facility] 396 [place], [place] [address] Otolaryngology 12/24/17 Jeanette Esparza MD 2270 [facility] 200 [place], [place] [address] Assigned PCP 11/06/15 06/04/20 [facility] [address] [address] 02/21/21 documented as of this encounter
--- OUTSIDE RECORDS SUMMARY | 2024-10-10 20:35 | XMS_ITS | Encounter Summary ---
Author Organization [place] Address [address] [place] [address] Care Team Providers Care Creative Services Director Name Role Phone Jeanette Esparza MD Primary Care Provider Nola Holland RN Unavailable Unavailable Jeffrey Lezama MD Unavailable Daisy Portillo Unavailable Marcy Judge RN Unavailable Unavailable Liyah Judge MD Unavailable System, Provider Not In Primary Care Provider Un available Jeanette Esparza MD Unavailable Jeanette Esparza MD Unavailable [phone] No Ref-Primary, Physician Primary Care Provider [facility] Unavailable [phone] Gladis Espinosa MD Primary Care Provider Encounter Details Date Type Department Care Team (Late st Contact Info) Description 02/23/2016 Orders Only [facility] [address] [place] [address] Hamzah Woodall MD [facility] [address] [place] [address] [place] [address] Pre-operative laboratory examination (Primary Dx) Social History Tobacco Use Types Packs/Day Years Used Date Smoking Tobacco: Former Cigarettes Q uit: 02/22/2015 Smokeless Tobacco: Former Alcohol Use Standard Drinks/Week Comments Yes 1 (1 standard drink = 0.6 oz pur e alcohol) 1 drink monthly Comments No Sex and Gender Information Value Date Recorded Sex Assigned at Not on file 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 Methicillin Resist/Sens S. aureus PCR Negative MRSA Negative: SA Negative ??MRSA and Staphylococcus aureus target DNA not detected, presumed negative for MRSA and SA colonization or the number of bacteria present may be below the limit of detection for the assay. FDA approved assay performed using [employer] GeneXpert(R) real-time PCR. NEG [facility] 03/01/2016 12:1 0 PM CDT 03/01/2016 2:02 PM CDT us Hamzah Woodall MD LAB - MICRO GENERAL O RDERABLES Final Result [facility] 500 [place] [address], [facility] [address] [place], [place] [address] [phone] documented in this encounter Visit Diagnoses Diagnosis Pre-operative laboratory examination- Primary Pre-procedural laboratory examination documented in this encounter Care Teams Creative Services Director Relationship Specialty Start Date End Date Jeanette Esparza MD PCP - General Family Practice 08/20/13 06/04/18 System, Provider Not In PCP - General Clinic 06/05/18 06/05/18 Jeanette Esparza MD [address] [address] PCP - Assigned PCP 11/06/15 01/27/19 No Ref-Primary, Physician PCP - General 02/18/21 02/21/21 Gladis Espinosa MD [address] [address] PCP - General 02/22/21 Nola Holland RN Clinic Financial Quantitative Analyst Nurse 09/07/1506/20 Jeffrey Lezama MD [facility] 7300 [facility] 410 [place], [place] [address] Otolaryngology 12/24/17 Daisy Portillo AuD [facility] 7300 [facility] 410 [place], [place] [address] Cured Meat Packing Supervisor Audiology 12/24/17 Marcy Judge, RN Tech 12/24/17 12/24/17 Liyah Judge MD [address] [place] [address] 396 [place], [place] [address] Otolaryngology 12/24/17 Jeanette Esparza MD 2270 [facility] 200 [place] [address] Assigned PCP 11/06/15 06/04/20 [facility], Jerri [address] [address] 02/21/21 documented as of this encounter
--- OUTSIDE RECORDS SUMMARY | 2024-10-10 20:35 | XMS_ITS | Clinical Summary ---
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 Gender Identity Not on file Sexual Orientation [...] Status: Active Medical Devices Implanted Type Area Sanding Line Operator Device Identifier Shelf Expiration Date Model / Serial / Lot G7 Acetabular Shell, 3 Hole, Porous Plasma Cementless, 52mm, E Implanted:Qty: 1 on 07/27/2015 by Hamzah Woodall MD at [facility] Right: Hip BIOMET 05/24/2025 [id number] / / [id number] [id number] Acetabular Screw, 6.5mm, 25mm Implanted:Qty: 1 on 07/27/2015 by Hamzah Woodall MD at [facility] Right: Hip BIOMET 08/24/2024 [id number] / / [id number] [id number] Acetabular Screw, 6.5mm, 25mm Implanted:Qty: 1 on 07/27/2015 by Hamzah Woodall MD at [facility] Right: Hip BIOMET 01/22/2025 [id number] / / [id number] [id number] Acetabular Liner, Neutral, Arcomxl Highly Crosslinked Uhmwpe, 36mm, E Implanted:Qty: 1 on 07/27/2015 by Hamzah Woodall MD at [facility] Right: Hip 08/24/2019 [id number] / / [id number] Taperloc Complete Primary Femoral Porous Coated Stem Reduced Distal 11 X 142mm Standard Offset Type 1 Taper Implanted:Qty: 1 on 07/27/2015 by Hamzah Woodall MD at [facility] Right: Hip BIOMET 05/24/2025 [id number] / / [id number] Modular Head Component -3mm Neck Implanted:Qty: 1 on 07/27/2015 by Hamzah Woodall MD at [facility] Right: Hip BIOMET 06/10/2025 [id number] / / [id number] [id number] Acetabular Shell Implanted:Qty: 1 on 03/14/2016 by Hamzah Woodall MD at [facility] Left: Hip BIOMET [id number] / / [id number] Taperlock Complete Primary Femoral Porous Coated Stem Reduced Distal 11 X 142mm Standard Offset Ttype 1 Taper Ti-6ai-[id number] Implanted:Qty: 1 on 03/14/2016 by Hamzah Woodall MD at [facility] Left: Hip BIOMET 11/16/2025 [id number] / / [id number] Modular Head Component -3mm Neck Implanted:Qty: 1 on 03/14/2016 by Hamzah Woodall MD at [facility] Left: Hip BIOMET 01/04/2026 [id number] / / [id number] Acetabular Screw Implanted:Qty: 1 on 03/14/2016 by Hamzah Woodall MD at [facility] Left: Hip BIOMET 12/04/2025 [id number] / / [id number] [id number] Acetabular Screw Implanted:Qty: 1 on 03/14/2016 by Hamzah Woodall MD at [facility] Left: Hip BIOMET 05/14/2026 [id number] / / [id number] [id number] Acetabular Liner Neutral Arcomxl Highly Crosslinked Implanted:Qty: 1 on 03/14/2016 by Hamzah Woodall MD at [facility] Left: Hip BIOMET [id number] / / [id number] Insurance MEDICARE [employer] MEDICARE [employer] Advance Directives For more information, please contact: [phone] Documents on File Type Date Recorded Patient Body Technician/Painter Expl anation Advance Directives and Living Will [...] Agents on File Name Relationship [facility] Radha Pham Daughter Health Care Agent Logan Styles Son First Alternate Health Care Agent Care Teams Environmental Services Floor Tech Relationship Specialty Start Date End Date Gladis Espinosa MD [address] [address] PCP - General 02/22/21 Jeffrey Lezama MD [facility] [address] [facility] [address] [place] [address] Otolaryngology 12/24/17 Daisy Portillo AuD [facility] [address] [address] Driving Teacher Audiology 12/24/17 Liyah Judge MD [address] [place] [address] [address] [place] [address] Otolaryngology 12/24/[address] [address] 02/21/21
--- OUTSIDE RECORDS SUMMARY | 2024-10-10 20:35 | XMS_ITS | Encounter Summary ---
Author Organization [facility] Address [address] [place] [address] Care Team Providers Care Air Traffic Systems Technician Name Role Phone Jeanette Esparza MD Primary Care Provider Nola Holland RN Unavailable Unavailable Jeffrey Lezama MD Unavailable [phone] Daisy Portillo Unavailable [phone] Marcy Judge RN Unavailable Unavailable Liyah Judge MD Unavailable [phone] System, Provider Not In Primary Care Provider Un available Jeanette Esparza MD Unavailable [phone] Jeanette Esparza MD Unavailable [phone] No Ref-Primary, Physician Primary Care Provider [facility] Unavailable [phone] Gladis Espinosa MD Primary Care Provider Reason for Visit * Reason Onset Date Comments Refill Request 08/04/2014 *Thien Encounter Details Date Type Department Care Team (Late st Contact Info) Description 08/04/2014 Refill [facility] [address] [place] [phone] Jeanette Esparza MD [address] [address] Refill Request (*Ditliazem) Social History Tobacco Use Types Packs/Day Years Used Date Smoking Tobacco: Former Cigarettes Smokeless Tobacco: Never Alcohol Use Standard Drinks/Week Comments Yes 0.8 (1 standard drink = 0.6 oz p ure alcohol) occ Comments No Sex and Gender Information Value Date Recorded Sex Assigned at Not on file 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 Gender Identity Not on file Sexual [...] pectoris documented in this encounter Care Teams Air Traffic Systems Technician Relationship Specialty Start Date End Date Jeanette Esparza MD PCP - General Family Practice 08/20/13 06/04/18 System, Provider Not In PCP - General Clinic 06/05/18 06/05/18 Jeanette Esparza MD [address] [address] PCP - Assigned PCP 11/06/15 01/27/19 No Ref-Primary, Physician PCP - General 02/18/21 02/21/21 Gladis Espinosa MD [facility] [address] [place] [address] PCP - General 02/22/21 Nola Holland RN Clinic Final Block Press Operator Nurse 09/07/1506/20 Jeffrey Lezama MD [facility] [address] [facility] [place] [address] [place] [address] Otolaryngology 12/24/17 Daisy Portillo AuD [facility] [address] [facility] [address] [place] [address] Field Machinist Audiology 12/24/17 Marcy Judge, RN Tech 12/24/17 12/24/17 Liyah Judge MD [address] [place] [address] [address] [place], [place] [address] Otolaryngology 12/24/17 Jeanette Esparza MD [address] [address] Assigned PCP 11/06/15 06/04/20 [facility] [address] [place] [address] 02/21/21 documented as of this encounter
--- OUTSIDE RECORDS SUMMARY | 2024-10-10 20:35 | XMS_ITS | Encounter Summary ---
Author Organization [facility] Address [address] [place] [address] Care Team Providers Care Bulk Folder Name Role Phone Jeanette Esparza MD Primary Care Provider Nola Holland RN Unavailable Unavailable Jeffrey Lezama MD Unavailable Daisy Portillo Unavailable [phone] Marcy Judge RN Unavailable Unavailable Liyah Judge MD Unavailable [phone] System, Provider Not In Primary Care Provider Un available Jeanette Esparza MD Unavailable Jeanette Esparza MD Unavailable [phone] No Ref-Primary, Physician Primary Care Provider [facility] Unavailable Gladis Espinosa MD Primary Care Provider Encounter Details Date Type Department Care Team (Late st Contact Info) Description 11/29/2015 [facility] Medical Advice [address] [phone] Jeanette Esparza MD [address] [address] Social History Tobacco Use Types Packs/Day Years Used Date Smoking Tobacco: Former Cigarettes Smokeless Tobacco: Former Comments:e-cigarette Alcohol Use Standard Drinks/Week Comments Yes 1 (1 standard drink = 0.6 oz pur e alcohol) occ Comments No Sex and Gender Information Value Date Recorded Sex Assigned at Not on file 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 Gender Identity Not on file Sexual Orientation [...] on filedocumented in this encounter Care Teams Bulk Folder Relationship Specialty Start Date End Date Jeanette Esparza MD PCP - General Family Practice 08/20/13 06/04/18 System, Provider Not In PCP - General Clinic 06/05/18 06/05/18 Jeanette Esparza MD [address] [facility] [address] [place] [address] PCP - Assigned PCP 11/06/15 01/27/19 No Ref-Primary, Physician PCP - General 02/18/21 02/21/21 Gladis Espinosa MD [facility] [address] [place] [address] PCP - General 02/22/21 Nola Holland, RN Clinic Forest Nursery Worker Nurse 09/07/1506/20 Jeffrey Lezama MD [facility] 7[address] [facility] [address] [place] [address] Otolaryngology 12/24/17 Daisy Portillo AuD [facility] [address] [facility] [address] [place] [address] Clinical Audiologist Audiology 12/24/17 Marcy Judge RN Tech 12/24/17 12/24/17 Liyah Judge MD [address] [facility] [address] [place], [place] [address] Otolaryngology 12/24/17 Jeanette Esparza MD [address] [facility] [address] [place], [place] [address] Assigned PCP 11/06/15 06/04/20 [facility] [address] [address] 02/21/21 documented as of this encounter
--- OUTSIDE RECORDS SUMMARY | 2024-10-10 20:35 | XMS_ITS | Encounter Summary ---
Author Organization [facility] Address [address] [place] [address] Care Team Providers Care Employee Relations Specialist Name Role Phone Jeanette Esparza MD Primary Care Provider Jeffrey Lezama MD Unavailable [phone] Daisy Portillo Unavailable [phone] Marcy Judge RN Unavailable Unavailable Liyah Judge MD Unavailable System, Provider Not In Primary Care Provider Un available Jeanette Esparza MD Unavailable [phone] Jeanette Esparza MD Unavailable [phone] No Ref-Primary, Physician Primary Care Provider [facility] Unavailable [phone] Gladis Espinosa MD Primary Care Provider Reason for Visit * Reason Onset Date Comments Appointment 07/02/2016 Encounter Details Date Type Department Care Team (Late st Contact Info) Description 07/02/2016 [facility] Medical Advice [place] [address] [place] [phone] Jeanette Esparza MD [address] [address] Appointment Social History Tobacco Use Types Packs/Day Years Used Date Smoking Tobacco: Former Cigarettes Q uit: 02/22/2015 Smokeless Tobacco: Former Alcohol Use Standard Drinks/Week Comments Yes 1 (1 standard drink = 0.6 oz pur e alcohol) 1 drink monthly Comments No Sex and Gender Information Value Date Recorded Sex Assigned at Not on file 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 SHAWN Villarreal, RN [...] documented as of this encounter Care Teams Employee Relations Specialist Relationship Specialty Start Date End Date Jeanette Esparza MD PCP - General Family Practice 08/20/13 06/04/18 System, Provider Not In PCP - General Clinic 06/05/18 06/05/18 Jeanette Esparza MD [address] [address] PCP - Assigned PCP 11/06/15 01/27/19 No Ref-Primary, Physician PCP - General 02/18/21 02/21/21 Gladis Espinosa MD [address] [address] PCP - General 02/22/21 Jeffrey Lezama MD [facility] [address] [facility] [address] [place] [address] Otolaryngology 12/24/17 Daisy Portillo AuD [facility] [address] [facility] [address] [place] [address] Automotive Center Manager Audiology 12/24/17 Marcy Judge, RN Tech 12/24/17 12/24/17 Liyah Judge MD 420 [facility] [address] [place] [address] Otolaryngology 12/24/17 Jeanette Esparza MD [address] [facility] [address] [place] [address] Assigned PCP 11/06/15 06/04/[address] [address] 02/21/21 documented as of this encounter
--- OUTSIDE RECORDS SUMMARY | 2024-10-10 20:35 | XMS_ITS | Clinical Summary ---
Author Organization [facility] Address [place], [place] [address] Care Team Providers Care Bottom Saw Operator Name Role Phone Gladis Espinosa MD Primary [...] Date End Date Status nitroglycerin (NITROSTAT) 0.4 mg sublingual tabletIndications: Hypertension, unspecified type Place 1 Tablet (0.4 mg) under the tongue every 5 minutes if needed for Chest Pain. Max of 3 doses. If chest pain persists, seek medical attention. 25 Tablet 1 4 Active cholecalciferol (VITAMIN D-3) 2,000 unit capsuleIndications :Vitamin D deficiency Take 1 capsule by mouth once daily. 90 capsule 3 8 Suspended Additional Information nicotine (NICOTROL) 10 mg inhalerIndications :Encounter for smoking cessation counseling Inhale 10 mg by mouth every hour if needed for Nicotine Craving. 168 Each 2 0 10/07/20 24 Discontinued (*Patient states no longer taking) acetaminophen (TYLENOL) 325 mg tabletIndications: Cholesteatoma of ear, right Take 1-2 tablets by mouth every 4 hours if needed (mild pain). Max acetaminophen dose: 4000mg in 24 hrs. 0 1 Suspended Additional Information miscellaneous medical supply (Blood Pressure Cuff) miscIndications:HT N (hypertension) As directed. 1 Each 1 Suspended Additional Information famotidine (PEPCID) 20 mg tablet Take 1 Tablet (20 mg) by mouth once daily if needed. 0 2 Suspended Lidocaine-Hydrocor tisone Sravan 3-0.5 % creaIndications:He morrhoids, external Apply externally to hemorrhoids twice daily as needed for itching/pain 21 g 4 10/07/20 24 Discontinued (Other - add note to specify (E-cancel not sent)) polyethylene glycoL (MIRALAX) 17 gram/scoop powderIndications: Hemorrhoids, external Mix 1 scoop (17 g) in liquid then take by mouth once daily. 510 g 3 4 Suspended Additional Information diltiazem CD (CARDIZEM CD) 360 mg extended release 24 hr capsuleIndications :Hypertension, unspecified type Take 1 Capsule (360 mg) by mouth once daily. 90 Capsule 3 4 Suspended Additional Information lisinopriL (PRINIVIL; ZESTRIL) 30 mg tabletIndications: Hypertension Take 1 Tablet (30 mg) by mouth once daily. 90 Tablet 3 4 Suspended Additional Information metoprolol succinate (Toprol XL) 25 mg Sustained-Release tabletIndications: SVT (supraventricular tachycardia) (HC) Take 1 Tablet (25 mg) by mouth once daily. May take additional tablet (25 mg) daily if needed for rapid heart rate. 180 Tablet 3 4 Suspended Additional Information sertraline (ZOLOFT) 100 mg tabletIndications: Major depression in remission (HC) Take 1.5 Tablets (150 mg) by mouth once daily. 135 Tablet 1 4 Suspended Additional Information tiotropium-olodate roL (Stiolto Respimat) 2.5-2.5 mcg/actuation inhalerIndications :Pulmonary emphysema, unspecified emphysema type (HC) Inhale 2 Puffs by mouth once daily. 12 g 3 4 Suspended Additional Information albuterol HFA (PRO-AIR; VENTOLIN; PROVENTIL) 90 mcg/actuation inhalerIndications :Pulmonary emphysema, unspecified emphysema type (HC) Inhale 2 Puffs by mouth every 4 hours if needed for Shortness Of Breath or Wheezing. 3 Each 3 4 Suspended Additional Information nitroglycerin (NITROSTAT) 0.4 mg sublingual tabletIndications: Hypertension, unspecified type Place 1 Tablet (0.4 mg) under the tongue every 5 minutes if needed for Chest Pain. Max of 3 doses. If chest pain persists, seek medical attention. 25 Tablet 1 4 10/06/20 24 Discontinued (Reorder (E-cancel not sent)) atorvastatin (LIPITOR) 80 mg tabletIndications: Hyperlipidemia, unspecified hyperlipidemia type Take 1 Tablet (80 mg) by mouth once daily. 90 Tablet 1 4 Suspended Additional Information Active Problems Patient Care Coordination No te [...] inclusion 104 Problem Noted Date Diagnosed Date Rectal bleeding 10/07/2024 Atrial fibrillation (HC), paroxysmal 10/07/2024 Major depression in remission 08/07/2024 Trigger ring finger of left hand 11/29/2023 Prediabetes 04/23/2023 Pulmonary emphysema, unspecified emphysema type 03/29/2022 Dysthymia 09/21/2021 Adrenal incidentaloma 09/21/2021 Overview (08/07/2024): Stable from [id number], presumed benign Adrenal adenoma 01/27/2020 Inguinal hernia, [...] Encounters Date Type Department Care Team Description 10/07/2024 12:05 PM LINEN TECH - Present Hospital Encounter [facility] [address] [place] [address] [facility] Hospitalists Of Andrea Orlando MD Residents, A2 10/07/2024 Travel 10/06/2024 Orders Only [facility] Scanner 1 scan: (1-Ord) ANTONIO, CT ABDOMEN PELVIS W CON, 10/06/2024 10/06/2024 Orders Only [facility] Scanner 1 scan: (1-Ord) ANTONIO CT ANGIO ABD PEL GI BLEED, 10/06/2024 10/06/2024 Refill [facility] [address] [place] [address] Gladis Espinosa MD Refill Request (Nitroglycerin 0.4mg sub tab 25s) 08/10/2024 Telephone [facility] [address] [place] [address] Gladis Espinosa MD Results 08/07/2024 7:55 AM CDT Office Visit [facility] [address] [place] [address] Gladis Espinosa MD Medicare ANNUAL (subsequent) Visit (74 year old) 08/07/2024 Travel 08/04/2024 2:30 PM CDT Office Visit [facility] [address] [place] [address] Sarabjit Lancaster MD Follow Up (Tachycardia ) 08/04/2024 Travel 07/28/2024 Telephone [facility] [address] [facility] [address] [place] [address] Sarabjit Lancaster MD Refill Request (lisinopril) 07/25/2024 Refill [facility] [address] [place] [address] Gladis Espinosa MD Refill Request (Atorvastatin, Sertraline) 07/14/2024 Nurse Triage [facility] [address] [place] [address] Gladis Espinosa MD Derm Problem from Last 3 Months Immunizations Name Administration Dates Next Due COVID-19 VACCINE SPIKEVAX (M ODERNA 50MCG/0.5ML) 12YO+ PFS 11/26/2023 COVID-19 vaccine (Moderna 10 0mcg/0.5mL) PF, MDV 02/15/2021,01/18/2021 COVID-19 vaccine (Ringly-Bio NTech 30mcg/0.3mL) 12YO+ BIVALENT PF, MDV 09/03/2022 COVID-19 vaccine (Ringly-Bio NTech 30mcg/0.3mL) 12YO+ SHANTI-SUCROSE PF, MDV 05/02/2022 Influenza, High-dose Inactivated 09/01/2015 Influenza, High-dose Quadriv alent Inactivated 09/17/2023,08/26/2022,09/18/2021 Influenza, IIV4 12/17/2017 Influenza, Inactivated AIIV4 (Age 65+ Years) Preserv Free 08/12/2020 Influenza, Inactivated IIV3 (Age 65+ Years) Preserv Free 08/29/2018 Pneumococcal Poly,23-Valent (Pneumovax) 02/09/20 17 Pneumococcal conj 13-Valent (Prevnar 13) 015,11/03/2015 [...] or isolated from those around you? 0 10/07/2024 Financial Resource Strain Answer Date R ecorded Difficulty of Paying Living Expenses 3 08/07/2024 Difficulty of Paying Living Expenses Not on file 08/07/2024 Food Insecurity Answer Date Recorded Do you worry your food will run out before you are able to buy more? 1 10/07/2024 Transportation Needs Answer Date Record ed Does lack of transportation keep you from medica l appointments? 1 10/07/2024 Does lack of transportation keep you from work, meetings or getting things that you need? 1 10/07/2024 Housing Stability Answer Date Recorded What is your housing situation today? 1 10/07/2024 Sex and Gender Information Value Date Recorded Sex Assigned at Female 03/23/2021 8:42 PM CDT Gender Identity Female 03/23/2021 8:41 PM CDT Sexual Orientation Not on file Obstetrics History Last Filed Vital Signs Vital Sign Reading Time Taken Comments Blood Pressure 111/53 10/10/2024 8:00 PM LINEN TECH Pulse 96 10/10/2024 8:00 PM LINEN TECH Temperature 36.8 ??C (98.3 ??F) 10/10/2024 8:00 PM CS T Respiratory Rate 18 10/10/2024 8:00 PM LINEN TECH Oxygen Saturation 90% 10/10/2024 8:00 PM LINEN TECH Inhaled Oxygen Concentration - - Weight 71.8 [...] age 50+ (2 of 2) 08/31/2023 07/06/2023 Influenza for age 65+ 07/26/2024 09/17/2023 , [...] 10/05/2023, 10/26, 02/24/2010 COVID-19 vaccine series Completed 09/07/20, 11/26/2023, 09/03/2022, Additional history exists Medical Devices Implanted Type Area Sales Support Manager Device Identifier Shelf Expiration Date Model / Serial / Lot Screw Neuro 4mm Matrixneuro Slf Drill Titnm - [id number] Implanted:Qty: 5 on 07/14/2020 by Nate Lozano MD at [facility] [id number] 4.01# / / Description:All screws remov ed Screw Neuro 4mm Matrixneuro Slf Drill Titnm - [id number] Implanted:Qty: 1 on 09/14/2020 by Nate Lozano MD at [facility] [id number] 4.01# / / Description:All screws remov ed [id number] 3mesh 3x7cm Alloderm Thick Human Implanted:Qty: 1 on 01/24/2021 by Nate Lozano MD at [facility] Explanted:at [facility] (Quantity not on file) Right: Cranium [employer] 09/24/2021 [id number]# / [id number] / Dura Neuro 5ml Duraseal - [id number] Implanted:Qty: 1 on 01/24/2021 by Nate Lozano MD at [facility] Right: Cranium QA on Request 01/22/2022-2049 / / [id number] Description:See implant shee t Dura Neuro 2x2in Durepair Sut - [id number] Implanted:Qty: 1 on 01/24/2021 by Nate Lozano MD at [facility] Right: Cranium [employer] 05/24/2023 [id number] / / [id number] Screw Neuro 4mm Matrixneuro Slf Drill Titnm - [id number] Implanted:Qty: 8 on 01/24/2021 by Nate Lozano MD at [facility] Cranium J [employer] Gregor [facility] [id number] 4.01 / / Explanted Type Area Sales Support Manager Device Identifier Shelf Expiration Date Model / Serial / Lot Plate Neuro [id number] Synthes Malleable Titnm - [id number] Implanted:Qty: 1 on 07/14/2020 by Nate Lozano MD at [facility] Explanted:Qty: 1 on 01/24/2021 by Nate Lozano MD at [facility] Cranium [employer] [facility] [id number] # / / Procedures The patient is currently admitted. The information in this section might not be complete until the patient is discharged. Procedure Name Priority Date/Time Associated Diagnosis Comments HEMOGLOBIN Today 10/10/2024 6:56 PM LINEN TECH HEMOGLOBIN Timed 10/10/2024 12:05 PM LINEN TECH HEMOGLOBIN Timed 10/10/2024 6:02 AM LINEN TECH HEMOGLOBIN Timed 10/10/2024 12:39 AM LINEN TECH HEMOGLOBIN Timed 10/09/2024 6:35 PM LINEN TECH HEMOGLOBIN Timed 10/09/2024 1:48 PM LINEN TECH HEMOGLOBIN Timed 10/09/2024 6:[address] ANGIO ABDOMEN PELVIS STAT 10/09/2024 5:28 AM LINEN TECH Procedure Note - Brandon Michele MD - 10/09/2024 5:28 AM CSTThis note is in progress. --- Preliminary Report --- --CT ANGIO ABDOMEN PELVIS Omnipaque 350 100ml-- Bibasilar findings likely due to atelectasis, interstitial fibrosis andemphysema. Hepatic steatosis. Benign hepatic lesions. Unremarkable gallbladder. Nosignificant visceral abnormality. Pelvis poorly evaluated due to streak artifact from bilateral hiparthroplasties Moderate diffuse atherosclerosis. Regarding the GI system, there is fecal retention and extensivediverticulosis. Hyperdensity in the stomach predated the exam and isprobably antacid. There is no finding of active GI bleeding during thetime course of this examination. Please note that portions of the sigmoidare obscured by streak artifact from bilateral hip arthroplasties. Dictated by Brandon Michele MD @ 10/09/2024 5:53:25 AM Preliminary Report by Dr. Brandon Michele @ Oct 09 2024 5:53AM --- Preliminary Report --- HEMOGLOBIN Timed 10/09/2024 1:14 AM LINEN TECH HEMOGLOBIN Timed 10/08/2024 5:46 PM LINEN TECH SCAN CORRESP-EKG RESULTS 10/08/2024 12:05 PM LINEN TECH SCAN CORRESP-LABORATORY RESULTS 10/08/2024 12:05 PM LINEN TECH SCAN CORRESP-IMAGING 10/08/2024 12:05 PM LINEN TECH RBC W/O TYPE & SCREEN STAT 10/08/2024 10:42 AM LINEN TECH TYPE & SCREEN STAT 10/08/2024 10:29 AM LINEN TECH HEMOGLOBIN STAT 10/08/2024 10:29 AM LINEN TECH HEMOGLOBIN Timed 10/08/2024 10:29 AM LINEN TECH RED BLOOD CELLS EA UNIT STAT 10/08/2024 10:00 AM LINEN TECH HEMOGLOBIN Timed 10/08/2024 5:01 AM LINEN TECH BASIC METABOLIC PANEL Early AM 10/08/2024 5:01 AM LINEN TECH HEMOGLOBIN STAT 10/07/2024 10:50 PM LINEN TECH HEMOGLOBIN Timed 10/07/2024 4:02 PM LINEN TECH SCAN-CT INTERPRETATION 10/06/2024 12:00 AM LINEN TECH SCAN-ANGIOGRAM 10/06/2024 12:00 AM LINEN TECH HEMOGLOBIN A1C Routine 08/07/2024 8:57 AM CDT [...] Recently Relevant to Health Maintenance Results * (ABNORMAL) HEMOGLOBIN (10/10/2024 6:56 PM LINEN TECH) Only the most recent of14 resultswithin the time period is included. HEMOGLOBIN 7.0(L) 12.0 - 16.0 g/dL 10/10/2024 7:07 PM LINEN TECH [facility] MCV 87 80 - 100 fL 10/10/2024 7:07 PM LINEN TECH [facility] Blood BLOOD SPECIMEN / Unknown Non-Lab Venipuncture / Unknown 10/10/2024 6:56 PM LINEN TECH 10/10/2024 7:01 PM LINEN TECH Andrea Orlando MD HEMATOLOGY [facility] [address] [place] [address], * TRANSFUSE RBC (NURSE COMMUNICATION ORDER) (10/08/2024 2:29 PM LINEN TECH) Blood BLOOD SPECIMEN / Unknown Reynaldo Zhang MD NURSING BLOOD BANK * SCAN CORRESP-LABORATORY RESULTS (10/08/2024 12:05 PM LINEN TECH) Narrative 10/08/2024 12:05 PM LINEN TECH Ordered by an unspecified provider. Other Clinical Staff OTHER * SCAN CORRESP-EKG RESULTS (10/08/2024 12:05 PM LINEN TECH) Narrative 10/08/2024 12:05 PM LINEN TECH Ordered by an unspecified provider. Other Clinical Staff OTHER * SCAN CORRESP-IMAGING (10/08/2024 12:05 PM LINEN TECH) Anatomical Region Laterality Modality Other Narrative 10/08/2024 12:05 PM LINEN TECH Ordered by an unspecified provider. Other Clinical Staff OTHER * RBC W/O TYPE & SCREEN (10/08/2024 10:42 AM LINEN TECH) Pathologist [facility] QUANTITY 1 10/08/2024 10:42 AM LINEN TECH [facility] Blood BLOOD SPECIMEN / Unknown 10/08/2024 10:17 AM LINEN TECH Reynaldo Zhang MD BLOOD BANK Performing Organization Address [facility] Co de Phone Number [facility] [address] [place] [id number], * TYPE & SCREEN (10/08/2024 10:29 AM LINEN TECH) Pathologist [facility] ABORH A Rh Positive 10/08/2024 11:56 AM LINEN TECH [facility] ANTIBODY SCREEN Negative Negative 10/08/2024 11:56 AM LINEN TECH [facility] SPECIMEN EXPIRATION DATE/TIME 10/11/24 23:59 10/08/2024 11:56 AM LINEN TECH [facility] Blood BLOOD SPECIMEN / Unknown Venipuncture / Unknown 10/08/2024 10:29 AM LINEN TECH 10/08/2024 10:37 AM LINEN TECH Reynaldo Zhang MD BLOOD BANK Performing Organization Address [facility]/ZIP Co de Phone Number [facility] [address] [place] [id number], * RED BLOOD CELLS EA UNIT (10/08/2024 10:00 AM LINEN TECH) [facility] CROSSMATCH Compatible Compatible [facility] PRODUCT BLOOD TYPE A Rh Positive [facility] PRODUCT ID NUMBER [id number] [facility] PRODUCT STATUS Transfused [facility] PRODUCT DESCRIPTION RBC -1 LR [facility] PRODUCT CODE [id number] [facility] ISSUE DATE/TIME 10/08/24 11:58 [facility] Reynaldo Zhang MD [facility]LOOD [facility]ANK [facility] [address] [place] [address], * (ABNORMAL) Basic metabolic panel AM (10/08/2024 5:01 AM LINEN TECH) Only the most recent of2 resultswithin the time period is included. SODIUM 138 136 - 145 mmol/L 10/08/2024 5:52 AM [facility] POTASSIUM 3.9 3.5 - 5.1 mmol/L 10/08/2024 5:52 AM [facility] CHLORIDE 110(H) 98 - 107 mmol/L 10/08/2024 5:52 AM [facility] CO2,TOTAL 22 22 - 29 mmol/L 10/08/2024 5:52 AM [facility] ANION GAP 6 5 - 18 10/08/2024 5:52 AM [facility] GLUCOSE 101(H) 70 - 99 mg/dL 10/08/2024 5:52 AM [facility] CALCIUM 8.0(L) 8.8 - 10.4 mg/dL 10/08/2024 5:52 AM [facility] Comment: Reference ranges for this test were updated on 09/29/2024 to reflect our healthy population more accurately. Reference range changes are not retroactively applied to results, but previous results using the same methodology can be interpreted in the context of the new reference range. BUN 11 8 - 23 mg/dL 10/08/2024 5:52 AM [facility] CREATININE 0.73 0.50 - 0.90 mg/dL 10/08/2024 5:52 AM [facility] BUN/CREAT RATIO 15 10 - 20 5:52 AM [facility] eGFR 85(L) >90 mL/min/1. 73m2 10/08/2024 5:52 AM LINEN TECH [facility] Comment:As of 2022, eG FR is calculated by the CKD-EPI creatinine equation without race adjustment. ??eGFR can be influenced by muscle mass, exercise, and diet. ??The reported eGFR is an estimation only and is only applicable if the renal function is stable. Blood BLOOD SPECIMEN / Unknown Venipuncture / Unknown 10/08/2024 5:01 AM LINEN TECH 10/08/2024 5:15 AM LINEN TECH Reynaldo Zhang MD CHEMISTRY [facility] [address] [place] [address], * SCAN-ANGIOGRAM (10/06/2024 12:00 AM LINEN TECH) Anatomical Region Laterality Modality Other Scanner OTHER * SCAN-CT INTERPRETATION (10/06/2024 12:00 AM LINEN TECH) Anatomical Region Laterality Modality Other Scanner OTHER * HEMOGLOBIN A1C SCREENING (08/07/2024 8:57 AM CDT) HEMOGLOBIN A1C SCREENING 5.6 <=6.4 % 08/07/2024 5:10 PM CDT [facility] Blood BLOOD SPECIMEN / Unknown Venipuncture / Unknown 08/07/2024 8:57 AM CDT 08/07/2024 8:57 AM CDT Narrative [facility] - 08/07/2024 5:10 PM CDT ? (<5.7%) ?Normal ? (5.7% to 6.4%) ? Indicates prediabetes ? (>=6.5%) ? Confirms diabetes Falsely low levels may be seen with: Recent Transfusion, Recent Significant Blood Loss, Hemolytic Diseases, or Falsely elevated levels may be seen with: Untreated Anemias, Splenectomy Gladis Espinosa MD CHEMISTRY [facility] [address] [place] [address], * (ABNORMAL) LIPID PANEL W REFLEX MEASURED LDL (08/07/2024 8:57 AM CDT) CHOLESTEROL,TOTAL 217(H) 100 - 199 mg/dL 08/07/2024 6:39 PM CDT [facility] Comment: Cholesterol, Total Reference Ranges Desirable <200 mg/dL Borderline 200-239 mg/dL High >=240 mg/dL TRIGLYCERIDES 138 <150 mg/dL 08/07/2024 6:39 PM CDT [facility] HDL CHOLESTEROL 57 >40 mg/dL 6:39 PM CDT [facility] NON-HDL CHOLESTEROL 160(H) <145 mg/dl 08/07/2024 6:39 PM CDT [facility] CHOL/HDL RATIO 3.81 <4.50 08/07/2024 6:39 PM CDT [facility] LDL CHOLESTEROL 132(H) <=130 mg/dL 08/07/2024 6:39 PM CDT [facility] VLDL CHOLESTEROL 28 <=30 mg/dL 08/07/2024 6:39 PM CDT [facility] PROVIDER ORDERED STATUS RANDOM 08/07/2024 6:39 PM CDT [facility] Blood BLOOD SPECIMEN / Unknown Venipuncture / Unknown 08/07/2024 8:57 AM CDT 08/07/2024 8:57 AM CDT Gladis Espinosa MD CHEMISTRY [facility] [address] [place] [id number], [place] * CT CHEST SCREENING LOW DOSE WO [...] Luis Santos MD @04/16/2024 3:59:16 PM / MARCE:carol PATIENTS: You will also receive a letter [...] recommended in 3-5 years. Rosalina Sandhu PA-C [facility] 04/26/2023 Narrative 04/26/2023 4:55 PM CDT For Patients: Results are automatically released to your [facility] ([email or web address]) account once available, in compliance with federal regulations. This means that you may see your results before your provider has had a chance to review them. Please allow 2-3 business days for your provider to comment on the results. XR DXA Bone Mineral Density (BMD) EXAM LOCATION: [facility] [address] [facility] [address] PATIENT NAME: Nena Styles DATE OF : [...] two scanners are made by the same printer operator. PROCEDURE: Dual-energy x-ray absorptiometry performed with routine [...] juliet Non-React juliet 09/21/2021 6:13 PM CDT [email or web address] Comment:Antibodies to HCV no t detected; does not exclude the possibility of exposure to HCV. Blood BLOOD SPECIMEN / Unknown Venipuncture / Unknown 09/21/2021 1:18 PM CDT 09/21/2021 1:18 PM CDT Gladis Espinosa MD SEND OUTS [email or web address] [address] [place] [address], from Last 3 Months or Most Recently Relevant to Health Maintenance Advance Directives Documents on File Type Date Recorded Patient Apparel Pattern Maker Expl anation Healthcare Directive 10/16/2019 12:00 AM 10/09/2019 * Full Code (Latest Code Status on File) Date Activated Date Inactivated Comments 10/08/2024 7:22 AM Question Answer Comments Code Status Discussion: Reviewed Preferences * Full Code Date Activated Date Inactivated Comments 10/07/2024 12:55 PM 10/08/2024 7:22 AM Question Answer Comments Code Status Discussion: Unable to Assess Preferences, Provider to review later * Full Code Date Activated Date Inactivated Comments 01/24/2021 6:24 [...] Code Status Discussion: Not Discussed Care Teams Bottom Saw Operator Relationship Specialty Start Date End Date Gladis Espinosa MD [address] [place] [address] PCP - General Family Practice 08/27/18
--- OUTSIDE RECORDS SUMMARY | 2024-10-10 20:35 | XMS_ITS | Encounter Summary ---
Author Organization [place] Address [address] [place] [address] Care Team Providers Care Crowning Hammer Operator Name Role Phone Jeanette Esparza MD Primary Care Provider Nola Holland RN Unavailable Unavailable Jeffrey Lezama MD Unavailable [phone] Daisy Portillo Unavailable [phone] Marcy Judge RN Unavailable Unavailable Liyah Judge MD Unavailable [phone] System, Provider Not In Primary Care Provider Un available Jeanette Esparza MD Unavailable [phone] Jeanette Esparza MD Unavailable [phone] No Ref-Primary, Physician Primary Care Provider [facility] Unavailable [phone] Gladis Espinosa MD Primary Care Provider [phone] Reason for Visit * Reason Onset Date Comments Abdominal Pain 01/09/2016 cramping and sta bbing pain after colonoscopy Encounter Details Date Type Department Care Team (Late st Contact Info) Description 01/09/2016 MyC Medical Advice [address] [address] Jeanette Esparza MD [address] [address] Abdominal Pain (cramping and stabbing pain... Social History Tobacco Use Types Packs/Day Years Used Date Smoking Tobacco: Former Cigarettes Smokeless Tobacco: Former Comments:e-cigarette Alcohol Use Standard Drinks/Week Comments Yes 1 (1 standard drink = 0.6 oz pur e alcohol) occ Comments No Sex and Gender Information Value Date Recorded Sex Assigned at Not on file Legal Sex Female 4:57 AM MOLDER APPRENTICE Gender Identity Not on file Sexual Orientation Not on file documented as of this encounter Miscellaneous Notes * Telephone Encounter - Alex Chang MD - 01/09/2016 12:32 PM MOLDER APPRENTICE Could be cramping still from colonoscopy or early diverticulitis or gas. If no fevers, blood, not severe (doesn't sound like it) I agree with clinic or UC visit if needed. I would think that using miralax twice a day to help move gas through, re-set would be reasonable as well. Alex Chang MD ER APPRENTICE * Telephone Encounter - Hanna Ascencio RN - 01/09/2016 12:27 PM CST Patient is wondering if it might be diverticulitis. Would you recommend patient be seen in clinic for re-evaluation? UC this evening? Hanna Ascencio RN ER APPRENTICE * Telephone Encounter - Hanna Ascencio RN - 01/09/2016 11:55 AM CST I responded to patient as below. Hanna Ascencio RN ER APPRENTICE documented in this encounter Plan of Treatment [...] on filedocumented in this encounter Care Teams Crowning Hammer Operator Relationship Specialty Start Date End Date Jeanette Esparza MD PCP - General Family Practice 08/20/13 06/04/18 System, Provider Not In PCP - General Clinic 06/05/18 06/05/18 Jeanette Esparza MD 2270 [facility] 200 [place], [place] [id number] PCP - Assigned PCP 11/06/15 01/27/19 No Ref-Primary, Physician PCP - General 02/18/21 02/21/21 Gladis Espinosa MD [facility] 1400 [place] [address] PCP - General 02/22/21 Nola Holland RN Clinic Stonecutter Assistant Nurse 09/07/1506/20 Jeffrey Lezama MD [facility] [address] [facility] 410 [place] [address] Otolaryngology 12/24/17 Daisy Portillo AuD [facility] [address] [place] [address] English Language Arts Teacher Audiology 12/24/17 Marcy Judge RN Tech 12/24/17 12/24/17 Liyah Judge MD 420 [facility] 396 [place] [address] Otolaryngology 12/24/17 Jeanette Esparza MD [address] [address] Assigned PCP 11/06/15 06/04/20 [facility] [address] [address] 02/21/21 documented as of this encounter
--- OUTSIDE RECORDS SUMMARY | 2024-10-10 20:35 | XMS_ITS | Referral Summary ---
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 Gender Identity Not on file Sexual [...] Status: Active Medical Devices Implanted Type Area Insurance And Financial Services Agent Device Identifier Shelf Expiration Date Model / Serial / Lot G7 Acetabular Shell, 3 Hole, Porous Plasma Cementless, 52mm, E Implanted:Qty: 1 on 07/27/2015 by Hamzah Woodall MD at [facility] Right: Hip BIOMET 05/24/2025 [id number] / / [id number] [id number] Acetabular Screw, 6.5mm, 25mm Implanted:Qty: 1 on 07/27/2015 by Hamzah Woodall MD at [facility] Right: Hip BIOMET 08/24/2024 [id number] / / [id number] [id number] Acetabular Screw, 6.5mm, 25mm Implanted:Qty: 1 on 07/27/2015 by Hamzah Woodall MD at [facility] Right: Hip BIOMET 01/22/2025 [id number] / / [id number] G7 Acetabular Liner, Neutral, Arcomxl Highly Crosslinked Uhmwpe, 36mm, E Implanted:Qty: 1 on 07/27/2015 by Hamzah Woodall MD at [facility] Right: Hip 08/24/2019 [id number] / / [id number] Taperloc Complete Primary Femoral Porous Coated Stem Reduced Distal 11 X 142mm Standard Offset Type 1 Taper Implanted:Qty: 1 on 07/27/2015 by Hamzah Woodall MD at [facility] Right: Hip BIOMET 05/24/2025 [id number] / / [id number] Modular Head Component -3mm Neck Implanted:Qty: 1 on 07/27/2015 by Hamzah Woodall MD at [facility] Right: Hip BIOMET 06/10/2025 [id number] / / [id number] [id number] Acetabular Shell Implanted:Qty: 1 on 03/14/2016 by Hamzah Woodall MD at [facility] Left: Hip BIOMET [id number] / / [id number] Taperlock Complete Primary Femoral Porous Coated Stem Reduced Distal 11 X 142mm Standard Offset Ttype 1 Taper Ti-[id number] Implanted:Qty: 1 on 03/14/2016 by Hamzah Woodall MD at [facility] Left: Hip BIOMET 11/16/2025 [id number] / / [id number] Modular Head Component -3mm Neck Implanted:Qty: 1 on 03/14/2016 by Hamzah Woodall MD at [facility] Left: Hip BIOMET 01/04/[id number] / / [id number] G7 Acetabular Screw Implanted:Qty: 1 on 03/14/2016 by Hamzah Woodall MD at [facility] Left: Hip BIOMET 12/04/2025 [id number] / / [id number] G7 Acetabular Screw Implanted:Qty: 1 on 03/14/2016 by Hamzah Woodall MD at [facility] Left: Hip BIOMET 05/14/2026 [id number] / / [id number] [id number] Acetabular Liner Neutral Arcomxl Highly Crosslinked Implanted:Qty: 1 on 03/14/2016 by Hamzah Woodall MD at [facility] Left: Hip BIOMET [id number] / / [id number] Insurance MEDICARE [employer] MEDICARE [employer] Advance Directives For more information, please contact: [phone] Documents on File Type Date Recorded Patient Tool Lapper Hand Expl anation Advance Directives and Living Will [...] First Alternate Health Care Agent Care Teams Well Tender Relationship Specialty Start Date End Date Gladis Espinosa MD [facility] 1400 [place], [place] [id number] PCP - General 02/22/21 Jeffrey Lezama MD [facility] [address] [address] Otolaryngology 12/24/17 Daisy Portillo AuD [facility] [address] [address] Nursing Center Tutor Audiology 12/24/17 Liyah Judge MD [address] [place] [address] 396 [place], [place] [address] Otolaryngology 12/24/[address] [id number] 02/21/21
--- OUTSIDE RECORDS SUMMARY | 2024-10-10 20:35 | XMS_ITS | Encounter Summary ---
Author Organization [place] Address [address] [place] [address] Care Team Providers Care Winter Intern Name Role Phone Jeanette Esparza MD Primary Care Provider Nola Holland RN Unavailable Unavailable Jeffrey Lezama MD Unavailable Daisy Portillo Unavailable [phone] Marcy Judge RN Unavailable Unavailable Liyah Judge MD Unavailable [phone] System, Provider Not In Primary Care Provider Un available Jeanette Esparza MD Unavailable [phone] Jeanette Esparza MD Unavailable No Ref-Primary, Physician Primary Care Provider [facility] Unavailable [phone] Gladis Espinosa MD Primary Care Provider [phone] Reason for Visit * Reason Onset Date Comments Refill Request 10/25/2014 isosorbide,lisin opril Encounter Details Date Type Department Care Team (Late st Contact Info) Description 10/25/[address] [address] Jeanette Esparza MD [address] [address] Refill Request (isosorbide,lisinopril) Social History Tobacco Use Types Packs/Day Years Used Date Smoking Tobacco: Former Cigarettes Smokeless Tobacco: Former Alcohol Use Standard Drinks/Week Comments Yes 0.8 (1 standard drink = 0.6 oz p ure alcohol) occ Comments No Sex and Gender Information Value Date Recorded Sex Assigned at Not on file 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 Gender Identity Not on file Sexual Orientation [...] Encounters: 10/04/14 120/70 08/17/14 146/80 08/14/14 108/70 NSED MORTGAGE LOAN OFFICER documented in this encounter Plan of Treatment Not on file documented as of this encounter Visit Diagnoses Diagnosis Anginal pain (H) Other and unspecified angina pectoris HTN, goal below 140/90 Unspecified essential hypertension documented in this encounter Care Teams Winter Intern Relationship Specialty Start Date End Date Jeanette Esparza MD PCP - General Family Practice 08/20/13 06/04/18 System, Provider Not In PCP - General Clinic 06/05/18 06/05/18 Jeanette Esparza MD [address] [place] [address] PCP - Assigned PCP 11/06/15 01/27/19 No Ref-Primary, Physician PCP - General 02/18/21 02/21/21 Gladis Espinosa MD [facility] 1400 [place] [address] PCP - General 02/22/21 Nola Holland, [facility] Oyster Planter Nurse 09/07/1506/20 Jeffrey Lezama MD [facility] 7300 [facility] 410 [place] [address] Otolaryngology 12/24/17 Daisy Portillo AuD [facility] 7300 [facility] 410 [place] [address] Machine Packager Audiology 12/24/17 Marcy Judge, RN Tech 12/24/17 12/24/17 Liyah Judge MD 420 [facility] 396 [place], [place] [address] Otolaryngology 12/24/17 Jeanette Esparza MD 2270 [facility] 200 [place] [address] Assigned PCP 11/06/15 06/04/20 [facility] 1400 [place] [address] 02/21/21 documented as of this encounter
--- OUTSIDE RECORDS SUMMARY | 2024-10-10 20:35 | XMS_ITS | Encounter Summary ---
Author Organization [place] Address [address] [place] [address] Care Team Providers Care Corporate Sales Manager Name Role Phone Jeanette Esparza MD Primary Care Provider Nola Holland RN Unavailable Unavailable Jeffrey Lezama MD Unavailable [phone] Daisy Portillo Unavailable [phone] Marcy Judge RN Unavailable Unavailable Liyah Judge MD Unavailable System, Provider Not In Primary Care Provider Un available Jeanette Esparza MD Unavailable Jeanette Esparza MD Unavailable [phone] No Ref-Primary, Physician Primary Care Provider [facility] Unavailable Gladis Espinosa MD Primary Care Provider Reason for Visit * Reason Onset Date Comments Outreach 06/07/2015 [facility] att 1 Encounter Details Date Type Department Care Team (Late st Contact Info) Description 06/07/2015 Telephone [facility] - CARE MANAGEMENT DEPT [address] [place] [address] Jeanette Esparza MD 2270 [facility] 200 [place] [address] Outreach (PHS att 1) Social History Tobacco Use Types Packs/Day Years Used Date Smoking Tobacco: Former Cigarettes Smokeless Tobacco: Former Alcohol Use Standard Drinks/Week Comments Yes 0.8 (1 standard drink = 0.6 oz p ure alcohol) occ Comments No Sex and Gender Information Value Date Recorded Sex Assigned at Not on file 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 Gender Identity Not on file Sexual Orientation Not on file documented as of this encounter Miscellaneous Notes * Telephone Encounter - Dawn Oliva - 06/07/2015 12:08 PM CDT 06/07/15 Call Regarding Preventive Health Screening Mammogram Attempt 1 Message Comments: patient have hip surgery schedule in Jul, will call back to schedule mammo Outreach Supervisor Communications And Signals cnt documented in this encounter Plan of Treatment Not on file documented as of this encounter Visit Diagnoses Not on filedocumented in this encounter Care Teams Corporate Sales Manager Relationship Specialty Start Date End Date Jeanette Esparza MD PCP - General Family Practice 08/20/13 06/04/18 System, Provider Not In PCP - General Clinic 06/05/18 06/05/18 Jeanette Esparza MD [address] [address] PCP - Assigned PCP 11/06/15 01/27/19 No Ref-Primary, Physician PCP - General 02/18/21 02/21/21 Gladis Espinosa MD [address] [address] PCP - General 02/22/21 Nola Holland RN Clinic Match Maker Nurse 09/07/1506/20 Jeffrey Lezama MD [facility] [address] [facility] 410 [place] [address] Otolaryngology 12/24/17 Daisy Portillo AuD [facility] [address] [facility] 410 [place] [address] Realtime Reporter Audiology 12/24/17 Marcy Judge, RN Tech 12/24/17 12/24/17 Liyah Judge MD 420 [facility] 396 [place] [address] Otolaryngology 12/24/17 Jeanette Esparza MD 2270 [facility] 200 [place] [address] Assigned PCP 11/06/15 06/04/20 [facility] [address] [id number] 02/21/21 documented as of this encounter
--- OUTSIDE RECORDS SUMMARY | 2024-10-10 20:35 | XMS_ITS | Encounter Summary ---
Author Organization [place] Address [address] [place] [address]. [place] [address] Care Team Providers Care Research Chief Engineer Name Role Phone Jeanette Esparza MD Primary Care Provider Jeffrey Lezama MD Unavailable [phone] Daisy Portillo Unavailable [phone] Liyah Judge MD Unavailable [phone] System, Provider Not In Primary Care Provider Un available Jeanette Esparza MD Unavailable [phone] Jeanette Esparza MD Unavailable [phone] No Ref-Primary, Physician Primary Care Provider Jerri Davisonfield Unavailable [phone] Gladis Espinosa MD Primary Care Provider [phone] Encounter Details Date Type Department Care Team (Late st Contact Info) Description 01/20/2018 [facility] [address] [address] Bryan Martinez Social History Tobacco [...] on file 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 Gender Identity Not on file Sexual Orientation [...] documented as of this encounter Care Teams Research Chief Engineer Relationship Specialty Start Date End Date Jeanette Esparza MD PCP - General Family Practice 08/20/13 06/04/18 System, Provider Not In PCP - General Clinic 06/05/18 06/05/18 Jeanette Esparza MD 2270 [facility] 200 [place] [address] PCP - Assigned PCP 11/06/15 01/27/19 No Ref-Primary, Physician PCP - General 02/18/21 02/21/21 Gladis Espinosa MD [facility] 1400 [place] [address] PCP - General 02/22/21 Jeffrey Lezama MD [facility] 7300 [facility] 410 [place] [address] Otolaryngology 12/24/17 Daisy Portillo AuD [facility] 7300 [facility] 410 [place] [address] Bleaching Machine Operator Audiology 12/24/17 Liyah Judge MD 420 [facility] 396 [place], [place] [address] Otolaryngology 12/24/17 Jeanette Esparza MD 2270 [facility] 200 [place], [place] [address] Assigned PCP 11/06/15 06/04/[address] [address] 02/21/21 documented as of this encounter
--- OUTSIDE RECORDS SUMMARY | 2024-10-10 20:35 | XMS_ITS | Encounter Summary ---
Author Organization [facility] Address [address] [place] [address] Care Team Providers Care Print Washer Name Role Phone Jeanette Esparza MD Primary Care Provider Jeffrey Lezama MD Unavailable [phone] Daisy Portillo Unavailable [phone] Marcy Judge RN Unavailable Unavailable Liyah Judge MD Unavailable [phone] System, Provider Not In Primary Care Provider Un available Jeanette Esparza MD Unavailable [phone] Jeanette Esparza MD Unavailable [phone] No Ref-Primary, Physician Primary Care Provider [facility] Unavailable [phone] Gladis Espinosa MD Primary Care Provider Reason for Visit * Reason Onset Date Comments Refill Request 12/25/2016 sertraline (ZOLO FT) 100 MG tablet Encounter Details Date Type Department Care Team (Late st Contact Info) Description 12/25/2016 MyC Medical Advice [address] [address] Jeanette Esparza MD [address] [address] Refill Request (sertraline (ZOLOFT) 100 [...] on file 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 Esparza Last PHQ-9 score on record= PHQ-9 SCORE 11/08/2016 Total Score 8 TION ELECTRONICS TECHNICIAN documented in this encounter Plan of [...] Total Score: 8 11/09/20 16 7:20 AM AVIATION ELECTRONICS TECHNICIAN documented as of this encounter Care Teams Print Washer Relationship Specialty Start Date End Date Jeanette Esparza MD PCP - General Family Practice 08/20/13 06/04/18 System, Provider Not In PCP - General Clinic 06/05/18 06/05/18 Jeanette Esparza MD 2270 [facility] 200 [place] [address] PCP - Assigned PCP 11/06/15 01/27/19 No Ref-Primary, Physician PCP - General 02/18/21 02/21/21 Gladis Espinosa MD [address] [address] PCP - General 02/22/21 Jeffrey Lezama MD [facility] 7300 [facility] 410 [place] [address] Otolaryngology 12/24/17 Daisy Portillo AuD [facility] 7300 [facility] 410 [place] [address] Fleet Administrative Assistant Audiology 12/24/17 Marcy Judge, RN Tech 12/24/17 12/24/17 Liyah Judge MD [address] [place] [address] 396 [place], [place] [address] Otolaryngology 12/24/17 Jeanette Esparza MD 2270 [facility] 200 [place] [address] Assigned PCP 11/06/15 06/04/20 [facility] [address] [address] 02/21/21 documented as of this encounter
== END 2024-10-07 11:11 | disposition home or self-care (01) ==
LOC: AMB 10-10 20:33
PROVIDERS: PCP Family Medicine; Visit Provider Emergency Medicine
DX: K57.31 Diverticulosis of large intestine without perforation or abscess with bleeding (principal)
CPT/HCPCS: A0425; A0429

== ENCOUNTER 2025-02-16 08:06 | Outpatient (CLI) | payer MEDICARE, OTHER, SELFPAY ==
--- NOTE | 2025-02-16 08:15 | MR_ITS ---
EXAM: MRI of the RIGHT ELBOW, without contrast CLINICAL HISTORY: Ongoing right elbow pain. Injury removing snow from a vehicle. Evaluate for triceps tear. COMPARISONS: Plain radiographs 01/27/2025. TECHNICAL: MR sequences of the right elbow: Axials: PD, T2 Coronals: T1, STIR, PD, T2 Sagittals: PD, T2 Sedation: None Contrast: None FINDINGS: Bones: No fracture or suspicious bone marrow signal abnormality. Ligaments: Medial ulnar collateral: No acute injury. Radial collateral proper: Intact. Lateral ulnar collateral: Intact. Annular ligament: Intact. Myotendinous structures: Biceps: Intact. Triceps: The distal triceps tendon is intact. There is marked atrophy of the imaged portion of the medial head of the triceps muscle. Brachialis: Intact. Supinator: Intact. Forearm extensors: Mild to moderate common extensor tendinopathy. Forearm flexors: Intact. Elbow joint: Joint fluid: Physiologic amount of joint fluid. Ganglion cyst: None. Radiohumeral plica: Unremarkable. Osteochondral surfaces: Unremarkable. Intra-articular bodies: None identified. Bursae: No bursitis identified. Nerves: Ulnar: Unremarkable. Median: Unremarkable. Radial: Unremarkable. IMPRESSION: 1. Marked atrophy of the imaged portion of the medial head of the triceps muscle. Intact distal triceps tendon. 2. Mild to moderate common extensor tendinopathy. 3. No fracture, ligamentous injury, or osteochondral lesion of the right elbow. RCB Electronically signed on 02/16/2025 12:38:00 PM by Jose Miguel Leary M.D.
== END 2025-02-16 08:07 | disposition home or self-care (01) ==
PROVIDERS: PCP Family Medicine; Visit Provider Orthopaedic Surgery
DX: M25.521 Pain in right elbow (principal); S49.91XA Unspecified injury of right shoulder and upper arm, initial encounter
CPT/HCPCS: 73221

== ENCOUNTER 2025-11-16 19:17 | Emergency (ER) | payer MEDICARE, OTHER, SELFPAY ==
[2025-11-16] VITALS (18 sets, daily range): BP systolic 103–136; BP diastolic 69–91; PULSE 62–180; RESP 9–25; TEMP 36.7; O2SAT 90–96; BMI 22.8
--- OUTSIDE RECORDS SUMMARY | 2025-11-16 19:19 | XMS_ITS | Clinical Summary ---
Author Organization [facility] Address [address] [place] [address] Care Team Providers Care Tie Cutter Name Role Phone Jeffrey Lezama MD Unavailable Daisy Portillo Unavailable [phone] Liyah Judge MD Unavailable [phone] [facility] Unavailable Gladis Espinosa MD Primary Care Provider Allergies Active AllergyReactionsCriticalityNoted DateCommentsCodeineOther (See Comments) 12/13/2017 Chills Codeine SulfateOther (See Comments)08/20/2013 Body Tingling, cold sweats Contrast DyeOther (See Comments)08/12/2014 Redness like sunburn on body, specific dye used was Isovue 370 Wwfjydpljqc51/26/2013 Cold sweats and bumps all over body WdqbcihoXyohCwq10/28/2014 Rash from [employer] [employer] - hosp 06/18/14 Medications MedicationSigDispense QuantityRefillsLast FilledStart DateEnd DateStatus nitroglycerin (NITROSTAT) 0.[address] 0.4 mg under the tongue every 5 minutes as needed for chest painActive omeprazole (PRILOSEC) 40 MG capsule Indications:GERD (gastroesophageal reflux disease)TAKE 1 CAPSULE(40 MG) BY MOUTH DAILY 30 TO 60 MINUTES BEFORE A MEAL 90 capsule Active sertraline (ZOLOFT) 100 MG tablet Indications:Major depressive disorder, recurrent episode, moderate (H)TAKE 1 TABLET(100 MG) BY MOUTH DAILY 30 tablet you02/27/2018Active flecainide (TAMBOCOR) 50 MG tablet Indications:Supraventricular tachycardiaTake 1 tablet (50 mg) by mouth every 12 hours 180 tablet 09/22/2018Active atorvastatin (LIPITOR) 40 MG tablet Take 40 mg by mouth At BedtimeActive tiotropium (SPIRIVA RESPIMAT) 2.5 MCG/ACT inhaler Inhale 2 puffs into the lungs dailyActive vitamin D3 (CHOLECALCIFEROL) 50 mcg (2000 units) tablet Take 1 tablet by mouth dailyActive Active Problems ProblemNoted DateDiagnosed UkfmFrqakl27/27/2021Ear drainage right05/30/2017 Fatigue, unspecified type05/30/2017Supraventricular rjxcumdzfff10/16/2017Other infective acute otitis externa of left ear01/03/2017Dry mouth01/03/2017Essential hypertension with goal blood pressure less than 140/9009/18/2016Coronary artery disease, non-ktknirfcp69/25/2016Chest pain06/19/2016Need for hepatitis C screening test04/12/2016Major depressive disorder, recurrent episode, moderate 04/12/2016S/P total hip cnyigwduuspp22/20/2016Internal kckiiyidmh54/09/2016 Overview (01/03/2016): Noted colonoscopy 12/[address]12/05/2015 Overview (12/05/2015): Recommended follow up 05/2015 Diverticulosis of large intestine with cijwcnudbx84/08/2015Diverticulitis of colon11/01/2015Coronary artery disease involving iliamna coronary artery without angina ysfbyqng06/20/2015drenal yghlzjwbkvwqa16/05/2015SVT (supraventricular tachycardia)08/22/2015S/P prosthetic total arthroplasty of the hip07/27/2015 Paroxysmal atrial gdeiothoaqoh78/01/2015Thyroid ytfefw1607/15/2015GERD (gastroesophageal reflux disease)08/20/2013Hyperlipidemia LDL goal <100 08/20/2013 Resolved Problems ProblemNoted DateDiagnosed DateResolved DateHTN, goal below 140/9002/ 07/06/2017Essential hypertension with goal blood pressure less than 140/90 Hypertension goal BP (blood pressure) < 150/90004/12/2016 12/06/2016Advanced directives, counseling/vxnpkxhkny80 Overview (11/30/2014): Gave pt packet on 11/30/2014 Katelynn Ochoa [employer] RashAtrial ypewfnjctmxv73 Overview (06/08/2014): Occurred during acute illness (CAP) approximately 05/2014 Elevated uvcqcnkb93 Overview (06/08/2014): Without evidence of the acute coronary syndrome in 05/2014 Acute diastolic heart pcfldfi25 Overview (06/08/2014): Fluid resuscitated with over 10 liters during 05/2014 hospitalization, developed mild pulmonary edema requiring O2 oxymizer support; no previous history of heart failure. Echocardiogram with EF 60-65%. Sfzcrxl41Intermediate coronary ugksfrmd88/02/ HTN, goal below 140/900Right leg pain Sciatica vnmuzclqg66 Immunizations ImmunizationAdministration DatesNext DueInfluenza (High Dose) Trivalent,PF (Fluzone)09/01/2015Pneumo Conj 13-V (2010&after)11/07/2015Pneumococcal 23 valent 01/03/2017TDAP Vaccine (Adacel)11/17/2014 Family History Medical HistoryRelationCommentsAlcohol/DrugBrotherAlcohol/DrugFatheralcoholism DepressionMotherHypertensionSister 1Breast CancerSister 2DepressionSister 3 Alcohol/DrugSon 1DepressionSon 2Colon CancerNo family hx ofRelationStatus CommentsBrotherDeceasedFatherDeceasedMotherDeceasedSister 1DeceasedSister 2 Sister 3Son 1Son 2 Social History Tobacco UseTypesPacks/DayYears UsedDateSmoking Tobacco: WbscsxEvuvkykefl2Sqbo: 12/27/2016Smokeless Tobacco: Former Tobacco Cessation:Counseling Given: No Alcohol UseStandard Drinks/WeekCommentsYes1 (1 standard drink = 0.6 oz pure alcohol)1 drink monthly if thatPHQ-2AnswerDate RecordedPHQ-2 Rtfqu686 Adolescent EducationAnswerDate RecordedGetting School Help NeededNot on file 3CommentsNoSex and Gender InformationValueDate RecordedSex Assigned at BirthNot on fileLegal SmkIujiom49/04/2012 4:57 AM CSTGender Identity Not on fileSexual OrientationNot on file Last Filed Vital Signs Vital SignReadingTime TakenCommentsBlood Gehhwppu161/7402/22/2021 7:32 AM CDT Xapuq760302/22/2021 7:47 AM WHGCultiytwwro98.7 ??C (98 ??F)02/22/2021 7:32 AM CDT Respiratory Qeax948002/22/2021 7:47 AM CDTOxygen Iutiascopk54%02/22/2021 7:47 AM CDTInhaled Oxygen Concentration--Kdrfdp79.9 kg (154 lb)02/18/2021 5:00 PM CDT Jjklqv807.2 cm (5' 7)02/18/2021 5:00 PM CDTBody Mass Index24.1203 5:00 PM CDT Plan of Treatment Not on file Goals GoalPatient Goal TypeAssociated ProblemsRecent ProgressPatient-Stated?Author Patient states that she would like to increase her physical activity to assist her with increasing her strength and healing. Nola Billings RN Note: As of today's date 09/07/2015 goal is met at 26 - 50%. Goal Status: Active Medical Devices ImplantedTypeAreaManufacturerDevice IdentifierShelf Expiration DateModel / Serial / [id number] Acetabular Shell, 3 Hole, Porous Plasma Cementless, 52mm, E Implanted:Qty: 1 on 07/27/[facility] SlfWXRDYF84/30/[id number] / / [id number] Acetabular Screw, 6.5mm, 25mm Implanted:Qty: 1 on 07/27/2015 [facility] CtyPDBUEW39/30/[id number] / / [id number] Acetabular Screw, 6.5mm, 25mm Implanted:Qty: 1 on 07/27/2015 [facility]: CejIOITCO81/28/[id number] / / [id number] Acetabular Liner, Neutral, Arcomxl Highly Crosslinked Uhmwpe, 36mm, E Implanted:Qty: 1 on 07/27/2015 [facility] Hip08/24/[id number] / / [id number] Complete Primary Femoral Porous Coated Stem Reduced Distal 11 X 142mm Standard Offset Type1 Taper Implanted:Qty: 1 on 07/27/2015 [facility] IdnRPAGGL64/30/[id number] / / [id number] Head Component -3mm Neck Implanted:Qty: 1 on 07/27/2015 [facility] TlzREHBAU48/17/[id number] / / [id number] Acetabular Shell Implanted:Qty: 1 on 03/14/2016 [facility] [id number] / / [id number] Complete Primary Femoral Porous Coated Stem Reduced Distal 11 X 142mm Standard Offset Ttype 1 Taper [id number] Implanted:Qty: 1 on 03/14/2016 [facility] XqsLVLGZF41/23/[id number] / / [id number] Head Component -3mm Neck Implanted:Qty: 1 on 03/14/2016 [facility] BjySBJJKW30//[id number] / / [id number] Acetabular Screw Implanted:Qty: 1 on 03/14/2016 [facility]: EjfCBHWIW45/[id number] / / [id number] Acetabular Screw Implanted:Qty: 1 on 03/14/2016 by [facility]: QapPKEKAU68/[id number] / / [id number] Acetabular Liner Neutral Arcomxl Highly Crosslinked Implanted:Qty: 1 on 03/14/2016 [facility] [id number] / / [id number] Insurance * Guarantor: Nena StylesAccocristina TypeRelation to PatientDate of BirthPhone Billing AddressPersonal/LvguwtPfad1950 none (Work) [address] [place] [address] [place] [phone] Advance Directives For more information, please contact: [phone] TypeDate RecordedPatient RepresentativeExplanationAdvance Directives and Living Will03/27/2021Health Care Directive 10/09/2019Advance Directives and Living Will 03/27/2021Validation of AD 10/09/2019 * Full Code (Latest Code Status on File) Date ActivatedDate InactivatedComments02/18/2021 5:26 PM02/22/2021 1:18 PMAll basic and advanced life-sustaining interventions are performed as appropriate QuestionAnswerCommentsCode status determined by:* Discussion with patient/ legal decision maker * Full Code Date ActivatedDate InactivatedComments12/30/2016 9:07 AM02/18/2021 4:51 PM * Full Code Date ActivatedDate InactivatedComments12/29/2016 6:48 PM2 9:07 AM * Full Code Date ActivatedDate InactivatedComments06/20/2016 8:44 AM12/29/2016 6:48 PM * Full Code Date ActivatedDate InactivatedComments06/19/2016 3:07 PM06/20/2016 8:44 AM NameRelationshipHealthcare Agent NadeemCommunicationRadha HelmterDaughter Health Care Agent* Logan Bedoya Alternate Health Care Agent* Care Teams Team MemberRelationshipSpecialtyStart DateEnd Date Gladis Espinosa MD [facility] [address] [place] [address] PCP - General02/22/21 Jeffrey Lezama MD [facility] [address] [place], [place] [id number] MDOtolaryngology12/24/17 Daisy Portillo AuD [facility] [address] [place] [address] AudiologistAudiology12/24/17 Liyah Judge MD [address] [place] [address] [address] [place] [address] MDOtolaryngology12/24/17 [facility] [address] [place] [address] 02/21/21
--- OUTSIDE RECORDS SUMMARY | 2025-11-16 19:19 | XMS_ITS | Patient Health Record ---
Author Organization [facility] Address [address] [place] [address] Phone [phone] Care Team Providers Care Legal Manager Name Role Phone Gladis Espinosa Primary Care Provider Andie SPEARS MD, [facility] [phone] Allergies Allergen (clinical drug ingredient) Drug/Non Drug Allergy documented on EMR Reaction Allergy Type Onset Date Status warfarin Warfarin Sodium Unknown Drug Allergy ActivePenicillinUnknownDrug AllergyActiveContrast DyeUnknownDrug AllergyActive Reason For Referral No Information Medications Medication SIG (Take, Route, Frequency, Duration) Notes Start Date End Date Diagnosis (ICD Code) Status Albuterol Sulfate HFA 108 (9 0 Base) MCG/ACT Aerosol Solution INL 1 TO 2 PFS PO Q 4 H PRN Inhalation; Duration: 50 ActiveSpiriva Respimat 2.5 MCG/ACT Aerosol SolutionINHALE 2 PUFFS BY MOUTH DAILY Inhalation; Duration: 90ActiveLisinoprilActiveFlecainide AcetateActive Atorvastatin CalciumActivedilTIAZem HCl ER Coated BeadsActiveSertraline HCl Active Social History Tobacco Use: Social History Observation Description Date Details (start date - stop date) Former Smoker NA - NA Sex Observation Social History Observation Description Sex Observation Female Social History Tobacco Use:Social InfoQuestionAnswerNotesTobacco use/smokingAre you aformer smoker Problems Problem Type SNOMED Code ICD Code Dates Problem Status W/U Sta tus Risk Notes Problem Cholesteatoma of attic (43721190) Cholesteatoma of attic, 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) Added On:07/13/2020 Active confirmed Persistence/recurrence noted on MRI in wound bed; now s/p more definitive resection and more complex reconstruction, doing wellProblemCholesterol granuloma of right middle ear (9246227604039867)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) Added On:07/26/2020 ActiveconfirmedProblemPostoperative wound abscess (86144946)Postoperative wound abscess (T81.49XA) Added On:07/27/2020 ActiveconfirmedContinues to present with coliform bacteria Plan Of Treatment No Information Insurance Providers Payer Name Payer Address Payer Phone Subscriber Number Group Number Insured Name Patient Relationship to Insured Coverage Start Date Coverage End Date [employer] [id number] [address] [address] [place], [place] [id number], ElaineSelf - patient is the insured[facility] [place] [id number], ElaineSelf - patient is the insured Medical (General) History Medical History History ICD Code Hypertension DepressionSurgical History Surgery Date(Month/Year) R subtotal petrosectomy, dis section of disease from middle cranial fossa, resection of cholesterol granuloma, FNM, abdominal fat graft, Stealth CT navigation, oversew closure of ear canal 07/14/2020 tonsillectomy as child ear surgeryR PA wound/mastoid exploration, revision of PA wound closure and revison AFG1R MCF craniotomy and subtotal petrosectomy wound exploration, resection of recurrent cholesteatoma,repair of tegmental defect, FNM, and rotation and inset of a lower island trapezius flap01/24/2021
--- OUTSIDE RECORDS SUMMARY | 2025-11-16 19:20 | XMS_ITS | Clinical Summary ---
Author Organization [facility] Address [address] [place] [address] Care Team Providers Care Computer Publisher Name Role Phone Gladis Espinosa MD Primary Care Provider [phone] Allergies Active AllergyReactionsCriticalityNoted DateCommentsCodeineOther - Describe In Comment Field12/13/2017 Chills Diatrizoate AllergenOther - Describe In Comment Field08/12/2014 Redness like sunburn on body, specific dye used was Isovue 370 Iodine And Iodide Containing ProductsNausea QcrtSox1404/06/2019PenicillinsHives 12/13/20170322OepakckgCiog86/19/2018 Medications MedicationSigDispense QuantityRefillsLast FilledStart DateEnd DateStatus cholecalciferol (VITAMIN D-3) 2,000 unit capsule Indications:Vitamin D deficiencyTake 1 capsule by mouth once daily. 90 capsule Active acetaminophen (TYLENOL) 325 mg tablet Indications:Cholesteatoma of ear, rightTake 1-2 tablets by mouth every 4 hours if needed (mild pain). Max acetaminophen dose: 4000mg in 24hrs. ctive miscellaneous medical supply (Blood Pressure Cuff) [facility] Indications:HTN (hypertension)As directed. 1 Each 02/28/2021ctive famotidine (PEPCID) 20 mg tablet Take 1 Tablet (20 mg) by mouth once daily if needed.ctive camphor-menthol (SARNA ORIGINAL) 0.5-0.5 % lotion Indications:Itching due to drugApply topically to affected area(s) 3 times daily if needed for Itching. 222 mL 10/13/2024 11:36 AM CST10/13/2024ctive triamcinolone 0.1 % lotion Indications:RashApply topically to affected area(s) three times daily. 120 mL 4Active nitroglycerin 0.4 mg sublingual tablet Indications:Hypertension, unspecified typePlace 1 Tablet (0.4 mg) under the tongue every 5 minutes if needed for Chest Pain. Max of 3 doses. If chest pain persists, seek medical attention. 25 Tablet 5Active sertraline (ZOLOFT) 100 mg tablet Indications:Major depression in remissionTake 2 Tablets (200 mg) by mouth once daily. 180 Tablet 5Active lisinopriL (PRINIVIL; ZESTRIL) 30 mg tablet Indications:HypertensionTake 1 Tablet (30 mg) by mouth once daily. 90 Tablet 5Active diltiazem CD (CARDIZEM CD) 360 mg extended release 24 hr capsule Indications:HTN (hypertension),Paroxysmal atrial fibrillation (HC)Take 1 Capsule (360 mg) by mouth once daily. 90 Capsule 5Active atorvastatin (LIPITOR) 80 mg tablet Indications:Hyperlipidemia, unspecified hyperlipidemia typeTake 1 Tablet (80 mg) by mouth once daily. 90 Tablet 5Active albuterol HFA (PRO-AIR; VENTOLIN; PROVENTIL) 90 mcg/actuation inhaler Indications:Pulmonary emphysema, unspecified emphysema type (HC)Inhale 2 Puffs by mouth every 4 hours if needed for Shortness Of Breath or Wheezing. 3 Each 5Active metoprolol succinate (Toprol XL) 25 mg Sustained-Release tablet Indications:SVT (supraventricular tachycardia) (HC)Take 1 Tablet (25 mg) by mouth once daily. May take additional tablet (25 mg) daily if needed for rapid heart rate. 180 Tablet 5Active tiotropium-olodateroL (Stiolto Respimat) 2.5-2.5 mcg/actuation inhaler Indications:Pulmonary emphysema (HC)Inhale 2 Puffs by mouth once daily. 12 g 5Active Active Problems Patient Care Coordination No te Formatting of this note is d ifferent from the original. HF/Structural/Prevention Research Eligibility Review Date: 12/25/19 Upcoming Visit Location: [facility] Age: 69 y.o. Research Purpose Insurance Type: Private Medicare Equivalent Body mass index is 25.92 kg/m??. Social History Tobacco Use Smoking Status Current Every Day Smoker ??? Packs/day: 0.50 ??? Years: 54.00 ??? Pack years: 27.00 ??? Types: Cigarettes ??? Start date: 11/25/1965 Smokeless Tobacco Never Used Tobacco Comment since age 14, patient has not smoked in 3 weeks (04/24/19) Social History Substance and Sexual Activity Alcohol Use Not Currently Comment: rare Comments: HF: DNQ Structural: DNQ Prevention: No DMII Vesalius: no inclusion 104 ProblemNoted DateDiagnosed NpahOnnuguuerxuf23/17/2025History of cholesteatoma 08/11/2025History of GI diverticular bleed08/11/20253302Jazckncxivco20/13/2024trial fibrillation (HC), mrjoexdfpw36/13/2024Major depression in weachxyop28/13/2024 Trigger ring finger of left hand11/29/20230105Nqunagpjezq99/30/2023Pulmonary emphysema, unspecified emphysema type03/29/2022 Overview (09/03/2025): Diagnosis Code replaced due to regulatory update Skvdflspt37/28/2021drenal vwetvpovrzvem49/28/2021 Overview (08/07/2024): Stable from 6275-5206, presumed benign Cholesteatoma of ear, right07/20/20205686Ptgmpdbvuttxd84/01/2020Adrenal adenoma 01/27/2020Inguinal hernia, left01/27/2020Internal hhzxthjhij06/04/2020Prolonged Q-T interval on ECG04/01/2019SVT (supraventricular tachycardia)10/17/2018 Maxutdfjqtomka01/07/2018 Overview (10/01/2018): Colonoscopy 09/2018 diverticulosis, repeat in 10 years Tobacco use hsyqhonn39/23/2018HyperlipidemiaHTN (hypertension)Acid refluxS/P craniotomyCOPD (chronic obstructive pulmonary disease) Resolved Problems ProblemNoted DateDiagnosed DateResolved DateChronic respiratory failure with uiuvrqy40losed fracture of right side of maxilla, initial sqpeyslng01/Major depressive disorder, recurrent episode, ddsddeiv04/holesteatoma of ear, right Mastoiditis of right side/rain yudxfkt62/12/2022 Nryfargtdwkzmm74/04/202011/trial vcohmwwezrnv04/23/2018E coli infection 06/26/2023 Encounters DateTypeDepartmentCare KvrmQyeqxdwyvco19/17/2025 1:50 PM CSTOffice Visit [facility] [address] [place] [address] Ilene Solorio MD Cough (1 week/SOB)10/11/20257832Dmcxwh66/05/2025Refill [facility] [address] [place] [address] Gladis Espinosa MD Refill Request (Stiolto Respimat, Metoprolol Succinate)08/19/2025Refill [facility] [address] [place] [address] Gladis Espinosa MD Refill Request (Diltiazem Cd)08/18/2025 9:20 AM CDTAncillary Procedure [facility] [address] [place] [address] 08/18/2025Travelfrom Last 3 Months Immunizations ImmunizationAdministration DatesNext DueCOVID-19 VACCINE SPIKEVAX (MODERNA 50MCG/0.5ML) 12YO+ PFS11/26/2023OVID-19 vaccine (Moderna 100mcg/0.5mL) PF, MDV 02/15/2021,01/18/2021OVID-19 vaccine (SEC Watch-OneRiot 30mcg/0.3mL) 12YO+ BIVALENT PF, MDV1OVID-19 vaccine (Pfizer-BioNTPrecom Information Systems 30mcg/0.3mL) 12YO+ SHANTI-SUCROSE PF, MDV06Influenza, High-dose Eusxuwnbqok53/01/2025, 09/07/2024,09/01/2015Influenza, High-dose Quadrivalent Uhtpisxvfig15/24/2023, 08/26/2022,09/18/2021Influenza, TUX97912/17/2017Influenza, Inactivated AIIV4 (Age 65+ Years) Preserv Free08/12/2020Influenza, Inactivated IIV3 (Age 65+ Years) Preserv Free08/29/2018Pneumococcal Poly,23-Valent (Pneumovax)01/03/2017 Pneumococcal conj 13-Valent (Prevnar 13)11/07/2015,11/03/2015RSV, Bivalent Vaccine Reconstituted (Abrysvo 120MCG/0.5mL)07/21/2025Tdap112/05/2022,11/17/2014, 02/24/2010Zoster (Shingrix-RZV, recombinant)07/21/2025,07/06/2023 Family History Medical HistoryRelationNameCommentsLung cancerFatherGeneticOthersister breast cancer~sister htn~father lung ca~mother,2sisters hyst~son m.dCancer-breast SisterCancer-pancreaticSisterLung cancerSisterCancer-ovarianNo Family History RelationNameStatusCommentsFatherOtherSister Social History Tobacco UseTypesPacks/DayYears UsedDateSmoking Tobacco: Every DayCigarettes0.5 60.9Started: [birth year]/25/1963; Last attempted to quit: 10/04/2024Smokeless Tobacco: Never Tobacco Cessation:Ready to Q uit: Not Asked; Counseling Given: Not Answered Comments:since age 14 Alcohol UseStandard Drinks/WeekCommentsYes0 (1 standard drink = 0.6 oz pure alcohol)rarePHQ-2AnswerDate RecordedPHQ-2 TOTAL RVXQO443Social ConnectionsAnswerDate RecordedDo you often feel lonely or isolated from those around you?lcohol UseAnswerDate RecordedHow often do you have a drink containing alcohol?How many drinks containing alcohol do you have on a typical day when you are drinking?Frequency of Binge DrinkingNot on file10/11/2025Financial Resource StrainAnswerDate Recorded Difficulty of Paying Living Uosprxdk582/17/2025Difficulty of Paying Living ExpensesNot on file10/11/2025Food InsecurityAnswerDate RecordedDo you worry your food will run out before you are able to buy more?Transportation NeedsAnswerDate RecordedDoes lack of transportation keep you from medical appointments?Does lack of transportation keep you from work, meetings or getting things that you need?Housing StabilityAnswerDate Recorded What is your housing situation today?Interpersonal SafetyAnswerDate RecordedAre you being hit, kicked, pushed or yelled at (see row info)?No 10/07/2024Interpersonal Safety Abuse 12 - 18Not on file10/07/2024Interpersonal Safety Ambulatory VulnerabilityNot on file10/07/2024UtilitiesAnswerDate Recorded Do you have trouble paying for utilities (for example, heat, electricity, water, phone)?CommentsNoSex and Gender InformationValueDate Recorded Sex Assigned at CaitqVimizp62/29/2021 8:42 PM CDTLegal GadGwfgnd56/14/2013 5:40 AM CSTGender PeblkfigHzwoeb51/29/2021 8:41 PM CDTSexual OrientationNot on file Last Filed Vital Signs Vital SignReadingTime TakenCommentsBlood Qlwmxard999/8658010/11/2025 1:44 PM [employer] Gntrv432310/11/2025 1:44 PM XOPSjtlndfymtb87.4 ??C (97.6 ??F)10/20/2024 11:34 AM CSTRespiratory Lndm801512/15/2023 2:18 PM CSTOxygen Uexupdxbjo43%10/11/2025 1:44 PM CSTInhaled Oxygen Concentration--Zisnru11.5 kg (148 lb 12.8 oz)08/11/2025 12:48 PM PRDXchqko668.2 cm (5' 6.22)08/11/2025 12:48 PM CDTBody Mass Index23.86 08/11/2025 12:48 PM CDT Plan of Treatment Health MaintenanceDue DateLast DoneCommentsCOVID-19 vaccine series (2024- season), 11/26/2023, 09/03/2022, Additional history exists Low Dose CT (for lung CA) age 50-800, 04/16/2024, 04/15/2023, Additional history existsBMI (ht and wt on same day) for age 18+08/11/2026 08/11/2025, 08/07/2024, 06/26/2023, Additional history existsMedicare Wellness for age 65+, 08/07/2024, 06/26/2023, Additional history existsDepression screening for age 12+/, 08/11/2025, 08/10/2024, Additional history existsTetanus /09/2023, 11/17/2014, 02/24/2010Pneumococcal series for age 50+Vliimskme02/09/2017, 11/07/2015, 11/03/2015Hepatitis C screening for age 18-02Xouoobpfz06/28/2021 DEXA/DXA scan for age 65+Eapkoyeqq08/31/2023RSV vaccine for adults or Qyashlvcx44/27/2025Zoster (shingles) series for age 50+Oeqqojsii00/27/2025, 07/06/2023Influenza IwuqoulVfyimonue56/01/2025, 09/07/2024, 08/12/2020, Additional history existsHepatitis B series for 19+Aged OutNo longer eligible based on patient's age to complete this topic Medical Devices ImplantedTypeAreaManufacturerDevice IdentifierShelf Expiration DateModel / Serial / LotScrew Neuro 4mm Matrixneuro Slf Drill Titnm - [id number] Implanted:Qty: 5 on 07/14/2020 by Nate Lozano MD at [id number]# / / Description:All screws removedScrew Neuro 4mm Matrixneuro Slf Drill Titnm - [id number] Implanted:Qty: 1 on 09/14/2020 by Nate Lozano MD at [id number]# / / Description:All screws [id number] 3x7cm Alloderm Thick Human Implanted:Qty: 1 on 01/24/2021 by Nate Lozano MD at [facility] Explanted:at [facility] (Quantity not on file)Right: [id number]# / [id number] / Dura Neuro 5ml Duraseal - [id number] Implanted:Qty: 1 on 01/24/2021 [facility]: CraniumInte[employer]-2050 / / [id number]:See implant sheetDura Neuro 2x2in Durepair Sut - [id number] Implanted:Qty: 1 on 01/24/2021 [facility] CraniumMedtronic Surgery Cxlpgkxpfoey55/30/[id number] / / [id number] Neuro 4mm Matrixneuro Slf Drill Titnm - [id number] Implanted:Qty: 8 on 01/24/2021 by Nate Lozano MD at [id number] / / ExplantedTypeAreaManufacturerDevice IdentifierShelf Expiration DateModel / Serial / LotPlate Neuro [id number] Synthes Malleable Titnm - [id number] Implanted:Qty: 1 on 07/14/2020 by Nate Lozano MD at [facility] Explanted:Qty: 1 on 01/24/2021 by [facility] HospitalCraniumJ Amira Mullen [id number]# / / Procedures Procedure NamePriorityDate/TimeAssociated DiagnosisCommentsXR MAMMO HEIDI BILAT PNFOHMQhktrvu87/24/2025 9:28 AM CDT Visit for screening mammogram CT CHEST SCREENING LOW DOSE WO DLBNZLOAWjmvydr04/29/2025 9:35 AM CDT Encounter for screening for lung cancer Cigarette smoker XR DXA BONE DENSITY 1 SITE AXIAL AND 1 SITE NEVTOQHJUGMqqsjgt03/31/2023 10:35 AM CDT Menopause ANTI LVJRsayodr20/28/2021 1:18 PM CDT Need for hepatitis C screening test from Last 3 Months or Most Recently Relevant to Health Maintenance Results * XR MAMMO HEIDI BILAT SCREEN (08/18/2025 9:28 AM CDT)Anatomical RegionLaterality ModalityBREASTS, Breast Left, Breast RightBilateralMammographySpecimen (Source)Anatomical Location / LateralityCollection Method / VolumeCollection TimeReceived Time Impressions 08/20/2025 2:43 PM CDT There is no radiographic evidence for malignancy. Recommend annual mammograms. MAMMOGRAM ASSESSMENT: ??ACR 1 Negative PATIENTS: You will also receive a letter with your examination results in an easy to read format. ??If you have questions about your results, please contact your referring provider. Narrative 08/20/2025 2:43 PM CDT For Patients: As a result of the 21st Century Cures Act, medical imaging exams and procedure reports are released immediately into your electronic medical record. You may view this report before your referring provider. If you have questions, please contact your health care provider. XR MAMMO HEIDI BILAT SCREEN [[id number]] CLINICAL HISTORY: ??This is an asymptomatic 75 y.o. patient. INDICATION FOR EXAM: Mammogram Screening. TECHNIQUE: CC and MLO views were obtained. ??This study was evaluated with the assistance of Computer-Aided Detection. Breast Tomosynthesis was used in interpretation. COMPARISON FILM: Yes 06/17/24 [facility] 05/30/22 [facility] FINDINGS: ??There are scattered areas of fibroglandular density. There are no dominant masses, suspicious micro calcifications or areas of architectural distortion. Authorizing ProviderResult TypeResult StatusGarnet Health Medical Centernayan Espinosa MDMAMMOFinal Result * CT CHEST SCREENING LOW DOSE WO CONTRAST (04/22/2025 9:35 AM CDT)Anatomical RegionLateralityModalityComputed TomographySpecimen (Source)Anatomical Location / LateralityCollection Method / VolumeCollection TimeReceived Time Impressions 04/26/2025 7:54 AM CDT Lung-RADS Category 1: Negative Low-dose screening chest CT 12 months is suggested. Please note that all CT scans at this facility use dose modulation, iterative reconstruction and/or weight-based dosing when appropriate to reduce radiation dose to as low as reasonably achievable. ?? Dictated by: Jerod Venegas MD @04/23/2025 3:58:05 PM CRL:rcd Narrative 04/26/2025 7:54 AM CDT For Patients: As a result of the Cures Act, medical imaging exams and procedure reports are released immediately into your electronic medical record. ??You may view this report before your referring provider. ?? If you have questions, please contact your health care provider. CT CHEST SCREENING LOW-DOSE WITHOUT CONTRAST, 04/22/2025 INDICATION: Low-dose screening chest CT. COMPARISON: Low-dose screening chest CT December 14, 2019, April 13, 2022, April 15, 2023 and April 16, 2024. TECHNIQUE: ??Low-dose lung cancer screening noncontrast CT chest. Dose reduction techniques were used. ?? FINDINGS: Chronic elevation of LEFT hemidiaphragm. Coronary artery calcifications. Diffuse pulmonary emphysema with bullous disease. No abnormal intrapulmonary nodular densities. No abnormal mediastinal or hilar lymphadenopathy. No evidence of pleural effusion or chest wall pathology. Limited CT through the upper abdomen is unremarkable. Authorizing ProviderResult TypeResult StatusGladis Espinosa MDCTFinal Result * (ABNORMAL) XR DXA BONE DENSITY 1 SITE AXIAL AND 1 SITE PERIPHERAL (04/24/2023 10:35 AM CDT)Anatomical RegionLateralityModalityLUMBAR SPINEOtherSpecimen (Source)Anatomical Location / LateralityCollection Method / VolumeCollection TimeReceived Time Impressions 04/26/2023 4:55 PM CDT Osteopenia. RECOMMENDATIONS: [...] recommended in 3-5 years. Rosalina Sandhu PA-C [facility] 04/26/2023 Narrative 04/26/2023 4:55 PM CDT For Patients: Results are automatically released to your [facility] ([employer]) account once available, in compliance with federal regulations. This means that you may see your results before your provider has had a chance to review them. Please allow 2-3 business days for your provider to comment on the results. XR DXA Bone Mineral Density (BMD) EXAM LOCATION: [address] [address] PATIENT NAME: Nena Styles DATE OF : [...] two scanners are made by the same platform loader. PROCEDURE: Dual-energy x-ray absorptiometry performed with routine [...] Osteoporosis: T-score at or below -2.5 SD Authorizing ProviderResult TypeResult StatusAmelienayan Bruno Espinosa MDDEXAFinal Result * ANTI HCV (09/21/2021 1:18 PM CDT)ComponentValueRef RangeTest MethodAnalysis TimePerformed AtPathologist SignatureHEPATITIS C ANTIBODYNon-Reactive Non-Stxknlxx18/28/2021 6:13 PM CDTALMAHNOMEN [facility] Comment:Antibodies to HCV not detected; does not exclude the possibility of exposure to HCV.Specimen (Source)Anatomical Location / LateralityCollection Method / VolumeCollection TimeReceived TimeBloodBLOOD SPECIMEN / Unknown Venipuncture / Pbrfuno9809/21/2021 1:18 PM CDT1 1:18 PM CDT Narrative Authorizing ProviderResult TypeResult StatusAmelienayan Wisevielka Espinosa MDSEND OUTSFinal ResultPerforming OrganizationAddressCity/State/ZIP CodePhone Number [facility] [address] [place] [address], from Last 3 Months or Most Recently Relevant to Health Maintenance Insurance Advance Directives TypeDate RecordedPatient RepresentativeExplanationHealthcare Wlcymjrer19/22/2019 12:00 AM10/09/2019 * Full Code (Latest Code Status on File) Date ActivatedDate IeelcckvixhYqckvypj68/14/2024 7:22 AM10/15/2024 7:42 PM QuestionAnswerCommentsCode Status Discussion:* Reviewed Preferences * Full Code Date ActivatedDate EcgoozszdktBccwdbpa87/13/2024 12:55 PM10/08/2024 7:22 AM QuestionAnswerCommentsCode Status Discussion:* Unable to Assess Preferences, Provider to review later * Full Code Date ActivatedDate InactivatedComments01/24/2021 6:24 AM01/29/2021 7:44 PMQuestion AnswerCommentsCode Status Discussion:* Not Discussed * Full Code Date ActivatedDate IgzoevltlajPzzcqywz83/21/2020 12:13 PM10 5:58 PM QuestionAnswerCommentsCode Status Discussion:* Not Discussed * Full Code Date ActivatedDate InactivatedComments07/12/2020 9:40 PM07/16/2020 8:24 PMQuestion AnswerCommentsCode Status Discussion:* Not Discussed Care Teams Team MemberRelationshipSpecialtyStart DateEnd Date Gladis Espinosa MD [address] [place] [address] PCP - GeneralFamily Lbkeohiq24/3/18
--- NOTE | 2025-11-16 19:49 | ED.GENADULT ---
HPI - General Adult General Chief complaint: Arrhythmia/Palpitations Stated complaint: Rapid pulse, dizzy spell, UTI Time Seen by Provider: 11/16/25 19:48 History of Present Illness HPI narrative: CC: Lightheaded, Irregular Pulse , Frequency w/ Urination at around 1830, pt. became lightheaded. checked pulse and it was fast and irregular. also c/o frequency. denies chest pain, n/v, fevers. -Date of Onset of Symptoms 10/26 75-year-old woman presenting to the emergency department with concern of feeling lightheaded with fast heartbeat. It seemed irregular as well. She is not experiencing chest pain maybe a little pressure. This degree of symptoms sounds to be somewhat new. She does however have a history of PSVT and looks to have been noted to have a prolonged QT interval in the past. Takes diltiazem. Otherwise Nena also as of this evening was noting some urinary frequency. She is not having abdominal pain otherwise. History also of anemia and orthostatic hypotension. Upon arrival is noted to be rather tachycardic. Related Data Home Medications ?Medication ?Instructions ?Recorded ?Confirmed albuterol sulfate 90 mcg/actuation 2 puff inhalation Q4H PRN 08/30/22 03/03/25 aerosol inhaler diltiazem HCl 360 mg 360 mg PO DAILY 08/30/22 03/03/25 capsule,extended release 24 hr nitroglycerin 0.4 mg sublingual 0.4 mg sublingual Q5M PRN 08/30/22 03/03/25 tablet sertraline 100 mg tablet 150 mg PO DAILY 08/30/22 03/03/25 cholecalciferol (vitamin D3) 50 50 mcg PO DAILY 12/19/22 03/03/25 mcg (2,000 unit) capsule lisinopril 30 mg tablet 30 mg PO DAILY 07/14/24 03/03/25 metoprolol succinate 25 mg 25 mg PO DAILY 07/14/24 03/03/25 tablet,extended release 24 hr tiotropium 2.5 mcg-olodaterol 2.5 2 puff inhalation DAILY 07/14/24 03/03/25 mcg/actuation mist for inhalation (Stiolto Respimat) atorvastatin 80 mg tablet 80 mg PO HS 10/06/24 03/03/25 Allergies Allergy/AdvReac Type Severity Reaction Status Date / Time codeine Allergy Mild Hives Verified 03/03/25 11:04 Iodinated Contrast Media Allergy Mild Fever Verified 03/03/25 11:04 Penicillins Allergy Mild Hives Verified 03/03/25 11:04 Review of Systems Status of ROS: Reports: 6 or more systems reviewed and unremarkable except as noted in History and below [facility] Medical History Hypoxia ?R09.02 - Hypoxemia (ICD-10) Cellulitis and abscess of face ?L03.211 - Cellulitis of face (ICD-10) ?L02.01 - Cutaneous abscess of face (ICD-10) Diverticular hemorrhage ?K57.31 - Diverticulosis of large intestine without perforation or abscess with bleeding (ICD-10) Brain abscess ?G06.0 - Intracranial abscess and granuloma (ICD-10) Cholesteatoma ?H71.90 - Unspecified cholesteatoma, unspecified ear (ICD-10) Mastoiditis of right side ?H70.91 - Unspecified mastoiditis, right ear (ICD-10) Internal hemorrhoids ?K64.8 - Other hemorrhoids (ICD-10) Inguinal hernia ?K40.90 - Unilateral inguinal hernia, without obstruction or gangrene, not specified as recurrent (ICD-10) Adrenal adenoma ?D35.00 - Benign neoplasm of unspecified adrenal gland (ICD-10) Prolonged QT interval ?R94.31 - Abnormal electrocardiogram [ECG] [EKG] (ICD-10) Diverticulosis ?K57.90 - Diverticulosis of intestine, part unspecified, without perforation or abscess without bleeding (ICD-10) Smoking ?F17.200 - Nicotine dependence, unspecified, uncomplicated (ICD-10) COPD (chronic obstructive pulmonary disease) ?J44.9 - Chronic obstructive pulmonary disease, unspecified (ICD-10) History of paroxysmal supraventricular tachycardia ?Z86.79 - Personal history of other diseases of the circulatory system (ICD-10) Gastroesophageal reflux ?K21.9 - Gastro-esophageal reflux disease without esophagitis (ICD-10) Depression ?F32.A - Depression, unspecified (ICD-10) Hypertension ?I10 - Essential (primary) hypertension (ICD-10) Hyperlipidemia ?E78.5 - Hyperlipidemia, unspecified (ICD-10) Surgical History History of phacoemulsification of cataract of both eyes with intraocular lens implantation ?Z98.41 - Cataract extraction status, right eye (ICD-10) ?Z98.42 - Cataract extraction status, left eye (ICD-10) ?Z96.1 - Presence of intraocular lens (ICD-10) History of inguinal hernia repair ?Z98.890 - Other specified postprocedural states (ICD-10) ?Z87.19 - Personal history of other diseases of the digestive system (ICD-10) History of tonsillectomy and adenoidectomy ?Z90.89 - Acquired absence of other organs (ICD-10) History of right knee joint replacement (04/07/19) ?Z96.651 - Presence of right artificial knee joint (ICD-10) History of colonoscopy ?Z98.890 - Other specified postprocedural states (ICD-10) History of bilateral hip arthroplasty ?Z96.643 - Presence of artificial hip joint, bilateral (ICD-10) History of right mastoidectomy ?Z90.89 - Acquired absence of other organs (ICD-10) History of appendectomy ?Z90.49 - Acquired absence of other specified parts of digestive tract (ICD-10) History of tubal ligation ?Z98.51 - Tubal ligation status (ICD-10) Status post craniotomy ?Z98.890 - Other specified postprocedural states (ICD-10) Family History Sister Breast cancer Pancreatic cancer Lung cancer Father Lung cancer Social History Narrative: She lives alone at the [facility]. She does egg needs her daughter Radha antoine power of assistant prosecuting attorney. Code status is full for witnessed arrest. She is a current smoker. She drinks alcohol 2 or 3 times per year. What is your current living situation?: I presently have a place to live Problems where you live: no known problems Problems where you live details: NONE In the past 12 months, utilities in danger of being shut off: no In past 12 months, lack of transportation kept you from medical appts, meetings, work, or getting things needed for daily living: no In the past 12 mos, have been you worried that your food would run out before you had money to buy more?: never true In the past 12 mos, the food you bought just didn't last and you didn't have money to buy more?: never true Highest level of school completed/degree received: Bachelor's degree Smoking Status: Current every day smoker What tobacco products do you use: cigarettes Smoking packs per day: 0.5 Smoking cigarettes per day: 10.0 Years smoked: 60 Smoking pack-years: 30.00 Do you use any of these nicotine containing products: None Second hand tobacco smoke exposure: Yes How often do you have a drink containing alcohol: monthly or less Alcohol type: wine How many standard drinks containing alcohol do you have on a typical day: 1 or 2 How often do you have six or more drinks on one occasion: Never AUDIT-C Alcohol total score: 1 Non-prescribed substance use: denies use Caffeine: Yes How often does anyone, including family, friends and others, physically hurt you: never How often does anyone, including family, friends and others, insult or talk down to you: never How often does anyone, including family, friends and others, threaten you with harm: never How often does anyone, including family, friends and others, scream or curse at you: never service: No Exam Narrative: Exam Narrative: Pleasant. Quite alert. Breathing easily. Lungs are clear. Heart is tachycardic. No JVD appreciated. Cranial nerves 2-12 intact. Abdomen is soft nontender. Extremities are well perfused without edema. Const: Vital Signs, click to edit/add: Vital Signs - 24 hr 11/16/25 19:38 11/16/25 20:11 11/16/25 20:14 Temperature 98.0 F Pulse Rate 81 Pulse Rate [Right Pulse Oximeter] 180 H Respiratory Rate 18 22 Blood Pressure Blood Pressure [Ri ght Upper Arm] 128/91 H Pulse Oximetry 96 94 92 Oxygen Delivery Me thod Room Air 11/16/25 20:15 11/16/25 20:21 11/16/25 20:30 Temperature Pulse Rate 80 80 Pulse Rate [Right Pulse Oximeter] Respiratory Rate 23 20 10 L Blood Pressure 116/72 Blood Pressure [Ri ght Upper Arm] Pulse Oximetry 93 92 Oxygen Delivery Me thod 11/16/25 20:41 11/16/25 20:45 11/16/25 21:00 Temperature Pulse Rate 81 77 72 Pulse Rate [Right Pulse Oximeter] Respiratory Rate 19 20 25 H Blood Pressure 119/76 Blood Pressure [Ri ght Upper Arm] Pulse Oximetry 90 91 90 Oxygen Delivery Me thod 11/16/25 21:02 11/16/25 21:15 11/16/25 21:21 Temperature Pulse Rate 73 70 68 Pulse Rate [Right Pulse Oximeter] Respiratory Rate 9 L 14 18 Blood Pressure 108/75 103/69 Blood Pressure [Ri ght Upper Arm] Pulse Oximetry 91 90 91 Oxygen Delivery Me thod 11/16/25 21:30 11/16/25 21:43 11/16/25 21:45 Temperature Pulse Rate 68 67 65 Pulse Rate [Right Pulse Oximeter] Respiratory Rate 15 21 16 Blood Pressure 136/79 Blood Pressure [Ri ght Upper Arm] Pulse Oximetry 91 94 96 Oxygen Delivery Me thod 11/16/25 22:00 11/16/25 22:15 11/16/25 22:30 Temperature Pulse Rate 63 62 62 Pulse Rate [Right Pulse Oximeter] Respiratory Rate 19 20 19 Blood Pressure Blood Pressure [Ri ght Upper Arm] Pulse Oximetry 92 93 92 Oxygen Delivery Me thod Documenting provider has reviewed patient's vital signs: yes Course Vital Signs Vital signs: Initial Vital Signs Temperature 98.0 F 11/16/25 19:38 Temperature Source Temporal Artery Scan 11/16/25 19:38 Pulse Rate 180 H 11/16/25 19:38 Respiratory Rate 18 11/16/25 19:38 Blood Pressure 128/91 H 11/16/25 19:38 Blood Pressure Mean 103 11/16/25 19:38 Blood Pressure Position Sitting 11/16/25 19:38 Pulse Oximetry 96 11/16/25 19:38 Oxygen Delivery Method Room Air 11/16/25 19:38 Vital Signs Temperature 98.0 F 11/16/25 19:38 Pulse Rate 180 H 11/16/25 19:38 Respiratory Rate 18 11/16/25 19:38 Blood Pressure 128/91 H 11/16/25 19:38 Pulse Oximetry 96 11/16/25 19:38 Oxygen Delivery Method Room Air 11/16/25 19:38 Temperature 98.0 F 11/16/25 19:38 Pulse Rate 62 11/16/25 22:30 Respiratory Rate 19 11/16/25 22:30 Blood Pressure 136/79 11/16/25 21:43 Pulse Oximetry 92 11/16/25 22:30 Oxygen Delivery Method Room Air 11/16/25 19:38 Medications Administered Medications: Discontinued Medications Generic Name Dose Route Start Last Admin Trade Name David PRN Reason Stop Dose Admin Adenosine 6 mg 11/16/25 19:56 11/16/25 19:58 Adenosine 6 Mg/2ml Inj IVP 11/16/25 19:57 6 mg ONCE ONE Administration Diltiazem HCl 10 mg 11/16/25 20:04 11/16/25 20:17 Diltiazem 5 Mg/Ml Inj IVP 11/16/25 20:05 10 mg ONCE ONE Administration Sodium Chloride 1,000 mls @ 1,000 mls/hr 11/16/25 19:56 11/16/25 21:53 0.9 % Sodium Chloride 1000 Ml IV 11/16/25 20:55 Infused .Q1H ONE Infusion Ceftriaxone Sodium 1 gm/ 100 mls @ 200 mls/hr 11/16/25 20:59 11/16/25 21:53 Sodium Chloride IVPB 11/16/25 21:28 Infused ONCE ONE Infusion Magnesium Sulfate/Dextrose 1 gm in 100 mls @ 100 mls/hr 11/16/25 21:24 11/16/25 22:52 Magnesium Sulf 1 G/100 Ml IVPB 11/16/25 22:23 Infused ONCE ONE Infusion Medical Decision Making MDM Narrative Medical decision making narrative: Upon arrival is noted to be quite tachycardic. Review of EKG shows a rapid SVT. She is mildly symptomatic and I think would benefit from cardioversion with adenosine. Initiating IV and fluid bolus and checking chemistries. On lunchroom monitor and oximetry. Informed consent obtained and given 6 mg of adenosine. This did result in return to sinus rhythm. Repeat EKG as below now with heart rate in the 80s. Symptoms are improved as well. Was also given a dose of diltiazem to hold rate. Chemistries notable for low-normal magnesium. Was given a g of magnesium infusion over. Monitoring in the emergency department. Remained stable during this time and in normal sinus. Rate controlled. Urinalysis looks to show infection. Is given a g of Rocephin. Do not know if this UTI is what may have contributed to events today. See patient discharge plan for further discussion Stay well-hydrated. If this fast rhythm recurs, consider bearing down as described. If not improved in an hour or UR feeling particularly lightheaded or dizzy, would return to the emergency department. Continue to take your diltiazem. You received a dose of Rocephin here in the emergency department along with normal saline and a dose of magnesium. I am prescribing cephalexin from [facility] for what appears to be urinary tract infection. We will be culturing your urine and call you if any changes need to be made. Do what you can to quit smoking :) Lab Data Lab results reviewed: Yes I reviewed the patient's lab results Labs: Lab Results 11/16/25 11/16/25 11/16/25 Range/Units 19:50 19:51 20:25 WBC 8.13 (4.50-11.00) K/uL RBC 4.73 (4.00-5.20) m/uL Hgb 15.7 (12.0-16.0) gm/dL Hct 40.2 (33.0-51.0) % MCV 85 (80-100) fL MCH 28 (26-34) pg MCHC 33 (32-36) gm/dL RDW Coeff of Luiz 13.9 (11.5-15.5) % Plt Count 200 (140-440) K/uL Neut % (Auto) 81.4 H (42.0-72.0) % Lymph % (Auto) 12.2 L (20-44) % [place] % (Auto) 4.9 (0.0-11.0) % Eos % (Auto) 0.9 (0.0-7.0) % Baso % (Auto) 0.4 (0.0-3.0) % Neut # (Auto) 6.60 (1.7-7.0) K/uL Lymph # (Auto) 1.00 (0.90-2.90) K/uL [place] # (Auto) 0.40 (0.00-0.90) K/UL Eos # (Auto) 0.07 (0.00-0.50) K/uL Baso # (Auto) 0.03 (0.00-0.30) K/uL Abs Immat Gran (auto) 0.02 (0.00-0.30) K/uL Imm/Tot Granulo (auto) 0.2 % Sodium 135 (135-149) mmol/L Potassium 3.7 (3.6-5.1) mmol/L Chloride 104 (96-114) mmol/L Carbon Dioxide 20 (20-32) mmol/L Anion Gap 11 (7-15) mEq/L BUN 12 (7-30) mg/dL Creatinine 0.8 (0.5-1.5) mg/dL Estimated Creat Clear 47.53 Estimated GFR 76 ml/min Glucose 218 H (60-115) mg/dL Calcium 9.2 (8.4-10.6) mg/dL Magnesium 1.9 (1.5-2.6) mg/dL C-Reactive Protein 1.0 (0.5-1.0) mg/dL Urine Color Yellow (Yellow) Urine Appearance Cloudy A (Clear) Urine pH 6.5 (5.0-8.5) Ur Specific [place] >= 1.030 (1.000-1.030) Urine Protein 3+ A (Negative) Urine Glucose (UA) Negative (Negative) Urine Ketones Negative (Negative) Urine Blood 3+ A (Negative) Urine Nitrite Positive A (Negative) Urine Bilirubin Negative (Negative) Urine Urobilinogen 0.2 (0.2-1.0) Ur Leukocyte Esterase 3+ A (Negative) Urine RBC >100 A (0-2) Urine WBC >100 A (0-5) Urine WBC Clumps Moderate A (None) Ur Squamous Epith Cells None (None-Few) Urine Bacteria Many A (None) Lab Acknowledgement Test Added Test Added 11/16/25 Range/Units 20:39 WBC (4.50-11.00) K/uL RBC (4.00-5.20) m/uL Hgb (12.0-16.0) gm/dL Hct (33.0-51.0) % MCV (80-100) fL MCH (26-34) pg MCHC (32-36) gm/dL RDW Coeff of Luiz (11.5-15.5) % Plt Count (140-440) K/uL Neut % (Auto) (42.0-72.0) % Lymph % (Auto) (20-44) % [place] % (Auto) (0.0-11.0) % Eos % (Auto) (0.0-7.0) % Baso % (Auto) (0.0-3.0) % Neut # (Auto) (1.7-7.0) K/uL Lymph # (Auto) (0.90-2.90) K/uL [place] # (Auto) (0.00-0.90) K/UL Eos # (Auto) (0.00-0.50) K/uL Baso # (Auto) (0.00-0.30) K/uL Abs Immat Gran (auto) (0.00-0.30) K/uL Imm/Tot Granulo (auto) % Sodium (135-149) mmol/L Potassium (3.6-5.1) mmol/L Chloride (96-114) mmol/L Carbon Dioxide (20-32) mmol/L Anion Gap (7-15) mEq/L BUN (7-30) mg/dL Creatinine (0.5-1.5) mg/dL Estimated Creat Clear Estimated GFR ml/min Glucose (60-115) mg/dL Calcium (8.4-10.6) mg/dL Magnesium (1.5-2.6) mg/dL C-Reactive Protein (0.5-1.0) mg/dL Urine Color (Yellow) Urine Appearance (Clear) Urine pH (5.0-8.5) Ur Specific [place] (1.000-1.030) Urine Protein (Negative) Urine Glucose (UA) (Negative) Urine Ketones (Negative) Urine Blood (Negative) Urine Nitrite (Negative) Urine Bilirubin (Negative) Urine Urobilinogen (0.2-1.0) Ur Leukocyte Esterase (Negative) Urine RBC (0-2) Urine WBC (0-5) Urine WBC Clumps (None) Ur Squamous Epith Cells (None-Few) Urine Bacteria (None) Lab Acknowledgement Test Added ECG Data Attestation: I personally reviewed and interpreted this ECG as follows: (EKG 1. Supraventricular tachycardia at a rate of 171 EKG 2. After adenosine with normal sinus rhythm at a rate 86) Discharge Plan Discharge Clinical Impression: SVT (supraventricular tachycardia), Acute UTI Patient Disposition: Home w/ Parent or Adult Condition: Improved Additional Instructions: Stay well-hydrated. If this fast rhythm recurs, consider bearing down as described. If not improved in an hour or UR feeling particularly lightheaded or dizzy, would return to the emergency department. Continue to take your diltiazem. You received a dose of Rocephin here in the emergency department along with normal saline and a dose of magnesium. I am prescribing cephalexin from [facility] for what appears to be urinary tract infection. We will be culturing your urine and call you if any changes need to be made. Do what you can to quit smoking :) Prescriptions: No Action diltiazem HCl 360 mg capsule,extended release 24hr 360 mg PO DAILY nitroglycerin 0.4 mg tablet, sublingual 0.4 mg sublingual Q5M PRN sertraline 100 mg tablet 150 mg PO DAILY albuterol sulfate 90 mcg/actuation HFA aerosol inhaler 2 puff inhalation Q4H PRN Stiolto Respimat 2.5-2.5 mcg/actuation mist 2 puff inhalation DAILY metoprolol succinate 25 mg tablet extended release 24 hr 25 mg PO DAILY lisinopril 30 mg tablet 30 mg PO DAILY cholecalciferol (vitamin D3) 50 mcg (2,000 unit) capsule 50 mcg PO DAILY atorvastatin 80 mg tablet 80 mg PO HS Follow Up/Referrals: Gladis Espinosa MD [Primary Care Provider, Family Practice] Stand Alone Forms: [employer] Info Instructions
[2025-11-16 19:56] LABS: Appearance Urine Cloudy (Clear)
[2025-11-16] MEDS: ADENOSINE 6 MG/2ML INJ IVP (19:58)
[2025-11-16 20:12] LABS: Hemoglobin* 15.7 gm/dL (12.0-16.0)
[2025-11-16] MEDS: dilTIAZem 5 MG/ML inj 10 MG IVP (20:17)
[2025-11-16 20:26] LABS: Chloride* 104 mmol/L (96-114); Potassium* 3.7 mmol/L (3.6-5.1); Sodium* 135 mmol/L (135-149)
[2025-11-16 20:29] LABS: Anion Gap 11 mEq/L (7-15); Blood Urea Nitrogen* 12 mg/dL (7-30); Calcium* 9.2 mg/dL (8.4-10.6); Carbon Dioxide* 20 mmol/L (20-32); Creatinine* 0.8 mg/dL (0.5-1.5); Est. Creatinine Clearance* 47.53; Estimated Glomerular Filt Rate 76 ml/min; Glucose* 218 mg/dL (60-115)
--- OUTSIDE RECORDS SUMMARY | 2025-11-16 20:52 | XMS_ITS | Patient Health Record ---
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) Added On:07/13/2020 Active confirmed Persistence/recurrence noted on MRI in wound bed; now s/p more definitive resection and more complex reconstruction, doing wellProblemCholesterol granuloma of right middle ear ([id number])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) Added On:07/26/2020 ActiveconfirmedProblemPostoperative wound abscess (31628186)Postoperative wound abscess (T81.49XA) Added On:07/27/2020 ActiveconfirmedContinues to present with coliform bacteria Plan Of Treatment No Information Insurance Providers Payer Name Payer Address Payer Phone Subscriber Number Group Number Insured Name Patient Relationship to Insured Coverage Start Date Coverage End Date [employer] [address] [address] [address] [place], [place] [id number], ElaineSelf - patient is the [facility] [address] [place] [id number], ElaineSelf - patient is the insured Medical [...]
[2025-11-16] MEDS: cefTRIAXone 1 GM in 0.9 % SODIUM CHLORIDE Mini-bag 100 ML IVPB (21:11)
[2025-11-16 21:40] LABS: Hematocrit* 40.2 % (33.0-51.0); Immature Granulocytes Abs Auto 0.02 K/uL (0.00-0.30); Immature Granulocytes Pct Auto 0.2 %; Mean Corpuscular HGB Conc 33 gm/dL (32-36); Mean Corpuscular Hemoglobin 28 pg (26-34); Mean Corpuscular Volume 85 fL (80-100); RDW Coefficient of Variation % 13.9 % (11.5-15.5); Red Blood Count* 4.73 m/uL (4.00-5.20); White Blood Count* 8.13 K/uL (4.50-11.00)
[2025-11-16] MEDS: MAGNESIUM SULF 1 G/100 ML 1 GM/100 ML PIGGYBACK IVPB (21:44)
[2025-11-16 21:51] LABS: Lymphocytes Absolute Auto 1.00 K/uL (0.90-2.90); Slide Review Reflex No
== END 2025-11-16 22:58 | disposition home or self-care (01) ==
PROVIDERS: Emergency Provider Family Medicine; PCP Family Medicine
DX: I47.10 Supraventricular tachycardia, unspecified (principal); N39.0 Urinary tract infection, site not specified; F17.210 Nicotine dependence, cigarettes, uncomplicated
CPT/HCPCS: 36415; 80048; 81001; 83735; 85018; 85025; 86140; 87086; 93005; 94761; 96365; 96366; 96375; 99284; 99285; 99291; J0153; J0696; J3475; J7030